=== PATIENT | female | born 1950 | race Caucasian/White ===

== ENCOUNTER → 2018-05-19 07:51 | Outpatient (CLI) | payer MEDICARE, MEDICAID, SELFPAY ==
--- NOTE | 2018-05-19 07:53 | ADU_ITS ---
Reason For Study: Abnormal Peripheral Pulse Right Velocities Left Velocities Ext. Iliac Artery, dist = 114 cm./sec. Ext Iliac Artery, dist = 80 cm./sec. Common Femoral Artery, dist = 107 cm./sec. Common Femoral Artery, dist = 110 cm./sec. Supf Femoral Artery, prox = 76 cm./sec. Supf. Femoral Artery, prox = 113 cm./sec. Supf Femoral Artery, mid = 58 cm./sec. Supf. Femoral Artery, mid = 70 cm./sec. Supf Femoral Artery, dist. = 46 cm./sec. Supf. Femoral Artery, dist = 51 cm./sec. Profunda Femoral Artery = 89 cm./sec. Profunda Femoral Artery = 61 cm./sec. Popliteal Artery, prox. = 41 cm./sec. Popliteal Artery, proximal, = 42 cm./sec. Popliteal Artery, mid = 33 cm./sec. Popliteal Artery, mid = 41 cm./sec. Popliteal Artery, dist = 52 cm./sec. Popliteal Artery, distal = 44 cm./sec. Post. Tibial Artery, prox = 51 cm./sec. Post. Tibial Artery, prox = 47 cm./sec. Post. Tibial Artery, mid = 59 cm./sec. Post Tibial Artery, mid = 48 cm./sec. Post. Tibial Artery, dist = 48 cm./sec. Post Tibial Artery, dist. = 49 cm./sec. Peroneal Artery, prox = 35 cm./sec. Peroneal Artery, prox = 31 cm./sec. Peroneal Artery, mid = 40 cm./sec. Peroneal Artery, mid = 45 cm./sec. Peroneal Artery,dist = 36 cm./sec. Peroneal Artery,dist. = 39 cm./sec. Ant. Tibial Artery, prox = 51 cm./sec. Ant.Tibial Artery, prox = 43 cm./sec. Ant. Tibial Artery, mid = 46 cm./sec. Ant Tibial Artery, mid = 44 cm./sec. Ant. Tibial Artery, dist = 41 cm./sec. Ant. Tibial Artery, distal = 34 cm./sec. Rt DPA: 49cm/s. Lt DPA: 66 cm/s. Procedure Exam performed in department. Interpretation Summary Normal arterial flow bilateral lower extremities with no evidence for popliteal artery aneurysms. Minimal smooth calcific plague right common femoral artery. Minimal irregular plague left commom femoral artery. Right popliteal 0.5 x 0.5 cm Left popliteal 0.6 x 0.6cm Ordering Physician: Duane Torres Referring Physician: Sammi Castillo Performed By: Shivani Spring, [place], RVT
--- NOTE | 2018-05-19 07:53 | US_ITS ---
STUDY: ULTRASOUND OF THE FEMALE PELVIS - COMPLETE REASON FOR EXAM: Female, 67 years old. Adnexal mass. Left pelvic pain. Abnormal CT. LMP: Unknown. TECHNIQUE: Transabdominal and Transvaginal. TECHNICAL QUALITY: Adequate. COMPARISON: Comparison studies are not available.. FINDINGS: The uterus is anteverted and is in a midline position. The uterus measures 5.4 x 3.9 x 1.9 cm. Normal uterine cervix. The endometrium measures 5 mm in thickness, and is fluid distended. There is a 0.3 cm polyp. There is no demonstrated myometrial mass. I.U.D. - The patient does not have an I.U.D. The right ovary is non-visualized. There is not a normal left ovary seen. There is 6.3 x 3.2 x 3.1 cm heterogeneous hypoechoic structure in the left adnexal region with ovarian mass or abnormal bowel and peridiverticular abscess . There is no fluid in the cul-de-sac. The visualized bladder is unremarkable. IMPRESSION: Abnormal left adnexal structure with possible ovarian mass versus abnormal bowel and peridiverticular abscess. CT scan recommended. Endometrial polyp. Electronically Signed: Reji Rayo MD at 18:00 EDT , Service support , STUDY: ULTRASOUND OF THE FEMALE PELVIS - COMPLETE REASON FOR EXAM: Female, 67 years old. Adnexal mass. Left pelvic pain. Abnormal CT. LMP: Unknown. TECHNIQUE: Transabdominal and Transvaginal. TECHNICAL QUALITY: Adequate. COMPARISON: Comparison studies are not available.. FINDINGS: The uterus is anteverted and is in a midline position. The uterus measures 5.4 x 3.9 x 1.9 cm. Normal uterine cervix. The endometrium measures 5 mm in thickness, and is fluid distended. There is a 0.3 cm polyp. There is no demonstrated myometrial mass. I.U.D. - The patient does not have an I.U.D. The right ovary is non-visualized. There is not a normal left ovary seen. There is 6.3 x 3.2 x 3.1 cm heterogeneous hypoechoic structure in the left adnexal region with ovarian mass or abnormal bowel and peridiverticular abscess . There is no fluid in the cul-de-sac. The visualized bladder is unremarkable. US/Pelvic (Non )
--- NOTE | 2018-05-19 10:36 | US_ITS ---
STUDY: ULTRASOUND OF THE FEMALE PELVIS - COMPLETE REASON FOR EXAM: Female, 67 years old. Adnexal mass. Left pelvic pain. Abnormal CT. LMP: Unknown. TECHNIQUE: Transabdominal and Transvaginal. TECHNICAL QUALITY: Adequate. COMPARISON: Comparison studies are not available.. FINDINGS: The uterus is anteverted and is in a midline position. The uterus measures 5.4 x 3.9 x 1.9 cm. Normal uterine cervix. The endometrium measures 5 mm in thickness, and is fluid distended. There is a 0.3 cm polyp. There is no demonstrated myometrial mass. I.U.D. - The patient does not have an I.U.D. The right ovary is non-visualized. There is not a normal left ovary seen. There is 6.3 x 3.2 x 3.1 cm heterogeneous hypoechoic structure in the left adnexal region with ovarian mass or abnormal bowel and peridiverticular abscess . There is no fluid in the cul-de-sac. The visualized bladder is unremarkable. IMPRESSION: Abnormal left adnexal structure with possible ovarian mass versus abnormal bowel and peridiverticular abscess. CT scan recommended. Endometrial polyp. Electronically Signed: Reji Rayo MD at 18:00 EDT , Service support , STUDY: ULTRASOUND OF THE FEMALE PELVIS - COMPLETE REASON FOR EXAM: Female, 67 years old. Adnexal mass. Left pelvic pain. Abnormal CT. LMP: Unknown. TECHNIQUE: Transabdominal and Transvaginal. TECHNICAL QUALITY: Adequate. COMPARISON: Comparison studies are not available.. FINDINGS: The uterus is anteverted and is in a midline position. The uterus measures 5.4 x 3.9 x 1.9 cm. Normal uterine cervix. The endometrium measures 5 mm in thickness, and is fluid distended. There is a 0.3 cm polyp. There is no demonstrated myometrial mass. I.U.D. - The patient does not have an I.U.D. The right ovary is non-visualized. There is not a normal left ovary seen. There is 6.3 x 3.2 x 3.1 cm heterogeneous hypoechoic structure in the left adnexal region with ovarian mass or abnormal bowel and peridiverticular abscess . There is no fluid in the cul-de-sac. The visualized bladder is unremarkable. US/Transvaginal Non-
== END ==
PROVIDERS: Family Provider Internal Medicine; PCP Internal Medicine; Referring Provider Surgery; Visit Provider Surgery
DX: N94.9 Unspecified condition associated with female genital organs and menstrual cycle (principal); R09.89 Other specified symptoms and signs involving the circulatory and respiratory systems; I71.4 Abdominal aortic aneurysm, without rupture
CPT/HCPCS: 76830; 76856; 93925

== ENCOUNTER 2018-05-22 09:56 | Day surgery (SDC) | payer MEDICARE, MEDICAID, SELFPAY ==
--- NOTE | 2018-05-22 | EGD_PTH ---
PATIENT: TRINI FOX LOC: EN U#:[id number] AGE/SX: 67/F ROOM: RE05/22/[address]: Dr. Duane Torres MD : 1950 BED: DIS: 05/22/2018 SPEC #: [id number] RECD: 05/22/18 14:42 STATUS: POLLYLuis Felipe IGGY #: [id number] LILO: 05/22/18 00:[address]: Duane Torres DEPT: SURGICAL PATHOLOGY RECD BY: Hank Larios ENTERED: 05/22/18 14:42 SP TYPE: EGD BIOPSY OT DR: Dr. Sammi Castillo MD Tissues: A - Duodenum, NOS B - Gastric mucous membrane C - Gastric mucous membrane D - Esophageal mucous membrane E - Sigmoid colon biopsy Procedures: Surgery Specimen Level IV HEADER OPERATION: Colonoscopy, EGD ([facility] [place]) PRE-OP DIAGNOSIS: Hiatal hernia with GERD, colitis, diverticulosis, right lower quadrant abdominal pain TISSUE SUBMITTED: A - Duodenal biopsy, B - Antral biopsy, C - Gastric polyp, D - Distal esophagus biopsy, E - Sigmoid colon biopsy MICROSCOPIC DIAGNOSIS A. Duodenal biopsy: Fragments of duodenal mucosa, no pathologic diagnosis. B. Antral biopsy: Mild gastritis. See microscopic description and comment. C. Gastric polyp, biopsy: Fundic gland polyp. D. Distal esophagus, biopsy: Fragments of squamous mucosa with changes consistent with gastroesophageal reflux disease. E. Sigmoid colon, biopsy: Fragments of colonic mucosa, no pathologic diagnosis. SJ:kailey 05/23/18 COMMENT B. The results of immunohistochemistry for Helicobacter pylori will be reported separately ([id number]). MICROSCOPIC DESCRIPTION Slides are reviewed. B. The specimen shows fragments of gastric mucosa with chronic inflammatory cell infiltrates in the lamina propria consisting of lymphocytes and plasma cells, consistent with mild chronic gastritis. GROSS DESCRIPTION A - Received in fixative is one container labeled with the patient's name and designated duodenal biopsy. The specimen consists of two irregular fragments of light [place] soft tissue that in aggregate measure 0.5 x 0.3 x 0.1 cm. The specimen is totally submitted in one cassette. B - Received in fixative is one container labeled with the patient's name and designated antral biopsy. The specimen consists of one irregular fragment of light [place] soft tissue that measures 0.4 x 0.3 x 0.1 cm. The specimen is totally submitted in one cassette. C - Received in fixative is one container labeled with the patient's name and designated gastric polyp. The specimen consists of one irregular fragment of light [place] soft tissue that measures 0.7 x 0.4 x 0.1 cm. The specimen is totally submitted in one cassette. D - Received in fixative is one container labeled with the patient's name and designated distal esophagus biopsy. The specimen consists of multiple irregular fragments of light [place] soft tissue that in aggregate measure 0.8 x 0.2 x 0.1 cm. The specimen is totally submitted in one cassette. E - Received in fixative is one container labeled with the patient's name and designated sigmoid colon biopsy. The specimen consists of multiple irregular fragments of light [place] soft tissue that in aggregate measure 0.8 x 0.8 x 0.1 cm. The specimen is totally submitted in one cassette. / SJ:rg 05/22/18 TC:4 CPT: 18855 x5
--- NOTE | 2018-05-22 | IMM_PTH ---
PATIENT: TRINI FOX LOC: EN U#:[id number] AGE/SX: 67/F ROOM: RE05/22/[address]: Dr. Duane Torres MD : 1950 BED: DIS: 05/22/2018 SPEC #: [id number] RECD: 05/23/18 11:30 STATUS: YE IGGY #: [id number] LILO: 05/22/18 00:[address]: Duane Torres DEPT: IMMUNOHISTOCHEMISTRY RECD BY: Roberta Stringer ENTERED: 05/23/18 11:30 SP TYPE: IMMUNO OTHR DR: Dr. Sammi Castillo MD Tissues: B - Stomach, NOS Procedures: H Pylori (initial) PHYSICIAN & INSTITUTION [place] [id number] SPECIMEN INFORMATION: Tissue Source: B - Antral biopsy Clinical Info: Hiatal hernia, GERD, colitis, diverticulosis, RLQ pain Specimen Number: [id number] CPT code: 36259 METHODOLOGY: Deparaffinized sections of prefer/formalin-fixed tissue or PAP/DQ stained slides are incubated with monoclonal/polyclonal antibodies/oligonucleotide probes. Localization is made via biotin free immunoperoxidase method. Appropriate controls are performed and reacted as expected. Results on target cell population are indicated in the following table: RESULTS: ANTIBODY / CLONE RESULT Block B H Pylori (polyclonal) negative These tests were developed and their performance characteristics determined by [facility]. They may not have been cleared or approved by the U.S. Food and Drug Administration. The FDA has determined that such clearance or approval is not necessary. INTERPRETATION: B. Antral biopsy: Negative for Helicobacter pylori organisms. SJ:kailey 05/23/18
[2018-05-22 10:12] VITALS: BP 134/77; PULSE 78; RESP 16; TEMP 36.6; O2SAT 98; BMI 28.6
[2018-05-22 12:20] VITALS: BP 130/77; BP 134/77; PULSE 76; RESP 16; TEMP 36.3; O2SAT 99
--- NOTE | 2018-05-22 12:20 | OP.ENDO_ITS ---
Patient Name: So Ramirez Procedure Date: 05/22/2018 11:39 AM Date of : 1950 Age: 67 Procedure: Upper GI endoscopy Indications: Dysphagia, Heartburn Providers: Duane Torres MD Medicines: See the Anesthesia note for documentation of the administered medications Complications: No immediate complications. Procedure: Pre-Anesthesia Assessment: - Prior to the procedure, a History and Physical was performed, and patient medications and allergies were reviewed. The patient's tolerance of previous anesthesia was also reviewed. The risks and benefits of the procedure and the sedation options and risks were discussed with the patient. All questions were answered, and informed consent was obtained. Prior Anticoagulants: The patient has taken no previous anticoagulant or antiplatelet agents. ASA Grade Assessment: III - A patient with severe systemic disease. After reviewing the risks and benefits, the patient was deemed in satisfactory condition to undergo the procedure. After obtaining informed consent, the endoscope was passed under direct vision. Throughout the procedure, the patient's blood pressure, pulse, and oxygen saturations were monitored continuously. The gastroscope was introduced through the mouth, and advanced to the second part of duodenum. The upper GI endoscopy was accomplished without difficulty. The patient tolerated the procedure well. Scope In: 11:44:54 AM Scope Out: 11:50:58 AM Total Procedure Duration Time 0 hours 6 minutes 4 seconds Findings: The Z-line was irregular and was found 30 cm from the incisors. A large hiatal hernia was present. LA Grade B (one or more mucosal breaks greater than 5 mm, not extending between the tops of two mucosal folds) esophagitis with no bleeding was found 30 cm from the incisors. Biopsies were taken with a cold forceps for histology. Multiple localized, non-bleeding erosions were found in the gastric antrum. There were no stigmata of recent bleeding. Biopsies were taken with a cold forceps for histology. Multiple sessile polyps with no stigmata of recent bleeding were found in the stomach. Biopsies were taken with a cold forceps for histology. The examined duodenum was normal. Biopsies were taken with a cold forceps for histology. Impression: - Z-line irregular, 30 cm from the incisors. - Large hiatal hernia. - LA Grade B reflux esophagitis. Biopsied. - Non-bleeding erosive gastropathy. Biopsied. - Multiple gastric polyps. Biopsied. - Normal examined duodenum. Biopsied. Recommendation: - Return to my office in 1 week. - Resume previous diet - advance as tolerated to resume previous diet. - Continue present medications. Procedure Code(s): --- Professional --- 22677, Esophagogastroduodenoscopy, flexible, transoral; with biopsy, single or multiple Diagnosis Code(s): --- Professional --- K22.8, Other specified diseases of esophagus K44.9, Diaphragmatic hernia without obstruction or gangrene K21.0, Gastro-esophageal reflux disease with esophagitis K31.89, Other diseases of stomach and duodenum K31.7, Polyp of stomach and duodenum R13.10, Dysphagia, unspecified R12, Heartburn CPT copyright 2017 [employer]. All rights reserved. The codes documented in this report are preliminary and upon wire insulator review may be revised to meet current compliance requirements. Duane Torres MD 05/22/2018 12:20:08 PM This report has been signed electronically. Number of Addenda: 0 Note Initiated On: 05/22/2018 11:39 AM
[2018-05-22 12:25] VITALS: BP 134/77; BP 142/79; PULSE 75; RESP 16; O2SAT 100
--- NOTE | 2018-05-22 12:25 | OP.ENDO_ITS ---
Patient Name: So Ramirez Procedure Date: 05/22/2018 11:54 AM Date of : 1950 Age: 67 Procedure: Colonoscopy Indications: Abdominal pain in the left lower quadrant Providers: Duane Torres MD Medicines: See the Anesthesia note for documentation of the administered medications Patient Profile: Last Colonoscopy: none. The patient's first colonoscopy is today. Complications: No immediate complications. Procedure: Pre-Anesthesia Assessment: - Prior to the procedure, a History and Physical was performed, and patient medications and allergies were reviewed. The patient's tolerance of previous anesthesia was also reviewed. The risks and benefits of the procedure and the sedation options and risks were discussed with the patient. All questions were answered, and informed consent was obtained. Prior Anticoagulants: The patient has taken no previous anticoagulant or antiplatelet agents. ASA Grade Assessment: III - A patient with severe systemic disease. After reviewing the risks and benefits, the patient was deemed in satisfactory condition to undergo the procedure. After I obtained informed consent, the scope was passed under direct vision. Throughout the procedure, the patient's blood pressure, pulse, and oxygen saturations were monitored continuously. The pediatric colonoscope was introduced through the anus and advanced to the cecum, identified by appendiceal orifice and ileocecal valve. The colonoscopy was performed without difficulty. The patient tolerated the procedure well. The quality of the bowel preparation was good. The ileocecal valve was photographed. Scope In: 11:55:18 AM Scope Withdrawal Time 0 hours 6 minutes 9 seconds Scope Out: 12:12:59 PM Total Procedure Duration Time 0 hours 17 minutes 41 seconds Findings: Hemorrhoids were found on perianal exam. Lax anal tone Multiple diverticula were found in the sigmoid colon and descending colon. Biopsies were taken with a cold forceps for histology. A benign-appearing, intrinsic moderate stenosis was found in the sigmoid colon. The exam was otherwise without abnormality. Impression: - Hemorrhoids found on perianal exam. - Diverticulosis in the sigmoid colon and in the descending colon. Biopsied. - Stricture in the sigmoid colon. - The examination was otherwise normal. I could not get the colonoscope past the tortuosity and narrowing of the sigmoid colon. This was transvered with an upper scope. Recommendation: - Discharge patient to home. - Resume previous diet. - Continue present medications. - Repeat colonoscopy in 10 years for screening purposes. - Return to GI office in 1 week Consider surgical treatment of simgoid colon. Procedure Code(s): --- Professional --- 98694, Colonoscopy, flexible; with biopsy, single or multiple Diagnosis Code(s): --- Professional --- K64.9, Unspecified hemorrhoids K56.699, Other intestinal obstruction unspecified as to partial versus complete obstruction R10.32, Left lower quadrant pain K57.30, Diverticulosis of large intestine without perforation or abscess without bleeding CPT copyright 2017 [employer]. All rights reserved. The codes documented in this report are preliminary and upon logistics tech review may be revised to meet current compliance requirements. Duane Torres MD 05/22/2018 12:25:13 PM This report has been signed electronically. Number of Addenda: 0 Note Initiated On: 05/22/2018 11:54 AM
[2018-05-22 12:30] VITALS: BP 134/77; BP 145/74; PULSE 70; RESP 16; O2SAT 100
[2018-05-22 12:35] VITALS: BP 134/77; BP 150/80; PULSE 75; RESP 16; TEMP 36.4; O2SAT 98
[2018-05-22 13:20] VITALS: BP 134/77
== END 2018-05-22 13:21 | disposition home or self-care (01) ==
LOC: EN 09:58 → AC 09:59
PROVIDERS: Family Provider Internal Medicine; PCP Internal Medicine; Referring Provider Surgery; Visit Provider Surgery
PROC: 0DJD8ZZ Inspection of Lower Intestinal Tract, Via Natural or Artificial Opening Endoscopic (ICD-10-PCS; CPT 45378; principal; 2018-05-22 11:25)
DX: K31.7 Polyp of stomach and duodenum (principal); K44.9 Diaphragmatic hernia without obstruction or gangrene; K29.70 Gastritis, unspecified, without bleeding; K21.0 Gastro-esophageal reflux disease with esophagitis; R13.10 Dysphagia, unspecified; R12 Heartburn; K31.89 Other diseases of stomach and duodenum; K22.8 Other specified diseases of esophagus; I10 Essential (primary) hypertension; J44.9 Chronic obstructive pulmonary disease, unspecified; I71.4 Abdominal aortic aneurysm, without rupture; R09.89 Other specified symptoms and signs involving the circulatory and respiratory systems; K52.9 Noninfective gastroenteritis and colitis, unspecified; N94.9 Unspecified condition associated with female genital organs and menstrual cycle; M06.9 Rheumatoid arthritis, unspecified; Z87.891 Personal history of nicotine dependence
CPT/HCPCS: 43239; 88305; 88342; J7120

== ENCOUNTER → 2018-05-23 10:45 | Outpatient (CLI) | payer MEDICARE, MEDICAID, SELFPAY ==
[2018-05-24 13:09] LABS: Cancer Antigen 125 21.9 U/mL (0.0-38.1)
== END ==
PROVIDERS: PCP Internal Medicine; Visit Provider Obstetrics & Gynecology
DX: D39.12 Neoplasm of uncertain behavior of left ovary (principal)
CPT/HCPCS: 36415; 86304

== ENCOUNTER 2018-07-07 05:37 | Inpatient (IN) | payer MEDICARE, MEDICAID, SELFPAY ==
[2018-06-30 09:15] VITALS: BMI 29.0
[2018-06-30 11:04] VITALS: BP 142/87; PULSE 72; RESP 16; TEMP 36.9; O2SAT 97; BMI 28.9
--- NOTE | 2018-06-30 11:09 | SDCEKG_ITS ---
Test Reason : Blood Pressure : / mmHG Vent. Rate : 068 BPM Atrial Rate : 068 BPM P-R Int : 140 ms QRS Dur : 078 ms QT Int : 410 ms P-R-T Axes : 067 069 057 degrees QTc Int : 435 ms Normal sinus rhythm Normal ECG Confirmed by JANET HENDERSON MD ([id number]), RAJI Turner ([id number]) on 07/01/2018 4:00:29 PM Also confirmed by JANET HENDERSON MD ([id number]), RAJI Turner ([id number]) on 07/02/2018 4:24:16 PM Also confirmed by NELLY NAVA MD ([id number]), rewrite editor PASQUALE BROWN ([id number]) on 07/11/2018 7:17:54 AM Also confirmed by NELLY NAVA MD ([id number]), PASQUALE Antunez ([id number]) on 07/11/2018 7:18:10 AM Referred By: Duane Torres Confirmed By:NELLY NAVA MD
[2018-06-30 11:46] LABS: Hematocrit 42.3 % (37-47); Hemoglobin 14.1 g/dl (12.0-15.0); Mean Corp Hgb Conc 33.3 g/gl (32-36); Mean Corpuscular Hgb 31.4 pg (27.0-32.0); Mean Corpuscular Volume 94.2 fL (81-99); Mean Platelet Vol. 9.1 fl (6.2-12.0); Platelet Count 318 K/mm3 (150-450); RBC Distribution Width SD 46.2 fl (35.1-43.9); Red Blood Count 4.49 M/mm3 (4.2-5.4)
[2018-06-30 11:50] LABS: Scan Indicated on CBC? Y/N NO
[2018-06-30 12:01] LABS: International Normalized Ratio 0.9; Partial Thromboplast Time 26.8 Seconds (24.1-36.2)
[2018-06-30 12:34] LABS: Anion Gap 13 (5-15); BUN 16 mg/dL (7-18); BUN/Creat Ratio 19.7 RATIO (10-20); Calcium,Total 9.4 mg/dL (8.5-10.1); Chloride 103 mmol/L (98-107); Creatinine, Serum 0.81 mg/dL (0.55-1.02); EST Glomerular Filtration Rate 74 mL/min (>60); Est Glom Filt Rate - Afr Amer 90 mL/min (>60); Estimated Creatinine Clearance 47.75 ml/min; Glucose 104 mg/dL (74-106); Potassium 3.9 mmol/L (3.5-5.1); Sodium Level 139 mmol/L (136-145)
[2018-07-07] VITALS (13 sets, daily range): BP systolic 105–154; BP diastolic 53–79; PULSE 61–92; RESP 16–18; TEMP 36.3–37.3; O2SAT 93–100; BMI 28.9
[2018-07-07] MEDS: Gabapentin 600 MG Tablet PO (06:00)
--- NOTE | 2018-07-07 06:39 | DCINST_ITS ---
Discharge Diet: Light diet - advance as tolerated - if you have questions about your diet instructions, please talk to you doctor. Discharge Activity: May Not Drive - for 1 week or while taking narcotic pain medicine. May shower in (days): 0 - May shower now Lifting Restrictions: 10 pounds Additional Activity Instructions:: Resume prednisone now. Resume Humira in 2 weeks. Resume Methotrexate in 1 week Call your doctor if your incision/area has: Continuous Slow Oozing, Sudden Increased Bleeding, Increased Pain/ Swelling, Increased Redness, Foul Smelling Discharge Call your doctor if you observe: Fever of 101 or Higher Suture Line Care: Avoid Pulling/Pushing, Avoid Pinching/Bending Additional Dressing/Incision Instructions:: You may place gauze dressing as needed to protect the incisions from clothing if irritation occurs. Leave steri-strips in place for 1 week. Allergies/Adverse Reactions: Allergies Penicillins Allergy (Mild, Verified 06/30/18 10:38) rash doxycycline Adverse Reaction (Mild, Verified 06/30/18 10:38) gi upset levofloxacin [From Levaquin] Adverse Reaction (Mild, Verified 06/30/18 10:38) gi upset meperidine [From Demerol] Adverse Reaction (Mild, Verified 06/30/18 10:38) gi upset moxifloxacin [From Avelox] Adverse Reaction (Mild, Verified 06/30/18 10:38) gi upset Sulfa (Sulfonamide Antibiotics) Adverse Reaction (Mild, Verified 06/30/18 10:38) gi upset acetaminophen [From Tylenol-Codeine] Adverse Reaction (Verified 06/30/18 10:38) Nausea/Vom/Diarrhea codeine [From Tylenol-Codeine] Adverse Reaction (Verified 06/30/18 10:38) Nausea/Vom/Diarrhea Medications to take at Discharge adalimumab 40 mg/0.8 mL subcutaneous pen kit 40 mg SC Q2W 05/12/18 aspirin 81 mg tablet,delayed release 81 mg PO DAILY 05/12/18 denosumab 60 mg/mL subcutaneous syringe 60 mg SC [id number] 05/12/18 fluticasone 250 mcg-salmeterol 50 mcg/dose blistr powdr for inhalation 1 inh INHALATION BID 05/12/18 fluticasone 50 mcg/actuation blister powder for inhalation 1 inh INHALATION BID PRN 05/12/18 fluvastatin 40 mg capsule 80 mg PO QHS 05/12/18 folic acid 1 mg tablet 4 mg PO DAILY 05/12/18 glucosamine HCl 1,500 mg tablet 1,500 mg PO DAILY 05/12/18 melatonin 3 mg tablet 3 mg PO HS PRN 05/12/18 methotrexate sodium 2.5 mg tablet 7.5 mg PO SA 05/12/18 omega 4-vnm-qcb-fish oil 60 mg-90 mg-500 mg capsule 1 cap PO DAILY 05/12/18 omeprazole 20 mg capsule,delayed release 20 mg PO DAILY 05/12/18 potassium chloride ER 20 mEq tablet,extended release(part/cryst) 20 meq PO DAILY 05/12/18 prednisone 2.5 mg tablet 2.5 mg PO DAILY 05/12/18 triamterene 37.5 mg-hydrochlorothiazide 25 mg capsule 1 cap PO DAILY 05/12/18 Albuterol Aerosols [Ventolin Aerosols] 2.5 mg INHALATION Q6H PRN PRN 05/20/18 Calcium Carbonate [Calcium] 600 mg PO DAILY 05/20/18 Cider Vinegar [Apple Cider Vinegar] 300 mg PO DAILY 06/30/18 Turmeric/Turmeric Root Extract [Turmeric 500 mg Capsule] 1 each PO DAILY 06/30/18 Primary Care Physician: Sammi Castillo MD [Primary Care Provider] - Test Results: Test results from this visit will be discussed in further detail at your follow- up appointment, if applicable. Please Follow Up With: Duane Torres MD - [phone] When: Call to make an appointment to be seen in about 10 days.
[2018-07-07 06:54] LABS: AST(SGOT) 25 U/L (15-37); Alanine Aminotransfer ALT/SGPT 27 U/L (13-56); Albumin, Serum 3.6 g/dL (3.2-5.0); Alkaline Phosphatase 52 U/L (45-117); Bilirubin, Direct 0.15 mg/dL (0.00-0.30); Globulin 4.3 g/dL (2.2-4.2); Protein, Total 7.9 g/dL (6.4-8.2)
[2018-07-07 07:11] LABS: Bedside Glucose 105 mg/dL (70-110)
--- NOTE | 2018-07-07 07:15 | COL_PTH ---
PATIENT: TRINI FOX LOC: MS3 U#:[id number] AGE/SX: 67/F ROOM: [facility] [place] RE07/07/[address]: Dr. Lg Floyd MD : 1950 BED: 1 DIS: 07/09/2018 SPEC #: [id number] RECD: 07/07/18 15:32 STATUS: YE REQ #: [id number] LILO: 07/07/18 07:[address]: Duane Torres DEPT: SURGICAL PATHOLOGY RECD BY: Scott Anderson ENTERED: 07/08/18 08:39 SP TYPE: COLON OTHR DR: MD Dr. Lg Parham MD Dr. Loren Kirchner, MD Dr. Robert D Cebul, MD Tissues: A - Colon Donuts B - Colon Donuts C - Right ovary D - Colon, NOS Procedures: Surgery Specimen Level III Surgery Specimen Level IV Surgery Specimen Level V Comments: @ Ordering doctor for SUIII edited from to @ by SALOME at 07/09/18713 @ Ordering doctor for SUIV edited from to @ by SALOME at 07/09/18713 @ Ordering doctor for SUV edited from to @ by SALOME at 07/09/18713 @ Submitting doctor edited from to @ shania MCMAHON at 07/09/1814 HEADER OPERATION: Laparoscopic low anterior resection with hand assist PRE-OP DIAGNOSIS: Diverticulitis of large intestine without bleeding, adnexal mass TISSUE SUBMITTED: A - Proximal donut, B - Distal donut, C - Right tube and ovary, D - Sigmoid colon and left tube and ovary MICROSCOPIC DIAGNOSIS A. Proximal mucosal donut, excision: Colonic mucosa, submucosa and muscular tissue with no significant pathologic change. One out of one benign lymph node. B. Distal mucosal donut, excision: Colonic mucosa, submucosa and muscular tissue with no significant pathologic change. C. 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 Fallopian tube with no significant pathologic change. D. Sigmoid colon, left fallopian tube and ovary, excision: Colon with diverticular disease with focal rupture and associated inflammation, reparative and reactive change. Two out of two lymph nodes with no pathologic change. Left ovary - corpora albicantia. Left fallopian tube - fibrous adhesion to the sigmoid colon. AM:kailey 07/09/18 COMMENT No malignancy is identified. Clinical correlation is suggested. Case has been reviewed in consultation with Dr. Brown who concurs with the above diagnosis. IDC:[id number] MICROSCOPIC DESCRIPTION Slides are reviewed. GROSS DESCRIPTION A - Received in fixative is one container labeled with the patient's name and designated proximal donut. The specimen consists of a [place]by mucosal donut measuring 2 cm in diameter and 0.8 cm in thickness. No mucosal mass lesions are identified. Translation Director sections are submitted in one cassette. B - Received in fixative is one container labeled with the patient's name and designated distal donut. The specimen consists of a [place]le[place] mucosal donut measuring 2 cm in diameter and 1.2 cm in thickness. No mucosal mass lesions are identified. Translation Director sections are submitted in one cassette. C - Received in fixative is one container labeled with the patient's name and designated right ovary and tube. The specimen consists of a smooth, glistening yellow-oglesby ovary measuring 2 x 1.5 x 0.8 cm. Serial sections of the ovary do not reveal mass lesions. The adjacent fallopian tube measures 2.5 cm in length and 0.5 cm in average diameter. A normal fimbriated end is present. Translation Director sections are submitted in two cassettes as follows: 1 - ovary, 2 - fallopian tube. D - Received in fixative is one container labeled with the patient's name and designated sigmoid colon, left ovary and fallopian tube. The specimen consists of a 13 cm segment of bowel. The serosal surface is irregular. Focally, there is an adherent ovary and portions of fallopian tube. The ovary measures 2 x 1.5 x 0.5 cm. The adherent fallopian tube measures 5 cm in length and approximately 0.6 cm in average diameter. The serosal surface of the specimen is inked. No gross perforations are identified. Serial sections of the ovary do not reveal mass lesions. Serial sections of the bowel reveal multiple diverticula, none of which appear to have perforated through the bowel wall. Occasional nodules are identified in the pericolic soft tissue resembling lymph nodes. Translation Director sections are submitted in eight cassettes as follows: 1 - ovary, 2-4 - fallopian tube with adjacent bowel, 5-7 - diverticula, 8 - sales representative leather goods lymph nodes. / AM:kailey 07/08/18 TC:2 CPT: 86665 x2, [id number], [id number]
[2018-07-07] MEDS: Lidocaine/D5W 2,000 MG/250 ML IV.SOLN 2000 MG (07:34)
--- NOTE | 2018-07-07 09:18 | PCM.OPRPT ---
Report of Operation Date of Procedure: 07/07/18 Pre-Operative Diagnosis: Sigmoid mass Post-Operative Diagnosis: same Surgery/Procedure Performed:: Cystoscopy and left stent placement. Description of Surgical Findings:: 67 yo female take to OR, placed in lithotomy position urethra and vaginal area prep and drapped in sterile fashion went into the bladder, urethra was normal, bladder wall normal cannulized left ureteral orfice with wire and advanced a pollack catheter. once cath placed then placed mc, case then release to general surgery. Type of Anesthesia:: General Drains: stent left - Admit VTE Documentation VTE Mechan Device Prophylaxis: SCD's
--- NOTE | 2018-07-07 09:29 | PCM.OPRPT ---
Report of Operation Date of Procedure: 07/07/18 Pre-Operative Diagnosis: Sigmoid mass Post-Operative Diagnosis: Same and pelvic/abdominal adhesive disease Surgery/Procedure Performed:: Laparoscopic and hand assisted bilateral salpingooophorectomy Description of Surgical Findings:: Sigmoid colon and small bowel adherent to the left sidewall. Ovaries appeared normal. Left fallopian tube with inflammation. Uterus normal. podiatrist orthopedic: Duane Torres Type of Anesthesia:: General Anesthesiologist: Fausto Higgins Special Medications: none Specimen's removed: right ovary and fallopian tube ( left ovary and fallopian tube will be removed with portion of colon Drains: Esteban Description of Procedure: Dr. Torres placed three 5mm laparoscopic ports on the left side. Also placed a gelport just below the umbilicus in the midline. With careful dissection Dr. Torres freed the bowel from the left sidewall. The left uteroovarian and infindibulopelvic ligament were cut with the Enseal device. The left ovary and fallopian tube were attached to the sigmoid colon and were removed with that specimen. The right fallopian tube was grasped at the fimbriated end elevated and the right infudibulopelvic ligament was cauterized and cut close to the ovary. The Mesosalpinx was then dissected down to the uteroovarian ligament which was cauterized and cut. The specimen was then removed. Dr. Torres then completed the remaining dissection of the pelvic and abdominal adhesions and resceted the sigmoid colon. - Admit VTE Documentation VTE Present on Admission: No VTE Mechan Device Prophylaxis: SCD's VTE Pharm Prophylaxis ordered?: No
[2018-07-07] MEDS: Lubricating Jelly 60 GM Tube 30 GM TOPICAL ×2 (09:30→10:44)
--- NOTE | 2018-07-07 09:36 | OP.PCM_ITS ---
Report of Operation Date of Procedure: 07/07/18 Pre-Operative Diagnosis: Sigmoid mass Post-Operative Diagnosis: Same and pelvic/abdominal adhesive disease Surgery/Procedure Performed:: Laparoscopic and hand assisted bilateral salpingooophorectomy Description of Surgical Findings:: Sigmoid colon and small bowel adherent to the left sidewall. Ovaries appeared normal. Left fallopian tube with inflammation. Uterus normal. non licensed nuclear plant operator: Duane Torres Type of Anesthesia:: General Anesthesiologist: Fausto Higgins Special Medications: none Specimen's removed: right ovary and fallopian tube ( left ovary and fallopian tube will be removed with portion of colon Drains: Esteban Description of Procedure: Dr. Torres placed three 5mm laparoscopic ports on the left side. Also placed a gelport just below the umbilicus in the midline. With careful dissection Dr. Torres freed the bowel from the left sidewall. The left uteroovarian and infindibulopelvic ligament were cut with the Enseal device. The left ovary and fallopian tube were attached to the sigmoid colon and were removed with that specimen. The right fallopian tube was grasped at the fimbriated end elevated and the right infudibulopelvic ligament was cauterized and cut close to the ovary. The Mesosalpinx was then dissected down to the uteroovarian ligament which was cauterized and cut. The specimen was then removed. Dr. Torres then completed the remaining dissection of the pelvic and abdominal adhesions and resceted the sigmoid colon. - Admit VTE Documentation VTE Present on Admission: No VTE Mechan Device Prophylaxis: SCD's VTE Pharm Prophylaxis ordered?: No
[2018-07-07] MEDS: Bupivacaine 0.25% 30 ML Vial (10:57)
[2018-07-07] MEDS: BUPIVACAINE LIPOSOME/PF 20 ML VIAL OPERA.SITE (10:57)
--- NOTE | 2018-07-07 11:40 | PCM.OPRPT ---
Problem List (1) Diverticulitis large intestine Status: Acute Qualifiers: Diverticulitis bleeding: without bleeding Diverticulitis complication: unspecified complication status Qualified Code(s): K57.32 - Diverticulitis of large intestine without perforation or abscess without bleeding (2) Stricture of sigmoid colon Status: Acute Report of Operation Date of Procedure: 07/07/18 Pre-Operative Diagnosis: Sigmoid stricture secondary to diverticulitis Post-Operative Diagnosis: Sigmoid stricture secondary to diverticulitis Surgery/Procedure Performed:: Laparoscopic converted to hand-assisted laparoscopic low anterior resection of the sigmoid colon with bilateral salpingo-oophorectomies and pre-intervention cystoscopy with left ureteral catheter placement Description of Surgical Findings:: Timeout and informed consent was obtained. 67-year-old female was taken the operating room. She underwent EUS protocol. She had clindamycin 900 mg and gentamicin given intravenously preoperatively. She also had Protonix given IV 40 mg and she had stress dose steroids given Solu-Medrol. She underwent general endotracheal intubation anesthesia. She was placed in low lithotomy position. Dr. Fenton performed a cystoscopy and left ureteral catheter placement. Subsequently abdomen and perineum were prepped and draped. Ioban drape was used over the drapes as well. To the right of the umbilicus used a 5 mm Visiport technology to gain access. 2 more 5 mL ports were placed in the right lower quadrant. I eventually exchanged out the right lower quadrant anterior iliac crest port for a 11 mm port. Inspection revealed that the upper abdomen was unremarkable the stomach was nicely decompressed liver surface appeared to be normal circumflex superficial greater omentum appeared normal. There was dense adhesive disease of small bowel in the pelvis. The sigmoid colon was densely adherent to the left tube and ovary and pelvic sidewall. I initially attempted sharp dissection the left pelvic sidewall but rapidly realized that that was not advancing has the course of the ureter and the lie of the bowel and course of the tube and ovary could not be decided. So I made an infraumbilical midline incision placed a GelPort. I then utilized blunt dissection to carefully dissect through dense adhesions I used sharp scissor dissection and Enseal dissection. Under the direction of Dr. Lg Gramajo I transected the left fallopian tube leaving the ovary attached to the sigmoid colon. Having now clearly inspected the left pelvic sidewall seen at the ureter had a stent in it and it was intact that the left tube and ovary was with the sigmoid colon Dr. Lg Hamilton then proceeded on his own up to perform the right salpingo-oophorectomy. That specimen was individually submitted. Those sites were hemostatic. Having achieved that now I proceeded on with the colectomy. It was apparent that the sigmoid was densely adherent to the left pelvic sidewall and all the way down to the pelvic hollow at the pelvic needle reflection. Using Enseal device was able to bluntly and sharply dissect the entire sigmoid sidewall I then chose a place to incise the mesentery to the sigmoid colon and transected that with the Enseal device. There was some bleeding in the pelvis area which I placed a couple laparotomy packs and help pack that control that bleeding used the Enseal to further secure the bleeding and then I used Gelfoam throat thrombin to place on that area I continue to work. I had to incise the peritoneal reflection and carefully teased that free to get further below on the rectosigmoid and separate the posterior vaginal wall. Having achieved that I felt that I had healthy enough rectosigmoid to perform the transection. I initially thought I could do that with a contour but could not get the ankle so then I placed a 60 mm [place] through the right lower quadrant port site and 2 firings were used to transect it one final firing was used to transect a small amount of remnant material. The ureter was nicely intact. That transection appeared to be nicely intact. Irrigated the pelvis was hemostatic. I withdrew the sigmoid colon and a tightly strictured portion of bowel was then transected using the Enseal divided the rest of the mesentery up to the bowel. The bowel appeared to be quite viable at that point and I placed a Trice clamp. Transected the bowel. Placed a whip suture of 2-0 Prolene. Placed a 29 mm anvil and secured the pursestring. Then placed that back in the abdomen. Due attention to the rectal area irrigated that with Betadine and then observed path with the rigid sigmoidoscope and inserted the circular anastomotic stapler. I then went back up top and held to assure that the staple line was exiting to the previous staple line felt that he had that nicely 9.and was free from any of the potential vaginal wall encumbrance and the trocar was exited I made that with the anvil the 2 were approximated that appeared to be a nice fit with absolutely no tension I personally do fired device then I remove the donuts I personally inspected the donuts the donuts were intact. And then inserted a rigid sigmoidoscope injected air and there was absolutely no air leak whatsoever. [place] that I had a visualized the anastomosis that appeared to be nicely intact. This point I felt that I had a good solid anastomosis with healthy tissue. The pelvis was aspirated free. I removed the Gelfoam and thrombin. Hemostasis was intact I did place a small piece of Surgicel on the left pelvic sidewall and That away from the staple line. [place] that it was not indicated to leave a drain. Small bowel was inspected where it had been removed from the pelvis with a lysis of adhesions it was intact. Small bowel all appear to be normal with a 2 packs that I used previously to obtain hemostasis were removed. The greater omentum was placed overlying. I then performed a tap block 3 cc of Exparel and 30 cc of 0.25% Marcaine and 60 cc of saline was used for the tap block. I utilized 70 cc bilaterally under laparoscopic visualization. [place] that I got good block. Then trochars were removed. The larger trocar site in the right lower quadrant anterior iliac area was closed with a 0 Vicryl using a GraNee needle in a [id number] fashion. Now the hand assist device was removed gowns gloves were changed. Patient was redraped at the wound site. The midline wound was then closed with a running 0 PDS. The fascia around the wound was anesthetized with the same local mixture and a total of 30 cc was used for the skin sites and midline incision. The midline wound was closed with a running septic or 4-0 Monocryl and the port sites were closed with interrupted 4-0 Monocryl. Steri-Strips Telfa and OpSite dressings applied tape and Telfa dressings applied. Sponge and instrument and needle counts reported the surgeon be correct. Blood loss was estimated approximately 250 cc. She seemed to tolerate the procedure well she was making urine at the completion of the procedure the left ureteral catheter was removed she was taken to the recovery room in satisfactory condition. No apparent complication. Specimens include the sigmoid colon with a small portion of rectosigmoid and the donuts. Drains none. Blood loss 250 cc. Duane Torres M.D., F.A.C.S. case making machine operator: Lg Gramajo case making machine operator: Tarun Fenton Type of Anesthesia:: General Anesthesiologist: Fausto Higgins Special Medications: none Specimen's removed: right ovary and fallopian tube ( left ovary and fallopian tube will be removed with portion of colon Drains: Esteban
--- NOTE | 2018-07-07 14:43 | PN_ITS ---
Patient Problems: Active and Suspected Problems (Last Reviewed 06/30/18 @ 09:15 by Nina Rivera) Stricture of sigmoid colon (Acute) Subjective: Patient is a 67-year-old female with an extensive past medical history which includes rheumatoid arthritis, osteoarthritis, hypertension, GERD, aneurysm of infrarenal abdominal aorta, COPD and diverticulitis as well as an adnexal mass. She was admitted by the general surgery service on account of sigmoid stricture due to diverticulitis and had a low anterior resection of the sigmoid colon with bilateral salpingo-oophorectomy and preintervention cystoscopy with left ureteral catheter placement. Hospitalist service was consulted for medical management. Patient seen and examined. She was comfortable and had no complaints. She denied having any pain and denied any fever or chills, any cough or chest pain, any shortness of breath or abdominal pain. Review of systems otherwise negative. On further inquiry, patient states her prednisone, Humira and methotrexate was stopped 2 weeks prior to having the surgery.Labs and vitals reviewed. Vitals/I&O's: Vital Signs Temp Pulse Resp BP Pulse Ox 97.3 F L 67 16 126/72 H 100 07/07/18 13:45 07/07/18 13:45 07/07/18 13:45 07/07/18 13:45 07/07/18 13:45 Oxygen Flow Rate (L/min) 6 Oxygen Delivery Method Room Air Weight: 148 lb 2.41 oz Body Mass Index (BMI) 28.9 Intake and Output for Last 24 Hours 07/05/18 07/06/18 07/07/18 23:59 23:59 23:59 Intake Total 1900 / 1900 Output Total 225 / 225 Balance 1675 / 1675 General: Alert, Oriented x3, Cooperative, No apparent distress HEENT: Atraumatic, PERRLA, EOMI, Normocephalic Oral: Moist Mucosa Neck: Supple, No JVD, Negative Carotid Bruits Lungs: Clear to auscultation, Normal air movement, No rhonchi, No wheeze, No rales Cardiovascular: Regular rate, Regular Rhythm, Normal S1, Normal S2, No murmurs, No Ectopic Activity Abdomen: Soft, Non Tender, Non-Distended, - - surgical site dressing is clean and dry. few bowel sounds noted Extremities: No clubbing, No cyanosis, No edema, Capillary Refill Less than 3 Seconds Skin: No rashes, No breakdown Musculoskeletal: No Tenderness to Palpation of Joints or Extremities Lymphatic: No Cervical, Supraclavicular, or Inguinal Adenopathy Neurological: Cranial nerves II-XII grossly intact, Neuro grossly intact, Motor Exam 5/5 strength throughout Psych/Mental Status: Normal Affect, Appropriate, Alert and oriented to time, place, person, mood and affect Laboratory Results 07/07/18 06:21: POC Glucose 105 07/07/18 06:26: Total Bilirubin 0.40, Direct Bilirubin 0.15, AST 25, ALT 27, Alkaline Phosphatase 52, Total Protein 7.9, Albumin 3.6, Globulin 4.3 H Current Medications Acetaminophen (Tylenol) 1,000 mg PO Q6 MAYA Albuterol Sulfate (Ventolin Aerosols) 2.5 mg INHALATION Q6H PRN PRN PRN Reason: SOB &/OR WHEEZING Albuterol Sulfate (Ventolin Aerosols) 2.5 mg INHALATION Q6HWA.RT MAYA Aspirin (Ecotrin) 81 mg PO DAILYCM [facility]A Atorvastatin Calcium (Lipitor) 10 mg PO QHS [facility]A Budesonide (Pulmicort Aerosol) 0.5 mg INHALATION Q12H.RT MAYA Budesonide (Pulmicort Aerosol) 0.5 mg INHALATION Q12H.RT PRN PRN Reason: SOB &/OR WHEEZING Docusate Sodium (Colace) 100 mg PO BID [facility]A Enoxaparin Sodium (Lovenox) 30 mg SC DAILY [facility] Hydrocortisone Sodium Succinate (Solu-Cortef) 50 mg IV Q12 MAYA Stop: 07/09/18 10:01 Hydromorphone HCl (Dilaudid Inj) 0.5 mg IV Q3H PRN PRN PRN Reason: SEVERE PAIN (6-10/10) Lidocaine/D5W (Lidocaine 2 Gm/250 Ml) 2,000 mg in 250 mls @ 20.16 mls/hr IV .[id number] ONE Stop: 07/07/18 20:24 Last Admin: 07/07/18 08:00 Dose: Not Given Clindamycin Phosphate 600 mg/ (Dextrose) 54 mls @ 100 mls/hr IV Q8H MAYA Stop: 07/08/18 00:03 Lactated Ringer's () 1,000 mls @ 40 mls/hr IV .Q25H MAYA Stop: 07/08/18 12:38 Pantoprazole Sodium 40 mg/ (Sodium Chloride) 110 mls @ 330 mls/hr IV X1 ONE Stop: 07/08/18 07:19 Ketorolac Tromethamine (Toradol) 15 mg IV Q6 MAYA Stop: 07/08/18 18:01 Magnesium Oxide (Mag-Ox 400) 400 mg PO DAILY PRN PRN PRN Reason: Constipation Melatonin (Melatonin) 3 mg PO QHS PRN PRN Reason: SLEEP Non-Formulary Medication (Omeprazole [Omeprazole]) 20 mg PO DAILY [facility] Non-Formulary Medication (Prednisone [Prednisone]) 2.5 mg PO DAILY [facility] Nutritional Formula (Lactose Free) (Ensure Enlive) 120 ml PO 4X/DAY [facility] Ondansetron HCl (Zofran Odt) 4 mg PO Q6H PRN PRN PRN Reason: NAUSEA Ondansetron HCl (Zofran) 4 mg IV Q8H PRN PRN PRN Reason: nausea Oxycodone HCl (Oxyir) 5 - 10 mg PO Q4H PRN PRN PRN Reason: MOD-SEVERE PAIN (4-10/10) Potassium Chloride (K-Dur) 20 meq PO DAILY [facility] Promethazine HCl (Phenergan) 6.25 mg IV Q6H PRN PRN PRN Reason: NAUSEA/VOMITING Sodium Chloride () 5 - 15 ml IV UD PRN PRN Reason: SALINE FLUSH Throat Lozenges (Cepacol Sore Throat Lozenge) 1 lozenge MUCOUS MEM Q2H PRN PRN PRN Reason: SORE THROAT Triamterene/HCTZ (Dyazide (G)) 1 cap PO DAILY [facility] Medical Necessity - Tobacco Use Smoking Status: Former smoker Tobacco Use: Non-smoker Assessment/Plan All Active Problems (Last Reviewed 06/30/18 @ 09:15 by Nina Rivera) Stricture of sigmoid colon (Acute) Diverticulitis large intestine (Acute) Rheumatoid arthritis (Acute) Adnexal mass (Acute) Diverticulosis (Acute) Colitis (Acute) Abnormal peripheral pulse (Acute) Aneurysm of infrarenal abdominal aorta (Acute) Hiatal hernia with GERD (Acute) 67-year-old female with a history of rheumatoid arthritis admitted for sigmoid resection with bilateral salping- oophorectomy due to diverticulitis and adnexal mass. 1. Sigmoid diverticular disease and adnexal mass s/p sigmoid resection and bilateral salpingoopherectomy * today is POD 0 * patient is stable, and pain is well controlled. * management as per surgery * Encourage incentive spirometry use. * 2. Rheumatoid arthritis * On prednisone p.o. 2.5 mg daily, methotrexate and Humira. According to patient and her daughter, medications was stopped about 2 weeks prior to having surgery. * Started on IV hydrocortisone 50 mg every 12 after surgery which would be a stress dose. To have 4 doses of hydrocortisone and then to resume p.o. prednisone 2.5 mg daily. * to continue holding methotrexate 7.5mg daily; takes it once weekly on Saturdays. * continue holding Humira- takes it 40mg sq every 2 weeks * 3. Leucocytosis: very mild. Wbc is 13. this is likely reactive from surgery. Will monitor 4. COPD * lungs clear to auscultation * on albuterol aerosols and fluticasone inhaler. * Duo nebs as needed. * 5. Hypertension: On triamterene and hydrochlorothiazide. Will resume. 6. Hyperlipidemia: on fluvastatin 7. Osteoporosis: on deonsumab 60mg sc [id number] 8. GERD: on PPI DVT prophylaxis: As per general surgery. Currently on SCDs. Thank you for the courtesy of the consult. We will continue to follow with you. Code Visit Inpatient E&M: 25945 Subs Hosp L3
[2018-07-07] MEDS: Aspirin E.C. 81 MG Tablet PO (15:45)
[2018-07-07] MEDS: Docusate Sodium 100 MG Capsule PO ×2 (15:45→22:52)
[2018-07-07] MEDS: Triamterene 37.5MG/Hctz 25MG Capsule 1 CAP PO (15:45)
--- NOTE | 2018-07-07 18:05 | PCM.PN.BLA ---
Progress Note Pt sedated, dizzy, blurred vision, not much pain Esteban causing balloon discomfort but pt has a very low anastomosis--NO suppositories Need to mobilize Hold at clears Avoid phenergan unless absolutely required b/o possible sedation
[2018-07-07] MEDS: Acetaminophen 500 MG Tablet 1000 MG PO ×2 (18:20→23:36)
[2018-07-07] MEDS: Ketorolac 15 MG/ML Vial IV ×2 (18:20→23:34)
[2018-07-07] MEDS: 0.9% NaCl Peripheral Flush Adult/Peds IV (18:21)
[2018-07-07] MEDS: Ondansetron ODT 4 MG Tablet PO (18:44)
[2018-07-07] MEDS: Albuterol 2.5 MG/3 ML VIAL.NEB. INHALATION (19:00)
--- NOTE | 2018-07-07 21:50 | NURSING ---
Pt called out wanting to ambulate. When she sat at side of bed she was still a little dizzy but wanted to try walking in room. This RN called for a second assist because pt stated her legs felt like rubber. She was able to ambulate in the room a short while. Noted some dried blood on lift pad & fitted sheet so those were changed. Pericare given. SCDS and oxygen reapplied.
[2018-07-07] MEDS: Atorvastatin Calcium 10 MG Tablet PO (22:52)
[2018-07-07] MEDS: Hydrocortisone Sod Succinate 100 MG/2 ML Vial 50 MG IV (22:52)
[2018-07-07] MEDS: Lactated Ringers 1,000 ML 40 ML IV (23:36)
[2018-07-07] MEDS: MELATONIN 3 MG TABLET PO (23:36)
[2018-07-08] VITALS (8 sets, daily range): BP systolic 97–120; BP diastolic 55–65; PULSE 72–88; RESP 15–20; TEMP 36.8–37.5; O2SAT 93–98
[2018-07-08] MEDS: Acetaminophen 500 MG Tablet 1000 MG PO ×3 (05:05→20:14)
[2018-07-08] MEDS: Ketorolac 15 MG/ML Vial IV ×3 (05:06→17:24)
--- NOTE | 2018-07-08 05:34 | PCM.PN.SRG ---
Patient Problems: Active and Suspected Problems (Last Reviewed 06/30/18 @ 09:15 by Nina Rivera) Stricture of sigmoid colon (Acute) Subjective: Pt much better now that scopolamine patch is off Heart burn No flatus Comfortable, no significant pain - Physical Exam General: Alert, Oriented x3, Cooperative, No apparent distress Lungs: Clear to auscultation, - - diminished in bases Abdomen: Soft, Hypoactive Bowel Sounds, Distended - wounds clean Vital Signs Temp Pulse Resp BP Pulse Ox 99.5 F H 76 16 104/65 95 07/08/18 04:35 07/08/18 04:35 07/08/18 04:35 07/08/18 04:35 07/08/18 04:35 Oxygen Flow Rate (L/min) 2 Oxygen Delivery Method Nasal Cannula Weight: 148 lb 2.41 oz Body Mass Index (BMI) 28.9 Intake and Output for Last 24 Hours 07/06/18 07/07/18 07/08/18 23:59 23:59 23:59 Intake Total 3309 / 3309 741 / 741 Output Total 625 / 625 150 / 150 Balance 2684 / 2684 591 / 591 Laboratory Tests Past 24 Hrs 07/07/18 06:26 Total Bilirubin 0.40 Direct Bilirubin 0.15 AST 25 ALT 27 Alkaline Phosphatase 52 Total Protein 7.9 Albumin 3.6 Globulin 4.3 H POC Glucose 07/07/18 06:21 POC Glucose 105 Medical Necessity - Tobacco Use Smoking Status: Former smoker Tobacco Use: Non-smoker Assessment/Plan All Active Problems (Last Reviewed 06/30/18 @ 09:15 by Nina Rivera) Stricture of sigmoid colon (Acute) Diverticulitis large intestine (Acute) Rheumatoid arthritis (Acute) Adnexal mass (Acute) Diverticulosis (Acute) Colitis (Acute) Abnormal peripheral pulse (Acute) Aneurysm of infrarenal abdominal aorta (Acute) Hiatal hernia with GERD (Acute) Pt needs to mobilize. Low grade fever due to pulmonary and need to be OOB Will dc mc Hold at clears
[2018-07-08 06:00] LABS: Hemoglobin 9.9 g/dl (12.0-15.0); Mean Corpuscular Hgb 30.8 pg (27.0-32.0); Mean Corpuscular Volume 93.5 fL (81-99); Mean Platelet Vol. 9.5 fl (6.2-12.0); Platelet Count 260 K/mm3 (150-450); RBC Distribution Width CV 13.7 % (11.6-14.6); RBC Distribution Width SD 45.3 fl (35.1-43.9); Red Blood Count 3.21 M/mm3 (4.2-5.4); White Blood Count 14.5 K/mm3 (4.4-11.0)
[2018-07-08 06:08] LABS: Scan Indicated on CBC? Y/N NO
[2018-07-08 06:09] LABS: Anion Gap 12 (5-15); BUN 16 mg/dL (7-18); BUN/Creat Ratio 10.4 RATIO (10-20); Calcium,Total 8.1 mg/dL (8.5-10.1); Chloride 94 mmol/L (98-107); Creatinine, Serum 1.54 mg/dL (0.55-1.02); EST Glomerular Filtration Rate 36 mL/min (>60); Est Glom Filt Rate - Afr Amer 43 mL/min (>60); Estimated Creatinine Clearance 25.11 ml/min; Glucose 103 mg/dL (74-106); Potassium 3.4 mmol/L (3.5-5.1); Sodium Level 132 mmol/L (136-145)
[2018-07-08] MEDS: Albuterol 2.5 MG/3 ML VIAL.NEB. INHALATION ×3 (06:37→19:50)
--- NOTE | 2018-07-08 07:41 | PCM.HP.STD ---
History of Present Illness The patient is a 67 year old F [] Past Medical History Medical History: Medical History (Last Reviewed 06/30/18 @ 09:15 by Nina Rivera) Diverticulitis large intestine (Acute) K57.32 Rheumatoid arthritis (Acute) M06.9 Adnexal mass (Acute) N94.9 Diverticulosis (Acute) K57.90 Colitis (Acute) K52.9 Abnormal peripheral pulse (Acute) R09.89 Aneurysm of infrarenal abdominal aorta (Acute) I71.4 Hiatal hernia with GERD (Acute) K21.9, K44.9 AAA (abdominal aortic aneurysm) I71.4 COPD (chronic obstructive pulmonary disease) J44.9 Chronic back pain M54.9, G89.29 Diverticulitis K57.92 GERD (gastroesophageal reflux disease) K21.9 Hemorrhoid K64.9 Osteoarthritis M19.90 Rheumatoid arthritis M06.9 HTN (hypertension) I10 Allergies Penicillins Allergy (Mild, Verified 06/30/18 10:38) rash doxycycline Adverse Reaction (Mild, Verified 06/30/18 10:38) gi upset levofloxacin [From Levaquin] Adverse Reaction (Mild, Verified 06/30/18 10:38) gi upset meperidine [From Demerol] Adverse Reaction (Mild, Verified 06/30/18 10:38) gi upset moxifloxacin [From Avelox] Adverse Reaction (Mild, Verified 06/30/18 10:38) gi upset Sulfa (Sulfonamide Antibiotics) Adverse Reaction (Mild, Verified 06/30/18 10:38) gi upset acetaminophen [From Tylenol-Codeine] Adverse Reaction (Verified 06/30/18 10:38) Nausea/Vom/Diarrhea codeine [From Tylenol-Codeine] Adverse Reaction (Verified 06/30/18 10:38) Nausea/Vom/Diarrhea Home Medications: Ambulatory Orders Medication Instructions Recorded adalimumab 40 mg/0.8 mL 40 mg SC Q2W 05/12/18 subcutaneous pen kit aspirin 81 mg tablet,delayed 81 mg PO DAILY 05/12/18 release denosumab 60 mg/mL subcutaneous 60 mg SC [id number] 05/12/18 syringe fluticasone 250 mcg-salmeterol 50 1 inh INHALATION BID 05/12/18 mcg/dose blistr powdr for inhalation fluticasone 50 mcg/actuation 1 inh INHALATION BID PRN 05/12/18 blister powder for inhalation fluvastatin 40 mg capsule 80 mg PO QHS 05/12/18 folic acid 1 mg tablet 4 mg PO DAILY 05/12/18 glucosamine HCl 1,500 mg tablet 1,500 mg PO DAILY 05/12/18 melatonin 3 mg tablet 3 mg PO HS PRN 05/12/18 methotrexate sodium 2.5 mg tablet 7.5 mg PO SA 05/12/18 omega 4-man-buv-fish oil 60 mg-90 1 cap PO DAILY 05/12/18 mg-500 mg capsule omeprazole 20 mg capsule,delayed 20 mg PO DAILY 05/12/18 release potassium chloride ER 20 mEq 20 meq PO DAILY 05/12/18 tablet,extended release(part/cryst) prednisone 2.5 mg tablet 2.5 mg PO DAILY 05/12/18 triamterene 37.5 1 cap PO DAILY 05/12/18 mg-hydrochlorothiazide 25 mg capsule Albuterol Aerosols [Ventolin 2.5 mg INHALATION Q6H PRN PRN 05/20/18 Aerosols] Calcium Carbonate [Calcium] 600 mg PO DAILY 05/20/18 Cider Vinegar [Apple Cider Vinegar] 300 mg PO DAILY 06/30/18 Turmeric/Turmeric Root Extract 1 each PO DAILY 06/30/18 [Turmeric 500 mg Capsule] Surgical History: Surgical History (Last Reviewed 06/30/18 @ 09:15 by Nina Rivera) History of cataract extraction Z98.49 History of cholecystectomy Z90.49 History of colonoscopy Z98.890 History of tubal ligation Z98.51 Smoking Status: Former smoker Tobacco Use: Non-smoker Patient Problems: Active and Suspected Problems (Last Reviewed 06/30/18 @ 09:15 by Nina Rivera) Stricture of sigmoid colon (Acute) - Physical Exam Vital Signs Temp Pulse Resp BP Pulse Ox 99.5 F H 76 16 104/65 95 07/08/18 04:35 07/08/18 04:35 07/08/18 04:35 07/08/18 04:35 07/08/18 04:35 Oxygen Flow Rate (L/min) 2 Oxygen Delivery Method Nasal Cannula Weight: 67.2 kg Body Mass Index (BMI) 28.9 Intake and Output for Last 24 Hours 1207/07/18 07/08/18 23:59 23:59 23:59 Intake Total 3309 / 3309 741 / 741 Output Total 625 / 625 150 / 150 Balance 2684 / 2684 591 / 591 Laboratory Tests Past 24 Hrs 07/08/18 07/08/18 05:14 05:14 WBC 14.5 H RBC 3.21 L Hgb 9.9 L Hct 30.0 L MCV 93.5 MCH 30.8 MCHC 33.0 RDW 13.7 RDW Differential 45.3 H Plt Count 260 MPV 9.5 Sodium 132 L Potassium 3.4 L Chloride 94 L Carbon Dioxide 26.0 Anion Gap 12 BUN 16 Creatinine 1.54 H Estim Creat Clear Calc 25.11 Est GFR (MDRD) Af Amer 43 L Est GFR (MDRD) Non-Af 36 L BUN/Creatinine Ratio 10.4 Glucose 103 Calcium 8.1 L Assessment/Plan All Active Problems (Last Reviewed 06/30/18 @ 09:15 by Nian Rivera) Stricture of sigmoid colon (Acute) Diverticulitis large intestine (Acute) Rheumatoid arthritis (Acute) Adnexal mass (Acute) Diverticulosis (Acute) Colitis (Acute) Abnormal peripheral pulse (Acute) Aneurysm of infrarenal abdominal aorta (Acute) Hiatal hernia with GERD (Acute)
[2018-07-08] MEDS: Calcium Carbonate 500 MG Tablet PO ×3 (08:13→20:32)
[2018-07-08] MEDS: Aspirin E.C. 81 MG Tablet PO (08:16)
--- NOTE | 2018-07-08 09:42 | PCM.PN.HOSP ---
Patient Problems: Active and Suspected Problems (Last Reviewed 06/30/18 @ 09:15 by Nina Rivera) Stricture of sigmoid colon (Acute) Subjective: Patient is a 67-year-old lady with a diagnosis of sigmoid structure who underwent Laparoscopic converted to hand-assisted laparoscopic low anterior resection of the sigmoid colon with bilateral salpingo-oophorectomies and pre-intervention cystoscopy with left ureteral catheter placement by Dr. Torres and Dr. Gramajo on 07/07/2018. Hospitalist service was consulted postop to assist with management of patient medical comorbidities Objective: GENERAL: cooperative HEENT: Atraumatic; EYES; Anicteric, Normal Conjunctiva NECK; supple, normal thyroid, RESPIRATORY: Diminished to auscultation bilaterally, CARDIOVASCULAR: Regular S1 S2, GI: soft, non-tender, normoactive bowel sounds, : No Renal angle tenderness; EXTREMITIES: No edema, no clubbing, MUSCULOSKELETAL: No Joint Tenderness; NEURO: Awake; no lateralizing signs. SKIN: No Rash PSYCH; Normal affect Vitals/I&O's: Vital Signs Temp Pulse Resp BP Pulse Ox 98.2 F 80 20 H 97/55 L 93 07/08/18 07:45 07/08/18 07:45 07/08/18 07:45 07/08/18 07:45 07/08/18 07:45 Oxygen Flow Rate (L/min) 2 Oxygen Delivery Method Room Air Weight: 67.2 kg Body Mass Index (BMI) 28.9 Intake and Output for Last 24 Hours 07/06/18 07/07/18 07/08/18 23:59 23:59 23:59 Intake Total 3309 / 3309 741 / 741 Output Total 625 / 625 150 / 150 Balance 2684 / 2684 591 / 591 Laboratory Results 07/08/18 05:14: Sodium 132 L, Potassium 3.4 L, Chloride 94 L, Carbon Dioxide 26.0, Anion Gap 12, BUN 16, Creatinine 1.54 H, Estim Creat Clear Calc 25.11, Est GFR (MDRD) Af Amer 43 L, Est GFR (MDRD) Non-Af 36 L, BUN/Creatinine Ratio 10.4, Glucose 103, Calcium 8.1 L 07/08/18 05:14: WBC 14.5 H, RBC 3.21 L, Hgb 9.9 L, Hct 30.0 L, MCV 93.5, MCH 30.8, MCHC 33.0, RDW 13.7, RDW Differential 45.3 H, Plt Count 260, MPV 9.5 Current Medications Acetaminophen (Tylenol) 1,000 mg PO Q6 [facility] Last Admin: 07/08/18 05:05 Dose: 1,000 mg Albuterol Sulfate (Ventolin Aerosols) 2.5 mg INHALATION Q6H PRN PRN PRN Reason: SOB &/OR WHEEZING Albuterol Sulfate (Ventolin Aerosols) 2.5 mg INHALATION Q6HWA.RT [facility] Last Admin: 07/08/18 06:37 Dose: 2.5 mg Aspirin (Ecotrin) 81 mg PO DAILYCM [facility] Last Admin: 07/08/18 08:16 Dose: 81 mg Atorvastatin Calcium (Lipitor) 10 mg PO QHS [facility] Last Admin: 07/07/18 22:52 Dose: 10 mg Budesonide (Pulmicort Aerosol) 0.5 mg INHALATION Q12H.RT [facility] Calcium Carbonate (Tums) 500 mg PO Q4H PRN PRN PRN Reason: heart burn Last Admin: 07/08/18 08:13 Dose: 500 mg Docusate Sodium (Colace) 100 mg PO BID [facility] Last Admin: 07/07/18 22:52 Dose: 100 mg Enoxaparin Sodium (Lovenox) 30 mg SC DAILY [facility] Hydrocortisone Sodium Succinate (Solu-Cortef) 50 mg IV Q12 [facility] Stop: 07/09/18 10:01 Last Admin: 07/07/18 22:52 Dose: 50 mg Hydromorphone HCl (Dilaudid Inj) 0.5 mg IV Q3H PRN PRN PRN Reason: SEVERE PAIN (6-10/10) Lactated Ringer's () 1,000 mls @ 40 mls/hr IV .Q25H [facility] Stop: 07/08/18 12:38 Last Admin: 07/07/18 23:36 Dose: 40 mls/hr Ketorolac Tromethamine (Toradol) 15 mg IV Q6 [facility] Stop: 07/08/18 18:01 Last Admin: 07/08/18 05:06 Dose: 15 mg Magnesium Oxide (Mag-Ox 400) 400 mg PO DAILY PRN PRN PRN Reason: Constipation Melatonin (Melatonin) 3 mg PO QHS PRN PRN Reason: SLEEP Last Admin: 07/07/18 23:36 Dose: 3 mg Nutritional Formula (Lactose Free) (Ensure Clear) 120 ml PO 4X/DAY [facility] Last Admin: 07/07/18 22:52 Dose: Not Given Ondansetron HCl (Zofran Odt) 4 mg PO Q6H PRN PRN PRN Reason: NAUSEA Last Admin: 07/07/18 18:44 Dose: 4 mg Ondansetron HCl (Zofran) 4 mg IV Q8H PRN PRN PRN Reason: nausea Oxycodone HCl (Oxyir) 5 - 10 mg PO Q4H PRN PRN PRN Reason: MOD-SEVERE PAIN (4-10/10) Pantoprazole Sodium (Protonix) 20 mg PO DAILY [facility] Potassium Chloride (K-Dur) 20 meq PO DAILY [facility] Last Admin: 07/07/18 15:45 Dose: 20 meq Prednisone () 2.5 mg PO DAILYCM [facility] Promethazine HCl (Phenergan) 6.25 mg IV Q6H PRN PRN PRN Reason: NAUSEA/VOMITING Sodium Chloride () 5 - 15 ml IV UD PRN PRN Reason: SALINE FLUSH Last Admin: 07/07/18 18:21 Dose: 10 ml Throat Lozenges (Cepacol Sore Throat Lozenge) 1 lozenge MUCOUS MEM Q2H PRN PRN PRN Reason: SORE THROAT Triamterene/HCTZ (Dyazide (G)) 1 cap PO DAILY [facility] Last Admin: 07/07/18 15:45 Dose: 1 cap Medical Necessity - Tobacco Use Smoking Status: Former smoker Tobacco Use: Non-smoker Assessment/Plan All Active Problems (Last Reviewed 06/30/18 @ 09:15 by Nina Rivera) Stricture of sigmoid colon (Acute) Diverticulitis large intestine (Acute) Rheumatoid arthritis (Acute) Adnexal mass (Acute) Diverticulosis (Acute) Colitis (Acute) Abnormal peripheral pulse (Acute) Aneurysm of infrarenal abdominal aorta (Acute) Hiatal hernia with GERD (Acute) Patient is a 67-year-old lady with a diagnosis of sigmoid structure who underwent Laparoscopic converted to hand-assisted laparoscopic low anterior resection of the sigmoid colon with bilateral salpingo-oophorectomies and pre-intervention cystoscopy with left ureteral catheter placement by Dr. Torres and Dr. Gramajo on 07/07/2018. Hospitalist service was consulted postop to assist with management of patient medical comorbidities 1. Sigmoid diverticular disease with stricture and adnexal mass patient underwent Laparoscopic converted to hand-assisted laparoscopic low anterior resection of the sigmoid colon with bilateral salpingo-oophorectomies and pre-intervention cystoscopy with left ureteral catheter placement by Dr. Torres and Dr. Gramajo on 07/07/2018 2. Rheumatoid arthritis on daily prednisone methotrexate and Humira which were held 2 weeks prior to patient's surgical procedure. Patient was placed on stress dose of hydrocortisone 50 mg every 12 3. Hyponatremia to patient being on HCTZ, on IV fluids with monitoring of electrolyte 4. Hypokalemia corrected per protocol 5. COPD without acute exacerbation did continue patient home regimen in addition to albuterol as needed 6. Hypertension-blood pressure on the low side this a.m. antihypertensive medication subsequently held she was more short of 7. Dyslipidemia-patient is on statin therapy, continued at home dose 8. Osteoporosis; is on on deonsumab 60mg sc [id number] 9. GERD: on PPI 10. DVT prophylaxis: Lovenox Active Medications Acetaminophen (Tylenol) 1,000 mg PO Q6 [facility] Last Admin: 07/08/18 05:05 Dose: 1,000 mg Albuterol Sulfate (Ventolin Aerosols) 2.5 mg INHALATION Q6H PRN PRN PRN Reason: SOB &/OR WHEEZING Albuterol Sulfate (Ventolin Aerosols) 2.5 mg INHALATION Q6HWA.RT [facility] Last Admin: 07/08/18 06:37 Dose: 2.5 mg Aspirin (Ecotrin) 81 mg PO DAILYCM [facility] Last Admin: 07/08/18 08:16 Dose: 81 mg Atorvastatin Calcium (Lipitor) 10 mg PO QHS [facility] Last Admin: 07/07/18 22:52 Dose: 10 mg Budesonide (Pulmicort Aerosol) 0.5 mg INHALATION Q12H.RT [facility] Calcium Carbonate (Tums) 500 mg PO Q4H PRN PRN PRN Reason: heart burn Last Admin: 07/08/18 08:13 Dose: 500 mg Docusate Sodium (Colace) 100 mg PO BID [facility] Last Admin: 07/07/18 22:52 Dose: 100 mg Enoxaparin Sodium (Lovenox) 30 mg SC DAILY [facility] Hydrocortisone Sodium Succinate (Solu-Cortef) 50 mg IV Q12 [facility] Stop: 07/09/18 10:01 Last Admin: 07/07/18 22:52 Dose: 50 mg Hydromorphone HCl (Dilaudid Inj) 0.5 mg IV Q3H PRN PRN PRN Reason: SEVERE PAIN (6-10/10) Lactated Ringer's () 1,000 mls @ 40 mls/hr IV .Q25H [facility] Stop: 07/08/18 12:38 Last Admin: 07/07/18 23:36 Dose: 40 mls/hr Ketorolac Tromethamine (Toradol) 15 mg IV Q6 [facility] Stop: 07/08/18 18:01 Last Admin: 07/08/18 05:06 Dose: 15 mg Magnesium Oxide (Mag-Ox 400) 400 mg PO DAILY PRN PRN PRN Reason: Constipation Melatonin (Melatonin) 3 mg PO QHS PRN PRN Reason: SLEEP Last Admin: 07/07/18 23:36 Dose: 3 mg Nutritional Formula (Lactose Free) (Ensure Clear) 120 ml PO 4X/DAY [facility] Last Admin: 07/07/18 22:52 Dose: Not Given Ondansetron HCl (Zofran Odt) 4 mg PO Q6H PRN PRN PRN Reason: NAUSEA Last Admin: 07/07/18 18:44 Dose: 4 mg Ondansetron HCl (Zofran) 4 mg IV Q8H PRN PRN PRN Reason: nausea Oxycodone HCl (Oxyir) 5 - 10 mg PO Q4H PRN PRN PRN Reason: MOD-SEVERE PAIN (4-10/10) Pantoprazole Sodium (Protonix) 20 mg PO DAILY [facility] Potassium Chloride (K-Dur) 20 meq PO DAILY [facility] Last Admin: 07/07/18 15:45 Dose: 20 meq [facility] () [facility] Promethazine HCl (Phenergan) 6.25 mg IV Q6H PRN PRN PRN Reason: NAUSEA/VOMITING Sodium Chloride () 5 - 15 ml IV UD PRN PRN Reason: SALINE FLUSH Last Admin: 07/07/18 18:21 Dose: 10 ml Throat Lozenges (Cepacol Sore Throat Lozenge) 1 lozenge MUCOUS MEM Q2H PRN PRN PRN Reason: SORE THROAT Triamterene/HCTZ (Dyazide (G)) 1 cap PO DAILY [facility] Last Admin: 07/07/18 15:45 Dose: 1 cap Code Visit Inpatient E&M: 92144 Subs Hosp L3
--- NOTE | 2018-07-08 10:00 | CASEMGMT ---
RN LEE ANN Face to Face with patient for initial transition planning/care coordination assessment. RN CM introduced self and role at [facility]. Patient lying in bed, alert and oriented. Patient willing to participate in assessment and is able to answer all questions appropriately. Care providers, pharmacy, and demographics verified. Patient wishes to discharge home, denies need for home health at this time. Patient states she has no further needs or concerns at this time. CM to follow for discharge planning needs that may arise. PCP: Anna Specialists: Emely, pulmonology; also see outpatient physical therapist [facility] Insurance: [employer] Prescription Benefit: [employer] Living Will/HPOA: None LNOK: Daughter Living Arrangements: Patient lives alone in mobile home with 5 steps to enter home with railing. Patient is independent at home. Transportation: Self/Daughter DME/HHC: Patient states she has a shower chair at home, denied further DME needs. Disposition Plan: Patient to discharge home with family support and follow-up plans in place. Breonna TORO, RN, CM
[2018-07-08] MEDS: Docusate Sodium 100 MG Capsule PO (10:05)
[2018-07-08] MEDS: Enoxaparin 30 MG/0.3 ML Syringe SC (10:05)
[2018-07-08] MEDS: Hydrocortisone Sod Succinate 100 MG/2 ML Vial 50 MG IV ×2 (10:05→20:33)
[2018-07-08 12:20] LABS: Hemoglobin 9.8 g/dl (12.0-15.0); Mean Corp Hgb Conc 32.7 g/gl (32-36); Mean Corpuscular Hgb 30.6 pg (27.0-32.0); Mean Corpuscular Volume 93.8 fL (81-99); Mean Platelet Vol. 8.8 fl (6.2-12.0); Platelet Count 246 K/mm3 (150-450); RBC Distribution Width CV 13.9 % (11.6-14.6); RBC Distribution Width SD 46.3 fl (35.1-43.9); White Blood Count 13.8 K/mm3 (4.4-11.0)
[2018-07-08 12:23] LABS: Scan Indicated on CBC? Y/N NO
--- NOTE | 2018-07-08 17:15 | NURSING ---
PT INCONT OF STOOL ON TRIP TO BATHROOM. NOTED TO BE BLACK, LOOSE, FLECKY.
--- NOTE | 2018-07-08 18:03 | PCM.PN.BLA ---
Progress Note Small stool. Voiding now. BP good labs stable Very impressive Will advance to fulls
[2018-07-08] MEDS: Atorvastatin Calcium 10 MG Tablet PO (20:33)
--- NOTE | 2018-07-08 23:00 | NURSING ---
Pt's sats were running mid to upper 80's. Finger probe changed but sats were still reading low. O2 at 2L applied via n/c. No distress noted. Patricia CARREON aware.
[2018-07-09 02:18] VITALS: BP 136/62; PULSE 69; RESP 18; TEMP 36.8; O2SAT 95
[2018-07-09 05:00] LABS: Hematocrit 28.1 % (37-47); Hemoglobin 9.5 g/dl (12.0-15.0); Mean Corp Hgb Conc 33.8 g/gl (32-36); Mean Corpuscular Hgb 31.4 pg (27.0-32.0); Mean Corpuscular Volume 92.7 fL (81-99); Mean Platelet Vol. 8.8 fl (6.2-12.0); Platelet Count 235 K/mm3 (150-450); RBC Distribution Width CV 13.7 % (11.6-14.6); RBC Distribution Width SD 45.5 fl (35.1-43.9); Red Blood Count 3.03 M/mm3 (4.2-5.4); White Blood Count 13.9 K/mm3 (4.4-11.0)
[2018-07-09 05:10] LABS: Anion Gap 10 (5-15); BUN 17 mg/dL (7-18); BUN/Creat Ratio 11.7 RATIO (10-20); Calcium,Total 8.3 mg/dL (8.5-10.1); Chloride 95 mmol/L (98-107); Creatinine, Serum 1.45 mg/dL (0.55-1.02); EST Glomerular Filtration Rate 38 mL/min (>60); Est Glom Filt Rate - Afr Amer 46 mL/min (>60); Estimated Creatinine Clearance 26.67 ml/min; Glucose 92 mg/dL (74-106); Potassium 3.6 mmol/L (3.5-5.1); Sodium Level 131 mmol/L (136-145)
[2018-07-09 05:19] VITALS: PULSE 73; RESP 15; O2SAT 97
[2018-07-09] MEDS: Albuterol 2.5 MG/3 ML VIAL.NEB. INHALATION ×2 (05:19→12:20)
[2018-07-09 05:27] LABS: Scan Indicated on CBC? Y/N NO
[2018-07-09] MEDS: Acetaminophen 500 MG Tablet 1000 MG PO ×2 (05:34→11:44)
--- NOTE | 2018-07-09 06:05 | PCM.PN.SRG ---
Patient Problems: Active and Suspected Problems (Last Reviewed 06/30/18 @ 09:15 by Nina Rivera) Stricture of sigmoid colon (Acute) - Physical Exam General: Alert, Oriented x3, Cooperative, No apparent distress Lungs: Clear to auscultation Abdomen: Bowel Sounds Present, Soft, Non Tender Vital Signs Temp Pulse Resp BP Pulse Ox 98.3 F 73 15 136/62 H 97 07/09/18 02:18 07/09/18 05:19 07/09/18 05:19 07/09/18 02:18 07/09/18 05:19 Oxygen Flow Rate (L/min) 2 Oxygen Delivery Method Nasal Cannula Weight: 148 lb 2.41 oz Body Mass Index (BMI) 28.9 Intake and Output for Last 24 Hours 07/07/18 07/08/18 07/09/18 23:59 23:59 23:59 Intake Total 3309 / 3309 1496 / 1496 1390 / 1390 Output Total 625 / 625 850 / 850 800 / 800 Balance 2684 / 2684 646 / 646 590 / 590 Laboratory Tests Past 24 Hrs 07/08/18 07/08/18 07/08/18 05:14 05:14 12:05 WBC 14.5 H 13.8 H RBC 3.21 L 3.20 L Hgb 9.9 L 9.8 L Hct 30.0 L 30.0 L MCV 93.5 93.8 MCH 30.8 30.6 MCHC 33.0 32.7 RDW 13.7 13.9 RDW Differential 45.3 H 46.3 H Plt Count 260 246 MPV 9.5 8.8 Sodium 132 L Potassium 3.4 L Chloride 94 L Carbon Dioxide 26.0 Anion Gap 12 BUN 16 Creatinine 1.54 H Estim Creat Clear Calc 25.11 Est GFR (MDRD) Af Amer 43 L Est GFR (MDRD) Non-Af 36 L BUN/Creatinine Ratio 10.4 Glucose 103 Calcium 8.1 L 07/09/18 07/09/18 04:54 04:54 WBC 13.9 H RBC 3.03 L Hgb 9.5 L Hct 28.1 L MCV 92.7 MCH 31.4 MCHC 33.8 RDW 13.7 RDW Differential 45.5 H Plt Count 235 MPV 8.8 Sodium 131 L Potassium 3.6 Chloride 95 L Carbon Dioxide 26.0 Anion Gap 10 BUN 17 Creatinine 1.45 H Estim Creat Clear Calc 26.67 Est GFR (MDRD) Af Amer 46 L Est GFR (MDRD) Non-Af 38 L BUN/Creatinine Ratio 11.7 Glucose 92 Calcium 8.3 L Medical Necessity - Tobacco Use Smoking Status: Former smoker Tobacco Use: Non-smoker Assessment/Plan All Active Problems (Last Reviewed 06/30/18 @ 09:15 by Nina Rivera) Stricture of sigmoid colon (Acute) Diverticulitis large intestine (Acute) Rheumatoid arthritis (Acute) Adnexal mass (Acute) Diverticulosis (Acute) Colitis (Acute) Abnormal peripheral pulse (Acute) Aneurysm of infrarenal abdominal aorta (Acute) Hiatal hernia with GERD (Acute) Stools and tolerating po C/O coughing episode this a.m but is breathing easily now and chest is clear Plan discharge on home meds as noted in DC instructions
[2018-07-09 08:25] VITALS: BP 112/74; PULSE 81; RESP 18; TEMP 37.3; O2SAT 95
[2018-07-09] MEDS: Triamterene 37.5MG/Hctz 25MG Capsule 1 CAP PO (08:38)
[2018-07-09] MEDS: Enoxaparin 30 MG/0.3 ML Syringe SC (08:39)
[2018-07-09] MEDS: Pantoprazole Sodium 20 MG Tablet PO (08:39)
[2018-07-09] MEDS: Aspirin E.C. 81 MG Tablet PO (08:39)
--- NOTE | 2018-07-09 08:55 | PCM.PN.HOSP ---
Patient Problems: Active and Suspected Problems (Last Reviewed 06/30/18 @ 09:15 by Nina Rivera) Stricture of sigmoid colon (Acute) Subjective: Patient seen complains of some throat irritation. Patient is scheduled to be discharged home by general surgery Objective: GENERAL: cooperative HEENT: Atraumatic; EYES; Anicteric, Normal Conjunctiva NECK; supple, normal thyroid, RESPIRATORY: Diminished to auscultation bilaterally, CARDIOVASCULAR: Regular S1 S2, GI: soft, non-tender, normoactive bowel sounds, : No Renal angle tenderness; EXTREMITIES: No edema, no clubbing, MUSCULOSKELETAL: No Joint Tenderness; NEURO: Awake; no lateralizing signs. SKIN: No Rash PSYCH; Normal affect Vitals/I&O's: Vital Signs Temp Pulse Resp BP Pulse Ox 99.1 F 81 18 112/74 95 07/09/18 08:25 07/09/18 08:25 07/09/18 08:25 07/09/18 08:25 07/09/18 08:25 Oxygen Flow Rate (L/min) 2 Oxygen Delivery Method Room Air Weight: 67.2 kg Body Mass Index (BMI) 28.9 Intake and Output for Last 24 Hours 07/07/18 07/08/18 07/09/18 23:59 23:59 23:59 Intake Total 3309 / 3309 1496 / 1496 1390 / 1390 Output Total 625 / 625 850 / 850 800 / 800 Balance 2684 / 2684 646 / 646 590 / 590 Laboratory Results 07/08/18 12:05: WBC 13.8 H, RBC 3.20 L, Hgb 9.8 L, Hct 30.0 L, MCV 93.8, MCH 30.6, MCHC 32.7, RDW 13.9, RDW Differential 46.3 H, Plt Count 246, MPV 8.8 07/09/18 04:54: WBC 13.9 H, RBC 3.03 L, Hgb 9.5 L, Hct 28.1 L, MCV 92.7, MCH 31.4, MCHC 33.8, RDW 13.7, RDW Differential 45.5 H, Plt Count 235, MPV 8.8 07/09/18 04:54: Sodium 131 L, Potassium 3.6, Chloride 95 L, Carbon Dioxide 26.0, Anion Gap 10, BUN 17, Creatinine 1.45 H, Estim Creat Clear Calc 26.67, Est GFR (MDRD) Af Amer 46 L, Est GFR (MDRD) Non-Af 38 L, BUN/Creatinine Ratio 11.7, Glucose 92, Calcium 8.3 L Current Medications Acetaminophen (Tylenol) 1,000 mg PO Q6 [facility] Last Admin: 07/09/18 05:34 Dose: 1,000 mg Albuterol Sulfate (Ventolin Aerosols) 2.5 mg INHALATION Q6H PRN PRN PRN Reason: SOB &/OR WHEEZING Albuterol Sulfate (Ventolin Aerosols) 2.5 mg INHALATION Q6HWA.RT [facility] Last Admin: 07/09/18 05:19 Dose: 2.5 mg [facility]) [facility] Last Admin: 07/09/18 08:39 Dose: 81 mg Atorvastatin Calcium (Lipitor) 10 mg PO QHS [facility] Last Admin: 07/08/18 20:33 Dose: 10 mg Budesonide (Pulmicort Aerosol) 0.5 mg INHALATION Q12H.RT [facility] Calcium Carbonate (Tums) 500 mg PO Q4H PRN PRN PRN Reason: heart burn Last Admin: 07/08/18 20:32 Dose: 500 mg Docusate Sodium (Colace) 100 mg PO BID [facility] Last Admin: 07/09/18 08:37 Dose: Not Given Enoxaparin Sodium (Lovenox) 30 mg SC DAILY [facility] Last Admin: 07/09/18 08:39 Dose: 30 mg Hydrocortisone Sodium Succinate (Solu-Cortef) 50 mg IV Q12 [facility] Stop: 07/09/18 10:01 Last Admin: 07/08/18 20:33 Dose: 50 mg Hydromorphone HCl (Dilaudid Inj) 0.5 mg IV Q3H PRN PRN PRN Reason: SEVERE PAIN (6-10/10) Magnesium Oxide (Mag-Ox 400) 400 mg PO DAILY PRN PRN PRN Reason: Constipation Melatonin (Melatonin) 3 mg PO QHS PRN PRN Reason: SLEEP Last Admin: 07/07/18 23:36 Dose: 3 mg Nutritional Formula (Lactose Free) (Ensure Clear) 120 ml PO 4X/DAY [facility] Last Admin: 07/09/18 08:37 Dose: Not Given Ondansetron HCl (Zofran Odt) 4 mg PO Q6H PRN PRN PRN Reason: NAUSEA Last Admin: 07/07/18 18:44 Dose: 4 mg Ondansetron HCl (Zofran) 4 mg IV Q8H PRN PRN PRN Reason: nausea Oxycodone HCl (Oxyir) 5 - 10 mg PO Q4H PRN PRN PRN Reason: MOD-SEVERE PAIN (4-10/10) Pantoprazole Sodium (Protonix) 20 mg PO DAILY [facility] Last Admin: 07/09/18 08:39 Dose: 20 mg Potassium Chloride (K-Dur) 20 meq PO DAILY [facility] Last Admin: 07/09/18 08:38 Dose: 20 meq Prednisone () [facility] Promethazine HCl (Phenergan) 6.25 mg IV Q6H PRN PRN PRN Reason: NAUSEA/VOMITING Throat Lozenges (Cepacol Sore Throat Lozenge) 1 lozenge MUCOUS MEM Q2H PRN PRN PRN Reason: SORE THROAT Triamterene/HCTZ (Dyazide (G)) 1 cap PO DAILY [facility] Last Admin: 07/09/18 08:38 Dose: 1 cap Medical Necessity - Tobacco Use Smoking Status: Former smoker Tobacco Use: Non-smoker Assessment/Plan All Active Problems (Last Reviewed 06/30/18 @ 09:15 by Nina Rivera) Stricture of sigmoid colon (Acute) Diverticulitis large intestine (Acute) Rheumatoid arthritis (Acute) Adnexal mass (Acute) Diverticulosis (Acute) Colitis (Acute) Abnormal peripheral pulse (Acute) Aneurysm of infrarenal abdominal aorta (Acute) Hiatal hernia with GERD (Acute) Patient is a 67-year-old lady with a diagnosis of sigmoid structure who underwent Laparoscopic converted to hand-assisted laparoscopic low anterior resection of the sigmoid colon with bilateral salpingo-oophorectomies and pre-intervention cystoscopy with left ureteral catheter placement by Dr. Torres and Dr. Gramajo on 07/07/2018. Hospitalist service was consulted postop to assist with management of patient medical comorbidities 1. Sigmoid diverticular disease with stricture and adnexal mass patient underwent Laparoscopic converted to hand-assisted laparoscopic low anterior resection of the sigmoid colon with bilateral salpingo-oophorectomies and pre-intervention cystoscopy with left ureteral catheter placement by Dr. Torres and Dr. Gramajo on 07/07/2018 2. Rheumatoid arthritis on daily prednisone methotrexate and Humira which were held 2 weeks prior to patient's surgical procedure. Patient was placed on stress dose of hydrocortisone 50 mg every 12 3. Hyponatremia to patient being on HCTZ, on IV fluids with monitoring of electrolyte 4. Hypokalemia corrected per protocol 5. COPD without acute exacerbation did continue patient home regimen in addition to albuterol as needed 6. Hypertension-blood pressure on the low side this a.m. antihypertensive medication subsequently held she was more short of 7. Dyslipidemia-patient is on statin therapy, continued at home dose 8. Osteoporosis; is on on deonsumab 60mg sc [id number] 9. GERD: on PPI 10. DVT prophylaxis: Lovenox Code Visit Inpatient E&M: 47685 [facility] Hosp L2
--- NOTE | 2018-07-09 09:00 | PN_ITS ---
Patient Problems: Active and Suspected Problems (Last Reviewed 06/30/18 @ 09:15 by Nina Rivera) Stricture of sigmoid colon (Acute) Subjective: Patient seen complains of some throat irritation. Patient is scheduled to be discharged home by general surgery Objective: GENERAL: cooperative HEENT: Atraumatic; EYES; Anicteric, Normal Conjunctiva NECK; supple, normal thyroid, RESPIRATORY: Diminished to auscultation bilaterally, CARDIOVASCULAR: Regular S1 S2, GI: soft, non-tender, normoactive bowel sounds, : No Renal angle tenderness; EXTREMITIES: No edema, no clubbing, MUSCULOSKELETAL: No Joint Tenderness; NEURO: Awake; no lateralizing signs. SKIN: No Rash PSYCH; Normal affect Vitals/I&O's: Vital Signs Temp Pulse Resp BP Pulse Ox 99.1 F 81 18 112/74 95 07/09/18 08:25 07/09/18 08:25 07/09/18 08:25 07/09/18 08:25 07/09/18 08:25 Oxygen Flow Rate (L/min) 2 Oxygen Delivery Method Room Air Weight: 67.2 kg Body Mass Index (BMI) 28.9 Intake and Output for Last 24 Hours 07/07/18 07/08/18 07/09/18 23:59 23:59 23:59 Intake Total 3309 / 3309 1496 / 1496 1390 / 1390 Output Total 625 / 625 850 / 850 800 / 800 Balance 2684 / 2684 646 / 646 590 / 590 Laboratory Results 07/08/18 12:05: WBC 13.8 H, RBC 3.20 L, Hgb 9.8 L, Hct 30.0 L, MCV 93.8, MCH 30.6, MCHC 32.7, RDW 13.9, RDW Differential 46.3 H, Plt Count 246, MPV 8.8 07/09/18 04:54: WBC 13.9 H, RBC 3.03 L, Hgb 9.5 L, Hct 28.1 L, MCV 92.7, MCH 31.4, MCHC 33.8, RDW 13.7, RDW Differential 45.5 H, Plt Count 235, MPV 8.8 07/09/18 04:54: Sodium 131 L, Potassium 3.6, Chloride 95 L, Carbon Dioxide 26.0, Anion Gap 10, BUN 17, Creatinine 1.45 H, Estim Creat Clear Calc 26.67, Est GFR (MDRD) Af Amer 46 L, Est GFR (MDRD) Non-Af 38 L, BUN/Creatinine Ratio 11.7, Glucose 92, Calcium 8.3 L Current Medications Acetaminophen (Tylenol) 1,000 mg PO Q6 [facility] Last Admin: 07/09/18 05:34 Dose: 1,000 mg Albuterol Sulfate (Ventolin Aerosols) 2.5 mg INHALATION Q6H PRN PRN PRN Reason: SOB &/OR WHEEZING Albuterol Sulfate (Ventolin Aerosols) 2.5 mg INHALATION Q6HWA.RT [facility] Last Admin: 07/09/18 05:19 Dose: 2.5 mg [facility] Last Admin: 07/09/18 08:39 Dose: 81 mg Atorvastatin Calcium (Lipitor) 10 mg PO QHS [facility] Last Admin: 07/08/18 20:33 Dose: 10 mg Budesonide (Pulmicort Aerosol) 0.5 mg INHALATION Q12H.RT [facility] Calcium Carbonate (Tums) 500 mg PO Q4H PRN PRN PRN Reason: heart burn Last Admin: 07/08/18 20:32 Dose: 500 mg Docusate Sodium (Colace) 100 mg PO BID [facility] Last Admin: 07/09/18 08:37 Dose: Not Given Enoxaparin Sodium (Lovenox) 30 mg SC DAILY [facility] Last Admin: 07/09/18 08:39 Dose: 30 mg Hydrocortisone Sodium Succinate (Solu-Cortef) 50 mg IV Q12 [facility] Stop: 07/09/18 10:01 Last Admin: 07/08/18 20:33 Dose: 50 mg Hydromorphone HCl (Dilaudid Inj) 0.5 mg IV Q3H PRN PRN PRN Reason: SEVERE PAIN (6-10/10) Magnesium Oxide (Mag-Ox 400) 400 mg PO DAILY PRN PRN PRN Reason: Constipation Melatonin (Melatonin) 3 mg PO QHS PRN PRN Reason: SLEEP Last Admin: 07/07/18 23:36 Dose: 3 mg Nutritional Formula (Lactose Free) (Ensure Clear) 120 ml PO 4X/DAY [facility] Last Admin: 07/09/18 08:37 Dose: Not Given Ondansetron HCl (Zofran Odt) 4 mg PO Q6H PRN PRN PRN Reason: NAUSEA Last Admin: 07/07/18 18:44 Dose: 4 mg Ondansetron HCl (Zofran) 4 mg IV Q8H PRN PRN PRN Reason: nausea Oxycodone HCl (Oxyir) 5 - 10 mg PO Q4H PRN PRN PRN Reason: MOD-SEVERE PAIN (4-10/10) Pantoprazole Sodium (Protonix) 20 mg PO DAILY [facility] Last Admin: 07/09/18 08:39 Dose: 20 mg Potassium Chloride (K-Dur) 20 meq PO DAILY [facility] Last Admin: 07/09/18 08:38 Dose: 20 meq Prednisone () [facility] Promethazine HCl (Phenergan) 6.25 mg IV Q6H PRN PRN PRN Reason: NAUSEA/VOMITING Throat Lozenges (Cepacol Sore Throat Lozenge) 1 lozenge MUCOUS MEM Q2H PRN PRN PRN Reason: SORE THROAT Triamterene/HCTZ (Dyazide (G)) 1 cap PO DAILY [facility] Last Admin: 07/09/18 08:38 Dose: 1 cap Medical Necessity - Tobacco Use Smoking Status: Former smoker Tobacco Use: Non-smoker Assessment/Plan All Active Problems (Last Reviewed 06/30/18 @ 09:15 by Nian Rivera) Stricture of sigmoid colon (Acute) Diverticulitis large intestine (Acute) Rheumatoid arthritis (Acute) Adnexal mass (Acute) Diverticulosis (Acute) Colitis (Acute) Abnormal peripheral pulse (Acute) Aneurysm of infrarenal abdominal aorta (Acute) Hiatal hernia with GERD (Acute) Patient is a 67-year-old lady with a diagnosis of sigmoid structure who underwent Laparoscopic converted to hand-assisted laparoscopic low anterior resection of the sigmoid colon with bilateral salpingo-oophorectomies and pre- intervention cystoscopy with left ureteral catheter placement by Dr. Torres and Dr. Gramajo on 07/07/2018. Hospitalist service was consulted postop to assist with management of patient medical comorbidities 1. Sigmoid diverticular disease with stricture and adnexal mass patient underwent Laparoscopic converted to hand-assisted laparoscopic low anterior resection of the sigmoid colon with bilateral salpingo-oophorectomies and pre- intervention cystoscopy with left ureteral catheter placement by Dr. Torres and Dr. Gramajo on 07/07/2018 2. Rheumatoid arthritis on daily prednisone methotrexate and Humira which were held 2 weeks prior to patient's surgical procedure. Patient was placed on stress dose of hydrocortisone 50 mg every 12 3. Hyponatremia to patient being on HCTZ, on IV fluids with monitoring of electrolyte 4. Hypokalemia corrected per protocol 5. COPD without acute exacerbation did continue patient home regimen in addition to albuterol as needed 6. Hypertension-blood pressure on the low side this a.m. antihypertensive medication subsequently held she was more short of 7. Dyslipidemia-patient is on statin therapy, continued at home dose 8. Osteoporosis; is on on deonsumab 60mg sc [id number] 9. GERD: on PPI 10. DVT prophylaxis: Lovenox Code Visit Inpatient E&M: 20224 [facility] Hosp L2
[2018-07-09] MEDS: BENZOCAINE/MENTHOL 1 LOZENGE MUCOUS MEM (09:29)
[2018-07-09] MEDS: Calcium Carbonate 500 MG Tablet PO (09:29)
[2018-07-09] MEDS: Hydrocortisone Sod Succinate 100 MG/2 ML Vial 50 MG IV (09:31)
[2018-07-09 12:20] VITALS: PULSE 81; RESP 18; O2SAT 92
[2018-07-09 13:11] VITALS: BP 136/80; PULSE 81; RESP 18; TEMP 37.1; O2SAT 97
--- NOTE | 2018-07-17 08:56 | PCM.DC.SUM ---
Discharge Date and Diagnosis Date of Admission: 07/07/18 Date of Discharge: 07/09/18 - Primary Discharge Diagnosis Sigmoid stricture secondary to diverticulitis Hospital Course and Treatment Operations: colectomy - Laparoscopic converted to hand-assisted laparoscopic low anterior resection of the sigmoid colon with bilateral salpingo-oophorectomies and pre-intervention cystoscopy with left ureteral catheter placement. Summary of Care Provided: The patient is a 67 year old F who presented for an elective colectomy. Dr. Torres performed a laparoscopic converted to hand-assisted laparoscopic low anterior resection of the sigmoid colon with bilateral salpingo-oophorectomies and pre-intervention cystoscopy with left ureteral catheter placement in conjunction with Dr. Fenton and Dr. Gramajo on 07/07/18. Patient tolerated the procedure well. She had an uncomplicated hospitalization. Upon discharge, patient was tolerating the transitional diet without nausea, vomiting. She had no abdominal pain/discomfort. She was urinating well. She was up and moving well. - Physical Exam General: Alert, Oriented x3, Cooperative Lungs: Clear to auscultation, Normal air movement Cardiovascular: Regular rate, No murmurs Abdomen: Bowel Sounds Present, Soft, Distended - slightly, Tender - generalized minimally, - - Incisions c/d/i. No erythema or infection noted Vital Signs Temp Pulse Resp BP Pulse Ox 98.7 F 81 18 136/80 H 97 07/09/18 13:11 07/09/18 13:11 07/09/18 13:11 07/09/18 13:11 07/09/18 13:11 Oxygen Flow Rate (L/min) 2 Oxygen Delivery Method Room Air Weight: 148 lb 2.41 oz Body Mass Index (BMI) 28.9 Discharge Diet: Light diet - advance as tolerated - if you have questions about your diet instructions, please talk to you doctor. Discharge Activity: May Not Drive - for 1 week or while taking narcotic pain medicine. May shower in (days): 0 - May shower now Additional Activity Instructions:: Resume prednisone now. Resume Humira in 2 weeks. Resume Methotrexate in 1 week Call your doctor if your incision/area has: Continuous Slow Oozing, Sudden Increased Bleeding, Increased Pain/ Swelling, Increased Redness, Foul Smelling Discharge Call your doctor if you observe: Fever of 101 or Higher Suture Line Care: Avoid Pulling/Pushing, Avoid Pinching/Bending Additional Dressing/Incision Instructions:: You may place gauze dressing as needed to protect the incisions from clothing if irritation occurs. Leave steri-strips in place for 1 week. Home Medications: Medications to take at Discharge adalimumab 40 mg/0.8 mL subcutaneous pen kit 40 mg SC Q2W 05/12/18 aspirin 81 mg tablet,delayed release 81 mg PO DAILY 05/12/18 denosumab 60 mg/mL subcutaneous syringe 60 mg SC [id number] 05/12/18 fluticasone 250 mcg-salmeterol 50 mcg/dose blistr powdr for inhalation 1 inh INHALATION BID 05/12/18 fluticasone 50 mcg/actuation blister powder for inhalation 1 inh INHALATION BID PRN 05/12/18 fluvastatin 40 mg capsule 80 mg PO QHS 05/12/18 folic acid 1 mg tablet 4 mg PO DAILY 05/12/18 melatonin 3 mg tablet 3 mg PO HS PRN 05/12/18 methotrexate sodium 2.5 mg tablet 7.5 mg PO SA 05/12/18 omega 0-vdn-tbv-fish oil 60 mg-90 mg-500 mg capsule 1 cap PO DAILY 05/12/18 omeprazole 20 mg capsule,delayed release 20 mg PO DAILY 05/12/18 potassium chloride ER 20 mEq tablet,extended release(part/cryst) 20 meq PO DAILY 05/12/18 prednisone 2.5 mg tablet 2.5 mg PO DAILY 05/12/18 triamterene 37.5 mg-hydrochlorothiazide 25 mg capsule 1 cap PO DAILY 05/12/18 Turmeric/Turmeric Root Extract [Turmeric 500 mg Capsule] 1 each PO DAILY 06/30/18 Albuterol Inhaler [Ventolin Hfa (SP)] 1 puff INHALATION Q4H PRN PRN 07/11/18 Calcium Carb/Vitamin D [Caltrate-600 With Vit D Tab] 1 tab PO DAILY 07/11/18 Garlic 1,000 mg PO DAILY 07/11/18 Primary Care Physician: Sammi Castillo MD [Primary Care Provider] - Please Follow Up With: Duane Torres MD - [phone] When: Call to make an appointment to be seen in about 10 days. Disposition: Home Minutes spent on discharge:: 20 Patient Condition:: Stable Medical Necessity - Tobacco Use Smoking Status: Former smoker Tobacco Use: Non-smoker Meaningful Use Info Meaningful Use Diagnoses (Choose all that apply): None applicable Code Visit Inpatient E&M: 39329 Disch Hosp
--- OUTSIDE RECORDS SUMMARY | 2018-08-30 03:45 | XMS RPT_ITS ---
:1950 Author Organization OHIP Support Name Relationship Address Phone SINGH RAMIREZ Unavailable [id number] + [place] [address] R Unavailable Unavailable Unavailable AUDREY RAMIREZLE Unavailable [id number] + [place] [address] R Unavailable Unavailable Unavailable DOMINIQUE SINGH Unavailable [address] + [place] [address] R Unavailable Unavailable Unavailable DOMINIQUE, SINGH Unavailable [address] + [place] [address] R Unavailable Unavailable Unavailable DOMINIQUE, SINGH Unavailable Unavailable + R Unavailable Unavailable Unavailable DOMINIQUE SINGH Unavailable [address] + [place] [address] R Unavailable Unavailable Unavailable DOMINIQUE SINGH Unavailable [address] + [place] [address] R Unavailable Unavailable Unavailable DOMINIQUE SINGH Unavailable [address] + [place] [address] R Unavailable Unavailable Unavailable DOMINIQUE, SINGH Unavailable . + [place] [address] R Unavailable Unavailable Unavailable DOMINIQUE, SINGH Unavailable Unavailable + R Unavailable Unavailable Unavailable DOMINIQUE, SINGH Unavailable [address] + [place] [address] R Unavailable Unavailable Unavailable CAROL RAMIREZ Unavailable [address] + [place] [address] NOT GIVEN Unavailable Unavailable Unavailable CAROL RAMIREZ Unavailable [address] + [place] [address] NOT GIVEN Unavailable Unavailable Unavailable SINGH RAMIREZ Unavailable [address] + [place] [address] R Unavailable Unavailable Unavailable SINGH RAMIREZ Unavailable [address] + [facility] [place] [address] R Unavailable Unavailable Unavailable DOMINIQUECAROL ARMIJO Unavailable [address] + [facility] [place] [address] NOT GIVEN Unavailable Unavailable Unavailable SINGH RAMIREZ Unavailable [address] + [facility] [place] [address] R Unavailable Unavailable Unavailable SINGH RAMIREZ Unavailable [address] + [facility] [place] [address] R Unavailable Unavailable Unavailable SINGH RAMIREZ Unavailable [address] + [facility] [place] [address] R Unavailable Unavailable Unavailable SINGH RAMIREZ Unavailable [address] + [place] [address] R Unavailable Unavailable Unavailable SINGH RAMIREZ Unavailable [address] + [place] [address] + [place] [address] R Unavailable Unavailable Unavailable DOMINIQUECAROL ARMIJO Unavailable [address] + [place] [address] NOT GIVEN Unavailable Unavailable Unavailable DOMINIQUECAROL Unavailable [address] + [place] [address] NOT GIVEN Unavailable Unavailable Unavailable DOMINIQUECAROL ARMIJO Unavailable [address] + [place] [address] NOT GIVEN Unavailable Unavailable Unavailable DOMINIQUECHELLECAROL Unavailable [address] + [facility] [place] [address] NOT GIVEN Unavailable Unavailable Unavailable DOMINIQUECAROL ARMIJO Unavailable [address] + [place] [address] NOT GIVEN Unavailable Unavailable Unavailable DOMINIQUE CAROL Unavailable [address] + [facility] [place] [address] NOT GIVEN Unavailable Unavailable Unavailable DOMINIQUECAROL Unavailable [address] + [place] [address] NOT GIVEN Unavailable Unavailable Unavailable DOMINIQUE CAROL Unavailable [address] + [facility] [place] [address] NOT GIVEN Unavailable Unavailable Unavailable DOMINIQUE, CAROL Unavailable [address] + [place] [address] NOT GIVEN Unavailable Unavailable Unavailable CHELLE RAMIREZOLE Unavailable [address] + [place] [address] NOT GIVEN Unavailable Unavailable Unavailable CHELLE RMAIREZOLE Unavailable [address] + [place] [address] NOT GIVEN Unavailable Unavailable Unavailable CHELLE RAMIREZOLE Unavailable [address] + [place] [address] NOT GIVEN Unavailable Unavailable Unavailable CHELLE RAMIREZOLE Unavailable [address] + [place] [address] NOT GIVEN Unavailable Unavailable Unavailable CHELLE RAMIREZOLE Unavailable [address] + [place] [address] NOT GIVEN Unavailable Unavailable Unavailable Care Team Providers Name Role Phone ZIA, DR KIRAN Galvan Admitting Unavailable ZIA, DR KIRAN Galvan Attending Unavailable NO, DOCTOR ON Referring Unavailable ZIA, DR KIRAN Galvan Primary Care Unavailable NO, DOCTOR ON Consulting Unavailable JOE MANNING Admitting Unavailable JOE MANNING Attending Unavailable JOE MANNING Primary Care Unavailable CHELA CHIU MD Admitting Unavailable CHELA CHIU MD Attending Unavailable CHELA CHIU MD Primary Care Unavailable NO, DOCTOR ON Consulting Unavailable JOHNNA BROWN Admitting Unavailable BROWN, JOHNNA Attending Unavailable BROWN, JOHNNA Primary Care Unavailable NO, DOCTOR ON Consulting Unavailable JOHNNA BROWN Admitting Unavailable BROWN, JOHNNA Attending Unavailable NO, DOCTOR ON Referring Unavailable KEVIN, JOHNNA Primary Care Unavailable CHELA CHIU MD Consulting Unavailable PROVIDER, UNKNOWN Consulting Unavailable PROVIDER, UNKNOWN Consulting Unavailable PROVIDER, UNKNOWN Consulting Unavailable JOE MANNING Admitting Unavailable JOE MANNING Attending Unavailable JEO MANNING Primary Care Unavailable JOE MANNING Admitting Unavailable JOE MANNING Attending Unavailable JOE MANNING Primary Care Unavailable NO, DOCTOR ON Consulting Unavailable JOE GRAMAJO MD Admitting Unavailable JOE GRAMAJO MD Attending Unavailable JOE GRAMAJO MD Primary Care Unavailable JOE MANNING Admitting Unavailable JOE MANNING Attending Unavailable JOE MANNING Primary Care Unavailable NO, DOCTOR ON Consulting Unavailable JOE GRAMAJO MD Admitting Unavailable JOE GRAMAJO MD Attending Unavailable JOE GRAMAJO MD Primary Care Unavailable NO, DOCTOR ON Consulting Unavailable ZIA, DR KIRAN Galvan Admitting Unavailable LIZARRAGA, DR KIRAN Galvan Attending Unavailable LIZARRAGA, DR KIRAN Galvan Primary Care Unavailable CHELA CHIU MD Consulting Unavailable PROVIDER, UNKNOWN Consulting Unavailable PROVIDER, UNKNOWN Consulting Unavailable PROVIDER, UNKNOWN Consulting Unavailable JOE MORGAN DO Admitting Unavailable JOE MORGAN DO Attending Unavailable CHELA CHIU MD Referring Unavailable JOE MORGAN DO Primary Care Unavailable CHELA CHIU MD Consulting Unavailable PROVIDER, UNKNOWN Consulting Unavailable PROVIDER, UNKNOWN Consulting Unavailable PROVIDER, UNKNOWN Consulting Unavailable BROWN, JOHNNA Admitting Unavailable BROWN, JOHNNA Attending Unavailable KEVIN, JOHNNA Primary Care Unavailable CHELA CHIU MD Consulting Unavailable PROVIDER, UNKNOWN Consulting Unavailable PROVIDER, UNKNOWN Consulting Unavailable PROVIDER, UNKNOWN Consulting Unavailable CHELA CHIU MD Admitting Unavailable CHELA CHIU MD Attending Unavailable CHELA CHIU MD Primary Care Unavailable CHELA CHIU MD Consulting Unavailable PROVIDER, UNKNOWN Consulting Unavailable PROVIDER, UNKNOWN Consulting Unavailable PROVIDER, UNKNOWN Consulting Unavailable JOE MANNING Admitting Unavailable JOE MANNING Attending Unavailable JOE MANNING Primary Care Unavailable CHELA CHIU MD Consulting Unavailable PROVIDER, UNKNOWN Consulting Unavailable PROVIDER, UNKNOWN Consulting Unavailable PROVIDER, UNKNOWN Consulting Unavailable ZIA, DR KIRAN Galvan Admitting Unavailable ZIA, DR KIRAN Galvan Attending Unavailable CHELA CHIU MD Referring Unavailable ZIA, DR KIRAN Galvan Primary Care Unavailable CHELA CHIU MD Consulting Unavailable PROVIDER, UNKNOWN Consulting Unavailable PROVIDER, UNKNOWN Consulting Unavailable PROVIDER, UNKNOWN Consulting Unavailable HABEROMAR PATEMY M Admitting Unavailable MIN MENESES M Attending Unavailable CHELA CHIU MD Referring Unavailable MIN MENESES Primary Care Unavailable CHELA CHIU MD Consulting Unavailable PROVIDER, UNKNOWN Consulting Unavailable PROVIDER, UNKNOWN Consulting Unavailable PROVIDER, UNKNOWN Consulting Unavailable JOE MANNING JR. Attending Unavailable LUIS A REESE Referring Unavailable JOE MANNING JR. Attending Unavailable SELF, SELF Referring Unavailable Joe Gramajo Attending Unavailable Coco Alex PA-C Attending Unavailable Chela Chiu Referring Unavailable BclDuane Attending Unavailable Cebul, Duane Attending Unavailable Chela Chiu Primary Care Unavailable Cebul, Duane Referring Unavailable Cebul, Duane Attending Unavailable Cebul, Duane Referring Unavailable Chela Chiu Primary Care Unavailable Cebul Duane Admitting Unavailable Isai PAIZ, Coco Attending Unavailable Cebul, Duane Referring Unavailable Anna, Chela Primary Care Unavailable Seals, Joe Consulting Unavailable Kittoe, Joe Consulting Unavailable Cebul, Duane Attending Unavailable Cebul, Duane Referring Unavailable Anna, Chela Primary Care Unavailable Cebul, Duane Consulting Unavailable Seals, Joe Attending Unavailable Cebul, Duane Attending Unavailable Anna, Chela Referring Unavailable Cebul, Duane Attending Unavailable Cebul, Duane Admitting Unavailable Cebul, Duane Referring Unavailable Anna, Chela Primary Care Unavailable Seals, Joe Consulting Unavailable Kittoe, Joe Attending Unavailable Kittoe, Joe Consulting Unavailable Alex PA-C, Coco Attending Unavailable Anna, Chela Referring Unavailable Cebul, Duane Admitting Unavailable Farzaneh Ordaz Attending Unavailable Cebul, Duane Referring Unavailable Anna, Chela Primary Care Unavailable Seals, Joe Consulting Unavailable Kittoe, Joe Consulting Unavailable Cebul, Duane Consulting Unavailable Cebul, Duane Admitting Unavailable Kittoe, Joe Attending Unavailable Cebul, Duane Referring Unavailable Anna, Chela Primary Care Unavailable Seals, Joe Consulting Unavailable Kittoe, Joe Consulting Unavailable Cebul, Duane Admitting Unavailable Kittoe, Joe Attending Unavailable Cebul, Duane Referring Unavailable Anna, Chela Primary Care Unavailable Seals, Joe Consulting Unavailable Kittoe, Joe Consulting Unavailable Jessica, Hugh Attending Unavailable Cebul, Duane Referring Unavailable Anna, Chela Primary Care Unavailable Irma Perrin Attending Unavailable Jessica, Hugh Attending Unavailable Cebul, Duane Referring Unavailable PROBLEMS PROBLEMS DATE TYPE CONDITION / CODE ATTENDING STATUS SOURCE 07/15/2018 Unknown M81.0 - Age-related Joe Gramajo Active [place] osteoporosis [facility] without current Hospital pathological Repository fracture / M81.0(ICD-10) 07/17/2018 Unknown K57.32 - Isai PA-C, Active [facility] Diverticulitis of [facility] intestine [facility] without perforation Repository or abscess without bleeding / K57.32(ICD-10) 07/10/2018 Unknown Z01.810 - Encounter Jessica, Hugh Active [facility] for preprocedural 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 / Repository D39.12(ICD-10) 06/05/2018 Unknown R10.32 - Left lower CebulDuane Active [place] quadrant pain / Community R10.32(ICD-10) Hospital Repository 06/05/2018 Unknown K56.699 - Other Cebul, Duane Active [place] intestinal Community obstruction Hospital unspecified as to Repository partial versus complete obstruction / K56.699(ICD-10) 06/05/2018 Unknown K57.30 - Cebul, Duane Active [place] Diverticulosis of Community large intestine Hospital without perforation Repository or abscess without bleeding / K57.30(ICD-10) 06/05/2018 Unknown K64.9 - Unspecified Cebul, Duane Active [place] hemorrhoids / Community K64.9(ICD-10) Hospital Repository 05/19/2018 Unknown R09.89 - Other Cebul, Duane Active [facility] specified symptoms Community and signs involving Hospital the circulatory and Repository respiratory systems / R09.89(ICD-10) 05/19/2018 Unknown N94.9 - Unspecified Cebul, Duane Active [facility] condition Community associated with Hospital female genital Repository organs and menstrual cycle / N94.9(ICD-10) 05/19/2018 Unknown I71.4 - Abdominal Cebul, Duane Active [place] aortic aneurysm, Community without rupture / Hospital I71.4(ICD-10) Repository 05/07/2018 Principle Diverticulitis of CHELA CHIU Active [facility] Diagnosis intestine, part [facility] unspecified, Hospital without perforation Repository or abscess without bleeding / K5792(ICD-10) 05/05/2018 Admitting Procedure and JOHNNA BROWN Diagnosis treatment not [facility] carried out for Hospital other reasons / Repository Z538(ICD-10) 05/05/2018 Principle Procedure and JOHNNA BROWN Active [facility] Diagnosis treatment not [facility] carried out for Hospital other reasons / Repository Z538(ICD-10) 04/22/2018 Principle Personal history of JOHNNA BROWN Active [facility] Diagnosis colonic polyps / [facility] E33742(ICD-10) Hospital Repository 04/12/2018 Secondary Chronic obstructive DIDUR, JOE FERNANDEZ Active [facility] Diagnosis pulmonary disease, [facility] unspecified / Hospital J449(ICD-10) Repository 04/12/2018 Secondary Personal history of DIDURJOE DO Active [facility] Diagnosis nicotine dependence [facility] / J60533(ICD-10) Hospital Repository 04/12/2018 Admitting Diverticulitis of DIDUR, JOE FERNANDEZ Active [facility] Diagnosis intestine, part [facility] unspecified, Hospital without perforation Repository or abscess without bleeding / K5792(ICD-10) 04/12/2018 Secondary Nausea / DIDUR, JOE FERNANDEZ Active [facility] Diagnosis R110(ICD-10) [facility] Hospital Repository 04/12/2018 Secondary Adverse effect of DIDJOE LONDONO DO Active [facility] Diagnosis other antiprotozoal [facility] drugs, initial Hospital encounter / Repository I762M5I(ICD-10) 04/12/2018 Secondary Rheumatoid DIDUR, JOE FERNANDEZ Active [facility] Diagnosis arthritis, [facility] unspecified / Hospital M069(ICD-10) Repository 04/12/2018 Secondary Age-related DIDJOE LONDONO DO Active [facility] Diagnosis osteoporosis [facility] without current Hospital pathological Repository fracture / M810(ICD-10) 04/11/[address] KIRAN LIZARRAGA Active [facility] Diagnosis abdominal pain / [facility] R109(ICD-10) Hospital Repository 04/11/2018 Principle Unspecified LIZARRAGADR KIRAN Active [facility] Diagnosis abdominal pain / [facility] R109(ICD-10) Hospital Repository 04/11/2018 Secondary Personal history of LIZARRAGADR KIRAN Active [facility] Diagnosis other diseases of [facility] the digestive Hospital system / Repository Z8719(ICD-10) 10/10/2017 Secondary Essential (primary) CHELA CHIU Active [facility] Diagnosis hypertension / [facility] I10(ICD-10) Hospital Repository 10/10/2017 Secondary Hyperlipidemia, CHELA CHIU Active [facility] Diagnosis unspecified / [facility] E785(ICD-10) Hospital Repository 10/10/2017 Admitting Encounter for ALEJANDRA CHIUEN Active [facility] Diagnosis screening for [facility] diabetes mellitus / Hospital Z131(ICD-10) Repository 10/10/2017 Principle Encounter for CHELA CHIU Active [facility] Diagnosis screening for [facility] diabetes mellitus / Hospital Z131(ICD-10) Repository 09/18/2017 Admitting 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, Active [facility] Diagnosis (current) drug JOE [facility] Y08221(ICD-10) Repository 09/18/2017 Principle Other usp STAINBROOK, Active [facility] Diagnosis (current) drug JOE [facility] G55818(ICD-10) Repository PROCEDURES PROCEDURES No Procedure Records FoundRESULTS RESULTS DISCHARGE SUMMARY Observed: 07/17/2018 Status: F Source: [place] 3:32 PM [facility] REPOSITORY [facility] Medical Records Department [address] [place] [id number] Discharge Summary 07/17/18 0856 MR#: [id number] Acct: [id number] Name: SO RAMIREZ Rep #: [id number] : 1950 67 From: Coco Alex PA-C PCP: Chela Chiu MD Status: DIS IN Y [facility] [facility] [id number] Discharge Date and Diagnosis Date of Admission: 07/07/18 Date of Discharge: 07/09/18 - Primary Discharge Diagnosis Sigmoid stricture secondary to diverticulitis Hospital Course and Treatment Operations: colectomy - Laparoscopic converted to hand-assisted laparoscopic low anterior resection of the sigmoid colon with bilateral salpingo-oophorectomies and pre-intervention cystoscopy with left ureteral catheter placement. Summary of Care Provided: The patient is a 67 year old F who presented for an elective colectomy. Dr. Torres performed a laparoscopic converted to hand-assisted laparoscopic low anterior resection of the sigmoid colon with bilateral salpingo-oophorectomies and pre-intervention cystoscopy with left ureteral catheter placement in conjunction with Dr. Fenton and Dr. Gramajo on 07/07/18. Patient tolerated the procedure well. She had an uncomplicated hospitalization. Upon discharge, patient was tolerating the transitional diet without nausea, vomiting. She had no abdominal pain/discomfort. She was urinating well. She was up and moving well. - Physical Exam General: Alert, Oriented x3, Cooperative Lungs: Clear to auscultation, Normal air movement Cardiovascular: Regular rate, No murmurs Abdomen: Bowel Sounds Present, Soft, Distended - slightly, Tender - generalized minimally, - - Incisions c/d/i. No erythema or infection noted Vital Signs Temp Pulse Resp BP Pulse Ox 98.7 F 81 18 136/80 H 97 07/09/18 13:11 07/09/18 13:11 07/09/18 13:11 07/09/18 13:11 07/09/18 13:11 Oxygen Flow Rate (L/min) 2 Oxygen Delivery Method Room Air Weight: 148 lb 2.41 oz Body Mass Index (BMI) 28.9 Discharge Diet: Light diet - advance as tolerated - if you have questions about your diet instructions, please talk to you doctor. Discharge Activity: May Not Drive - for 1 week or while taking narcotic pain medicine. May shower in (days): 0 - May shower now Additional Activity Instructions:: Resume prednisone now. Resume Humira in 2 weeks. Resume Methotrexate in 1 week Call your doctor if your incision/area has: Continuous Slow Oozing, Sudden Increased Bleeding, Increased Pain/ Swelling, Increased Redness, Foul Smelling Discharge Call your doctor if you observe: Fever of 101 or Higher Suture Line Care: Avoid Pulling/Pushing, Avoid Pinching/Bending Additional Dressing/Incision Instructions:: You may place gauze dressing as needed to protect the incisions from clothing if irritation occurs. Leave steri- strips in place for 1 week. Home Medications: Medications to take at Discharge adalimumab 40 mg/0.8 mL subcutaneous pen kit 40 mg SC Q2W 05/12/18 aspirin 81 mg tablet,delayed release 81 mg PO DAILY 05/12/18 denosumab 60 mg/mL subcutaneous syringe 60 mg SC [id number] 05/12/18 fluticasone 250 mcg-salmeterol 50 mcg/dose blistr powdr for inhalation 1 inh INHALATION BID 05/12/18 fluticasone 50 mcg/actuation blister powder for inhalation 1 inh INHALATION BID PRN 05/12/18 fluvastatin 40 mg capsule 80 mg PO QHS 05/12/18 folic acid 1 mg tablet 4 mg PO DAILY 05/12/18 melatonin 3 mg tablet 3 mg PO HS PRN 05/12/18 methotrexate sodium 2.5 mg tablet 7.5 mg PO SA 05/12/18 omega 2-gsp-qqw-fish oil 60 mg-90 mg-500 mg capsule 1 cap PO DAILY 05/12/18 omeprazole 20 mg capsule,delayed release 20 mg PO DAILY 05/12/18 potassium chloride ER 20 mEq tablet,extended release(part/cryst) 20 meq PO DAILY 05/12/18 prednisone 2.5 mg tablet 2.5 mg PO DAILY 05/12/18 triamterene 37.5 mg-hydrochlorothiazide 25 mg capsule 1 cap PO DAILY 05/12/18 Turmeric/Turmeric Root Extract [Turmeric 500 mg Capsule] 1 each PO DAILY 06/30/18 Albuterol Inhaler [Ventolin Hfa (SP)] 1 puff INHALATION Q4H PRN PRN 07/11/18 Calcium Carb/Vitamin D [Caltrate-600 With Vit D Tab] 1 tab PO DAILY 07/11/18 Garlic 1,000 mg PO DAILY 07/11/18 Primary Care Physician: Chela Chiu MD [Primary Care Provider] - Please Follow Up With: Duane Torres MD - [phone] When: Call to make an appointment to be seen in about 10 days. Disposition: Home Minutes spent on discharge:: 20 Patient Condition:: Stable Medical Necessity - Tobacco Use Smoking Status: Former smoker Tobacco Use: Non-smoker Meaningful Use Info Meaningful Use Diagnoses (Choose all that apply): None applicable Code Visit Inpatient E AND M: 75398 Disch Hosp 07/17/18 1532 <Electronically signed by Coco Alex PA-C> Date Coco Alex PA-C Cosigner Signature (if applicable): Date CC: Coco Alex PA-C; Chela Chiu MD Signed SURGERY VISIT REPORT Observed: 07/17/2018 Status: F Source: [place] 11:10 AM [facility] REPOSITORY [facility] [address] [place], [place] [id number] OFFICE VISIT Date of Service: 07/15/18 MR#: [id number] Acct: [id number] Name: SO RAMIREZ Rep #: [id number] : 1950 Provider: Coco Alex PA-C Age/Sex: 67/F Location: [facility] Status: Signed Intake Vital Signs07/15/18 Weight: 141 lb 07/10/18 Body Mass Index (BMI) 28.9 Intake Visit Reasons: PO Colectomy RC 07/07 Chief Complaint: lap sig colectomy, stent placement Allergies Penicillins Allergy (Mild, Verified 07/15/18 13:30) rash doxycycline Adverse Reaction (Mild, Verified 07/15/18 13:30) gi upset levofloxacin [From Levaquin] Adverse Reaction (Mild, Verified 07/15/18 13:30) gi upset meperidine [From Demerol] Adverse Reaction (Mild, Verified 07/15/18 13:30) gi upset moxifloxacin [From Avelox] Adverse Reaction (Mild, Verified 07/15/18 13:30) gi upset Sulfa (Sulfonamide Antibiotics) Adverse Reaction (Mild, Verified 07/15/18 13:30) gi upset acetaminophen [From Tylenol-Codeine] Adverse Reaction (Verified 07/15/18 13:30) Nausea/Vom/Diarrhea codeine [From Tylenol-Codeine] Adverse Reaction (Verified 07/15/18 13:30) Nausea/Vom/Diarrhea Medications adalimumab 40 mg/0.8 mL subcutaneous pen kit 40 mg SC Q2W 05/12/18 [History Confirmed 07/11/18] aspirin 81 mg tablet,delayed release 81 mg PO DAILY 05/12/18 [History Confirmed 07/11/18] denosumab 60 mg/mL subcutaneous syringe 60 mg SC [id number] 05/12/18 [History Confirmed 07/11/18] fluticasone 250 mcg-salmeterol 50 mcg/dose blistr powdr for inhalation 1 inh INHALATION BID 05/12/18 [History Confirmed 07/11/18] fluticasone 50 mcg/actuation blister powder for inhalation 1 inh INHALATION BID PRN 10/08/18 [History Confirmed 07/11/18] fluvastatin 40 mg capsule 80 mg PO QHS 05/12/18 [History Confirmed 07/11/18] folic acid 1 mg tablet 4 mg PO DAILY 05/12/18 [History Confirmed 07/11/18] melatonin 3 mg tablet 3 mg PO HS PRN 05/12/18 [History Confirmed 07/11/18] methotrexate sodium 2.5 mg tablet 7.5 mg PO SA 05/12/18 [History Confirmed 07/11/18] omega 7-fhr-ymj-fish oil 60 mg-90 mg-500 mg capsule 1 cap PO DAILY 05/12/18 [History Confirmed 07/11/18] omeprazole 20 mg capsule,delayed release 20 mg PO DAILY 05/12/18 [History Confirmed 07/11/18] potassium chloride ER 20 mEq tablet,extended release(part/cryst) 20 meq PO DAILY 05/12/18 [History Confirmed 07/11/18] prednisone 2.5 mg tablet 2.5 mg PO DAILY 05/12/18 [History Confirmed 07/11/18] triamterene 37.5 mg-hydrochlorothiazide 25 mg capsule 1 cap PO DAILY 05/12/18 [History Confirmed 07/11/18] Turmeric/Turmeric Root Extract [Turmeric 500 mg Capsule] 1 ea PO DAILY 06/30/18 [History Confirmed 07/11/18] Albuterol Inhaler [Ventolin Hfa (SP)] 1 puff INHALATION Q4H PRN PRN 07/11/18 [History Confirmed 07/11/18] Calcium Carb/Vitamin D [Caltrate-600 With Vit D Tab] 1 tab PO DAILY 07/11/18 [History Confirmed 07/11/18] Garlic 1,000 mg PO DAILY 07/11/18 [History Confirmed 07/11/18] Subjective Details: Patient is a 67 y/o female I am following for stricture of the sigmoid colon. Dr. Torres performed a laparoscopic converted to hand-assisted laparoscopic low anterior resection of the sigmoid colon with bilateral salpingo-oophorectomies and pre- intervention cystoscopy with left ureteral catheter placement on 07/07/18. Patient tolerated the procedure well. She was discharged on POD #2. Patient went to the ED on POD #4 due to her nerve block had worn off and she had developed abdominal pain and back pain. Patient noted she knew she had a AAA and was scared that this may have ruptured. Patient had a CT scan which demonstrated rectosigmoid junction, postoperative changes with small amount of free fluid . Soft tissue tiny air bubbles in the lower pelvis versus early abscess. Patient was given Toradol and was noted to have improvement in pain. WBC was 15.5, Hgb 10.9. Liver enzymes and troponin were normal. CXR was unremarkable. EKG was sinus rhythm with rate of 71. Patient presents for a follow-up appointment with much improvement in the abdominal and back pain. She in fact denies having pain today. She denies nausea, vomiting, fever. She is having semi-solid bowel movements. She is passing flatus. Her appetite is slowly improving. Objective Details: Abdomen- soft, non-tender. incisions c/d/i. No erythema or infection noted. Positive bowel sounds Assessment AND Plan Problems 1. Stricture of sigmoid colon K56.699 2. 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 Diverticulitis of large intestine without bleeding, unspecified complication status K57.32 Diverticulitis bleeding: without bleeding Diverticulitis complication: unspecified complication status 07/17/18 1110 <Electronically signed by Coco Alex PA-C> Date Coco Alex PA-C Cosigner Signature: Date (if applicable) CC: Chela Chiu MD OPERATIVE REPORT Observed: 07/16/2018 Status: F Source: [place] 10:01 [facility] [place] [facility] Medical Records Department [address] [place] [address] Operative Report 07/07/18 0929 MR#: [id number] Acct: [id number] Name: SO RAMIREZ Rep #: [id number] : 1950 67 From: Joe Gramajo MD PCP: Chela Chiu MD Status: DIS IN Y Location: MS3 [id number] Report of Operation Date of Procedure: 07/07/18 Pre-Operative Diagnosis: Sigmoid mass Post-Operative Diagnosis: Same and pelvic/abdominal adhesive disease Surgery/Procedure Performed:: Laparoscopic and hand assisted bilateral salpingooophorectomy Description of Surgical Findings:: Sigmoid colon and small bowel adherent to the left sidewall. Ovaries appeared normal. Left fallopian tube with inflammation. Uterus normal. vb net developer: Duane Torres Type of Anesthesia:: General Anesthesiologist: Fausto Higgins Special Medications: none Specimen's removed: right ovary and fallopian tube ( left ovary and fallopian tube will be removed with portion of colon Drains: Mc Description of Procedure: Dr. Torres placed three 5mm laparoscopic ports on the left side. Also placed a gelport just below the umbilicus in the midline. With careful dissection Dr. Torres freed the bowel from the left sidewall. The left uteroovarian and infindibulopelvic ligament were cut with the Enseal device. The left ovary and fallopian tube were attached to the sigmoid colon and were removed with that specimen. The right fallopian tube was grasped at the fimbriated end elevated and the right infudibulopelvic ligament was cauterized and cut close to the ovary. The Mesosalpinx was then dissected down to the uteroovarian ligament which was cauterized and cut. The specimen was then removed. Dr. Torres then completed the remaining dissection of the pelvic and abdominal adhesions and resceted the sigmoid colon. - Admit VTE Documentation VTE Present on Admission: No VTE Mechan Device Prophylaxis: SCD's VTE Pharm Prophylaxis ordered?: No 07/16/18 1001 <Electronically signed by Joe Gramajo MD> Date Joe Gramajo MD CC: Joe Floyd MD; Joe Gramajo MD; Chela Chiu MD; Duane Torres MD Signed CALCIUM,TOTAL Collected: 07/15/2018 Status: F Source: [place] 11:01 AM [facility] [place] REPOS[place] TYPE CODE TESTS RESULT OUT OF RANGE REFERENCE UNITS LAB L501.2200 8.5-10.1 mg/dL High CA 10.2 Performed By: #### L501.2200 #### [facility] [address], [address] VITAMIN D,25 HYDROXY Collected: 07/15/2018 Status: F Source: [place] 11:01 AM [facility] [place] REPOSITORY TYPE CODE TESTS RESULT OUT OF RANGE REFERENCE UNITS LAB L506.1000 29.95-100.01 ng/mL Normal Vitamin D 38.3 25-OH Result Comment: Vitamin D 25(OH) Status Range Deficiency <20 ng/mL (50nmol/L) Insuffciency 20 - 30 ng/mL (50 - 75 nmol/L) Sufficiency 30 - 100 ng/mL (75 - 250 nmol/L) Toxicity >100 ng/mL (>250 nmol/L) Performed By: #### L506.1000 #### [facility] [address] [place], [address] 12 LEAD ELECTROCARDIOGRAM Observed: 07/14/2018 Status: F Source: [place] 1:55 PM [facility] [place] REPOSITORY [facility] Cardiovascular Services [address] [facility] [place] [address] 12 Lead EKG 07/11/18 0641 MR#: [id number] Acct: [id number] Name: SO RAMIREZ Rep #: [id number] : 1950 67 From: Hugh Lopez MD Attending Dr: Status: DEP ER Ordering Dr: Irma Perrin MD Date: 07/11/18 Location: ED Sex: F C Admitted: Test Reason : BACK PAIN Blood Pressure : / mmHG Vent. Rate : 071 BPM Atrial Rate : 071 BPM P-R Int : 142 ms QRS Dur : 078 ms QT Int : 412 ms P-R-T Axes : 061 064 049 degrees QTc Int : 447 ms Normal sinus rhythm Normal ECG Confirmed by HUGH LOPEZ MD ([id number]), market editor PASQUALE BROWN ([id number]) on 07/14/2018 1:55:31 PM Referred By: ZEESHAN Confirmed By:HUGH LOPEZ MD 07/14/18 1355 Date Hugh Lopez MD CC: Irma Perrin MD; Chela Chiu MD Signed DISCHARGE INSTRUCTION Observed: 07/11/2018 Status: F Source: [place] 1:00 PM [facility] [place] REPOSITORY [facility] Medical Records Department [address] [place] [address] Discharge Instruction 07/11/18 1021 MR#: [id number] Acct: [id number] Name: SO RAMIREZ Rep #: [id number] : 1950 67 From: Don Iglesias MD PCP: Chela Chiu MD Status: DEP ER ED Disposition - Plan for ED Patient: Disposition: Home or Assisted Living Chief Complaint: Other, Pain/Inj Instructions: ED Neck Back Pain General Referrals: Duane Torres MD [STAFF PHYSICIAN] - Additional Instructions: Call and follow-up with Dr. Torres's office today at 3:00 to give them update on how you are doing and again Saturday more burning at 9 AM. Obviously return to ER if you are feeling a lot worse. What to do if you have Problems For any increased pain, shortness of breath, bleeding, nausea or vomiting, chest pain, or any unexpected problems, contact your Primary Care Provider. Call [facility] ([phone]) or report to the closest Emergency Room. Call 911 if necessary. 07/11/18 1300 <Electronically signed by Don Iglesias MD> Date Don Iglesias MD Cosigner Signature (If Indicated): Date CC: Chela Chiu MD Observed: 07/11/2018 Status: F Source: [place] CULTURE, BLOOD (WB) 10:30 AM [facility] [place] REPOSITORY BC No growth in 5 days. Performed By: #### M200.1000 #### [facility] [address] [place], [place], [address] Observed: 07/11/2018 Status: F Source: [place] CULTURE, BLOOD (WB) 10:30 AM [facility] [place] REPOSITORY BC No growth in 5 days. Performed By: #### M200.1000 #### [facility] [address] [place], [address] EMERGENCY DEPARTMENT Observed: 07/11/2018 Status: C Source: [place] SUMMARY 10:21 AM [facility] [place] REPOSITORY [facility] Medical Records Department [address] [place] [address] Emergency Department Summary 07/11/18 0629 MR#: [id number] Acct: [id number] Name: SO RAMIREZ Rep #: [id number] : 1950 67 From: Irma Perrin MD PCP: Chela Chiu MD Status: REG ER ADDENDUM by Don Iglesias MD on 07/11/18 at 1021 Patient turned over to me by the overnight emergency physician who initiated the workup. The patient's CAT scan showed a small fluid collection in the left lower quadrant with bubbles in it that they could not rule out was an early abscess. On multiple repeat exams the patient is clinically doing well. She has normal postoperative tenderness. Her abdomen is benign. Her #1 complaint when she came in was left back pain which seems to be musculoskeletal because she has been sleeping in a chair. CBC showed a white count of 15.5. Hemoglobin is 10.9. Electrolytes unremarkable creatinine 1.38. Liver and lipase troponin were normal. Her initial EKG showed a sinus rhythm rate of 71 with no signs of ischemia. Chest x-ray showed chronic changes but no acute process. Dr. Duane Cummings who did her initial surgery came down to evaluate the patient x2. He is comfortable with her being discharged home. He did 1 blood cultures x2 obtained before discharge. He did offer the patient and her daughter admission if they did not feel comfortable being discharged home. I spoke to both the patient and daughter at length and they are comfortable with discharge. Dr. Ugarte is going to have him follow-up with his office later today and first thing Saturday morning. They know to return if worse. Impressions #1 postop abdominal pain 2. Musculoskeletal back pain Date Don Iglesias MD cc: Chela Chiu MD * Addendum - ER Visit Summary Date of Service: 07/11/18 Chief Complaint: Abdominal pain and left back pain History of Present Illness: The patient is a 67 F who is postop day 4 after a partial colon resection and bilateral salpingo-oophorectomy who presents for abdominal pain and left-sided lower back pain. Patient states she had a nerve block performed that gave her good pain control. She was told it would last approximately 4 days. 2 days ago she began having back pain and abdominal pain. She took Tylenol with relief. This morning she began having severe abdominal pain and left lower back pain, and Tylenol has helped it somewhat. Patient has recent diagnosis of abdominal aortic aneurysm, and she is concerned that her pain is related to the aneurysm. Patient is also complaining of new left sided shoulder pain that she describes as inside pain. She does have history of rheumatoid arthritis but denies having any history of pain similar to this. This morning she had some mild chest pain and shortness of breath, and felt like she needed to cough but was unable to cough due to her abdominal pain. Patient has had mild nausea. No vomiting or urinary symptoms. She has passed flatus and is having bowel movements. Patient is not currently on any blood thinners. She is off her medications for rheumatoid arthritis due to the surgery. Physical Examination: Vital signs: afebrile, hemodynamically stable, no hypoxia on room air General: well nourished, well developed, in no distress Skin: warm, dry, no rash, no pallor HEENT: normocephalic and atraumatic; PERRL, EOMI, moist mucous membranes Cardiovascular: regular rate and rhythm without murmurs, no peripheral edema, pulses present all distal extremities Respiratory: No increased work of breathing, lungs are clear to auscultation bilaterally, no rales, rhonchi or wheezing Abdominal: Abdomen is soft, mildly distended, tender in the left lower abdomen, normoactive bowel sounds, no guarding or rebound, no pulsatile masses, surgical incisions with Steri-Strips in place are clean, dry and intact Back: tender to palpation of the left paraspinal lumbar musculature MSK: Moves all extremities, no deformities, normal strength, no tenderness to palpation of the left shoulder Neuro: Awake and alert, oriented 4. No facial droop, sensation and motor function intact and symmetric Test Results: [] Emergency Department Course and Treatment: Patient presents with abdominal pain and left lower back pain 4 days after a colon resection and bilateral salpingo- oophorectomy. Chart review also shows she had a left ureteral stent placed during the procedure (and subsequently removed). CBC, CMP and urinalysis were ordered. Because patient is having the left shoulder pain that does not strictly correspond to her back or abdominal pain, and had the brief episode of chest pain with shortness of breath this morning, EKG and troponin were performed, although suspicion for ACS is low. Chest x-ray also to evaluate for any possible pneumonia. Patient was offered IV pain medications and does not want any opiates; she took Tylenol shortly before presentation. She did accept a dose of toradol for 8/10 pain, and states that is what she was given in the hospital after surgery. Dr. Torres was involved early in patient's workup to consult on any imaging that may be necessary. We evaluated the patient in the emergency department, and given the extent of the adhesions in her left abdomen and the left ureteral stent that had been placed during surgery, he requested CT abdomen and pelvis with p.o. and IV contrast to evaluate the anastomosis and the ureter, as well as for any other acute pathology. Patient was given Zofran to help her tolerate drinking the contrast. Imaging results will be followed up by the day physician, and final disposition pending results. Time of my reevaluation, patient was resting comfortably in bed. Treatment Plan: [] Disposition: [] Impression: Postoperative abdominal pain low back pain, left shoulder pain This note was generated with TaxiMeation software. It may contain incorrect words, spelling, and punctuation that were not noted in review of the chart prior to signing ED Disposition - Plan for ED Patient: Chief Complaint: Other, Pain/Inj Referrals: Chela Chiu MD [Primary Care Provider] - What to do if you have Problems For any increased pain, shortness of breath, bleeding, nausea or vomiting, chest pain, or any unexpected problems, contact your Primary Care Provider. Call [facility] ([phone]) or report to the closest Emergency Room. Call 911 if necessary. 07/11/18 0715 <Electronically signed by Irma Perrin MD> Date Irma Perrin MD Cosigner Signature (If Indicated): Date CC: Chela Chiu MD 12 LEAD ELECTROCARDIOGRAM Observed: 07/11/2018 Status: F Source: [place] 7:18 AM [facility] [place] REPOSITORY [facility] Cardiovascular Services [address] [place] [address] EKG - [facility] [place] 06/30/18 1113 MR#: [id number] Acct: [id number] Name: SO RAMIREZ Rep #: [id number] : 1950 67 From: Jose L Nava MD Attending Dr: Joe Floyd MD Status: DIS IN Ordering Dr: Duane Torres MD Date: 06/30/18 [place] [facility] [place] Sex: F C Admitted: 07/07/18 Test Reason : Blood Pressure : / mmHG Vent. Rate : 068 BPM Atrial Rate : 068 BPM P-R Int : 140 ms QRS Dur : 078 ms QT Int : 410 ms P-R-T Axes : 067 069 057 degrees QTc Int : 435 ms Normal sinus rhythm Normal ECG Confirmed by HUGH LOPEZ MD ([id number]), market editor RAJI GOETZ ([id number]) on 07/01/2018 4:00:29 PM Also confirmed by HUGH LOPEZ MD ([id number]), market editor RAJI GOETZ ([id number]) on 07/02/2018 4:24:16 PM Also confirmed by JOSE L NAVA MD ([id number]), market editor PASQUALE BROWN ([id number]) on 07/11/2018 7:17:54 AM Also confirmed by JOSE L NAVA MD ([id number]), market editor PASQUALE BROWN ([id number]) on 07/11/2018 7:18:10 AM Referred By: Duane Torres Confirmed By:JOSE L NAVA MD 07/11/18717 Date Jose L Nava MD CC: Joe Floyd MD; Chela Chiu MD; Duane Torres MD Date Dictated: 06/30/181112 Date Transcribed: 06/30/181112 Package Car Driver: Signed URINALYSIS, COMPLETE Collected: 07/11/2018 Status: F Source: [place] 7:15 AM [facility] [place] REPOSITORY Order Comment: Order Date: 07/11/18 How was Urine Obtained? 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 DIPSTX 1.015 LAB L400.3550 5.0 - 8.0 pH UR Normal 7.0 LAB L400.3600 Negative mg/dl High PROT 15 DIPSTX LAB L400.3700 Normal mg/dl Normal UROBILI Normal LAB L400.3750 Negative Normal NITRITE UR Negative LAB L400.3780 Negative /ul High 50 OCCULT BLOOD-UR LAB L400.3800 Negative /ul High LEUK 25 ESTERASE LAB L400.4050 0-5 /hpf WBC Normal 0-5 SEEN LAB L400.4100 0-5 /hpf Normal RBC-UA 0-5 SEEN LAB L400.4150 5-10 /hpf SQUAM Normal EPI 0-5 SEEN LAB L400.4300 None Seen /hpf Normal BACTERIA RARE LAB L400.4350 <or=2+ /hpf 0 Normal MUCUS, URINE SEEN Performed By: #### L400.0001 #### [facility] [address] [place], [address] ABDOMEN/PELVIS WITH Observed: 07/11/2018 Status: F Source: [place] CONTRAST 7:02 AM [facility] [place] REPOSITORY [facility] Imaging Services [address] [place] [address] Abdomen/Pelvis WITH Contrast MR#: [id number] Acct: [id number] Name: SO RAMIREZ Rep #: [id number] : 1950 F 67 From: Myron Holland MD PCP: Chela Chiu MD Status: REG ER Study: Abdomen/Pelvis WITH Contrast Date of Exam: 07/11/18 Exam# [id number] Ordering Dr: Irma Perrin MD STUDY: CT ABDOMEN AND PELVIS WITH CONTRAST REASON FOR EXAM: Female, 67 years old. Status post colon resection. Abdominal pain. RADIATION DOSAGE (If Supplied By Facility): CTDIvol = ( 20.47 ) mGy, DLP = ( 975.01 ) mGycm TECHNIQUE: Transaxial images were obtained from the dome of the diaphragm to the symphysis pubis with oral contrast. 100 ml of Isovue 300 contrast was administered. Sagittal and coronal images were reconstructed. Individualized dose optimization techniques were used for this CT. COMPARISON: None. FINDINGS: The visualized lung bases are unremarkable. Coronary calcification. Tiny subcentimeter hypodensity in the posterior lateral aspect of the right lobe of the liver superiorly. There is a 1 cm cyst in the left lobe of the liver adjacent to the falciform ligament. The patient is status post cholecystectomy. Minimal central intrahepatic biliary ductal dilatation. Normal spleen. Normal pancreas. Normal bilateral adrenal glands. Normal right kidney. Normal left kidney. There is a small hiatal hernia. Normal small intestine. There are multiple colonic diverticula consistent with diverticulosis. There is evidence of acute thickening of the sigmoid colon. Anastomotic suture line is seen at the rectosigmoid junction. Minimal amount of free fluid in the posterior pelvis. Increased soft tissue density in the pelvis with tiny air bubbles. This is more prominent on the left side of the pelvis. This may represent postoperative change although early abscess formation cannot be excluded.. The appendix is visualized and appears normal. There is diffuse atherosclerotic calcification of the abdominal aorta. There is evidence of a fusiform infrarenal abdominal aortic aneurysm with a transverse dimension of 4 cm. There is evidence of mural thrombus along its lateral wall. Normal inferior vena cava. Normal retroperitoneum. Normal urinary bladder. Normal abdominal wall. There is almost complete collapse of the T11 vertebrae. 50% loss of height of the L2 vertebrae. CT/Abdomen/Pelvis WITH Contrast IMPRESSION: Surgical anastomosis seen at the rectosigmoid junction. Postoperative changes with a small amount of free fluid at the operative site. Soft tissue density with tiny air bubbles in the lower pelvis at the operative site. This may represent either postoperative changes versus early abscess formation. Follow-up is recommended. Sigmoid wall thickening and sigmoid diverticulosis. Electronically Signed: Myron Holland MD at 9:30 EST Tel [phone], Service support , CC: Irma Perrin MD; Chela Chiu MD Package Car Driver: Signed CBC W/DIFF, AUTOMATED Collected: 07/11/2018 Status: C Source: [place] 6:30 AM [facility] [place] REPOSITORY TYPE CODE TESTS RESULT OUT OF RANGE REFERENCE UNITS LAB L100.1000 4.4-11.0 K/mm3 High WBC 15.5 LAB L100.1200 4.2-5.4 M/mm3 Low RBC 3.59 LAB L100.1300 12.0-15.0 g/dl Low HGB 10.9 LAB L100.1400 37-47 % Low HCT 33.6 LAB L100.1500 81-99 fL Normal MCV 93.6 LAB L100.1600 27.0-32.0 pg Normal MCH 30.4 LAB L100.1700 32-36 g/gl Normal MCHC 32.4 LAB L100.1810 11.6-14.6 % Normal RDW CV 14.2 LAB L100.1820 35.1-43.9 fl High RDW SD 48.7 LAB L100.1900 150-450 K/mm3 Normal PLT 335 LAB L100.2000 6.2-12.0 fl Normal MPV 8.8 LAB L100.2100 47-70 % Normal NEUT% 67.2 LAB L100.2200 19-41 % Low LY% 16.2 LAB L100.2300 0-10 % High MONO% 12.3 LAB L100.2400 0-5 % Normal EO% 3.6 LAB L100.2500 0-1 % Normal BASO% 0.3 LAB L100.2550 0.0-0.9 % Normal IM GRAN % 0.400 Result Comment: IG% - Immature Granulocytes (promyelocytes, myelocytes and metamyelocytes) > 1% indicates that a LEFT SHIFT is Present. LAB L100.2620 2.0-7.7 X10 3/uL High Absolute Neut 10.4 LAB L100.2720 0.83-4.51 X10 3/ul Normal Absolute Lymph 2.51 LAB L100.9900 Normal PATH REV Reviewed Result Comment: Leukocytosis. Normocytic anemia. Clinical correlation necessary. Derick Brown M.D. 07/11/18 AMENDED REPORT 07/11/18 1411 PATH REV previously reported as: Kindra polanco Performed By: #### L100.0100 #### [facility] [address] [facility] [place], [place], [address] COMPREHENSIVE METABOLIC Collected: 07/11/2018 Status: F Source: [facility] 6:30 AM [facility] [place] REPOSITORY TYPE CODE TESTS RESULT OUT OF RANGE REFERENCE UNITS LAB L501.0100 74-106 mg/dL Normal GLU 90 Result Comment: Please note revised GLUCOSE reference range effective 2017. LAB L501.1000 7-18 mg/dL Normal BUN 13 LAB L501.1100 0.55-1.02 mg/dL High CREAT,SERUM 1.38 Result Comment: The validity of the calculated GFR AND GFRAA in patients over 70 years has not been determined. Clinical correlation is essential. LAB L501.1110 >60 mL/min Low EST GFR 40 Result Comment: Non- GFR Calc LAB L501.1115 >60 mL/min Low EST GFR - AA 49 Result Comment: GFR Calc LAB L501.1255 ml/min Normal Estimated CRCL 28.03 LAB L501.1300 10-20 RATIO Low BUN/CRE 9.4 LAB L501.1500 6.4-8. g/dL Normal 2 T PROT 7.7 LAB L501.1800 3.2-5. g/dL Normal 0 ALB 3.2 LAB L501.1950 2.2-4. g/dL High 2 GLOB 4.5 LAB L501.2000 0.9-2. RATIO Low 4 A/G 0.7 LAB L501.2200 8.5-10 mg/dL Normal .1 CA 9.1 LAB L501.4100 15-37 U/L Normal AST 36 LAB L501.4305 45-117 U/L Normal ALK P 50 LAB L501.4405 13-56 U/L Normal ALT 38 LAB L501.4600 0.20-1 mg/dL Normal .00 T BILI 0.40 LAB L501.5300 136-14 mmol/L Normal 5 NA 137 LAB L501.5600 3.5-5. mmol/L Low 1 K 3.4 LAB L501.5900 98-107 mmol/L Normal CL 98 LAB L501.6100 21.0-3 mmol/L Normal 2.0 CO2 27.0 LAB L501.6200 5-15 Normal GAP 12 Performed By: #### L500.4050, L501.2450, L501.4010 #### [facility] [address] [place], [place], [id number] LIPASE Collected: 07/11/2018 Status: F Source: [place] 6:30 AM [facility] [place] REPOSITORY TYPE CODE TESTS RESULT OUT OF RANGE REFERENCE UNITS LAB L501.2450 73-393 U/L Normal LIPASE 135 Performed By: #### L500.4050, L501.2450, L501.4010 #### [facility] [address] [place], [place], [id number] TROPONIN-I Collected: 07/11/2018 Status: F Source: [place] 6:30 AM [facility] [place] REPOSITORY TYPE CODE TESTS RESULT OUT OF RANGE REFERENCE UNITS LAB L501.4010 <0.045 ng/mL Normal < 0.015 TROPONIN-I Result Comment: TROPONIN-I EXPECTED VALUES <0.045 Negative 0.045 - 0.590 Consistent with Cardiac Damage > OR = 0.600 Critical Value Not every elevated troponin is indicative of MT. These values should be used with clinical judgement in examining the patient's clinical picture for diagnosis. To establish a diagnosis of MT versus myocardial injury, there must be a demonstrated rise and/or fall in the troponin values, in addition to ischemic symptoms, EKG changes, new regional wall motion abnormality, and/or angiographical evidence. PLEASE NOTE: REFERENCE RANGES EDITED 17 Performed By: #### L500.4050, L501.2450, L501.4010 #### [facility] [address] [place], [address] CHEST 1 VIEW Observed: 07/11/2018 Status: F Source: [place] (PORTABLE) 6:29 AM [facility] REPOSITORY [facility] Imaging Services [address] [place] [address] Chest 1 View (Portable) MR#: [id number] Acct: [id number] Name: SO RAMIREZ Fani Rep #: [id number] : 1950 F 67 From: Colin Gomez MD PCP: Chela Chiu MD Status: REG ER Study: Chest 1 View (Portable) Date of Exam: 07/11/18 Exam# [id number] Ordering Dr: Irma Perrin MD STUDY: X-RAY CHEST REASON FOR EXAM: Female, 67 years old. Recent surgery. Back pain. TECHNIQUE: 1 view COMPARISON: December 31, 2013 FINDINGS: The chest is rotated to the left. The heart is slightly enlarged. There is no failure or pneumonia. There is a thoracic scoliosis with convexity to the right. This is mild Normal visualized thoracic spine. Normal visualized ribs, clavicles, and shoulders. There is no demonstrated abnormality of the visualized soft tissue structures of the upper abdomen. RAD/Chest 1 View (Portable) IMPRESSION: Moderate cardiomegaly. No acute findings in the lungs. Electronically Signed: Colin Gomez MD at 7:02 EST Tel , Service support , CC: Irma Perrin MD; Chela Chiu MD Package Car Driver: Signed DISCHARGE INSTRUCTION Observed: 07/10/2018 Status: F Source: [place] 4:04 PM [facility] REPOSITORY [facility] Medical Records Department [address] [place] [id number] Instructions for Home/Discharge Instructions 07/07/18 0639 MR#: [id number] Acct: [id number] Name: SO RAMIREZ Rep #: [id number] : 1950 67 From: Duane Torres MD PCP: Chela Chiu MD Status: DIS IN Discharge Diet: Light diet - advance as tolerated - if you have questions about your diet instructions, please talk to you doctor. Discharge Activity: May Not Drive - for 1 week or while taking narcotic pain medicine. May shower in (days): 0 - May shower now Lifting Restrictions: 10 pounds Additional Activity Instructions:: Resume prednisone now. Resume Humira in 2 weeks. Resume Methotrexate in 1 week Call your doctor if your incision/area has: Continuous Slow Oozing, Sudden Increased Bleeding, Increased Pain/ Swelling, Increased Redness, Foul Smelling Discharge Call your doctor if you observe: Fever of 101 or Higher Suture Line Care: Avoid Pulling/Pushing, Avoid Pinching/Bending Additional Dressing/Incision Instructions:: You may place gauze dressing as needed to protect the incisions from clothing if irritation occurs. Leave steri- strips in place for 1 week. Allergies/Adverse Reactions: Allergies Penicillins Allergy (Mild, Verified 06/30/18 10:38) rash doxycycline Adverse Reaction (Mild, Verified 06/30/18 10:38) gi upset levofloxacin [From Levaquin] Adverse Reaction (Mild, Verified 06/30/18 10:38) gi upset meperidine [From Demerol] Adverse Reaction (Mild, Verified 06/30/18 10:38) gi upset moxifloxacin [From Avelox] Adverse Reaction (Mild, Verified 06/30/18 10:38) gi upset Sulfa (Sulfonamide Antibiotics) Adverse Reaction (Mild, Verified 06/30/18 10:38) gi upset acetaminophen [From Tylenol-Codeine] Adverse Reaction (Verified 06/30/18 10:38) Nausea/Vom/Diarrhea codeine [From Tylenol-Codeine] Adverse Reaction (Verified 06/30/18 10:38) Nausea/Vom/Diarrhea Medications to take at Discharge adalimumab 40 mg/0.8 mL subcutaneous pen kit 40 mg SC Q2W 05/12/18 aspirin 81 mg tablet,delayed release 81 mg PO DAILY 05/12/18 denosumab 60 mg/mL subcutaneous syringe 60 mg SC [id number] 05/12/18 fluticasone 250 mcg-salmeterol 50 mcg/dose blistr powdr for inhalation 1 inh INHALATION BID 05/12/18 fluticasone 50 mcg/actuation blister powder for inhalation 1 inh INHALATION BID PRN 05/12/18 fluvastatin 40 mg capsule 80 mg PO QHS 05/12/18 folic acid 1 mg tablet 4 mg PO DAILY 05/12/18 glucosamine HCl 1,500 mg tablet 1,500 mg PO DAILY 05/12/18 melatonin 3 mg tablet 3 mg PO HS PRN 05/12/18 methotrexate sodium 2.5 mg tablet 7.5 mg PO SA 05/12/18 omega 4-wtl-bse-fish oil 60 mg-90 mg-500 mg capsule 1 cap PO DAILY 05/12/18 omeprazole 20 mg capsule,delayed release 20 mg PO DAILY 05/12/18 potassium chloride ER 20 mEq tablet,extended release(part/cryst) 20 meq PO DAILY 05/12/18 prednisone 2.5 mg tablet 2.5 mg PO DAILY 05/12/18 triamterene 37.5 mg-hydrochlorothiazide 25 mg capsule 1 cap PO DAILY 05/12/18 Albuterol Aerosols [Ventolin Aerosols] 2.5 mg INHALATION Q6H PRN PRN 05/20/18 Calcium Carbonate [Calcium] 600 mg PO DAILY 05/20/18 Cider Vinegar [Apple Cider Vinegar] 300 mg PO DAILY 06/30/18 Turmeric/Turmeric Root Extract [Turmeric 500 mg Capsule] 1 each PO DAILY 06/30/18 Primary Care Physician: Chela Chiu MD [Primary Care Provider] - Test Results: Test results from this visit will be discussed in further detail at your follow-up appointment, if applicable. Please Follow Up With: Duane Torres MD - [phone] When: Call to make an appointment to be seen in about 10 days. 07/10/18 1604 <Electronically signed by Duane Torres MD> Date Duane Torres MD CC: Joe Floyd MD; Joe Gramajo MD; Chela Chiu MD BASIC METABOLIC Collected: 07/09/2018 Status: F Source: [place] PROFILE ([facility]) 4:54 AM [facility] REPOSITORY TYPE CODE TESTS RESULT OUT OF RANGE REFERENCE UNITS LAB L501.0100 74-106 mg/dL Normal GLU 92 Result Comment: Please note revised GLUCOSE reference range effective 2017. LAB L501.1000 7-18 mg/dL Normal BUN 17 LAB L501.1100 0.55-1.02 mg/dL High CREAT,SERUM 1.45 Result Comment: The validity of the calculated GFR AND GFRAA in patients over 70 years has not been determined. Clinical correlation is essential. LAB L501.1110 >60 mL/min Low EST GFR 38 Result Comment: Non- GFR Calc LAB L501.1115 >60 mL/min Low EST GFR - AA 46 Result Comment: GFR Calc LAB L501.1255 ml/min Normal Estimated CRCL 26.67 LAB L501.1300 10-20 RATIO Normal BUN/CRE 11.7 LAB L501.2200 8.5-10 mg/dL Low .1 CA 8.3 LAB L501.5300 136-14 mmol/L Low 5 NA 131 LAB L501.5600 3.5-5. mmol/L Normal 1 K 3.6 LAB L501.5900 98-107 mmol/L Low CL 95 LAB L501.6100 21.0-3 mmol/L Normal 2.0 CO2 26.0 LAB L501.6200 5-15 Normal GAP 10 Performed By: #### L500.2500 #### [facility] [address] [place], [place], [id number] CBC-COMPLETE BLOOD CNT Collected: 07/09/2018 Status: F Source: [place] NO DIFF 4:54 AM [facility] REPOSITORY TYPE CODE TESTS RESULT OUT OF RANGE REFERENCE UNITS LAB L100.1000 4.4-11.0 K/mm3 High WBC 13.9 LAB L100.1200 4.2-5.4 M/mm3 Low RBC 3.03 LAB L100.1300 12.0-15.0 g/dl Low HGB 9.5 LAB L100.1400 37-47 % Low HCT 28.1 LAB L100.1500 81-99 fL Normal MCV 92.7 LAB L100.1600 27.0-32.0 pg Normal MCH 31.4 LAB L100.1700 32-36 g/gl Normal MCHC 33.8 LAB L100.1810 11.6-14.6 % Normal RDW CV 13.7 LAB L100.1820 35.1-43.9 fl High RDW SD 45.5 LAB L100.1900 150-450 K/mm3 Normal PLT 235 LAB L100.2000 6.2-12.0 fl Normal MPV 8.8 Performed By: #### L100.0500 #### [facility] [place], [place], [address] CBC-COMPLETE BLOOD CNT Collected: 07/08/2018 Status: F Source: [place] NO DIFF 12:05 PM [facility] REPOSITORY TYPE CODE TESTS RESULT OUT OF RANGE REFERENCE UNITS LAB L100.1000 4.4-11.0 K/mm3 High WBC 13.8 LAB L100.1200 4.2-5.4 M/mm3 Low RBC 3.20 LAB L100.1300 12.0-15.0 g/dl Low HGB 9.8 LAB L100.1400 37-47 % Low HCT 30.0 LAB L100.1500 81-99 fL Normal MCV 93.8 LAB L100.1600 27.0-32.0 pg Normal MCH 30.6 LAB L100.1700 32-36 g/gl Normal MCHC 32.7 LAB L100.1810 11.6-14.6 % Normal RDW CV 13.9 LAB L100.1820 35.1-43.9 fl High RDW SD 46.3 LAB L100.1900 150-450 K/mm3 Normal PLT 246 LAB L100.2000 6.2-12.0 fl Normal MPV 8.8 Performed By: #### L100.0500 #### [facility] [address] [place], [address] OPERATIVE REPORT Observed: 07/08/2018 Status: F Source: [place] 5:36 AM [facility] REPOSITORY [facility] Medical Records Department [address] [place] [address] Operative Report 07/07/18 1140 MR#: [id number] Acct: [id number] Name: SO RAMIREZ Rep #: [id number] : 1950 67 From: Duane Torres MD PCP: Chela Chiu MD Status: ADM IN Location: [place] [id number] Problem List (1) Diverticulitis large intestine Status: Acute Qualifiers: Diverticulitis bleeding: without bleeding Diverticulitis complication: unspecified complication status Qualified Code(s): K57.32 - Diverticulitis of large intestine without perforation or abscess without bleeding (2) Stricture of sigmoid colon Status: Acute Report of Operation Date of Procedure: 07/07/18 Pre-Operative Diagnosis: Sigmoid stricture secondary to diverticulitis Post-Operative Diagnosis: Sigmoid stricture secondary to diverticulitis Surgery/Procedure Performed:: Laparoscopic converted to hand- assisted laparoscopic low anterior resection of the sigmoid colon with bilateral salpingo-oophorectomies and pre-intervention cystoscopy with left ureteral catheter placement Description of Surgical Findings:: Timeout and informed consent was obtained. 67-year-old female was taken the operating room. She underwent EUS protocol. She had clindamycin 900 mg and gentamicin given intravenously preoperatively. She also had Protonix given IV 40 mg and she had stress dose steroids given Solu-Medrol. She underwent general endotracheal intubation anesthesia. She was placed in low lithotomy position. Dr. Fenton performed a cystoscopy and left ureteral catheter placement. Subsequently abdomen and perineum were prepped and draped. Ioban drape was used over the drapes as well. To the right of the umbilicus used a 5 mm Visiport technology to gain access. 2 more 5 mL ports were placed in the right lower quadrant. I eventually exchanged out the right lower quadrant anterior iliac crest port for a 11 mm port. Inspection revealed that the upper abdomen was unremarkable the stomach was nicely decompressed liver surface appeared to be normal circumflex superficial greater omentum appeared normal. There was dense adhesive disease of small bowel in the pelvis. The sigmoid colon was densely adherent to the left tube and ovary and pelvic sidewall. I initially attempted sharp dissection the left pelvic sidewall but rapidly realized that that was not advancing has the course of the ureter and the lie of the bowel and course of the tube and ovary could not be decided. So I made an infraumbilical midline incision placed a GelPort. I then utilized blunt dissection to carefully dissect through dense adhesions I used sharp scissor dissection and Enseal dissection. Under the direction of Dr. Joe Gramajo I transected the left fallopian tube leaving the ovary attached to the sigmoid colon. Having now clearly inspected the left pelvic sidewall seen at the ureter had a stent in it and it was intact that the left tube and ovary was with the sigmoid colon Dr. Joe Hamilton then proceeded on his own up to perform the right salpingo-oophorectomy. That specimen was individually submitted. Those sites were hemostatic. Having achieved that now I proceeded on with the colectomy. It was apparent that the sigmoid was densely adherent to the left pelvic sidewall and all the way down to the pelvic hollow at the pelvic needle reflection. Using Enseal device was able to bluntly and sharply dissect the entire sigmoid sidewall I then chose a place to incise the mesentery to the sigmoid colon and transected that with the Enseal device. There was some bleeding in the pelvis area which I placed a couple laparotomy packs and help pack that control that bleeding used the Enseal to further secure the bleeding and then I used Gelfoam throat thrombin to place on that area I continue to work. I had to incise the peritoneal reflection and carefully teased that free to get further below on the rectosigmoid and separate the posterior vaginal wall. Having achieved that I felt that I had healthy enough rectosigmoid to perform the transection. I initially thought I could do that with a contour but could not get the ankle so then I placed a 60 mm Ramsey through the right lower quadrant port site and 2 firings were used to transect it one final firing was used to transect a small amount of remnant material. The ureter was nicely intact. That transection appeared to be nicely intact. Irrigated the pelvis was hemostatic. I withdrew the sigmoid colon and a tightly strictured portion of bowel was then transected using the Enseal divided the rest of the mesentery up to the bowel. The bowel appeared to be quite viable at that point and I placed a [place] clamp. Transected the bowel. Placed a whip suture of 2-0 Prolene. Placed a 29 mm anvil and secured the pursestring. Then placed that back in the abdomen. Due attention to the rectal area irrigated that with Betadine and then observed path with the rigid sigmoidoscope and inserted the circular anastomotic stapler. I then went back up top and held to assure that the staple line was exiting to the previous staple line felt that he had that nicely 9.and was free from any of the potential vaginal wall encumbrance and the trocar was exited I made that with the anvil the 2 were approximated that appeared to be a nice fit with absolutely no tension I personally do fired device then I remove the donuts I personally inspected the donuts the donuts were intact. And then inserted a rigid sigmoidoscope injected air and there was absolutely no air leak whatsoever. Mars that I had a visualized the anastomosis that appeared to be nicely intact. This point I felt that I had a good solid anastomosis with healthy tissue. The pelvis was aspirated free. I removed the Gelfoam and thrombin. Hemostasis was intact I did place a small piece of Surgicel on the left pelvic sidewall and That away from the staple line. Mars that it was not indicated to leave a drain. Small bowel was inspected where it had been removed from the pelvis with a lysis of adhesions it was intact. Small bowel all appear to be normal with a 2 packs that I used previously to obtain hemostasis were removed. The greater omentum was placed overlying. I then performed a tap block 3 cc of Exparel and 30 cc of 0.25% Marcaine and 60 cc of saline was used for the tap block. I utilized 70 cc bilaterally under laparoscopic visualization. Mars that I got good block. Then trochars were removed. The larger trocar site in the right lower quadrant anterior iliac area was closed with a 0 Vicryl using a GraNee needle in a [id number] fashion. Now the hand assist device was removed gowns gloves were changed. Patient was redraped at the wound site. The midline wound was then closed with a running 0 PDS. The fascia around the wound was anesthetized with the same local mixture and a total of 30 cc was used for the skin sites and midline incision. The midline wound was closed with a running septic or 4-0 Monocryl and the port sites were closed with interrupted 4-0 Monocryl. Steri-Strips Telfa and OpSite dressings applied tape and Telfa dressings applied. Sponge and instrument and needle counts reported the surgeon be correct. Blood loss was estimated approximately 250 cc. She seemed to tolerate the procedure well she was making urine at the completion of the procedure the left ureteral catheter was removed she was taken to the recovery room in satisfactory condition. No apparent complication. Specimens include the sigmoid colon with a small portion of rectosigmoid and the donuts. Drains none. Blood loss 250 cc. Duane Torres M.D., F.A.C.S. vb net developer: Joe Gramajo vb net developer: Tarun Fenton Type of Anesthesia:: General Anesthesiologist: Fausto Higgins Special Medications: none Specimen's removed: right ovary and fallopian tube ( left ovary and fallopian tube will be removed with portion of colon Drains: Mc 07/08/18 0536 <Electronically signed by Duane Torres MD> Date Duane Torres MD CC: Joe Floyd MD; Joe Gramajo MD; Chela Chiu MD; Duane Torres MD Signed CBC-COMPLETE BLOOD CNT Collected: 07/08/2018 Status: F Source: [place] NO DIFF 5:14 AM [facility] REPOSITORY TYPE CODE TESTS RESULT OUT OF RANGE REFERENCE UNITS LAB L100.1000 4.4-11.0 K/mm3 High WBC 14.5 LAB L100.1200 4.2-5.4 M/mm3 Low RBC 3.21 LAB L100.1300 12.0-15.0 g/dl Low HGB 9.9 LAB L100.1400 37-47 % Low HCT 30.0 LAB L100.1500 81-99 fL Normal MCV 93.5 LAB L100.1600 27.0-32.0 pg Normal MCH 30.8 LAB L100.1700 32-36 g/gl Normal MCHC 33.0 LAB L100.1810 11.6-14.6 % Normal RDW CV 13.7 LAB L100.1820 35.1-43.9 fl High RDW SD 45.3 LAB L100.1900 150-450 K/mm3 Normal PLT 260 LAB L100.2000 6.2-12.0 fl Normal MPV 9.5 Performed By: #### L100.0500 #### [facility] [address] [place], [address] BASIC METABOLIC Collected: 07/08/2018 Status: F Source: [place] PROFILE (BMP) 5:14 AM [facility] REPOSITORY TYPE CODE TESTS RESULT OUT OF RANGE REFERENCE UNITS LAB L501.0100 74-106 mg/dL Normal GLU 103 Result Comment: Fasting Glucose result from 100 to 125 mg/dL suggests IMPAIRED HOMEOSTASIS per A.D.A. criteria. Please note revised GLUCOSE reference range effective 2017. LAB L501.1000 7-18 mg/dL Normal BUN 16 LAB L501.1100 0.55-1.02 mg/dL High CREAT,SERUM 1.54 Result Comment: The validity of the calculated GFR AND GFRAA in patients over 70 years has not been determined. Clinical correlation is essential. LAB L501.1110 >60 mL/min Low EST GFR 36 Result Comment: Non- GFR Calc LAB L501.1115 >60 mL/min Low EST GFR - AA 43 Result Comment: GFR Calc LAB L501.1255 ml/min Normal Estimated CRCL 25.11 LAB L501.1300 10-20 RATIO Normal BUN/CRE 10.4 LAB L501.2200 8.5-10 mg/dL Low .1 CA 8.1 LAB L501.5300 136-14 mmol/L Low 5 NA 132 LAB L501.5600 3.5-5. mmol/L Low 1 K 3.4 LAB L501.5900 98-107 mmol/L Low CL 94 LAB L501.6100 21.0-3 mmol/L Normal 2.0 CO2 26.0 LAB L501.6200 5-15 Normal GAP 12 Performed By: #### L500.2500 #### [facility] [address] [place], [address] OPERATIVE REPORT Observed: 07/07/2018 Status: F Source: [place] 9:22 AM [facility] REPOSITORY [facility] Medical Records Department [address] [place] [address] Operative Report 07/07/18917 MR#: [id number] Acct: [id number] Name: SO RAMIREZ Rep #: [id number] : 1950 67 From: Tarun Fenton MD PCP: Chela Chiu MD Status: ADM IN Location: [address] Report of Operation Date of Procedure: 07/07/18 Pre-Operative Diagnosis: Sigmoid mass Post-Operative Diagnosis: same Surgery/Procedure Performed:: Cystoscopy and left stent placement. Description of Surgical Findings:: 67 yo female take to OR, placed in lithotomy position urethra and vaginal area prep and drapped in sterile fashion went into the bladder, urethra was normal, bladder wall normal cannulized left ureteral orfice with wire and advanced a pollack catheter. once cath placed then placed mc, case then release to general surgery. Type of Anesthesia:: General Drains: stent left - Admit VTE Documentation VTE Mechan Device Prophylaxis: SCD's 07/07/18921 <Electronically signed by Tarun Fenton MD> Date Tarun Fenton MD CC: Joe Gramajo MD; Tarun Fenton MD; Chela Chiu MD; Duane Torres MD Signed COLON (NO NEOPLASM) Observed: 07/07/2018 Status: F Source: [place] 7:15 AM [facility] REPOSITORY Patient: SO RAMIREZ : 1950 (67/F) Acct Num: [id number] Phys: Everett PHILLIPS,Joe Unit Num: [id number] Loc: MS3 UP316-9 Specimen: [id number] Received: 07/07/181531 Spec Type: COLON TISSUES 1 TISSUES: A. Colon Donuts B. Colon Donuts C. Right ovary D. Colon, NOS COMMENT No malignancy is identified. Clinical correlation is suggested. Case has been reviewed in consultation with Dr. Brown who concurs with the above diagnosis. IDC:SJ GROSS DESCRIPTION A - Received in fixative is one container labeled with the patient's name and designated proximal donut. The specimen consists of a oglesby mucosal donut measuring 2 cm in diameter and 0.8 cm in thickness. No mucosal mass lesions are identified. People Manager sections are submitted in one cassette. B - Received in fixative is one container labeled with the patient's name and designated distal donut. The specimen consists of a oglesby mucosal donut measuring 2 cm in diameter and 1.2 cm in thickness. No mucosal mass lesions are identified. People Manager sections are submitted in one cassette. C - Received in fixative is one container labeled with the patient's name and designated right ovary and tube. The specimen consists of a smooth, glistening yellow-oglesby ovary measuring 2 x 1.5 x 0.8 cm. Serial sections of the ovary do not reveal mass lesions. The adjacent fallopian tube measures 2.5 cm in length and 0.5 cm in average diameter. A normal fimbriated end is present. People Manager sections are submitted in two cassettes as follows: 1 - ovary, 2 - fallopian tube. D - Received in fixative is one container labeled with the patient's name and designated sigmoid colon, left ovary and fallopian tube. The specimen consists of a 13 cm segment of bowel. The serosal surface is irregular. Focally, there is an adherent ovary and portions of fallopian tube. The ovary measures 2 x 1.5 x 0.5 cm. The adherent fallopian tube measures 5 cm in length and approximately 0.6 cm in average diameter. The serosal surface of the specimen is inked. No gross perforations are identified. Serial sections of the ovary do not reveal mass lesions. Serial sections of the bowel reveal multiple diverticula, none of which appear to have perforated through the bowel wall. Occasional nodules are identified in the pericolic soft tissue resembling lymph nodes. People Manager sections are submitted in eight cassettes as follows: 1 - ovary, 2-4 - fallopian tube with adjacent bowel, 5-7 - diverticula , 8 - sales promotion representative lymph nodes. / AM:kailey 07/08/18 TC:2 CPT: 01820 x2, 40452, 11844 HEADER OPERATION: Laparoscopic low anterior resection with hand assist PRE-OP DIAGNOSIS: Diverticulitis of large intestine without bleeding, adnexal mass TISSUE SUBMITTED: A - Proximal donut, B - Distal donut, C - Right tube and ovary, D - Sigmoid colon and left tube and ovary MICROSCOPIC DESCRIPTION Slides are reviewed. MICROSCOPIC DIAGNOSIS A. Proximal mucosal donut, excision: Colonic mucosa, submucosa and muscular tissue with no significant pathologic change. One out of one benign lymph node. B. Distal mucosal donut, excision: Colonic mucosa, submucosa and muscular tissue with no significant pathologic change. C. 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 Fallopian tube with no significant pathologic change. D. Sigmoid colon, left fallopian tube and ovary, excision: Colon with diverticular disease with focal rupture and associated inflammation, reparative and reactive change. Two out of two lymph nodes with no pathologic change. Left ovary - corpora albicantia. Left fallopian tube - fibrous adhesion to the sigmoid colon. AM:kailey 07/09/18 Signed [facility] 07/09/18 <signature on file> Performed By: #### PCOL #### [facility] [address] [place] [address]. [place], [address] LIVER PROFILE Collected: 07/07/2018 Status: F Source: [place] 6:26 AM [facility] REPOSITORY TYPE CODE TESTS RESULT OUT OF RANGE REFERENCE UNITS LAB L501.1500 6.4-8.2 g/dL Normal T PROT 7.9 LAB L501.1800 3.2-5.0 g/dL Normal ALB 3.6 LAB L501.1950 2.2-4.2 g/dL High GLOB 4.3 LAB L501.4100 15-37 U/L Normal AST 25 LAB L501.4305 45-117 U/L Normal ALK P 52 LAB L501.4405 13-56 U/L Normal ALT 27 LAB L501.4600 0.20-1.00 mg/dL Normal T BILI 0.40 LAB L501.4700 0.00-0.30 mg/dL Normal D BILI 0.15 Performed By: #### L500.3400 #### [facility] [address] [place], [address] BEDSIDE GLUCOSE Collected: 07/07/2018 Status: F Source: [place] 6:21 AM [facility] REPOSITORY TYPE CODE TESTS RESULT OUT OF RANGE REFERENCE UNITS LAB L501.080 70-110 mg/dL Normal BEDSIDE GLU 105 Result Comment: MANAGEMENT OF PATIENT CARE PER NURSING PROTOCOL Performed By: #### L501.080 #### [facility] Point of Care [address] [place], [place] [address] SURGERY VISIT REPORT Observed: 06/30/2018 Status: F Source: [place] 11:46 AM [facility] REPOSITORY [facility] [address] [place] [address] OFFICE VISIT Date of Service: 06/30/18 MR#: [id number] Acct: [id number] Name: SO RAMIREZ Fani Rep #: [id number] : 1950 Provider: Coco Alex PA-C Age/Sex: 67/F Location: [facility] Status: Signed Intake Vital Signs06/30/18 Height 5 ft 06/30/18 Weight: 148 lb 7 oz 06/30/18 Body Mass Index (BMI) 29.0 06/30/18 Blood Pressure 129/78 H Intake Visit Reasons: update h AND p lap sigmoid colectomy Chief Complaint: update H AND P for ERAS 12-4 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 Is patient in pain?: No Allergies Penicillins Allergy (Mild, Verified 06/30/18 10:38) rash doxycycline Adverse Reaction (Mild, Verified 06/30/18 10:38) gi upset levofloxacin [From Levaquin] Adverse Reaction (Mild, Verified 06/30/18 10:38) gi upset meperidine [From Demerol] Adverse Reaction (Mild, Verified 06/30/18 10:38) gi upset moxifloxacin [From Avelox] Adverse Reaction (Mild, Verified 06/30/18 10:38) gi upset Sulfa (Sulfonamide Antibiotics) Adverse Reaction (Mild, Verified 06/30/18 10:38) gi upset acetaminophen [From Tylenol-Codeine] Adverse Reaction (Verified 06/30/18 10:38) Nausea/Vom/Diarrhea codeine [From Tylenol-Codeine] Adverse Reaction (Verified 06/30/18 10:38) Nausea/Vom/Diarrhea Medications adalimumab 40 mg/0.8 mL subcutaneous pen kit 40 mg SC Q2W 05/12/18 [History Confirmed 06/30/18] aspirin 81 mg tablet,delayed release 81 mg PO DAILY 05/12/18 [History Confirmed 06/30/18] denosumab 60 mg/mL subcutaneous syringe 60 mg SC [id number] 05/12/18 [History Confirmed 06/30/18] fluticasone 250 mcg-salmeterol 50 mcg/dose blistr powdr for inhalation 1 inh INHALATION BID 05/12/18 [History Confirmed 06/30/18] fluticasone 50 mcg/actuation blister powder for inhalation 1 inh INHALATION BID PRN 05/12/18 [History Confirmed 06/30/18] fluvastatin 40 mg capsule 80 mg PO QHS 05/12/18 [History Confirmed 06/30/18] folic acid 1 mg tablet 4 mg PO DAILY 05/12/18 [History Confirmed 06/30/18] glucosamine HCl 1,500 mg tablet 1,500 mg PO DAILY 05/12/18 [History Confirmed 06/30/18] melatonin 3 mg tablet 3 mg PO HS PRN 05/12/18 [History Confirmed 06/30/18] methotrexate sodium 2.5 mg tablet 7.5 mg PO SA 05/12/18 [History Confirmed 06/30/18] omega 1-vaz-tvp-fish oil 60 mg-90 mg-500 mg capsule 1 cap PO DAILY 05/12/18 [History Confirmed 06/30/18] omeprazole 20 mg capsule,delayed release 20 mg PO DAILY 05/12/18 [History Confirmed 06/30/18] potassium chloride ER 20 mEq tablet,extended release(part/cryst) 20 meq PO DAILY 05/12/18 [History Confirmed 06/30/18] prednisone 2.5 mg tablet 2.5 mg PO DAILY 05/12/18 [History Confirmed 06/30/18] triamterene 37.5 mg-hydrochlorothiazide 25 mg capsule 1 cap PO DAILY 05/12/18 [History Confirmed 06/30/18] Albuterol Aerosols [Ventolin Aerosols] 2.5 mg INHALATION Q6H PRN PRN 05/20/18 [History Confirmed 06/30/18] Calcium Carbonate [Calcium] 600 mg PO DAILY 05/20/18 [History Confirmed 06/30/18] Cider Vinegar [Apple Cider Vinegar] 300 mg PO DAILY 06/30/18 [History Confirmed 06/30/18] Turmeric/Turmeric Root Extract [Turmeric 500 mg Capsule] 1 ea PO DAILY 06/30/18 [History Confirmed 06/30/18] Is last menstrual period known: No Post menopausal: Yes Patient : No PFSH Medical History Diverticulitis large intestine (Acute) Rheumatoid arthritis (Acute) Adnexal mass (Acute) Diverticulosis (Acute) Colitis (Acute) Abnormal peripheral pulse (Acute) Aneurysm of infrarenal abdominal aorta (Acute) Hiatal hernia with GERD (Acute) AAA (abdominal aortic aneurysm) (Acute) COPD (chronic obstructive pulmonary disease) (Acute) Chronic back pain (Acute) Diverticulitis (Acute) GERD (gastroesophageal reflux disease) (Acute) Hemorrhoid (Acute) Osteoarthritis (Acute) Rheumatoid arthritis (Acute) HTN (hypertension) (Chronic) Surgical History History of cataract extraction (Acute) History of cholecystectomy (Acute) History of colonoscopy (Acute) History of tubal ligation (Acute) Family History Father Diabetes Hypertension Mother CVA (cerebral vascular accident) Sister Breast cancer Social History Smoking Status: Former smoker how long ago did patient quit smokin yrs HPI HPI HPI: SO RAMIREZ, is a 67 F who presents to the office today for previous history of diverticulitis. Patient returns for an update history and physical. She denies recent hospitalizations. She notes a recent sinus infection she was given antibiotics for. She notes these are completed. She denies previous myocardial infarction, stroke and blood clots. She denies previously seeing a cocoa room operator. She denies previous complications with anesthesia. Patient's previous history per Dr. Torres: SO RAMIREZ, is a 67 F who presents to the office today for ongoing surgical management. The patient was referred by Dr. Chela Chiu. The patient was scheduled to have a colonoscopy in [place] but upon the finding of an abdominal aortic aneurysm it was postponed. In May 12, 2018 I saw this patient. She was vague in her symptoms. She has been having abdominal pain in the left lower quadrant. On April 11, [address] scan suggested a 3.8 x 3.4 similar abdominal aortic aneurysm with mural thrombus. There is a moderate-sized hiatal hernia. There is thickening of the sigmoid colon. There is diverticulosis in the descending and sigmoid. In the left adnexa it was felt to be enlarged at 4.3 x 5 x 3.7 cm. It was difficult to decipher the 2 structures. There was anterior wedge deformity of T11 and L2 A repeat CT scan was obtained May 07, 2018 showing the aneurysm be 4.2 cm. She has chronic constipation requiring MiraLAX. She has routine symptoms consistent with GERD. She has COPD and rheumatoid arthritis on 3 different immunologic medications. At the [facility] on May 19, 2018 she had bilateral extremity duplex inspection which failed to demonstrate any popliteal artery aneurysms. On May 22 I did a combined upper and lower endoscopy. A large hiatal hernia was present. Irregular Z line. Findings of reflux esophagitis. Multiple gastric polyps. Antral gastritis. The colonoscopy showed multiple diverticula in the sigmoid and descending colon. A benign appearing intrinsic moderate stenosis in the sigmoid colon. I was not able to advance the colonoscope past the tortuosity and narrowing of the sigmoid. H. pylori was negative. Laboratory demonstrated a Ca1 2521.9 which is normal. A pelvic ultrasound also was obtained which could not differentiate the left adnexa. The patient was then seen by Dr. Gramajo who is suspicious that the primary disease process originates with the colon with the ovary likely a bystander. ROS General General: Yes fatigue; no weight change, appetite, colon cancer, breast cancer or weakness HEENT HEENT: No difficulty swallowing, eye injury, eye surgery, swollen glands or hoarseness Endo Endocrine: No thyroid disease, diabetes mellitus, thyroid cancer, Hair loss, heat intolerance or cold intolerance Musc Musculoskeletal: Yes back problems, arthritis and rheumatoid arthritis; no gout or joint pain Cardio Cardiovascular: Yes high blood pressure; no murmur, pacemaker, heart disease, atrial fibrillation, heart attack, heart stent, palpitations, shortness of breat with exertion or chest pain Psych Psychiatric: No depression, anxiety or hearing voices Resp Respiratory: Yes shortness of breath, No sleep apnea, No cough, Yes COPD, No asthma, No emphysema, No wheezing Gastro Gastrointestinal: Yes abdominal pain, No nausea or vomiting, No diarrhea, No constipation, No blood in stool, Yes acid reflux, Yes hemorrhoids, No ulcers, No gallbladder problem, No black,tarry stools Nnamdi Hematologic: No blood thinners, No blood disorders, No bleeding, No anemia, No blood clots Neuro Neurologic: No weakness Exam Const General: cooperative, healthy appearing, comfortable, no acute distress HENMT Head: normal to inspection Eyes General: appearance normal, both eyes and all related structures Neck Neck mass: No Resp Effort AND Inspection: normal respiratory effort Auscultation: clear to auscultation bilaterally Cardio Rate: regular rate Rhythm: regular rhythm Heart Sounds: no murmurs GI Inspection: normal to inspection Palpation: soft Auscultation: normal bowel sounds Skin General: no rashes or lesions noted Neuro General: no focal motor deficits Extrem General: normal to inspection Psych Appearance: grossly normal Affect: normal affect Assessment AND Plan Problems 1. Diverticulitis of large intestine without bleeding, unspecified complication status K57.32 2. Adnexal mass N94.[address] Torres will plan to perform a laparoscopic sigmoid colectomy in conjunction with Dr. Gramajo for possible removal of the left ovary and Dr. Fenton for left ureteral stent placement under ERAS protocol. Procedure details, risks and benefits have been discussed with the patient. Patient has had the opportunity to ask and have questions answered. Patient has been off of her Methotrexate and Humeria for 1 week now. Patient has her pre- op bowel prep and antibiotics. She will stop her aspirin today. Coding Level of Care Code No Charge Diagnoses Diverticulitis of large intestine without bleeding, unspecified complication status K57.32 Diverticulitis bleeding: without bleeding Diverticulitis complication: unspecified complication status Adnexal mass N94.9 Comment Update H AND P 06/30/18 1146 <Electronically signed by Coco Alex PA-C> Date Coco Alex PA-C Cosigner Signature: Date (if applicable) CC: CBC-COMPLETE BLOOD CNT Collected: 06/30/2018 Status: F Source: [place] NO DIFF 11:20 AM [facility] REPOSITORY TYPE CODE TESTS RESULT OUT OF RANGE REFERENCE UNITS LAB L100.1000 4.4-11.0 K/mm3 High WBC 13.0 LAB L100.1200 4.2-5.4 M/mm3 Normal RBC 4.49 LAB L100.1300 12.0-15.0 g/dl Normal HGB 14.1 LAB L100.1400 37-47 % Normal HCT 42.3 LAB L100.1500 81-99 fL Normal MCV 94.2 LAB L100.1600 27.0-32.0 pg Normal MCH 31.4 LAB L100.1700 32-36 g/gl Normal MCHC 33.3 LAB L100.1810 11.6-14.6 % Normal RDW CV 14.0 LAB L100.1820 35.1-43.9 fl High RDW SD 46.2 LAB L100.1900 150-450 K/mm3 Normal PLT 318 LAB L100.2000 6.2-12.0 fl Normal MPV 9.1 Performed By: #### L100.0500 #### [facility] [address], [address] PROTHROMBIN TIME W/INR Collected: 06/30/2018 Status: F Source: [place] 11:20 AM [facility] REPOSITORY TYPE CODE TESTS RESULT OUT OF RANGE REFERENCE UNITS LAB L300.4150 11.7-14.9 SECONDS Normal PROTIME 12.0 LAB L300.4200 Normal INR 0.9 Performed By: #### L300.3900, L300.4310 #### [facility] [address] [place], [address] PARTIAL THROMBOPLAST Collected: 06/30/2018 Status: F Source: [place] TIME 11:20 AM [facility] REPOSITORY TYPE CODE TESTS RESULT OUT OF RANGE REFERENCE UNITS LAB L300.4310 24.1-36.2 Seconds Normal PTT 26.8 Performed By: #### L300.3900, L300.4310 #### [facility] [address] [place], [address] BASIC METABOLIC Collected: 06/30/2018 Status: F Source: [place] PROFILE (BMP) 11:20 AM [facility] REPOSITORY TYPE CODE TESTS RESULT OUT OF RANGE REFERENCE UNITS LAB L501.0100 74-106 mg/dL Normal GLU 104 Result Comment: Fasting Glucose result from 100 to 125 mg/dL suggests IMPAIRED HOMEOSTASIS per A.D.A. criteria. Please note revised GLUCOSE reference range effective 2017. LAB L501.1000 7-18 mg/dL Normal BUN 16 LAB L501.1100 0.55-1.02 mg/dL Normal CREAT,SERUM 0.81 Result Comment: The validity of the calculated GFR AND GFRAA in patients over 70 years has not been determined. Clinical correlation is essential. LAB L501.1110 >60 mL/min Normal EST GFR 74 Result Comment: Non- GFR Calc LAB L501.1115 >60 mL/min Normal EST GFR - AA 90 Result Comment: GFR Calc LAB L501.1255 ml/min Normal Estimated CRCL 47.75 LAB L501.1300 10-20 RATIO Normal BUN/CRE 19.7 LAB L501.2200 8.5-10 mg/dL Normal .1 CA 9.4 LAB L501.5300 136-14 mmol/L Normal 5 NA 139 LAB L501.5600 3.5-5. mmol/L Normal 1 K 3.9 LAB L501.5900 98-107 mmol/L Normal CL 103 LAB L501.6100 21.0-3 mmol/L Normal 2.0 CO2 23.0 LAB L501.6200 5-15 Normal GAP 13 Performed By: #### L500.2500 #### [facility] [address] [place], [address] EMERGENCY REPORT Observed: 06/22/2018 Status: F [facility] EMERGENCY ROOM REPORT NAME ACCOUNT SEX AGE ADMIT DISCHARGE PT MED. RECORD# NUMBER DATE DATE TYPE DOMINIQUE [id number] Monisha 67 06/22/18 3 [facility] 7118 ROOM: ER DATE OF : 1950 DICTATING PHYSICIAN: Min Hicks CHIEF COMPLAINT: Cold, congestion, and postnasal drip. HISTORY OF PRESENT ILLNESS: The patient is a 67-year-old with a 4 to 5 day history as stated above. No associated fever or chills. She feels real congested in her face, but cannot take a decongestant because it make her heart race. She has been taking Neti Pot, Sudafed Non-decongestant, but she says when she lies down her face feels full. No blurred vision or double vision. No difficulty breathing, swallowing, or sore throat. No cough other than when she has a little postnasal drip. No shortness of breath, nausea, vomiting, or diarrhea. She is scheduled to have a surgery on her colon on the in [place]. PAST MEDICAL HISTORY: Diverticulitis, hypertension, and COPD. PAST SURGICAL HISTORY: Gallbladder and tubal ligation. MEDICATIONS: See nursing notes. ALLERGIES: Multiple, see nursing note. FAMILY HISTORY: Noncontributory. SOCIAL HISTORY: She denies alcohol, tobacco, or illicit drug abuse. REVIEW OF SYSTEMS: Ten systems reviewed and present above in the HPI. PHYSICAL EXAMINATION: Vital signs: Blood pressure 185/84, pulse 94, respiratory rate 18, afebrile at 98.6, and O2 saturation 98% on room air. General: Well-developed, well-nourished, well-hydrated, alert and oriented x3, nasal congestion on examination, nontoxic. Pupils are equal and reactive to light bilaterally. Mucous membranes are moist. TMs are without erythema, edema, or exudate. Trachea is midline. Neck is supple. No posterior pharyngeal erythema or edema. Heart rate and rhythm are regular without murmur, gallop, or rub. Lungs: Clear to auscultation bilaterally without wheeze, rales, or rhonchi. Abdomen: Soft. No reproducible tenderness, guarding, rebound, or rigidity. EMERGENCY DEPARTMENT COURSE AND TREATMENT: I absolutely whole Page 1 of 2 SO RAMIREZ Emergency Room Report heartedly believe this is an upper respiratory viral illness. It is going to last 10 to 14 days and run its course and the decongestant is the best mode to get rid of the congestion, but she cannot take that; however, she is insistent upon wanting an antibiotic. DIAGNOSIS: Upper respiratory illness. PLAN/DISPOSITION: She has a history of multiple allergies, and I do not think it is going to make a difference, but I wrote her for some Zithromax. I believe it is going to run its course with supportive care, and likely she should be better for the surgery, but I told her that would be a decision of the Anesthesiologist the day of the preoperative surgery. She verbalizes an understanding of this. She is going to continue supportive care in addition to giving her a dose of Zithromax here, and she will take 1 for the next 5 days. We discussed specific reasons for ED return sooner. Dictated By: Min Hicks DO 06/22/18 12:35 JOB #: [id number] Transcribed By: am 06/22/18 12:48 Electronically signed by: E-Sign: MIN HICKS MD 06/24/18 12:00 Page 2 of 2 SO RAMIREZ Emergency Room Report EMERGENCY REPORT Observed: 06/03/2018 Status: F Source: [facility] 3:26 PM [facility] EMERGENCY ROOM REPORT NAME ACCOUNT SEX AGE ADMIT DISCHARGE PT MED. RECORD# NUMBER DATE DATE TYPE DOMINIQUE [id number] F 67 06/03/18 06/03/18 3 [facility] 7118 ROOM: ER DATE OF : 1950 DICTATING PHYSICIAN: Kiran Lizarraga CHIEF COMPLAINT: Nasal congestion and sinus pressure. HISTORY OF PRESENT ILLNESS: The patient began about 3 to 4 days ago with cold symptoms. She has developed increasing sinus pressure and fullness with this. She has developed a dry cough. She has a history of COPD and some previous episodes of pneumonia plus is scheduled to have surgery and states that she wanted to get this before it got bad. No documented fever. No shortness of breath or productive cough. No nausea or vomiting. PAST MEDICAL HISTORY: Significant for hypertension, COPD, diverticulitis, and rheumatoid arthritis. PAST SURGICAL HISTORY: No previous surgeries. MEDICATIONS: Per med rec list. ALLERGIES: She is allergic to Demerol and penicillin. SOCIAL HISTORY: She lives at home. She does not smoke or drink alcohol. PHYSICAL EXAMINATION: This is a 67-year-old female alert, appropriate, pleasant, does not appear toxic or in acute distress. Her skin is pink, warm, and dry. HEENT: Pupils equal, round, and reactive to light. Extraocular muscles intact. Nose is normal. Mouth and throat appear normal. She has what appears to be some fluid behind the left ear, but very good landmarks. Right TM and canal are normal. Her neck is supple without adenopathy. No tenderness or bruits. Lungs are somewhat diminished, but equal bilaterally. No crackles or wheezes. She has somewhat barrel shaped chest with some increased AP diameter. Cardiac exam is regular heart rate with some decreased heart tones, but no murmurs, rubs, or ectopy. Abdomen is soft and nontender. Good peripheral pulses. Good capillary refill. No cords, clubbing, or edema, redness, tenderness, or asymmetry. Vital signs: Blood pressure 153/90, pulse 84, respirations 20, temperature 98, and her O2 saturation was 95%. EMERGENCY DEPARTMENT COURSE AND TREATMENT/PLAN/DISPOSITION: She was given a prescription for Ceftin. She is to follow up with her family doctor in 3 to 4 days if no better. Page 1 of 2 SO RAMIREZ Emergency Room Report DIAGNOSIS: Upper respiratory infection with developing sinusitis. Dictated By: Kiran Lizarraga MD 06/03/18 15:37 JOB #: [id number] Transcribed By: am 06/03/18 18:50 Electronically signed by: JULIO Lizarraga M.D. 06/07/18 07:25 Page 2 of 2 SO RAMIREZ Emergency Room Report SURGERY VISIT REPORT Observed: 06/02/2018 Status: F Source: [place] 6:07 PM [facility] REPOSITORY [facility] [address] [place] [address]. [address] [place] [address] OFFICE VISIT Date of Service: 06/02/18 MR#: [id number] Acct: [id number] Name: SO RAMIREZ Rep #: [id number] : 1950 Provider: Duane Torres MD Age/Sex: 67/F Location: [facility] Status: Signed Intake Intake Visit Reasons: F/U C-Scope AND EGD 05/22 Chief Complaint: AAA and diverticulitis 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 Is patient in pain?: No Allergies Penicillins Allergy (Mild, Verified 05/20/18 13:15) rash doxycycline Adverse Reaction (Mild, Verified 05/20/18 13:15) gi upset levofloxacin [From Levaquin] Adverse Reaction (Mild, Verified 05/20/18 13:15) gi upset meperidine [From Demerol] Adverse Reaction (Mild, Verified 05/20/18 13:15) gi upset moxifloxacin [From Avelox] Adverse Reaction (Mild, Verified 05/20/18 13:15) gi upset Sulfa (Sulfonamide Antibiotics) Adverse Reaction (Mild, Verified 05/20/18 13:15) gi upset Medications adalimumab 40 mg/0.8 mL subcutaneous pen kit 40 mg SC Q2W 05/12/18 [History Confirmed 05/20/18] aspirin 81 mg tablet,delayed release 81 mg PO DAILY 05/12/18 [History Confirmed 05/20/18] denosumab 60 mg/mL subcutaneous syringe 60 mg SC [id number] 05/12/18 [History Confirmed 05/20/18] fluticasone 250 mcg-salmeterol 50 mcg/dose blistr powdr for inhalation 1 inh INHALATION BID 05/12/18 [History Confirmed 05/20/18] fluticasone 50 mcg/actuation blister powder for inhalation 1 inh INHALATION BID PRN 05/12/18 [History Confirmed 05/20/18] fluvastatin 40 mg capsule 80 mg PO DAILY 05/12/18 [History Confirmed 05/20/18] folic acid 1 mg tablet 4 mg PO DAILY 05/12/18 [History Confirmed 05/20/18] glucosamine HCl 1,500 mg tablet 1,500 mg PO DAILY 05/12/18 [History Confirmed 05/20/18] melatonin 3 mg tablet 3 mg PO HS PRN 05/12/18 [History Confirmed 05/20/18] methotrexate sodium 2.5 mg tablet 7.5 mg PO SA 05/12/18 [History Confirmed 05/20/18] omega 6-aby-qoc-fish oil 60 mg-90 mg-500 mg capsule 1 cap PO DAILY 05/12/18 [History Confirmed 05/20/18] omeprazole 20 mg capsule,delayed release 20 mg PO DAILY 05/12/18 [History Confirmed 05/20/18] potassium chloride ER 20 mEq tablet,extended release(part/cryst) 20 meq PO DAILY 05/12/18 [History Confirmed 05/20/18] prednisone 2.5 mg tablet 2.5 mg PO DAILY 05/12/18 [History Confirmed 05/20/18] triamterene 37.5 mg-hydrochlorothiazide 25 mg capsule 1 cap PO DAILY 05/12/18 [History Confirmed 05/20/18] Albuterol Aerosols [Ventolin Aerosols] 2.5 mg INHALATION Q6H PRN PRN 05/20/18 [History Confirmed 05/20/18] Calcium Carbonate [Calcium] 600 mg PO DAILY 05/20/18 [History Confirmed 05/20/18] PFSH Medical History Rheumatoid arthritis (Acute) Adnexal mass (Acute) Diverticulosis (Acute) Colitis (Acute) Abnormal peripheral pulse (Acute) Aneurysm of infrarenal abdominal aorta (Acute) Hiatal hernia with GERD (Acute) AAA (abdominal aortic aneurysm) (Acute) COPD (chronic obstructive pulmonary disease) (Acute) Chronic back pain (Acute) Diverticulitis (Acute) GERD (gastroesophageal reflux disease) (Acute) Hemorrhoid (Acute) Osteoarthritis (Acute) Rheumatoid arthritis (Acute) HTN (hypertension) (Chronic) Surgical History History of cataract extraction (Acute) History of cholecystectomy (Acute) History of colonoscopy (Acute) History of tubal ligation (Acute) Family History Father Diabetes Hypertension Mother CVA (cerebral vascular accident) Sister Breast cancer Social History Smoking Status: Former smoker how long ago did patient quit smokin yrs HPI HPI HPI: SO RAMIREZ, is a 67 F who presents to the office today for ongoing surgical management. The patient was referred by Dr. Chela Chiu. The patient was scheduled to have a colonoscopy in [place] but upon the finding of an abdominal aortic aneurysm it was postponed. In May 12, 2018 I saw this patient. She was vague in her symptoms. She has been having abdominal pain in the left lower quadrant. On April 11, [address] scan suggested a 3.8 x 3.4 similar abdominal aortic aneurysm with mural thrombus. There is a moderate-sized hiatal hernia. There is thickening of the sigmoid colon. There is diverticulosis in the descending and sigmoid. In the left adnexa it was felt to be enlarged at 4.3 x 5 x 3.7 cm. It was difficult to decipher the 2 structures. There was anterior wedge deformity of T11 and L2 A repeat CT scan was obtained May 07, 2018 showing the aneurysm be 4.2 cm. She has chronic constipation requiring MiraLAX. She has routine symptoms consistent with GERD. She has COPD and rheumatoid arthritis on 3 different immunologic medications. At the [facility] on May 19, 2018 she had bilateral extremity duplex inspection which failed to demonstrate any popliteal artery aneurysms. On May 22 I did a combined upper and lower endoscopy. A large hiatal hernia was present. Irregular Z line. Findings of reflux esophagitis. Multiple gastric polyps. Antral gastritis. The colonoscopy showed multiple diverticula in the sigmoid and descending colon. A benign appearing intrinsic moderate stenosis in the sigmoid colon. I was not able to advance the colonoscope past the tortuosity and narrowing of the sigmoid. H. pylori was negative. Laboratory demonstrated a Ca1 2521.9 which is normal. A pelvic ultrasound also was obtained which could not differentiate the left adnexa. The patient was then seen by Dr. Gramajo who is suspicious that the primary disease process originates with the colon with the ovary likely a bystander. ROS General General: Yes fatigue; no weight change, appetite, colon cancer, breast cancer or weakness HEENT HEENT: No difficulty swallowing, eye injury, eye surgery, swollen glands or hoarseness Endo Endocrine: No thyroid disease, diabetes mellitus, thyroid cancer, Hair loss, heat intolerance or cold intolerance Musc Musculoskeletal: Yes back problems, arthritis and rheumatoid arthritis; no gout or joint pain Cardio Cardiovascular: Yes high blood pressure; no murmur, pacemaker, heart disease, atrial fibrillation, heart attack, heart stent, palpitations, shortness of breat with exertion or chest pain Psych Psychiatric: No depression, anxiety or hearing voices Resp Respiratory: Yes shortness of breath, No sleep apnea, No cough, Yes COPD, No asthma, No emphysema, No wheezing Gastro Gastrointestinal: Yes abdominal pain, No nausea or vomiting, No diarrhea, No constipation, No blood in stool, Yes acid reflux, Yes hemorrhoids, No ulcers, No gallbladder problem, No black,tarry stools Nnamdi Hematologic: No blood thinners, No blood disorders, No bleeding, No anemia, No blood clots Neuro Neurologic: No weakness Exam Const General: cooperative, healthy appearing, comfortable Nutritional Appearance: average body habitus Orientation: alert, awake [facility] Head: normal to inspection Eyes General: appearance normal, both eyes and all related structures Chest Chest palpation AND inspection: normal inspection of the chest Resp Effort AND Inspection: normal respiratory effort Auscultation: clear to auscultation bilaterally Cardio Rate: regular rate Rhythm: regular rhythm Heart Sounds: no murmurs GI Palpation: soft, no hepatosplenomegaly Skin General: no rashes or lesions noted Neuro General: CN's II-XI intact bilaterally Extrem General: no calf tenderness Psych Affect: normal affect Assessment AND Plan Problems 1. Diverticulitis of large intestine without bleeding, unspecified complication status K57.32 Plan I suspect that this patient has chronic sigmoid diverticulitis with luminal narrowing stricturing and involvement of the left tube and ovary. The patient's daughter has accompanying her or been available by phone for her interviews. I proposed to the patient a laparoscopic sigmoid colectomy. I am anticipating that this will involve resecting the left tube and ovary. Dr. Gramajo has noted that he will be available to assist. I propose Dr Fenton place a left ureteral catheter. I propose the patient lap scopic sigmoid colectomy. We will utilize ERAS program. I am anticipating a primary anastomosis. I would then plan a follow-up colonoscopy in the future to further evaluate the remaining colon. The patient and her daughter are well aware of the technique, benefits, risks, alternatives. They are aware of potential need to convert to a hand assist or open approach. The patient is on 3 different immunologic agents. We will have her hold her methotrexate and Humira for 2 weeks preprocedure. We will anticipate stress steroid dosing. We will plan oral antibiotic and mechanical bowel prep. Patient has had an opportunity to ask and have questions answered. We will schedule and proceed at her discretion. I appreciate the ongoing opportunity of assisting with her surgical care. Cc: Dr. Chiu and Dr. Gramajo and Dr.Proano Duane Torres M.D., F.A.C.S. Coding Level of Care Code Off vis,est,level 3 Diagnoses Diverticulitis of large intestine without bleeding, unspecified complication status K57.32 Diverticulitis bleeding: without bleeding Diverticulitis complication: unspecified complication status 06/02/18 1807 <Electronically signed by Duane Torres MD> Date Duane Torres MD Cosigner Signature: Date (if applicable) CC: Joe rGamajo MD; Tarun Fenton MD; Chela Chiu MD CANCER ANTIGEN 125 Collected: 05/23/2018 Status: F Source: [place] 10:51 AM [facility] REPOSITORY TYPE CODE TESTS RESULT OUT OF RANGE REFERENCE UNITS LAB L3100.5000 0.0-38.1 U/mL Normal CA125 21.9 2303 Result Comment: Harper ECLIA methodology Performed at: [facility] [address] [id number] [employer] Building: Derek Galvez PhD, Phone: [phone] Performed By: #### L3100.5000 #### [facility] (refer to report for specific site) refer to report for address and phone number C-REACTIVE PROTEIN Collected: 05/23/2018 Status: F Source: [facility] 8:24 AM [facility] REPOSITORY TYPE CODE TESTS RESULT OUT OF RANGE REFERENCE UNITS LAB CRP(LOINC) 0.00 - 1.00 mg/dl High CRP 3.00 Performed By: #### [id number] #### [facility],[address] [place] [address] CREATININE Collected: 05/23/2018 Status: F Source: [facility] 8:24 AM [facility] REPOSITORY TYPE CODE TESTS RESULT OUT OF REFERENCE UNITS RANGE LAB CREATININE 0.6 - 1.2 mg/dl (LOINC) CREATININE 0.8 Performed By: #### [id number] #### [facility],[address] [place] [address] SGOT (AST) Collected: 05/23/2018 Status: F Source: [facility] 8:24 AM [facility] REPOSITORY TYPE CODE TESTS RESULT OUT OF RANGE REFERENCE UNITS LAB AST/SGOT(LO 13 - 39 U/L INC) AST/SGOT 21 Performed By: #### [id number] #### [facility],[address] [place] [address] SGPT (ALT) Collected: 05/23/2018 Status: F Source: [facility] 8:24 AM [facility] REPOSITORY TYPE CODE TESTS RESULT OUT OF RANGE REFERENCE UNITS LAB ALT/SGPT(LO 8 - 35 U/L INC) ALT/SGPT 23 Performed By: #### [id number] #### [facility],[address] [place] [address] CBC Collected: 05/23/2018 Status: F Source: [facility] 8:24 AM [facility] REPOSITORY TYPE CODE TESTS RESULT OUT OF RANGE REFERENCE UNITS LAB CBC(LOINC) CBC Result Comment: CBC-COMPLETE BLOOD COUNT LAB WBC(LOINC) 4.5 - 10.8 x 10EE3/UL WBC High 13.7 LAB RBC(LOINC) 4.10 - x 10EE6/UL 5.30 RBC 4.38 LAB HEMOGLOBIN(LOINC 12.0 - g/dl ) 16.0 HEMOGLOBIN 13.6 LAB HEMATOCRIT(LOINC 34.0 - % ) 46.0 HEMATOCRIT 40.8 LAB MCV(LOINC) 80 - 99 fl MCV 93 LAB MCH(LOINC) 27 - 33 pg MCH 31 LAB MCHC(LOINC) 32 - 36 X10 3 MCHC 33 LAB RDW/CV(LOINC) 12.0 - % 15.6 RDW/CV 14.2 LAB PLATELET(LOINC) 150 - 450 x10EE3/UL PLATELET 365 LAB MPV(LOINC) 6.6 - 10.5 fl MPV 7.5 Result Comment: AUTOMATED DIFFERENTIAL LAB NEUT %(LOINC) 46.0 - % 76.0 NEUT % 50.4 LAB LYMPH %(LOINC) 20.0 - % 45.0 LYMPH % 35.5 LAB MONOS %(LOINC) 0.0 - 10.0 % MONOS % 11.7 High LAB EO %(LOINC) 0.0 - 7.0 % EO % 1.8 LAB BASO %(LOINC) 0.0 - 2.0 % BASO % 0.6 LAB Lymph #(LOINC) 0.80 - x10EE3/ 2.80 UL Lymph # 4.90 High LAB Neut #(LOINC) 1.50 - x10EE3/ 7.10 UL Neut # 6.90 LAB Island #(LOINC) 0.20 - x10EE3/ 1.00 UL Island # 1.60 High LAB EO #(LOINC) 0.00 - x10EE3/ 0.50 UL EO # 0.20 LAB Baso #(LOINC) 0.00 - x10EE3/ 0.10 UL Baso # 0.10 LAB MANUAL DIFF(LOINC) MANUAL DIFF SEE BELOW LAB SEGS(LOINC) 50 - 70 % Low SEGS 43 LAB LYMPH(LOINC) 20 - 40 % LYMPH 39 LAB MONOS(LOINC) 0 - 8 % MONOS 14 High LAB EO(LOINC) 0.0 - 4.0 % EO 2.0 LAB BASO(LOINC) 0.0 - 2.0 % BASO 2.0 LAB MORPHOLOGY(LOIN C) MORPHOLOGY REVIEWED Result Comment: {CD] Performed By: #### [id number] #### [place] [address] SEDRATE Collected: 05/23/2018 Status: F Source: [facility] 8:24 AM [facility] REPOSITORY TYPE CODE TESTS RESULT OUT OF REFERENCE UNITS RANGE LAB SEDRATE(RAJEEV 0 - 30 mm/hr NC) High SEDRATE 31 Performed By: #### [id number] #### [place] [address] OPERATIVE REPORT - Observed: 05/22/2018 Status: F Source: [place] [facility] 12:25 PM [facility] REPOSITORY [facility] Medical Records Department [address] [place], [place] [address] [address] Operative Report - Endoscopy MR#: [id number] Acct: [id number] Name: SO RAMIREZ Rep #: [id number] : 1950 67 From: Duane Torres MD PCP: Chela Chiu MD Status: REG [facility] Patient Name: So Ramirez Procedure Date: 05/22/2018 11:54 AM Date of : 1950 Age: 67 Procedure: Colonoscopy Indications: Abdominal pain in the left lower quadrant Providers: Duane Torres MD Medicines: See the Anesthesia note for documentation of the administered medications Patient Profile: Last Colonoscopy: none. The patient's first colonoscopy is today. Complications: No immediate complications. Procedure: Pre-Anesthesia Assessment: - Prior to the procedure, a History and Physical was performed, and patient medications and allergies were reviewed. The patient's tolerance of previous anesthesia was also reviewed. The risks and benefits of the procedure and the sedation options and risks were discussed with the patient. All questions were answered, and informed consent was obtained. Prior Anticoagulants: The patient has taken no previous anticoagulant or antiplatelet agents. ASA Grade Assessment: III - A patient with severe systemic disease. After reviewing the risks and benefits, the patient was deemed in satisfactory condition to undergo the procedure. After I obtained informed consent, the scope was passed under direct vision. Throughout the procedure, the patient's blood pressure, pulse, and oxygen saturations were monitored continuously. The pediatric colonoscope was introduced through the anus and advanced to the cecum, identified by appendiceal orifice and ileocecal valve. The colonoscopy was performed without difficulty. The patient tolerated the procedure well. The quality of the bowel preparation was good. The ileocecal valve was photographed. Scope In: 11:55:18 AM Scope Withdrawal Time 0 hours 6 minutes 9 seconds Scope Out: 12:12:59 PM Total Procedure Duration Time 0 hours 17 minutes 41 seconds Findings: Hemorrhoids were found on perianal exam. Lax anal tone Multiple diverticula were found in the sigmoid colon and descending colon. Biopsies were taken with a cold forceps for histology. A benign-appearing, intrinsic moderate stenosis was found in the sigmoid colon. The exam was otherwise without abnormality. Impression: - Hemorrhoids found on perianal exam. - Diverticulosis in the sigmoid colon and in the descending colon. Biopsied. - Stricture in the sigmoid colon. - The examination was otherwise normal. I could not get the colonoscope past the tortuosity and narrowing of the sigmoid colon. This was transvered with an upper scope. Recommendation: - Discharge patient to home. - Resume previous diet. - Continue present medications. - Repeat colonoscopy in 10 years for screening purposes. - Return to GI office in 1 week Consider surgical treatment of simgoid colon. Procedure Code(s): --- Professional --- 15280, Colonoscopy, flexible; with biopsy, single or multiple Diagnosis Code(s): --- Professional --- K64.9, Unspecified hemorrhoids K56.699, Other intestinal obstruction unspecified as to partial versus complete obstruction R10.32, Left lower quadrant pain K57.30, Diverticulosis of large intestine without perforation or abscess without bleeding CPT copyright 2017 [employer]. All rights reserved. The codes documented in this report are preliminary and upon music assistant review may be revised to meet current compliance requirements. Duane Torres MD 05/22/2018 12:25:13 PM This report has been signed electronically. Number of Addenda: 0 Note Initiated On: 05/22/2018 11:54 AM 05/22/18 1225 Date Duane Torres MD Cosigner Signature: Date (if indicated) CC: Chela Chiu MD; Duane Torres MD Date Dictated: 05/22/18 1154 Date Transcribed: Package Car Driver: ROGELIO Signed OPERATIVE REPORT - Observed: 05/22/2018 Status: F Source: [place] [facility] 12:20 PM [facility] REPOSITORY [facility] Medical Records Department [address] [place] [address] Operative Report - Endoscopy MR#: [id number] Acct: [id number] Name: SO RAMIREZ Rep #: [id number] : 1950 67 From: Duane Torres MD PCP: Chela Chiu MD Status: REG [facility] Patient Name: So Ramirez Procedure Date: 05/22/2018 11:39 AM Date of : 1950 Age: 67 Procedure: Upper GI endoscopy Indications: Dysphagia, Heartburn Providers: Duane Torres MD Medicines: See the Anesthesia note for documentation of the administered medications Complications: No immediate complications. Procedure: Pre-Anesthesia Assessment: - Prior to the procedure, a History and Physical was performed, and patient medications and allergies were reviewed. The patient's tolerance of previous anesthesia was also reviewed. The risks and benefits of the procedure and the sedation options and risks were discussed with the patient. All questions were answered, and informed consent was obtained. Prior Anticoagulants: The patient has taken no previous anticoagulant or antiplatelet agents. ASA Grade Assessment: III - A patient with severe systemic disease. After reviewing the risks and benefits, the patient was deemed in satisfactory condition to undergo the procedure. After obtaining informed consent, the endoscope was passed under direct vision. Throughout the procedure, the patient's blood pressure, pulse, and oxygen saturations were monitored continuously. The gastroscope was introduced through the mouth, and advanced to the second part of duodenum. The upper GI endoscopy was accomplished without difficulty. The patient tolerated the procedure well. Scope In: 11:44:54 AM Scope Out: 11:50:58 AM Total Procedure Duration Time 0 hours 6 minutes 4 seconds Findings: The Z-line was irregular and was found 30 cm from the incisors. A large hiatal hernia was present. LA Grade B (one or more mucosal breaks greater than 5 mm, not extending between the tops of two mucosal folds) esophagitis with no bleeding was found 30 cm from the incisors. Biopsies were taken with a cold forceps for histology. Multiple localized, non-bleeding erosions were found in the gastric antrum. There were no stigmata of recent bleeding. Biopsies were taken with a cold forceps for histology. Multiple sessile polyps with no stigmata of recent bleeding were found in the stomach. Biopsies were taken with a cold forceps for histology. The examined duodenum was normal. Biopsies were taken with a cold forceps for histology. Impression: - Z-line irregular, 30 cm from the incisors. - Large hiatal hernia. - LA Grade B reflux esophagitis. Biopsied. - Non-bleeding erosive gastropathy. Biopsied. - Multiple gastric polyps. Biopsied. - Normal examined duodenum. Biopsied. Recommendation: - Return to my office in 1 week. - Resume previous diet - advance as tolerated to resume previous diet. - Continue present medications. Procedure Code(s): --- Professional --- 56943, Esophagogastroduodenoscopy, flexible, transoral; with biopsy, single or multiple Diagnosis Code(s): --- Professional --- K22.8, Other specified diseases of esophagus K44.9, Diaphragmatic hernia without obstruction or gangrene K21.0, Gastro-esophageal reflux disease with esophagitis K31.89, Other diseases of stomach and duodenum K31.7, Polyp of stomach and duodenum R13.10, Dysphagia, unspecified R12, Heartburn CPT copyright 2017 [employer]. All rights reserved. The codes documented in this report are preliminary and upon music assistant review may be revised to meet current compliance requirements. Duane Torres MD 05/22/2018 12:20:08 PM This report has been signed electronically. Number of Addenda: 0 Note Initiated On: 05/22/2018 11:39 AM 05/22/18 1220 Date Duane Torres MD Cosigner Signature: Date (if indicated) CC: Chela Chiu MD; Duane Torres MD Date Dictated: 05/22/18 1139 Date Transcribed: Package Car Driver: ROGELIO Signed EGD ([facility]) Observed: 05/22/2018 Status: F Source: [place] 12:00 AM [facility] REPOSITORY Patient: SO RAMIREZ : 1950 (67/F) Acct Num: [id number] Phys: Brian PHILLIPS,Duane Unit Num: [id number] Loc: EN Specimen: [id number] Received: 05/22/18 1442 Spec Type: EGD BIOPSY TISSUES 1 TISSUES: A. Duodenum, NOS B. Gastric mucous membrane C. Gastric mucous membrane D. Esophageal mucous membrane E. Sigmoid colon biopsy COMMENT B. The results of immunohistochemistry for Helicobacter pylori will be reported separately ([id number]). GROSS DESCRIPTION A - Received in fixative is one container labeled with the patient's name and designated duodenal biopsy. The specimen consists of two irregular fragments of light [place] soft tissue that in aggregate measure 0.5 x 0.3 x 0.1 cm. The specimen is totally submitted in one cassette. B - Received in fixative is one container labeled with the patient's name and designated antral biopsy. The specimen consists of one irregular fragment of light [place] soft tissue that measures 0.4 x 0.3 x 0.1 cm. The specimen is totally submitted in one cassette. C - Received in fixative is one container labeled with the patient's name and designated gastric polyp. The specimen consists of one irregular fragment of light [place] soft tissue that measures 0.7 x 0.4 x 0.1 cm. The specimen is totally submitted in one cassette. D - Received in fixative is one container labeled with the patient's name and designated distal esophagus biopsy. The specimen consists of multiple irregular fragments of light [place] soft tissue that in aggregate measure 0.8 x 0.2 x 0.1 cm. The specimen is totally submitted in one cassette. E - Received in fixative is one container labeled with the patient's name and designated sigmoid colon biopsy. The specimen consists of multiple irregular fragments of light [place] soft tissue that in aggregate measure 0.8 x 0.8 x 0.1 cm. The specimen is totally submitted in one cassette. / DINH:kailey 05/22/18 TC:4 CPT: 06660 x5 HEADER OPERATION: Colonoscopy, EGD ([facility] PRE-OP DIAGNOSIS: Hiatal hernia with GERD, colitis, diverticulosis, right lower quadrant abdominal pain TISSUE SUBMITTED: A - Duodenal biopsy, B - Antral biopsy, C - Gastric polyp, D - Distal esophagus biopsy, E - Sigmoid colon biopsy MICROSCOPIC DESCRIPTION Slides are reviewed. B. The specimen shows fragments of gastric mucosa with chronic inflammatory cell infiltrates in the lamina propria consisting of lymphocytes and plasma cells, consistent with mild chronic gastritis. MICROSCOPIC DIAGNOSIS A. Duodenal biopsy: Fragments of duodenal mucosa, no pathologic diagnosis. B. Antral biopsy: Mild gastritis. See microscopic description and comment. C. Gastric polyp, biopsy: Fundic gland polyp. D. Distal esophagus, biopsy: Fragments of squamous mucosa with changes consistent with gastroesophageal reflux disease. E. Sigmoid colon, biopsy: Fragments of colonic mucosa, no pathologic diagnosis. DINH:kailey 05/23/18 Signed Derick Brown 05/23/18 <signature on file> Performed By: #### KATY #### [facility] [address] [place] [address]. [place], [place], [id number] IMMUNOHISTOCHEMISTRY Observed: 05/22/2018 Status: F Source: [place] 12:00 AM [facility] REPOSITORY Patient: SO RAMIREZ : 1950 (67/F) Acct Num: [id number] Phys: Brian PHILLIPS,Duane Unit Num: [id number] Loc: EN Specimen: [id number] Received: 05/23/181129 Spec Type: IMMUNO TISSUES 1 TISSUES: B. Stomach, NOS SPECIMEN INFORMATION: Tissue Source: B - Antral biopsy Clinical Info: Hiatal hernia, GERD, colitis, diverticulosis, RLQ pain Specimen Number: [id number] CPT code: 54393 METHODOLOGY: Deparaffinized sections of prefer/formalin-fixed tissue or PAP/DQ stained slides are incubated with monoclonal/polyclonal antibodies/oligonucleotide probes. Localization is made via biotin free immunoperoxidase method. Appropriate controls are performed and reacted as expected. Results on target cell population are indicated in the following table: RESULTS: ANTIBODY / CLONE RESULT Block B H Pylori (polyclonal) negative These tests were developed and their performance characteristics determined by [facility]. They may not have been cleared or approved by the U.S. Food and Drug Administration. The FDA has determined that such clearance or approval is not necessary. INTERPRETATION: B. Antral biopsy: Negative for Helicobacter pylori organisms. SJ:kailey 05/23/18 PHYSICIAN AND INSTITUTION [address] [address] Signed Derick Brown 05/23/18 <signature on file> Performed By: #### PIMM #### [facility] [address] [place] [address]. [place], [id number] ARTERIAL DUPLEX US Observed: 05/19/2018 Status: F Source: [place] -NICHELLE EXTREM 4:12 PM [facility] REPOSITORY [facility] Cardiovascular Services [address] [place] [address] Art Duplex US Bilat Lower Ext 05/19/18 0815 MR#: [id number] Acct: [id number] Name: SO RAMIREZ Rep #: [id number] : 1950 67 From: Duane Torres MD Attending Dr: Duane Torres MD Status: REG CLI Ordering Dr: Duane Torres MD Date: 05/19/18 Location: US Sex: F C Admitted: Reason For Study: Abnormal Peripheral Pulse Right Velocities Left Velocities Ext. Iliac Artery, dist = 114 cm./sec. Ext Iliac Artery, dist = 80 cm./sec. Common Femoral Artery, dist = 107 cm./sec. Common Femoral Artery, dist = 110 cm./sec. Supf Femoral Artery, prox = 76 cm./sec. Supf. Femoral Artery, prox = 113 cm./sec. Supf Femoral Artery, mid = 58 cm./sec. Supf. Femoral Artery, mid = 70 cm./sec. Supf Femoral Artery, dist. = 46 cm./sec. Supf. Femoral Artery, dist = 51 cm./sec. Profunda Femoral Artery = 89 cm./sec. Profunda Femoral Artery = 61 cm./sec. Popliteal Artery, prox. = 41 cm./sec. Popliteal Artery, proximal, = 42 cm./sec. Popliteal Artery, mid = 33 cm./sec. Popliteal Artery, mid = 41 cm./sec. Popliteal Artery, dist = 52 cm./sec. Popliteal Artery, distal = 44 cm./sec. Post. Tibial Artery, prox = 51 cm./sec. Post. Tibial Artery, prox = 47 cm./sec. Post. Tibial Artery, mid = 59 cm./sec. Post Tibial Artery, mid = 48 cm./sec. Post. Tibial Artery, dist = 48 cm./sec. Post Tibial Artery, dist. = 49 cm./sec. Peroneal Artery, prox = 35 cm./sec. Peroneal Artery, prox = 31 cm./sec. Peroneal Artery, mid = 40 cm./sec. Peroneal Artery, mid = 45 cm./sec. Peroneal Artery,dist = 36 cm./sec. Peroneal Artery,dist. = 39 cm./sec. Ant. Tibial Artery, prox = 51 cm./sec. Ant.Tibial Artery, prox = 43 cm./sec. Ant. Tibial Artery, mid = 46 cm./sec. Ant Tibial Artery, mid = 44 cm./sec. Ant. Tibial Artery, dist = 41 cm./sec. Ant. Tibial Artery, distal = 34 cm./sec. Rt DPA: 49cm/s. Lt DPA: 66 cm/s. Procedure Exam performed in department. Interpretation Summary Normal arterial flow bilateral lower extremities with no evidence for popliteal artery aneurysms. Minimal smooth calcific plague right common femoral artery. Minimal irregular plague left commom femoral artery. Right popliteal 0.5 x 0.5 cm Left popliteal 0.6 x 0.6cm Ordering Physician: Duane Torres Referring Physician: Chela Chiu Performed By: Shivani Spring, [place], RVT 05/19/181611 Date Duane Torres MD CC: Chela Chiu MD; Duane Torres MD Date Dictated: 05/19/1815 Date Transcribed: 05/19/181611 Package Car Driver: Signed TRANSVAGINAL Observed: 05/19/2018 Status: F Source: [place] NON- 10:36 AM [facility] REPOSITORY [facility] Imaging Services [address] [place] [address] [place] [address] Transvaginal Non- MR#: [id number] Acct: [id number] Name: SO RAMIREZ Rep #: [id number] : 1950 F 67 From: Reji Rayo MD PCP: Chela Chiu MD Status: REG CLI Study: Transvaginal Non- Date of Exam: 05/19/18 Exam# [id number] Ordering Dr: Duane Torres MD STUDY: ULTRASOUND OF THE FEMALE PELVIS - COMPLETE REASON FOR EXAM: Female, 67 years old. Adnexal mass. Left pelvic pain. Abnormal CT. LMP: Unknown. TECHNIQUE: Transabdominal and Transvaginal. TECHNICAL QUALITY: Adequate. COMPARISON: Comparison studies are not available.. FINDINGS: The uterus is anteverted and is in a midline position. The uterus measures 5.4 x 3.9 x 1.9 cm. Normal uterine cervix. The endometrium measures 5 mm in thickness, and is fluid distended. There is a 0.3 cm polyp. There is no demonstrated myometrial mass. I.U.D. - The patient does not have an I.U.D. The right ovary is non-visualized. There is not a normal left ovary seen. There is 6.3 x 3.2 x 3.1 cm heterogeneous hypoechoic structure in the left adnexal region with ovarian mass or abnormal bowel and peridiverticular abscess . There is no fluid in the cul-de-sac. The visualized bladder is unremarkable. IMPRESSION: Abnormal left adnexal structure with possible ovarian mass versus abnormal bowel and peridiverticular abscess. CT scan recommended. Endometrial polyp. Electronically Signed: Reji Rayo MD at 18:00 EDT , Service support , STUDY: ULTRASOUND OF THE FEMALE PELVIS - COMPLETE REASON FOR EXAM: Female, 67 years old. Adnexal mass. Left pelvic pain. Abnormal CT. LMP: Unknown. TECHNIQUE: Transabdominal and Transvaginal. TECHNICAL QUALITY: Adequate. COMPARISON: Comparison studies are not available.. FINDINGS: The uterus is anteverted and is in a midline position. The uterus measures 5.4 x 3.9 x 1.9 cm. Normal uterine cervix. The endometrium measures 5 mm in thickness, and is fluid distended. There is a 0.3 cm polyp. There is no demonstrated myometrial mass. I.U.D. - The patient does not have an I.U.D. The right ovary is non-visualized. There is not a normal left ovary seen. There is 6.3 x 3.2 x 3.1 cm heterogeneous hypoechoic structure in the left adnexal region with ovarian mass or abnormal bowel and peridiverticular abscess . There is no fluid in the cul-de-sac. The visualized bladder is unremarkable. US/Transvaginal Non- IMPRESSION: Abnormal left adnexal structure with possible ovarian mass versus abnormal bowel and peridiverticular abscess. CT scan recommended. Endometrial polyp. Electronically Signed: Reji Rayo MD at 18:00 EDT , Service support , CC: Chela Chiu MD; Duane Torres MD Package Car Driver: Signed PELVIC (NON ) Observed: 05/19/2018 Status: F Source: [place] 7:53 AM [facility] REPOSITORY [facility] Imaging Services [address] [place] [id number] Pelvic (Non ) MR#: [id number] Acct: [id number] Name: SO RAMIREZ Rep #: [id number] : 1950 F 67 From: Reji Rayo MD PCP: Chela Chiu MD Status: REG CLI Study: Pelvic (Non ) Date of Exam: 05/19/18 Exam# [id number] Ordering Dr: Duane Torres MD STUDY: ULTRASOUND OF THE FEMALE PELVIS - COMPLETE REASON FOR EXAM: Female, 67 years old. Adnexal mass. Left pelvic pain. Abnormal CT. LMP: Unknown. TECHNIQUE: Transabdominal and Transvaginal. TECHNICAL QUALITY: Adequate. COMPARISON: Comparison studies are not available.. FINDINGS: The uterus is anteverted and is in a midline position. The uterus measures 5.4 x 3.9 x 1.9 cm. Normal uterine cervix. The endometrium measures 5 mm in thickness, and is fluid distended. There is a 0.3 cm polyp. There is no demonstrated myometrial mass. I.U.D. - The patient does not have an I.U.D. The right ovary is non-visualized. There is not a normal left ovary seen. There is 6.3 x 3.2 x 3.1 cm heterogeneous hypoechoic structure in the left adnexal region with ovarian mass or abnormal bowel and peridiverticular abscess . There is no fluid in the cul-de-sac. The visualized bladder is unremarkable. IMPRESSION: Abnormal left adnexal structure with possible ovarian mass versus abnormal bowel and peridiverticular abscess. CT scan recommended. Endometrial polyp. Electronically Signed: Reji Rayo MD at 18:00 EDT , Service support , STUDY: ULTRASOUND OF THE FEMALE PELVIS - COMPLETE REASON FOR EXAM: Female, 67 years old. Adnexal mass. Left pelvic pain. Abnormal CT. LMP: Unknown. TECHNIQUE: Transabdominal and Transvaginal. TECHNICAL QUALITY: Adequate. COMPARISON: Comparison studies are not available.. FINDINGS: The uterus is anteverted and is in a midline position. The uterus measures 5.4 x 3.9 x 1.9 cm. Normal uterine cervix. The endometrium measures 5 mm in thickness, and is fluid distended. There is a 0.3 cm polyp. There is no demonstrated myometrial mass. I.U.D. - The patient does not have an I.U.D. The right ovary is non-visualized. There is not a normal left ovary seen. There is 6.3 x 3.2 x 3.1 cm heterogeneous hypoechoic structure in the left adnexal region with ovarian mass or abnormal bowel and peridiverticular abscess . There is no fluid in the cul-de-sac. The visualized bladder is unremarkable. US/Pelvic (Non ) IMPRESSION: Abnormal left adnexal structure with possible ovarian mass versus abnormal bowel and peridiverticular abscess. CT scan recommended. Endometrial polyp. Electronically Signed: Reji Rayo MD at 18:00 EDT , Service support , CC: Chela Chiu MD; Duane Torres MD Package Car Driver: Signed SURGERY VISIT REPORT Observed: 05/12/2018 Status: F Source: [place] 10:18 AM [facility] [address] [place] [address] [address] [place] [address] OFFICE VISIT Date of Service: 05/12/18 MR#: [id number] Acct: [id number] Name: SO RAMIREZ Fani Rep #: [id number] : 1950 Provider: Duane Torres MD Age/Sex: 67/F Location: [facility] Status: Signed Intake Vital Signs05/12/18 Height 5 ft 05/12/18 Weight: 150 lb 2 oz 05/12/18 Body Mass Index (BMI) 29.3 05/12/18 Blood Pressure 155/84 H Intake Visit Reasons: AAA AND Diverticulitis Chief Complaint: AAA and diverticulitis 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 Is patient in pain?: No Allergies Penicillins Allergy (Mild, Verified 05/12/18 08:56) rash doxycycline Adverse Reaction (Mild, Verified 05/12/18 08:56) gi upset levofloxacin [From Levaquin] Adverse Reaction (Mild, Verified 05/12/18 08:56) gi upset meperidine [From Demerol] Adverse Reaction (Mild, Verified 05/12/18 08:56) gi upset moxifloxacin [From Avelox] Adverse Reaction (Mild, Verified 05/12/18 08:56) gi upset Sulfa (Sulfonamide Antibiotics) Adverse Reaction (Mild, Verified 05/12/18 08:56) gi upset Medications adalimumab 40 mg/0.8 mL subcutaneous pen kit 40 mg SC Q2W 05/12/18 [History Confirmed 05/12/18] ascorbate calcium 814 mg/gram oral powder mg PO g 05/12/18 [History Confirmed 05/12/18] aspirin 81 mg tablet,delayed release 81 mg PO DAILY 05/12/18 [History Confirmed 05/12/18] clotrimazole 1 % topical cream 1 applic TOPICAL BID 05/12/18 [History Confirmed 05/12/18] clotrimazole-betamethasone 1 %-0.05 % topical cream 1 applic TOPICAL BID 05/12/18 [History Confirmed 05/12/18] denosumab 60 mg/mL subcutaneous syringe 60 mg SC [id number] 05/12/18 [History Confirmed 05/12/18] fluticasone 250 mcg-salmeterol 50 mcg/dose blistr powdr for inhalation 1 inh INHALATION BID 05/12/18 [History Confirmed 05/12/18] fluticasone 50 mcg/actuation blister powder for inhalation 1 inh INHALATION BID 05/12/18 [History Confirmed 05/12/18] fluvastatin 40 mg capsule 40 mg PO DAILY 05/12/18 [History Confirmed 05/12/18] folic acid 1 mg tablet 1 mg PO DAILY 05/12/18 [History Confirmed 05/12/18] glucosamine HCl 1,500 mg tablet 1,500 mg PO DAILY 05/12/18 [History Confirmed 05/12/18] ipratropium-albuterol 18 mcg-103 mcg/actuation aerosol inhaler spray INHALATION 05/12/18 [History Confirmed 05/12/18] melatonin 3 mg tablet 3 mg PO HS PRN 05/12/18 [History Confirmed 05/12/18] methotrexate sodium 2.5 mg tablet 2.5 mg PO DAILY 05/12/18 [History Confirmed 05/12/18] multivitamin capsule 1 cap PO DAILY 05/12/18 [History Confirmed 05/12/18] omega 4-yyr-xpu-fish oil 60 mg-90 mg-500 mg capsule 1 cap PO DAILY 05/12/18 [History Confirmed 05/12/18] omeprazole 20 mg capsule,delayed release 20 mg PO DAILY 05/12/18 [History Confirmed 05/12/18] potassium chloride ER 20 mEq tablet,extended release(part/cryst) 20 meq PO DAILY 05/12/18 [History Confirmed 05/12/18] prednisone 2.5 mg tablet 2.5 mg PO DAILY 05/12/18 [History Confirmed 05/12/18] triamterene 37.5 mg-hydrochlorothiazide 25 mg capsule 1 cap PO DAILY 05/12/18 [History Confirmed 05/12/18] Is last menstrual period known: No Post menopausal: Yes Patient : No PFSH Medical History Rheumatoid arthritis (Acute) Adnexal mass (Acute) Diverticulosis (Acute) Colitis (Acute) Abnormal peripheral pulse (Acute) Aneurysm of infrarenal abdominal aorta (Acute) Hiatal hernia with GERD (Acute) AAA (abdominal aortic aneurysm) (Acute) COPD (chronic obstructive pulmonary disease) (Acute) Chronic back pain (Acute) Diverticulitis (Acute) GERD (gastroesophageal reflux disease) (Acute) Hemorrhoid (Acute) Osteoarthritis (Acute) Rheumatoid arthritis (Acute) HTN (hypertension) (Chronic) Surgical History History of cataract extraction (Acute) History of cholecystectomy (Acute) History of colonoscopy (Acute) History of tubal ligation (Acute) Family History Father Diabetes Hypertension Mother CVA (cerebral vascular accident) Sister Breast cancer Social History Smoking Status: Former smoker how long ago did patient quit smokin yrs HPI HPI HPI: SO RAMIREZ, is a 67 F who presents to the office today for surgical consultation regarding abdominal pain and suspected diverticulitis and abdominal aortic aneurysm. The patient is referred by Dr. Chela Chiu and a written copy of my surgical consult recommendations will be returned to him. The patient is a little bit vague regarding the onset of her symptoms. She was seen at [facility] on April 11, 2018 with abdominal pain. She states that she likely had left lower quadrant greater than right lower quadrant abdominal pain for at least a couple weeks prior to that. Part of her evaluation at that time on April 11, [address] scan of the abdomen and pelvis. There is felt to be a abdominal aortic aneurysm measuring 3.8 x 3.4 cm with mural thrombus. The aorta and branch vessels are heavily calcified. In addition there is a moderate sized hiatal hernia. In addition there is thickening of the sigmoid colon. There is diverticulosis in the descending and sigmoid colon. There is a significant degree of stool throughout the colon. Left adnexa is felt to be enlarged at 4.3 x 5 x 3.7 cm and is immediately adjacent to the sigmoid colonic wall. Apparently this makes it difficult to distinguish the 2 structures. In addition there is a anterior wedge compression deformity of T11 and L2. Because of persistent abdominal pain on May 07, 2018 at [facility] in [facility] the patient had a repeat CT scan obtained. Maximal transverse dimension of the aneurysm is felt to be 4.2 cm. There is thrombus on the left lateral wall. There is extensive aortic calcification. Diverticulosis is present of the sigmoid with mucosal thickening of the sigmoid prior to the previous exam. The hiatal hernia remains constant. The left leg mass is prominent and in close proximity to the sigmoid colon. No measurement possible secondary to this indistinction. The T11 and L2 findings remain unchanged. The patient states that she is requiring MiraLAX routinely now to move her bowels. She denies fever or chills or sweats. Her appetite has diminished. She has to take in smaller amounts of food. She states that her stools are ribbon in size. She has not had a weight loss but she thinks she may even have had a weight gain. Her most recent colonoscopy was at least 10 years ago. There is some question as to whether she has had a past history of colon polyps. Family history is negative for colon cancer or colon polyps. The patient has had routine symptoms of GERD. She has a known hiatal hernia. She has not had an upper endoscopy for at least 10 years. If she eats after 5 PM at night she will regurgitate food and have shortness of breath and her sleep. Her very pertinent medical problems include COPD with a previous history of tobacco smoking and rheumatoid arthritis on 3 different immunologic medications currently including Humira and methotrexate and prednisone.. She was scheduled recently at [facility] to undergo a colonoscopy. When the testing was reviewed and the CT scan with unilateral wall thrombus was identified that procedure was canceled. Dr. Chela Chiu contacted me and asked if I would assist with the patient's evaluation. By report the patient stopped her previous smoking in the year 1999. ROS General General: Yes fatigue; no weight change, appetite, colon cancer, breast cancer or weakness HEENT HEENT: No difficulty swallowing, eye injury, eye surgery, swollen glands or hoarseness Endo Endocrine: No thyroid disease, diabetes mellitus, thyroid cancer, Hair loss, heat intolerance or cold intolerance Musc Musculoskeletal: Yes back problems, arthritis and rheumatoid arthritis; no gout or joint pain Cardio Cardiovascular: Yes high blood pressure; no murmur, pacemaker, heart disease, atrial fibrillation, heart attack, heart stent, palpitations, shortness of breat with exertion or chest pain Psych Psychiatric: No depression, anxiety or hearing voices Resp Respiratory: Yes shortness of breath, No sleep apnea, No cough, Yes COPD, No asthma, No emphysema, No wheezing Gastro Gastrointestinal: Yes abdominal pain, No nausea or vomiting, No diarrhea, No constipation, No blood in stool, Yes acid reflux, Yes hemorrhoids, No ulcers, No gallbladder problem, No black,tarry stools Nnamdi Hematologic: No blood thinners, No blood disorders, No bleeding, No anemia, No blood clots Neuro Neurologic: No weakness Exam Const General: cooperative, frail appearing Nutritional Appearance: overweight Orientation: alert, awake, oriented x3 HENMT Head: normal to inspection Eyes General: appearance normal, both eyes and all related structures Neck Carotids: normal carotid upstroke, no bruits Lymphatic: no lymphadenopathy noted Chest Other: Notably increased anterior posterior diameter quite marked Resp Auscultation: clear to auscultation bilaterally Other: Diminished respiratory excursion Cardio Rate: regular rate Rhythm: regular rhythm Heart Sounds: no murmurs Other: Distant heart sounds Bilateral radial pulses 2+. Bilateral brachial pulses 2+. Bilateral carotids 2+ no bruits Bilateral femoral pulses 1-2+. Bilateral popliteal pulses 3-4+. Bilateral DP and PT pulses 2+ GI Inspection: distended Palpation: soft Auscultation: normal bowel sounds Other: Bulbous abdomen, held rather tautly, aneurysm just palpable, mild tenderness to palpation left lower quadrant. Difficult to detect focal mass due to body habitus and shape \No abdominal bruits Musc Cervical Spine: other (Cervical kyphosis noted) Skin General: other (Scattered area of ecchymosis) Neuro General: CN's II-XI intact bilaterally Extrem General: no calf tenderness Psych Affect: normal affect Assessment AND Plan Problems 1. Hiatal hernia with GERD K21.9; K44.9 2. Aneurysm of infrarenal abdominal aorta I71.4 3. Abnormal peripheral pulse R09.89 4. Colitis K52.9 5. Diverticulosis of large intestine without hemorrhage K57.30 6. Adnexal mass N94.9 7. Rheumatoid arthritis, involving unspecified site, unspecified rheumatoid factor presence M06.9 Plan Significantly complicated 67-year-old female. Her presentation was left greater than right lower quadrant abdominal pain. Findings suggest at least colitis with thickening of the sigmoid and descending colon. Questionable whether there is left adnexal enlargement or simply extension of the diverticular disease/colitis. Ongoing disease requiring ongoing use of laxative MiraLAX for bowel function. Diminished appetite. Diminished caliber of stool. Possible remote history of colon polyps. Hiatal hernia with symptomatic gastroesophageal reflux disease. Nighttime regurgitation with symptomatic shortness of breath. Infrarenal abdominal aortic aneurysm. April measured to be 3.8 cm and then May 08 0.2 cm. On my measurement I do not believe that there is a significant change and I measured out to be between 4 and 4.1 cm. Thrombus lines 1 of the hummel. There is significant calcific disease of the abdominal aorta and iliac vessels with very small diameter lumen. Abnormal popliteal pulses more generous than the other peripheral vessels. Possible aneurysmal change. Rheumatoid arthritis requiring 3 separate immunologic agents placing the patient at risk. The patient is scheduled to have a pelvic ultrasound to inspect the left adnexa. I propose a combined esophagogastroduodenoscopy with possible biopsy and colonoscopy with possible biopsy or polypectomy is indicated. We will utilize a MiraLAX bowel prep. We will utilize monitored anesthesia care. With the patient and daughter present I described the technique, benefits, risks, alternatives. At least at this point the aneurysm does not meet criteria for repair. I have discussed that her severely calcific stenotic disease of the iliacs likely will require tertiary referral to have her aneurysm fixed. Of course that repair will additionally be complicated by the patient's medications and rheumatoid arthritis and COPD. I anticipate duplex imaging of bilateral popliteal arteries as they were abnormally generous on exam. Increased risk of dislocation of popliteal artery aneurysm. I very much appreciate the kind opportunity of assisting with her surgical care. We will have her hold her fish oil at this time. Cc: Dr. Chela Torres M.D., F.A.C.S. Orders Orders: Coding Level of Care Code Comprehensive,High Diagnoses Hiatal hernia with GERD K21.9; K44.9 Aneurysm of infrarenal abdominal aorta I71.4 Abnormal peripheral pulse R09.89 Colitis K52.9 Diverticulosis of large intestine without hemorrhage K57.30 Diverticulosis site: diverticulosis of large intestine Diverticulosis bleeding: diverticulosis without bleeding Adnexal mass N94.9 Rheumatoid arthritis, involving unspecified site, unspecified rheumatoid factor presence M06.9 Rheumatoid arthritis location: unspecified site Rheumatoid factor presence: unspecified presence 05/12/18 1018 <Electronically signed by Duane Torres MD> Date Duane Torres MD Cosigner Signature: Date (if applicable) CC: Chela Chiu MD CT ABDOMEN/PELVIS W Observed: 05/07/2018 Status: F Source: [facility] [place] 2:32 PM [place] [address] Patient: SO RAMIREZ Phone#: : 1950 Age: 67 Gender: F Pt. Type: Out Account: [id number] Location: [facility] Ordering: CHELA CHIU Exam Date: 05/07/2018/14:15 Family Phys: Charge Code: [id number] Physician: [employer] Order #: [id number] DLP Dose#: PROCEDURE: CT ABDOMEN/PELVIS WITH CONTRAST COMPARISON: [facility], CT, ABDOMEN/PELVIS W CON, 04/11/2018, 10:58. INDICATIONS: Abdominal pain TECHNIQUE: After obtaining the patient's consent, CT images were created with non-ionic intravenous contrast and oral contrast material. All CT scans at this facility use dose modulation, iterative reconstruction, and/or weight based dosing when appropriate to reduce radiation dose to as low as reasonably achievable. IV CONTRAST: Omnipaque 350,80ml TOTAL DOSE: 15.80 CTDIvol(mGy) FINDINGS: LIVER: The liver is normal in size. There is a small hypoechoic focus in the right hepatic lobe unchanged from prior exam and too small to characterize with certainty. In the left hepatic lobe there is a hypoattenuating focus measuring 14 mm and is unchanged from previous exam. BILIARY: The gallbladder is absent. There is no evidence of biliary dilatation. PANCREAS: Normal. No lesion, fluid collection, ductal dilatation, or atrophy. SPLEEN: Normal. No enlargement or focal lesion. KIDNEYS: Normal. No mass, obstruction, or calcification. ADRENALS: Normal. No mass or enlargement. AORTA/VASCULAR: Aortic dilatation of the distal aorta extending to the level of the bifurcation is present and is unchanged since prior exam. Maximum transverse diameter is 4.2 cm. There is left lateral thrombus. Dilatation is distal to the renal arteries. Extensive aortic calcification is present. RETROPERITONEUM: Normal. No mass or adenopathy. Continued Report - Page 2 of 2 Patient: SO RAMIREZ Phone#: : 1950 Age: 67 Gender: F Pt. Type: Out Account: [id number] Location: 052 Ordering: CHLEA CHIU Exam Date: 05/07/2018/14:15 Family Phys: Charge Code: [id number] Physician: [employer] Order #: [id number] DLP Dose#: [id number]: Diverticulosis is present. There is mucosal thickening at the sigmoid level similar to prior exam without pericolonic fat stranding. Moderate hiatal hernia is present. ABDOMINAL WALL: Normal. No mass or hernia. URINARY BLADDER: Normal. No visible focal wall thickening, lesion, or calculus. PELVIC NODES: Normal. No adenopathy. PELVIC ORGANS: The uterus is atrophic. The left adnexa is prominent and in close approximation to the sigmoid colon. A fat plane is difficult to visualize. BONES: There is loss of height of L2 similar to prior exam. There is also loss of height at T 11 unchanged from previous exam. LUNG BASES: Normal. No visible pulmonary or pleural disease. OTHER: Negative. CONCLUSION: 1. Chronic wall thickening of the sigmoid colon is present similar to prior exam. There are no pericolonic inflammatory changes identified. There is diverticulosis. 2. There is prominence of the left adnexa similar to prior exam. 3. Distal abdominal aortic aneurysm, distal to the renal arteries. Maximum diameter is 4.2 cm. There is left lateral thrombus. Dictated by: Zhanna Dominguez MD on 05/07/2018 at 16:04 Approved by: Zhanna Dominguez MD on 05/07/2018 at 16:04 BMP WITH EGFR Collected: 05/07/2018 Status: F Source: [facility] 11:20 AM [facility] REPOSITORY TYPE CODE TESTS RESULT OUT OF RANGE REFERENCE UNITS LAB BMP with eGFR(LOINC) BMP with eGFR Result Comment: BASIC METABOLIC PANEL LAB SODIUM(LOINC) 136 - 145 mmol/l SODIUM Low 134 LAB POTASSIUM(LOINC) 3.5 - 5.1 mmol/L POTASSIUM 3.8 LAB CHLORIDE(LOINC) 98 - 107 mmol/L CHLORIDE 98 LAB CO2(LOINC) 21.0 - mmol/L 31.0 CO2 25.8 LAB GLUCOSE(LOINC) 74 - 106 mg/dl GLUCOSE High 142 LAB BUN(LOINC) 6 - 20 mg/dl BUN 12 LAB CREATININE(LOINC) 0.6 - 1.2 mg/dl CREATININE 0.8 LAB CALCIUM(LOINC) 8.6 - mg/dl 10.2 CALCIUM 10.2 LAB ANION GAP(LOINC) 10 - 20 mmol/L ANION GAP 14 LAB AGE(LOINC) years AGE 67 LAB eGFR(LOINC) 60 - 999 ML/MINUTE eGFR >60 LAB eGFR(AA)(LOINC) 60 - 999 ML/MINUTE eGFR(AA) >60 Result Comment: ACCORDING TO THE NATIONAL KIDNEY DISEASE EDUCATION PROGRAM(NKDE), A NORMAL eGFR IS A VALUE GREATER THAN OR EQUAL TO 60 ML/MIN/1.73 SQ METERS. CHRONIC KIDNEY DISEASE: <60mL/MIN/1.73 SQ METERS KIDNEY FAILURE: <15mL/MIN/1.73 SQ METERS THIS TEST SHOULD ONLY BE USED FOR PATIENTS 18 YEARS OF AGE AND OLDER. Performed By: #### [id number] #### [facility],[address] [place] [address] DISCHARGE SUMMARY Observed: 05/05/2018 Status: F [facility] DISCHARGE SUMMARY NAME ACCOUNT SEX AGE ADMIT DISCHARGE PT MED. RECORD# NUMBER DATE DATE TYPE SO RAMIREZ [id number] F 05/05/18 05/05/18 2 P 7118 ROOM: [facility] DATE OF : 1950 DICTATING PHYSICIAN: Johnna Brown FINAL DIAGNOSIS: HOSPITAL COURSE/DISCHARGE PLAN: So Ramirez is a 67-year-old lady who presented for a colonoscopy with a prior history of polyps in her preoperative workup, copies of previous CT scan was obtained on 04/21/18. This showed an abdominal aortic aneurysm of 3.8 cm at its widest point with mural thrombus. She has a heavily calcified aorta and branch vessels. She does have a thickening of the sigmoid colon without pericolonic thickening and she has diverticulosis. These findings will require further attention, but in the meantime, I will delay her endoscopy until her vascular disease risks have been clarified. I am concerned about the risk of mobilizing a thrombus creating CVA, MT or other long-term problems. The patient appears to understand, concurs and has no further questions. She will follow up with her primary care physician. Dictated By: Johnna Brown MD 05/05/18 13:42 JOB #: [id number] Transcribed By: lindsay 05/05/18 21:23 Electronically signed by: E-Sign Dr. Johnna Brown MD 05/12/18 13:08 Page 1 of 1 SO RAMIREZ Discharge Summary EMERGENCY REPORT Observed: 04/21/2018 Status: F [facility] EMERGENCY ROOM REPORT NAME ACCOUNT SEX AGE ADMIT DISCHARGE PT MED. RECORD# NUMBER DATE DATE TYPE DOMINIQUE [id number] 04/11/18 04/11/18 3 SO P 7118 ROOM: DATE OF : 1950 DICTATING PHYSICIAN: Kiran Lizarraga CHIEF COMPLAINT: Abdominal pain. HISTORY OF PRESENT ILLNESS: The patient states that she has had abdominal pain over the last couple of weeks. It seems to be gradually getting worse. She states that it feels like diverticulitis, which she has had before. She states that it just is not getting better. She has not had a fever or chills. She states that she is able to go, but she just goes small amounts and in small pieces. There is no blood in her stools. She did have a couple episodes of vomiting but generally is able to eat and drink. No fever or chills. PAST MEDICAL HISTORY: Significant for significant COPD. She has had previous diverticulitis. PAST SURGICAL HISTORY: She has had previous remote tubal ligation. MEDICATIONS: Per medication reconciliation list. ALLERGIES: She has multiple allergies, as noted on the allergy list. SOCIAL HISTORY: The patient lives at home. She has smoked in the past. She does not smoke presently. She does not drink alcohol. REVIEW OF SYSTEMS: She is not complaining of chest pain. She has had some sinus infections over the summer. She states that her breathing presently is really pretty good. Cough is minimal. No urinary symptoms. No pain or swelling to her extremities. No significant weight loss or dizziness. PHYSICAL EXAMINATION: This is a 67-year-old female who is alert, appropriate, and pleasant. She does not appear toxic or in acute distress. Her skin is pink, warm and dry. HEENT examination is essentially all within normal limits. Neck is supple without JVD. Breath sounds are diminished but equal bilaterally. No velma crackles or wheezes. Cardiac examination is a regular rhythm without ectopy or murmurs. Abdomen is soft. She has some mild diffuse tenderness without any masses. She does seem to have more tenderness diffusely to the lower abdomen. Bowel sounds are present but diminished. No back or flank tenderness. She moves extremities appropriately without any focal weaknesses. No clubbing, cyanosis or edema. Vital signs: Temperature is 97.9, pulse 84, respirations 18, and blood pressure 150/90. Her oxygen saturation was Page 1 of 2 [facility] Emergency Room Report 96%. DIAGNOSTIC DATA: CBC showed a white count of 14,700 and a normal differential. H&H were 13.8 and 40.5. Amylase and lipase are unremarkable. CRP is 2.7. Sodium is 132, potassium 3.4, CO2 of 28, BUN 13, and creatinine 0.8. Urinalysis was essentially unremarkable. We did proceed to get an abdominal and pelvis CT. This returned showing sigmoid colonic wall thickening without pericolonic stranding, left adnexal lesion, stable abdominal aortic aneurysm, and a moderate-sized hiatal hernia. EMERGENCY DEPARTMENT COURSE AND TREATMENT: An IV of normal saline was placed, and she was given an IV bolus. A number of laboratory studies were obtained. The patient has abdominal pain clinically consistent with diverticulitis, but certainly the possibility of a colon mass would need to be considered. She states that she has not had a colonoscopy. She was scheduled to have one this summer, but it was delayed because of upper and lower respiratory infections. She was given a dose of Cipro and Flagyl IV and will be discharged on Cipro and Flagyl orally. I did discuss with Dr. Paz and also with Dr. Gonzales. The patient will be discharged to home on the oral antibiotics. She is to follow up with Dr. Brown or Dr. Paz this coming week for scheduling a colonoscopy, returning if her symptoms worsen. DIAGNOSIS: Abdominal pain, diverticulitis versus mass. Dictated By: Kiran Lizarraga MD 04/11/18 13:21 JOB #: [id number] Transcribed By: óscar 04/12/18 09:52 Electronically signed by: JULIO Lizarraga M.D. 04/21/18 07:00 Page 2 of 2 [facility] Emergency Room Report EMERGENCY REPORT Observed: 04/13/2018 Status: F Source: [facility] 12:26 PM [facility] EMERGENCY ROOM REPORT NAME ACCOUNT SEX AGE ADMIT DISCHARGE PT MED. RECORD# NUMBER DATE DATE TYPE DOMINIQUE [id number] Monisha 67 04/12/18 04/12/18 3 [facility] 7118 ROOM: ER DATE OF : 1950 DICTATING PHYSICIAN: Joe Morgan CHIEF COMPLAINT/HISTORY OF PRESENT ILLNESS: This is a 67-year-old white female who was seen here yesterday and diagnosed with diverticulitis by CAT scan. She was put on Cipro and Flagyl, but states that those antibiotics, especially the Flagyl has been making her nauseated. She also complains of some low back pain since yesterday. She has a headache and complains of having the fidgets. She states that those pills are making her nauseated, but it does go away after some time. She states she just does not feel good. She states at times my brain is in a fog. She vomited this morning, but she did take a dose of the Flagyl around noon today and she was able to keep that down. It did make her nauseated but that has started to improve. She denies any blood in her stool. PAST MEDICAL HISTORY: COPD, rheumatoid arthritis, osteoporosis. PAST SURGICAL HISTORY: Cholecystectomy, tubal ligation, cataract surgery. ALLERGIES: Penicillins, Levaquin, doxycycline, sulfacetamide, Avelox, Demerol. SOCIAL HISTORY: She presently is not a smoker. She has quit. She does not drink any alcohol. She lives at home with her family. REVIEW OF SYSTEMS: Denies any chest pain, shortness of breath, cough, sputum, wheezing, abdominal pain, but does admit to nausea and vomiting. Denies any diarrhea, constipation, melena, hematochezia, headache, numbness, unsteady gait, weakness, neck or back pain, joint pain, skin rash or swelling, hives, hayfever, swollen glands. Further review of systems negative. * PHYSICAL EXAMINATION: Vital signs: Blood pressure 146/89, pulse 93, respirations 128, temperature 97.9, pulse oximetry 92% on room air. Weight 150 pounds. Patient is alert and oriented x3. She presently appears in no acute distress. She is pleasant, cooperative. HEENT: Head appears atraumatic. Pupils are equal and reactive to light. Red reflex intact bilaterally. Extraocular muscles intact. No conjunctival injection. No scleral icterus or lid edema. Nose exhibits no rhinorrhea or epistaxis. Mouth: Mucous membranes are moist. No pharyngeal erythema. Uvula is midline and elevates. Neck is supple. Trachea is midline. No JVD or lymphadenopathy. No posterior cervical tenderness. No nuchal rigidity. Lungs are clear to auscultation in all lung bates. No adventitious sounds are noted. No accessory muscle use. CVS: Heart rate and rhythm Page 1 of 2 [facility] Room Report is regular. No murmur noted. Abdomen is soft and nontender with normoactive bowel sounds x4 quadrants. No guarding or rigidity. No rebound. No palpable abdominal masses. No hepatosplenomegaly. Back exhibits no midline or paraspinal region tenderness. No increased paraspinal muscle rigidity. Negative Aldair sign. Extremities: No edema or cyanosis. Peripheral pulses are intact. No motor or sensory deficits are noted. 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 Skin is warm and dry. No diaphoresis or rash. EMERGENCY DEPARTMENT COURSE AND TREATMENT: We discussed other options including Augmentin, which she is allergic to penicillin so she cannot take that. She states that Levaquin and Avelox make her very nauseated so the moxifloxacin was not a good option at this point. So after a discussion with the patient, she wanted to try the Zofran, although she said the Zofran she did not like when they took it yesterday, but she does not like being sleepy with the Phenergan either so, she wants to try the Zofran. Will give her a prescription for the Zofran ODT 4 mg. She is to take 1 by mouth about 20 minutes prior to taking her Flagyl and Cipro and she can take that every 8 hours for the nausea and vomiting and as long as she can keep the oral antibiotics down, she can stay home. I offered to recheck some blood work on her today and things, but she does not feel that sick. She thinks that she just was looking for some other medication to take and at this point, I think keeping her on Cipro and Flagyl and treating her nausea is going to be the best option and that is what she wants to do. A script was written for Zofran ODT 4 mg, dispense number 15, one p.o. every 8 hours p.r.n. nausea and vomiting. Patient is to follow up with her primary care physician, Dr. Chiu this coming week and if her symptoms get worse or any other problems develop, return to the emergency department. DIAGNOSES: 1. Diverticulitis. 2. Nausea, secondary to medication. PLAN/DISPOSITION: The patient was discharged in a clinically stable condition. Nurse notes reviewed. Dictated By: Joe Morgan DO 04/12/18 15:12 JOB #: [id number] Transcribed By: jonathan 04/13/18 10:19 Electronically signed by: E-Sign: Dr. Joe Morgan D.O. 04/13/18 12:25 Page 2 of 2 [facility] Emergency Room Report CT ABDOMEN/PELVIS W Observed: 04/11/2018 Status: F Source: [facility] 11:14 AM [place] [id number] Patient: SO RAMIREZ Phone#: : 1950 Age: 67 Gender: F Pt. Type: ER Account: [id number] Location: 052 Ordering: KIRAN LIZARRAGA Exam Date: 04/11/2018/10:58 Family Phys: CHELA CHIU Charge Code: [id number] Physician: [place] Order #: [id number] DLP Dose#: PROCEDURE: CT ABDOMEN/PELVIS WITH CONTRAST COMPARISON: None. INDICATIONS: Abdominal pain TECHNIQUE: After obtaining the patient's consent, CT images were created with non-ionic intravenous contrast material. All CT scans at this facility use dose modulation, iterative reconstruction, and/or weight based dosing when appropriate to reduce radiation dose to as low as reasonably achievable. IV CONTRAST: Omnipaque 350,80ml TOTAL DOSE: 12.8 CTDIvol(mGy) FINDINGS: LIVER: There is a cyst in the left lobe measuring 1.6 cm. Low attenuation lesion, too small to characterize is seen in the posterior right lobe. Otherwise the liver is unremarkable in enhancement contour. The hepatic veins and portal veins enhance. BILIARY: The gallbladder is absent. PANCREAS: Normal. No lesion, fluid collection, ductal dilatation, or atrophy. SPLEEN: Normal. No enlargement or focal lesion. KIDNEYS: Kidneys enhance and excrete contrast symmetrically. Low-attenuation lesions in the left kidney are too small to characterize. ADRENALS: Normal. No mass or enlargement. AORTA/VASCULAR: There is an abdominal aortic aneurysm measuring 3.8 x 3.4 cm with mural thrombus. There is heavy the calcified aorta and branch vessels. RETROPERITONEUM: Normal. No mass or adenopathy. BOWEL/MESENTERY: There is a moderate-sized hiatal hernia. No bowel obstruction or dilatation. There is thickening of the sigmoid colon without pericolonic thickening. There is diverticulosis of the descending and sigmoid colon. There is a moderate to large degree of stool throughout the colon. Continued Report - Page 2 of 2 Patient: SO RAMIREZ Phone#: : 1950 Age: 67 Gender: F Pt. Type: ER Account: [id number] Location: 052 Ordering: KIRAN LIZARRAGA Exam Date: 04/11/2018/10:58 Family Phys: CHELA CHIU Charge Code: [id number] Physician: [place] Order #: [id number] DLP Dose#: ABDOMINAL WALL: Normal. No mass or hernia. URINARY BLADDER: Small focus of air in the urinary bladder otherwise the urinary bladder is unremarkable. PELVIC NODES: Normal. No adenopathy. PELVIC ORGANS: Uterus is atrophic. Left adnexa is enlarged, measuring 4.3 x 5.0 x 3.7 cm. Left adnexal lesion is immediately adjacent to the area of sigmoid colonic wall thickening and difficult to distinguish the margin between the 2 structures. BONES: Age-indeterminate anterior wedge compression deformity of T11 and L2. LUNG BASES: Normal. No visible pulmonary or pleural disease. OTHER: Negative. CONCLUSION: 1. Sigmoid colonic wall thickening without pericolonic stranding. Differential includes diverticular disease versus underlying neoplasm. Colitis is thought less likely given the lack of identifiable edema. Recommend correlation with colorectal cancer screening. 2. Left adnexal lesion. Recommend dedicated pelvic ultrasound for further characterization. 3. Abdominal aortic aneurysm. 4. Moderate-sized hiatal hernia. Dictated by: Amalia Root MD on 04/11/2018 at 11:55 Approved by: Amalia Root MD on 04/11/2018 at 11:55 CBC Collected: 04/11/2018 Status: F Source: [facility] 9:51 AM [facility] REPOSITORY TYPE CODE TESTS RESULT OUT OF RANGE REFERENCE UNITS LAB CBC(LOINC) CBC Result Comment: CBC-COMPLETE BLOOD COUNT LAB WBC(LOINC) 4.5 - 10.8 x 10EE3/UL WBC High 14.7 LAB RBC(LOINC) 4.10 - x 10EE6/UL 5.30 RBC 4.39 LAB HEMOGLOBIN(LOINC 12.0 - g/dl ) 16.0 HEMOGLOBIN 13.8 LAB HEMATOCRIT(LOINC 34.0 - % ) 46.0 HEMATOCRIT 40.5 LAB MCV(LOINC) 80 - 99 fl MCV 92 LAB MCH(LOINC) 27 - 33 pg MCH 32 LAB MCHC(LOINC) 32 - 36 X10 3 MCHC 34 LAB RDW/CV(LOINC) 12.0 - % 15.6 RDW/CV 14.4 LAB PLATELET(LOINC) 150 - 450 x10EE3/UL PLATELET 376 LAB MPV(LOINC) 6.6 - 10.5 fl MPV 6.7 Result Comment: AUTOMATED DIFFERENTIAL LAB NEUT %(LOINC) 46.0 - 76.0 % NEUT % 50.7 LAB LYMPH %(LOINC) 20.0 - 45.0 % LYMPH % 32.8 LAB MONOS %(LOINC) 0.0 - 10.0 % MONOS % High 12.1 LAB EO %(LOINC) 0.0 - 7.0 % EO % 2.5 LAB BASO %(LOINC) 0.0 - 2.0 % BASO % 1.9 LAB Lymph #(LOINC) 0.80 - 2.80 x10EE3/U L Lymph # High 4.80 LAB Neut #(LOINC) 1.50 - 7.10 x10EE3/U L Neut # High 7.50 LAB Island #(LOINC) 0.20 - 1.00 x10EE3/U L Island # High 1.80 LAB EO #(LOINC) 0.00 - 0.50 x10EE3/U L EO # 0.40 LAB Baso #(LOINC) 0.00 - 0.10 x10EE3/U L Baso # High 0.30 LAB MANUAL DIFF(LOINC) MANUAL DIFF N/A LAB MORPHOLOGY(LOINC ) MORPHOLOGY N/A Result Comment: {CD] Performed By: #### [id number] #### [place] [id number] LIPASE Collected: 04/11/2018 Status: F Source: [facility] 9:51 [facility] REPOSITORY TYPE CODE TESTS RESULT OUT OF REFERENCE UNITS RANGE LAB LIPASE(LOIN 18.0 - 51.0 U/L C) Low LIPASE 12.0 Performed By: #### [id number] #### [place] [id number] CMP WITH EGFR Collected: 04/11/2018 Status: F Source: [facility] 9:51 [facility] REPOSITORY TYPE CODE TESTS RESULT OUT OF RANGE REFERENCE UNITS LAB CMP with eGFR(LOINC) CMP with eGFR Result Comment: COMPREHENSIVE METABOLIC PANEL LAB SODIUM(LOINC) 136 - 145 mmol/l SODIUM Low 132 LAB POTASSIUM(LOINC) 3.5 - 5.1 mmol/L Low POTASSIUM 3.4 LAB CHLORIDE(LOINC) 98 - 107 mmol/L CHLORIDE Low 96 LAB CO2(LOINC) 21.0 - mmol/L 31.0 CO2 28.0 LAB GLUCOSE(LOINC) 74 - 106 mg/dl GLUCOSE 103 LAB BUN(LOINC) 6 - 20 mg/dl BUN 13 LAB CREATININE(LOINC) 0.6 - 1.2 mg/dl CREATININE 0.8 LAB AST/SGOT(LOINC) 13 - 39 U/L AST/SGOT 17 LAB ALK PHOS(LOINC) 38 - 126 U/L ALK PHOS 47 LAB CALCIUM(LOINC) 8.6 - mg/dl 10.2 CALCIUM 9.9 LAB TOTAL PROTEIN(LOINC) 6.4 - 8.3 g/dl TOTAL PROTEIN 7.8 LAB ALBUMIN(LOINC) 3.4 - 4.8 g/dL ALBUMIN 4.3 LAB GLOBULIN(LOINC) 1.5 - 3.8 G/DL GLOBULIN 3.5 LAB A/G RATIO(LOINC) 0.9 - 1.6 A/G RATIO 1.2 LAB TOTAL BILI(LOINC) 0.0 - 1.5 mg/dl TOTAL BILI 0.3 LAB B/C RATIO(LOINC) 0 - 30 ratio B/C RATIO 16 LAB ALT/SGPT(LOINC) 8 - 35 U/L ALT/SGPT 15 LAB ANION GAP(LOINC) 10 - 20 mmol/L ANION GAP 11 LAB AGE(LOINC) years AGE 67 LAB eGFR(LOINC) 60 - 999 ML/MINUTE eGFR >60 LAB eGFR(AA)(LOINC) 60 - 999 ML/MINUTE eGFR(AA) >60 Result Comment: ACCORDING TO THE NATIONAL KIDNEY DISEASE EDUCATION PROGRAM(NKDE), A NORMAL eGFR IS A VALUE GREATER THAN OR EQUAL TO 60 ML/MIN/1.73 SQ METERS. CHRONIC KIDNEY DISEASE: <60mL/MIN/1.73 SQ METERS KIDNEY FAILURE: <15mL/MIN/1.73 SQ METERS THIS TEST SHOULD ONLY BE USED FOR PATIENTS 18 YEARS OF AGE AND OLDER. Performed By: #### [id number] #### Rajendra [facility],[address] [place] [address] AMYLASE Collected: 04/11/2018 Status: F Source: [facility] 9:51 AM [facility] REPOSITORY TYPE CODE TESTS RESULT OUT OF REFERENCE UNITS RANGE LAB AMYLASE(RAJEEV 29 - 103 U/L NC) AMYLASE 40 Performed By: #### [id number] #### [address] [id number] C-REACTIVE PROTEIN Collected: 04/11/2018 Status: F Source: [facility] 9:51 [facility] REPOSITORY TYPE CODE TESTS RESULT OUT OF RANGE REFERENCE UNITS LAB CRP(LOINC) 0.00 - 1.00 mg/dl High CRP 2.70 Performed By: #### [id number] #### [facility],[address] [place] [id number] URINALYSIS Collected: 04/11/2018 Status: F Source: [facility] 9:48 [facility] REPOSITORY TYPE CODE TESTS RESULT OUT OF REFERENCE UNITS RANGE LAB URINALYSIS (LOINC) URINALYSIS Result Comment: URINALYSIS LAB Specimen Type(LOINC) Specimen Type UNSPECIFIED LAB Color(LOINC) NORMAL: YELLOW Color yellow LAB Clarity(LOINC) NORMAL: CLEAR Clarity clear LAB ph(LOINC) NORMAL: 5.0-8.0 ph 8 LAB Protein(LOINC) NORMAL: NEGATIVE Protein NEG LAB Glucose(LOINC) NORMAL: NORMAL Glucose NORM LAB Ketone(LOINC) NORMAL: NEGATIVE Ketone NEG LAB Bilirubin(LOINC) NORMAL: NEGATIVE NEG Bilirubin LAB Blood(LOINC) NORMAL: NEGATIVE Blood 25 Abnormal LAB Urobilinog(LOINC NORMAL: ) NORMAL NORM Urobilinog LAB Sp NORMAL: Letona(LOINC) 1.010-1.030 Sp 1.010 [place]ona LAB Nitrite(LOINC) NORMAL: NEGATIVE Nitrite NEG LAB Leukocytes(LOINC NORMAL: ) NEGATIVE 100 Abnormal Leukocytes LAB Microscopic(LOIN C) SEE Microscopic BELOW Result Comment: MICROSCOPIC LAB Wbc(LOINC) 0-5/hpf Wbc 1-5 LAB Rbc(LOINC) 0-3/hpf Rbc 0-5 LAB Casts(LOINC) Casts NONE LAB Crystals(LOINC) Crystals NONE LAB Amorphous(LOINC) Amorphous NONE LAB Bacteria(LOINC) Bacteria TRACE LAB Epi Cells(LOINC) Epi Cells FEW LAB Mucous(LOINC) Mucous NONE LAB Yeast(LOINC) Yeast NONE Performed By: #### [id number] #### Rajendra [facility],[address] [place] [id number] MAMM DIGITAL BILAT Observed: 03/04/2018 Status: F Source: [facility] SCREEN 2:13 PM [place] [id number] Patient: SO RAMIREZ Phone#: : 1950 Age: 67 Gender: F Pt. Type: Out Account: [id number] Location: [facility] Ordering: JOE GRAMAJO Exam Date: 03/04/2018/14:01 Family Phys: Charge Code: [id number] Physician: [place] Order #: [id number] DLP Dose#: PROCEDURE: MAMM BILAT DIGITAL SCREENING WITH CAD COMPARISON: [facility], BILAT SCREENING, 01/24/2015, 14:42. [facility], BILAT SCREENING, 02/28/2017, 10:10. INDICATIONS: Screening BREAST COMPOSITION: Almost entirely fat (<25% glandular). FINDINGS: DIAGNOSTIC CATEGORY 1--NEGATIVE ASSESSMENT. RIGHT BREAST: No significant suspicious finding. Scattered benign-appearing nodules are present. No significant change has occurred. LEFT BREAST: No significant suspicious finding. Scattered benign-appearing nodules are present. No significant change has occurred. RECOMMENDATIONS: ROUTINE MAMMOGRAM AND CLINICAL EVALUATION. PLEASE NOTE: A NORMAL MAMMOGRAM DOES NOT EXCLUDE THE POSSIBILITY OF BREAST CANCER. A CLINICALLY SUSPICIOUS PALPABLE LUMP SHOULD BE BIOPSIED. THIS FACILITY UTILIZES A REMINDER SYSTEM TO ENSURE THAT ALL PATIENTS RECEIVE REMINDER LETTERS FOR APPOINTMENTS. THIS INCLUDES REMINDERS FOR ROUTINE MAMMOGRAMS, DIAGNOSITC MAMMOGRAMS, OR OTHER BREAST IMAGING INTERVENTIONS WHEN APPROPRIATE. THIS PATIENT WILL BE PLACED IN THE APPROPRIATE REMINDER SYSTEM. Dictated by: Zhanna Dominguez MD on 03/04/2018 at 16:23 Approved by: Zhanna Dominguez MD on 03/04/2018 at 16:23 BONE DENSITY STUDY Observed: 03/04/2018 Status: F Source: [facility] 2:06 PM [place] [id number] Patient: SO RAMIREZ Phone#: : 1950 Age: 67 Gender: F Pt. Type: Out Account: [id number] Location: 052 Ordering: JOE GRAMAJO Exam Date: 03/04/2018/14:00 Family Phys: Charge Code: [id number] Physician: [place] Order #: [id number] DLP Dose#: PROCEDURE: BONE DENSITY STUDY TECHNIQUE: Lumbar vertebral and proximal femoral dual-energy X-ray absorptiometry (DXA) was performed on a central ididwork device. SPINE ANALYSIS RESULTS: Average lumbar bone mineral density (BMD) (g/cm2): 0.788 Lumbar T-score (standard deviation relative to young adult mean BMD): -3.2 Lumbar Z-score (standard deviation relative to age matched control group): -1.6 Change since prior spine examination:Increased bone density consistent with therapeutic response. SPINE CLASSIFICATION: Established osteoporosis (T- score of less than -2.5 with history of vertebral fracture). HIP ANALYSIS RESULTS: Left femoral bone mineral density (BMD) (g/cm2): 0.643 Right femoral bone mineral density (BMD) (g/cm2): 0.658 Femur T-score (standard deviation relative to young adult mean BMD): -2.9 Femur Z-score (standard deviation relative to age matched control group): -1.7 Change since prior hip examination:Increased bone density consistent with therapeutic response. HIP CLASSIFICATION (World Health Organization): Osteoporosis (T-score < -2.5). Note: The 2007 International Society for Clinical Densitometry (ISCD) Official Positions state that osteoporosis in nathalia-menopausal and post-menopausal women and in men age 50 and older may be diagnosed if the T-score of the lumbar spine, total hip, or femoral neck is -2.5 or less. Hip BMD is reported from the femoral neck or total proximal femur whichever is lowest. In pre-menopausal women and in men younger than age 50, T-scores may be used but Z-scores are preferred. In this patient group, a Z-score of -2.0 or lower is defined as below the expected range for age. FRAX is a computer-based algorithm which uses easily obtained clinical risk factors combined with femoral neck Continued Report - Page 2 of 2 Patient: SO RAMIREZ Phone#: : 1950 Age: 67 Gender: F Pt. Type: Out Account: [id number] Location: 052 Ordering: JOE GRAMAJO Exam Date: 03/04/2018/14:00 Family Phys: Charge Code: [id number] Physician: [place] Order #: [id number] DLP Dose#: BMD or T-score to estimate an individual 10-year fracture probability. FRAX with BMD predicts fracture risk better than clinical risk factors or BMD alone. It is not appropriate to use FRAX to monitor treatment response. ADDITIONAL FINDINGS: No significant additional findings. Dictated by: Zhanna Dominguez MD on 03/04/2018 at 16:27 Approved by: Zhanna Dominguez MD on 03/04/2018 at 16:27 CBC Collected: 02/10/2018 Status: F Source: [facility] 9:35 AM [facility] REPOSITORY TYPE CODE TESTS RESULT OUT OF RANGE REFERENCE UNITS LAB CBC(LOINC) CBC Result Comment: CBC-COMPLETE BLOOD COUNT LAB WBC(LOINC) 4.5 - 10.8 x 10EE3/UL WBC High 12.9 LAB RBC(LOINC) 4.10 - x 10EE6/UL 5.30 RBC 4.36 LAB HEMOGLOBIN(LOINC 12.0 - g/dl ) 16.0 HEMOGLOBIN 13.7 LAB HEMATOCRIT(LOINC 34.0 - % ) 46.0 HEMATOCRIT 40.8 LAB MCV(LOINC) 80 - 99 fl MCV 94 LAB MCH(LOINC) 27 - 33 pg MCH 31 LAB MCHC(LOINC) 32 - 36 X10 3 MCHC 34 LAB RDW/CV(LOINC) 12.0 - % 15.6 RDW/CV 14.4 LAB PLATELET(LOINC) 150 - 450 x10EE3/UL PLATELET 303 LAB MPV(LOINC) 6.6 - 10.5 fl MPV 7.4 Result Comment: AUTOMATED DIFFERENTIAL LAB NEUT %(LOINC) 46.0 - 76.0 % NEUT % 53.9 LAB LYMPH %(LOINC) 20.0 - 45.0 % LYMPH % 32.3 LAB MONOS %(LOINC) 0.0 - 10.0 % MONOS % 10.0 LAB EO %(LOINC) 0.0 - 7.0 % EO % 3.1 LAB BASO %(LOINC) 0.0 - 2.0 % BASO % 0.7 LAB Lymph #(LOINC) 0.80 - 2.80 x10EE3/U L Lymph # High 4.20 LAB Neut #(LOINC) 1.50 - 7.10 x10EE3/U L Neut # 7.00 LAB Island #(LOINC) 0.20 - 1.00 x10EE3/U L Island # High 1.30 LAB EO #(LOINC) 0.00 - 0.50 x10EE3/U L EO # 0.40 LAB Baso #(LOINC) 0.00 - 0.10 x10EE3/U L Baso # 0.10 LAB MANUAL DIFF(LOINC) MANUAL DIFF N/A LAB MORPHOLOGY(LOINC ) MORPHOLOGY N/A Result Comment: {CD] Performed By: #### [id number] #### [place] [id number] C-REACTIVE PROTEIN Collected: 02/10/2018 Status: F Source: [facility] 9:35 [facility] REPOSITORY TYPE CODE TESTS RESULT OUT OF RANGE REFERENCE UNITS LAB CRP(LOINC) 0.00 - 1.00 mg/dl CRP 0.50 Performed By: #### [id number] #### [place] [id number] CREATININE Collected: 02/10/2018 Status: F Source: [facility] 9:35 [facility] REPOSITORY TYPE CODE TESTS RESULT OUT OF REFERENCE UNITS RANGE LAB CREATININE 0.6 - 1.2 mg/dl (LOINC) CREATININE 0.8 Performed By: #### [id number] #### [place] [address] SGOT (AST) Collected: 02/10/2018 Status: F Source: [facility] 9:35 [facility] REPOSITORY TYPE CODE TESTS RESULT OUT OF RANGE REFERENCE UNITS LAB AST/SGOT(LO 13 - 39 U/L INC) AST/SGOT 22 Performed By: #### [id number] #### [place] [address] SGPT (ALT) Collected: 02/10/2018 Status: F Source: RAJENDRA GALOWV 9:35 AM [facility] REPOSITORY TYPE CODE TESTS RESULT OUT OF RANGE REFERENCE UNITS LAB ALT/SGPT(LO 8 - 35 U/L INC) ALT/SGPT 18 Performed By: #### [id number] #### [address] [address] SEDRATE Collected: 02/10/2018 Status: F Source: [facility] 9:35 [facility] REPOSITORY TYPE CODE TESTS RESULT OUT OF REFERENCE UNITS RANGE LAB SEDRATE(RAJEEV 0 - 30 mm/hr NC) SEDRATE 16 Performed By: #### [id number] #### [address] [address] VITAMIN D, 25 Collected: 12/27/2017 Status: F Source: RAJENDRA BRANMARILEE HYDROXY 9:50 AM [facility] REPOSITORY TYPE CODE TESTS RESULT OUT OF RANGE REFERENCE UNITS LAB VitD(LOINC) 30.00 - 100 ng/mL VitD 46.27 Result Comment: 25-OHD3 indicates both endogenous production and supplementation. 25-OHD2 is an indicator of exogenous sources, such as diet or supplementation. Therapy is based on measurement of Total 25-OHD, with levels <20 ng/mL indicative of Vitamin D deficiency, while levels between 20 ng/mL and 30 ng/mL suggest insufficiency. Optimal levels are >=30ng/mL. Vitamin D, 25-OH D3 Not Established Vitamin D, 25-OH D2 Not Established Performed By: #### [id number] #### [address] [address] CALCIUM TOTAL Collected: 12/27/2017 Status: F Source: RAJENDRA ROBIN 9:50 [facility] REPOSITORY TYPE CODE TESTS RESULT OUT OF REFERENCE UNITS RANGE LAB CALCIUM(RAJEEV 8.6 - 10.2 mg/dl NC) CALCIUM 9.9 Performed By: #### [id number] #### [address] [address] RICKETTSIAL AB PNL Collected: 12/10/2017 Status: F [facility]REFL [QUEST] 11:22 [facility] REPOSITORY TYPE CODE TESTS RESULT OUT OF REFERENCE UNITS RANGE LAB RICKETTSIAL AB PNL W/REFL [QUEST](LOINC) RICKETTSIAL AB PNL W/REFL [QUEST] Result Comment: _RICKETTSIAL AB PNL W/REFL_ RICKETTSIA ANTIBODY PANEL WITH REFLEX TO TITERS Reported: 12/12/2017 18:20 Status=F TEST RESULT FLAG RANGE UNITS RMSF IGG Not Detected Not Detected 12/12/17.rfl.COMPLETE.AMRR .37277-1 RMSF IGG ANTIBODIES Not indicated 12/12/17.rfl.COMPLETE.AMRR .28546-8 RMSF IGM Not Detected Not Detected 12/12/17.rfl.COMPLETE.AMRR .68136-1 RMSF IGM ANTIBODIES Not indicated 12/12/17.rfl.COMPLETE.AMRR .13339-4 R. TYPHI IGG Not Detected Not Detected 12/12/17.rfl.COMPLETE.AMRR .91088-7 TYPHUS IGG ANTIBODIES Not indicated 12/12/17.rfl.COMPLETE.AMRR .12694-2 R. TYPHI IGM Not Detected Not Detected 12/12/17.rfl.COMPLETE.AMRR .76794-1 TYPHUS IGM ANTIBODIES Not indicated 12/12/17.rfl.COMPLETE.AMRR .37053-2 Test Performed by [facility], [facility], [address] [place] [address] Nathaniel Turk M.D., Ph.D., Director of [employer] , CLIA [id number] Performed By: #### [id number] #### [facility],[address] [place] [address] LYME DISEASE ABS Collected: 12/10/2017 Status: F Source: RAJENDRA ROBIN (IGM+IGG) IMMUBLOT 11:22 AM [facility] [QU] REPOSITORY TYPE CODE TESTS RESULT OUT OF REFERENCE UNITS RANGE LAB LYME DISEASE ABs (IgM+IgG) IMMUBLOT [QU](LOINC) LYME DISEASE ABs (IgM+IgG) IMMUBLOT [QU] Result Comment: _LYME DISEASE IGG_ LYME DISEASE ANTIBODIES (IGG, IGM), IMMUNOBLOT Reported: 12/12/2017 21:38 Status=F TEST RESULT FLAG RANGE UNITS LYME DISEASE AB(IGG),BLOT Negative Negative 12/12/17.rfl.COMPLETE.AMRR 18 KD (IGG) BAND Nonreactive 12/12/17.rfl.COMPLETE.AMRR .9588-5 23 KD (IGG) BAND Nonreactive 12/12/17.rfl.COMPLETE.AMRR .9589-3 28 KD (IGG) BAND Nonreactive 12/12/17.rfl.COMPLETE.AMRR .9590-1 30 KD (IGG) BAND Nonreactive 12/12/17.rfl.COMPLETE.AMRR .9591-9 39 KD (IGG) BAND Nonreactive 12/12/17.rfl.COMPLETE.AMRR .9592-7 41 KD (IGG) BAND Reactive A 12/12/17.rfl.COMPLETE.AMRR .9593-5 45 KD (IGG) BAND Nonreactive 12/12/17.rfl.COMPLETE.AMRR .9594-3 58 KD (IGG) BAND Nonreactive 12/12/17.rfl.COMPLETE.AMRR .9595-0 66 KD (IGG) BAND Nonreactive 12/12/17.rfl.COMPLETE.AMRR .9596-8 93 KD (IGG) BAND Nonreactive 12/12/17.rfl.COMPLETE.AMRR .9597-6 LYME DISEASE AB (IGM), Negative Negative 12/12/17.rfl.COMPLETE.AMRR .6321-4 BLOT 23 KD (IGM) BAND Nonreactive 12/12/17.rfl.COMPLETE.AMRR .9598-4 39 KD (IGM) BAND Nonreactive 12/12/17.rfl.COMPLETE.AMRR .9599-2 41 KD (IGM) BAND Nonreactive 12/12/17.rfl.COMPLETE.AMRR .9587-7 As per CDC criteria, a Lyme disease IgG immunoblot must show reactivity to at least 5 of 10 specific borrelial proteins to be considered positive; similarly, a positive Lyme disease IgM immunoblot requires reactivity to 2 of 3 specific borrelial proteins. Although considered negative, IgG reactivity to fewer specific borrelial proteins or IgM reactivity to only 1 protein may indicate recent B. burgdorferi infection and warrant testing of a later sample. A positive IgM but negative IgG result obtained more than a month after onset of symptoms likely represents a false IgM result rather than acute Lyme disease. In rare instances, Lyme disease immunoblot reactivity may represent antibodies induced by exposure to other spirochetes. Test Performed by [facility], [facility], [address] [place] [id number] Nathaniel Turk M.D., Ph.D., Director of Laboratories , [facility] [id number] Performed By: #### [id number] #### [facility],[address] [place] [address] CBC Collected: 12/02/2017 Status: F Source: [facility] 9:24 AM [facility] REPOSITORY TYPE CODE TESTS RESULT OUT OF RANGE REFERENCE UNITS LAB CBC(LOINC) CBC Result Comment: CBC-COMPLETE BLOOD COUNT LAB WBC(LOINC) 4.5 - 10.8 x 10EE3/UL WBC 10.5 LAB RBC(LOINC) 4.10 - x 10EE6/UL 5.30 RBC 4.54 LAB HEMOGLOBIN(LOINC) 12.0 - g/dl 16.0 HEMOGLOBIN 14.5 LAB HEMATOCRIT(LOINC) 34.0 - % 46.0 HEMATOCRIT 42.7 LAB MCV(LOINC) 80 - 99 fl MCV 94 LAB MCH(LOINC) 27 - 33 pg MCH 32 LAB MCHC(LOINC) 32 - 36 X10 3 MCHC 34 LAB RDW/CV(LOINC) 12.0 - % 15.6 RDW/CV 14.9 LAB PLATELET(LOINC) 150 - 450 x10EE3/UL PLATELET 338 LAB MPV(LOINC) 6.6 - 10.5 fl MPV 7.6 Result Comment: AUTOMATED DIFFERENTIAL LAB NEUT %(LOINC) 46.0 - 76.0 % NEUT % 51.5 LAB LYMPH %(LOINC) 20.0 - 45.0 % LYMPH % 33.8 LAB MONOS %(LOINC) 0.0 - 10.0 % MONOS % High 11.3 LAB EO %(LOINC) 0.0 - 7.0 % EO % 2.4 LAB BASO %(LOINC) 0.0 - 2.0 % BASO % 1.0 LAB Lymph #(LOINC) 0.80 - 2.80 x10EE3/U L Lymph # High 3.60 LAB Neut #(LOINC) 1.50 - 7.10 x10EE3/U L Neut # 5.40 LAB Island #(LOINC) 0.20 - 1.00 x10EE3/U L Island # High 1.20 LAB EO #(LOINC) 0.00 - 0.50 x10EE3/U L EO # 0.30 LAB Baso #(LOINC) 0.00 - 0.10 x10EE3/U L Baso # 0.10 LAB MANUAL DIFF(LOINC) MANUAL DIFF N/A LAB MORPHOLOGY(LOINC ) MORPHOLOGY N/A Result Comment: {CD] Performed By: #### [id number] #### [place] [address] C-REACTIVE PROTEIN Collected: 12/02/2017 Status: F Source: [facility] 9:24 AM [facility] REPOSITORY TYPE CODE TESTS RESULT OUT OF RANGE REFERENCE UNITS LAB CRP(LOINC) 0.00 - 1.00 mg/dl High CRP 1.10 Performed By: #### [id number] #### [place] [address] CREATININE Collected: 12/02/2017 Status: F Source: [facility] 9:24 AM [facility] REPOSITORY TYPE CODE TESTS RESULT OUT OF REFERENCE UNITS RANGE LAB CREATININE 0.6 - 1.2 mg/dl (LOINC) CREATININE 0.8 Performed By: #### [id number] #### [place] [address] SGOT (AST) Collected: 12/02/2017 Status: F Source: [facility] 9:24 AM [facility] REPOSITORY TYPE CODE TESTS RESULT OUT OF RANGE REFERENCE UNITS LAB AST/SGOT(LO 13 - 39 U/L INC) AST/SGOT 32 Performed By: #### [id number] #### [place] [address] SGPT (ALT) Collected: 12/02/2017 Status: F Source: [facility] 9:24 AM [facility] REPOSITORY TYPE CODE TESTS RESULT OUT OF RANGE REFERENCE UNITS LAB ALT/SGPT(LO 8 - 35 U/L INC) ALT/SGPT 31 Performed By: #### [id number] #### [place] [address] SEDRATE Collected: 12/02/2017 Status: F Source: [facility] 9:24 AM [facility] REPOSITORY TYPE CODE TESTS RESULT OUT OF REFERENCE UNITS RANGE LAB SEDRATE(RAJEEV 0 - 30 mm/hr NC) SEDRATE 14 Performed By: #### [id number] #### [place] [address] CBC Collected: 10/10/2017 Status: F Source: [facility] 7:54 AM [facility] REPOSITORY TYPE CODE TESTS RESULT OUT OF RANGE REFERENCE UNITS LAB CBC(LOINC) CBC Result Comment: CBC-COMPLETE BLOOD COUNT LAB WBC(LOINC) 4.5 - 10.8 x 10EE3/UL WBC 10.0 LAB RBC(LOINC) 4.10 - x 10EE6/UL 5.30 RBC 4.62 LAB HEMOGLOBIN(LOINC) 12.0 - g/dl 16.0 HEMOGLOBIN 14.8 LAB HEMATOCRIT(LOINC) 34.0 - % 46.0 HEMATOCRIT 43.5 LAB MCV(LOINC) 80 - 99 fl MCV 94 LAB MCH(LOINC) 27 - 33 pg MCH 32 LAB MCHC(LOINC) 32 - 36 X10 3 MCHC 34 LAB RDW/CV(LOINC) 12.0 - % 15.6 RDW/CV 14.1 LAB PLATELET(LOINC) 150 - 450 x10EE3/UL PLATELET 346 LAB MPV(LOINC) 6.6 - 10.5 fl MPV 7.4 Result Comment: AUTOMATED DIFFERENTIAL LAB NEUT %(LOINC) 46.0 - 76.0 % Low NEUT % 36.6 LAB LYMPH %(LOINC) 20.0 - 45.0 % LYMPH % 44.7 LAB MONOS %(LOINC) 0.0 - 10.0 % MONOS % High 14.5 LAB EO %(LOINC) 0.0 - 7.0 % EO % 3.9 LAB BASO %(LOINC) 0.0 - 2.0 % BASO % 0.3 LAB Lymph #(LOINC) 0.80 - 2.80 x10EE3/U L Lymph # High 4.50 LAB Neut #(LOINC) 1.50 - 7.10 x10EE3/U L Neut # 3.70 LAB Island #(LOINC) 0.20 - 1.00 x10EE3/U L [place] # High 1.50 LAB EO #(LOINC) 0.00 - 0.50 x10EE3/U L EO # 0.40 LAB Baso #(LOINC) 0.00 - 0.10 x10EE3/U L Baso # 0.00 LAB MANUAL DIFF(LOINC) MANUAL DIFF N/A LAB MORPHOLOGY(LOINC ) MORPHOLOGY N/A Result Comment: {CD] Performed By: #### [id number] #### [facility],[address] [place] [address] CMP WITH EGFR Collected: 10/10/2017 Status: F Source: RAJENDRA ROBIN 7:54 AM [facility] REPOSITORY TYPE CODE TESTS RESULT OUT OF RANGE REFERENCE UNITS LAB CMP with eGFR(LOINC) CMP with eGFR Result Comment: COMPREHENSIVE METABOLIC PANEL LAB SODIUM(LOINC) 136 - 145 mmol/l SODIUM 138 LAB POTASSIUM(LOINC) 3.5 - 5.1 mmol/L POTASSIUM 3.7 LAB CHLORIDE(LOINC) 98 - 107 mmol/L CHLORIDE 99 LAB CO2(LOINC) 21.0 - mmol/L 31.0 CO2 30.8 LAB GLUCOSE(LOINC) 74 - 106 mg/dl GLUCOSE 99 LAB BUN(LOINC) 6 - 20 mg/dl BUN 16 LAB CREATININE(LOINC) 0.6 - 1.2 mg/dl CREATININE 0.8 LAB AST/SGOT(LOINC) 13 - 39 U/L AST/SGOT 24 LAB ALK PHOS(LOINC) 38 - 126 U/L ALK PHOS 41 LAB CALCIUM(LOINC) 8.6 - mg/dl 10.2 CALCIUM 9.8 LAB TOTAL PROTEIN(LOINC) 6.4 - 8.3 g/dl TOTAL PROTEIN 7.8 LAB ALBUMIN(LOINC) 3.4 - 4.8 g/dL ALBUMIN 4.3 LAB GLOBULIN(LOINC) 1.5 - 3.8 G/DL GLOBULIN 3.5 LAB A/G RATIO(LOINC) 0.9 - 1.6 A/G RATIO 1.2 LAB TOTAL BILI(LOINC) 0.0 - 1.5 mg/dl TOTAL BILI 0.4 LAB B/C RATIO(LOINC) 0 - 30 ratio B/C RATIO 20 LAB ALT/SGPT(LOINC) 8 - 35 U/L ALT/SGPT 22 LAB ANION GAP(LOINC) 10 - 20 mmol/L ANION GAP 12 LAB AGE(LOINC) years AGE 66 LAB eGFR(LOINC) 60 - 999 ML/MINUTE eGFR >60 LAB eGFR(AA)(LOINC) 60 - 999 ML/MINUTE eGFR(AA) >60 Result Comment: ACCORDING TO THE NATIONAL KIDNEY DISEASE EDUCATION PROGRAM(NKDE), A NORMAL eGFR IS A VALUE GREATER THAN OR EQUAL TO 60 ML/MIN/1.73 SQ METERS. CHRONIC KIDNEY DISEASE: <60mL/MIN/1.73 SQ METERS KIDNEY FAILURE: <15mL/MIN/1.73 SQ METERS THIS TEST SHOULD ONLY BE USED FOR PATIENTS 18 YEARS OF AGE AND OLDER. Performed By: #### [id number] #### [address] [address] LIPID PROFILE Collected: 10/10/2017 Status: F Source: [facility] 7:54 [facility] REPOSITORY TYPE CODE TESTS RESULT OUT OF REFERENCE UNITS RANGE LAB LIPID PROFILE(LOIN C) LIPID PROFILE Result Comment: LIPID PROFILE LAB TRIGLYCERIDE(LOINC) 0 - 150 mg/dl High TRIGLYCERIDE 305 LAB CHOLESTEROL(LOINC) 0 - 200 mg/dl CHOLESTEROL High 211 LAB HDL(LOINC) 40 - 60 mg/dl HDL 53 LAB CHOL/HDL(LOINC) 0.0 - 5.0 CHOL/HDL 4.0 LAB LDL(LOINC) 0 - 129 mg/dl LDL 97 Performed By: #### [id number] #### [place] [id number] VITAMIN B-12 Collected: 10/10/2017 Status: F Source: [facility] 7:54 [facility] REPOSITORY TYPE CODE TESTS RESULT OUT OF REFERENCE UNITS RANGE LAB N(LOINC) 180 - 914 pg/mL High VITAMIN B12 1162 Performed By: #### [id number] #### [address] [address] HGB A1C Collected: 10/10/2017 Status: F Source: [facility] 7:54 [facility] REPOSITORY TYPE CODE TESTS RESULT OUT OF RANGE REFERENCE UNITS LAB HGB 4.4 - 6.4 % A1C(LOINC) HGB A1C 5.8 Result Comment: {HB] {A1] Performed By: #### [id number] #### [address] [address] CBC Collected: 09/18/2017 Status: F Source: [facility] 9:04 [facility] REPOSITORY TYPE CODE TESTS RESULT OUT OF RANGE REFERENCE UNITS LAB CBC(LOINC) CBC Result Comment: CBC-COMPLETE BLOOD COUNT LAB WBC(LOINC) 4.5 - 10.8 x 10EE3/UL WBC High 11.8 LAB RBC(LOINC) 4.10 - x 10EE6/UL 5.30 RBC 4.47 LAB HEMOGLOBIN(LOINC 12.0 - g/dl ) 16.0 HEMOGLOBIN 14.1 LAB HEMATOCRIT(LOINC 34.0 - % ) 46.0 HEMATOCRIT 42.0 LAB MCV(LOINC) 80 - 99 fl MCV 94 LAB MCH(LOINC) 27 - 33 pg MCH 32 LAB MCHC(LOINC) 32 - 36 X10 3 MCHC 34 LAB RDW/CV(LOINC) 12.0 - % 15.6 RDW/CV 14.5 LAB PLATELET(LOINC) 150 - 450 x10EE3/UL PLATELET 300 LAB MPV(LOINC) 6.6 - 10.5 fl MPV 7.7 Result Comment: AUTOMATED DIFFERENTIAL LAB NEUT %(LOINC) 46.0 - 76.0 % Low NEUT % 40.1 LAB LYMPH %(LOINC) 20.0 - 45.0 % LYMPH % 42.5 LAB MONOS %(LOINC) 0.0 - 10.0 % MONOS % High 12.3 LAB EO %(LOINC) 0.0 - 7.0 % EO % 3.7 LAB BASO %(LOINC) 0.0 - 2.0 % BASO % 1.4 LAB Lymph #(LOINC) 0.80 - 2.80 x10EE3/U L Lymph # High 5.00 LAB Neut #(LOINC) 1.50 - 7.10 x10EE3/U L Neut # 4.70 LAB Island #(LOINC) 0.20 - 1.00 x10EE3/U L Island # High 1.40 LAB EO #(LOINC) 0.00 - 0.50 x10EE3/U L EO # 0.40 LAB Baso #(LOINC) 0.00 - 0.10 x10EE3/U L Baso # High 0.20 LAB MANUAL DIFF(LOINC) MANUAL DIFF N/A LAB MORPHOLOGY(LOINC ) MORPHOLOGY N/A Result Comment: {CD] Performed By: #### [id number] #### [facility],[address] [place] [id number] CMP WITH EGFR Collected: 09/18/2017 Status: F Source: [facility] 9:04 [facility] REPOSITORY TYPE CODE TESTS RESULT OUT OF RANGE REFERENCE UNITS LAB CMP with eGFR(LOINC) CMP with eGFR Result Comment: COMPREHENSIVE METABOLIC PANEL LAB SODIUM(LOINC) 136 - 145 mmol/l SODIUM 138 LAB POTASSIUM(LOINC) 3.5 - 5.1 mmol/L POTASSIUM 3.6 LAB CHLORIDE(LOINC) 98 - 107 mmol/L CHLORIDE 99 LAB CO2(LOINC) 21.0 - mmol/L 31.0 CO2 30.4 LAB GLUCOSE(LOINC) 74 - 106 mg/dl GLUCOSE 87 LAB BUN(LOINC) 6 - 20 mg/dl BUN 18 LAB CREATININE(LOINC) 0.6 - 1.2 mg/dl CREATININE 0.8 LAB AST/SGOT(LOINC) 13 - 39 U/L AST/SGOT 20 LAB ALK PHOS(LOINC) 38 - 126 U/L ALK PHOS 42 LAB CALCIUM(LOINC) 8.6 - mg/dl 10.2 CALCIUM 9.4 LAB TOTAL PROTEIN(LOINC) 6.4 - 8.3 g/dl TOTAL PROTEIN 7.3 LAB ALBUMIN(LOINC) 3.4 - 4.8 g/dL ALBUMIN 4.1 LAB GLOBULIN(LOINC) 1.5 - 3.8 G/DL GLOBULIN 3.2 LAB A/G RATIO(LOINC) 0.9 - 1.6 A/G RATIO 1.3 LAB TOTAL BILI(LOINC) 0.0 - 1.5 mg/dl TOTAL BILI 0.4 LAB B/C RATIO(LOINC) 0 - 30 ratio B/C RATIO 23 LAB ALT/SGPT(LOINC) 8 - 35 U/L ALT/SGPT 22 LAB ANION GAP(LOINC) 10 - 20 mmol/L ANION GAP 12 LAB AGE(LOINC) years AGE 66 LAB eGFR(LOINC) 60 - 999 ML/MINUTE eGFR >60 LAB eGFR(AA)(LOINC) 60 - 999 ML/MINUTE eGFR(AA) >60 Result Comment: ACCORDING TO THE NATIONAL KIDNEY DISEASE EDUCATION PROGRAM(NKDE), A NORMAL eGFR IS A VALUE GREATER THAN OR EQUAL TO 60 ML/MIN/1.73 SQ METERS. CHRONIC KIDNEY DISEASE: <60mL/MIN/1.73 SQ METERS KIDNEY FAILURE: <15mL/MIN/1.73 SQ METERS THIS TEST SHOULD ONLY BE USED FOR PATIENTS 18 YEARS OF AGE AND OLDER. Performed By: #### [id number] #### Rajendra [facility],[address] [place] [address] C-REACTIVE PROTEIN Collected: 09/18/2017 Status: F Source: RAJENDRA ROBIN 9:04 [facility] REPOSITORY TYPE CODE TESTS RESULT OUT OF RANGE REFERENCE UNITS LAB CRP(LOINC) 0.00 - 1.00 mg/dl CRP 0.40 Performed By: #### [id number] #### [facility],[address] [place] [address] SEDRATE Collected: 09/18/2017 Status: F Source: RAJENDRA ROBIN 9:04 [facility] TYPE CODE TESTS RESULT OUT OF REFERENCE UNITS RANGE LAB SEDRATE(RAJEEV 0 - 30 mm/hr NC) SEDRATE 15 Performed By: #### [id number] #### [facility],[address] [place] [address] EMERGENCY DEPARTMENT Observed: 08/14/2017 Status: F Source: [facility] 7:03 [facility] EMERGENCY DEPARTMENT SUMMARY NAME NUMBER SEX AGE ADMIT DISC TYPE MED.RECORD# DOMINIQUE oMhr [id number] F 66 08/09/17 08/09/17 [place] [id number] ROOM:ER-D DATE OF :1950 PHYSICIAN NO.:[id number] PHYSICIAN NAME:JULIO Lizarraga M.D. PHYSICIAN:NO DOCTOR ON ADMISSION SHEET CHIEF COMPLAINT: Left chest discomfort. HISTORY OF PRESENT ILLNESS: The patient states that she fell on ice 4 days ago and fell down on to her side. She has developed increasing pain to her left chest area since. It is worse with coughing and deep breathing. She additionally has had some sinus drainage and states that it is hard for her to cough up and she is afraid that she will develop bronchitis or pneumonia. She has had recurrent lung infections in the past No fever or chills. No nausea or vomiting. PAST MEDICAL HISTORY: Hypertension, COPD, multiple episodes of pneumonia. MEDICATIONS: Per medical reconciliation list. ALLERGIES: Per allergy list. SOCIAL HISTORY: She lives at home. She does not smoke or drink alcohol. PHYSICAL EXAMINATION: This is a pleasant 66-year-old, female who is alert and appropriate. Patient does not appear toxic or in acute distress. Skin is warm and dry. HEENT exam is all within normal limits. Neck is supple without adenopathy. Lungs are clear without crackles or wheezes, mildly diminished. She does have some tenderness along the anterolateral left chest area just inferior and lateral to the left breast. There is no redness, bruising or ecchymosis. No bony crepitus. Abdomen is soft and nontender. Moves all extremities appropriately. VITAL SIGNS: Temperature 97.5, pulse 90, respirations 18, blood pressure 135/85. DIAGNOSTIC DATA: Chest x-ray and left rib films were obtained. These did not show any bony injury or infectious abnormalities. EMERGENCY DEPARTMENT COURSE AND TREATMENT: O2 saturation was 99%. DIAGNOSIS: Left chest wall injury, contusion versus occult fracture. PLAN/DISPOSITION: She did not want anything for pain. I gave her a prescription for cefdinir for sinus infection. She is to follow up with her family physician in 2-3 days if no better. D: Kiran Lizarraga MD TD: 16:26 JOB #: [id number] Electronically signed by: JULIO Lizarraga M.D. 08/14/17 07:00 Transcribed by: lindsay 08/10/2017 10:43 CHEST PA/LAT Observed: 08/09/2017 Status: F Source: [facility] 3:54 PM [place] [address] Patient: SO RAMIREZ Phone#: : 1950 Age: 66 Gender: F Pt. Type: ER Account: [id number] Location: 052 Ordering: KIRAN LIZARRAGA Exam Date: 08/09/2017/15:37 Family Phys: NO DOCTOR Charge Code: [id number] Physician: [place] Order #: [id number] DLP Dose#: PROCEDURE: X-RAY CHEST PA/LAT 2 VIEWS COMPARISON: [facility], , CHEST PA/LAT, 02/28/2017, 10:05. INDICATIONS: Trauma FINDINGS: LUNGS: Normal. No significant pulmonary parenchymal abnormalities. VASCULATURE: Normal. Unremarkable pulmonary vasculature. CARDIAC: Normal. No cardiac silhouette abnormality or cardiomegaly. MEDIASTINUM: Normal. No visible mass or adenopathy. PLEURA: Apical pleural thickening is present similar to prior exam. BONES: Curvature of the thoracic spine to the right is present. There is compression of a lower thoracic vertebral body. OTHER: Negative. CONCLUSION: No acute disease. No significant change has occurred. Dictated by: Zhanna Dominguez MD on 08/09/2017 at 15:57 Approved by: Zhanna Dominguez MD on 08/09/2017 at 15:57 RIBS LT UNILAT W/CHEST Observed: 08/09/2017 Status: F Source: RAJENDRA ROBIN EXPIRATION 3:54 PM [facility] REPOSITORY [place] [address] Patient: SO RAMIREZ Phone#: : 1950 Age: 66 Gender: F Pt. Type: ER Account: [id number] Location: [facility] Ordering: KIRAN LIZARRAGA Exam Date: 08/09/2017/15:39 Family Phys: NO DOCTOR Charge Code: [id number] Physician: [place] Order #: [id number] DLP Dose#: PROCEDURE: X-RAY RIBS LT UNILAT WITH EXPIRATION CHEST COMPARISON: None. INDICATIONS: Trauma FINDINGS: LUNGS: Normal. No significant pulmonary parenchymal abnormalities. VASCULATURE: Normal. Unremarkable pulmonary vasculature. CARDIAC: Normal. No cardiac silhouette abnormality or cardiomegaly. MEDIASTINUM: Normal. No visible mass or adenopathy. PLEURA: Apical pleural thickening is present. BONES: Bones are osteopenic. Acute fracture is not identified however because of the osteopenia nondisplaced fractures difficult to exclude with certainty. There is curvature of the thoracolumbar spine. There is loss of height at T10 and L1. OTHER: Negative. CONCLUSION: 1. The bones are osteopenic. Nondisplaced fracture is difficult to exclude with certainty. Dictated by: Zhanna Dominguez MD on 08/09/2017 at 16:00 Approved by: Zhanna Dominguez MD on 08/09/2017 at 16:00 ALLERGIES ALLERGIES DATE TYPE / CODE NAME / CODE REACTION SEVERITY SOURCE 07/15/2018 Drug Penicillins/[id number] Rash [place] Allergy/416 0476(RXNORM) [facility] [id number]([facility] ED CT) Repository 07/15/2018 Drug Sulfa (Sulfonamide gi upset [place] Allergy/416 Antibiotics)/F0010 Community [id number](SNOM 81760(RXNORM) [facility] ED CT) Repository 07/15/2018 Drug codeine/[id number] Nausea/Vom/Diar [place] Allergy/416 (RXNORM) [facility] 711405([facility] ED CT) Repository 07/15/2018 Drug acetaminophen/F006 Nausea/Vom/Diar [place] Allergy/416 245087(RXNORM) [facility] Community 888374([facility] ED CT) Repository 07/15/2018 Drug doxycycline/F61614 gi upset [place] Allergy/416 2748(RXNORM) Community 836051([facility] ED CT) Repository 07/15/2018 Drug meperidine/X504229 gi upset [place] Allergy/416 620(RXNORM) Community 460123([facility] ED CT) Repository 07/15/2018 Drug levofloxacin/F0060 gi upset MT [place] Allergy/416 18400(RXNORM) Community 728021([facility] ED CT) Repository 07/15/2018 Drug moxifloxacin/F0060 gi upset MT [place] Allergy/416 11656(RXNORM) [facility] 109196([facility] ED CT) Repository Drug PENICILLINS RASH Mild Rajendra [place] Allergy/416 (CLASS)/[id number](R ([facility] 974908(SNOM XNORM) Value) [facility] ED CT) Repository Drug SULFA RASH Mild Rajendra [place] Allergy/416 (sulfonamide)/0000 ([facility] 977772(SNOM 0022(RXNORM) Value) [facility] ED CT) Repository Drug PENICILLIN/1135343 RASH Mild Rajendra [place] Allergy/416 3(RXNORM) ([facility] 258751(SNOM Value) Hospital ED CT) Repository Drug MEPERIDINE/9615752 NAUSEA Mild Rajendra [place] Allergy/416 9(RXNORM) ([facility] 532100(SNOM Value) [facility] ED CT) Repository Drug DOXYCYCLINE/068252 RASH Mild Rajendra [place] Allergy/416 40(RXNORM) ([facility] 689520(SNOM Value) Hospital ED CT) Repository Drug AVELOX/00422758(RX NAUSEA Mild Rajendra Pomerene Allergy/416 NORM) ([facility] 481174(SN Value) [facility] ED CT) Repository Drug LEVAQUIN/45371517( RASH Mild Rajendra [place]ome[place] Allergy/416 RXNORM) ([facility] 185343(SN Value) [facility] ED CT) Repository Drug DEMEROL/14152388(R NAUSEA Mild Rajendra Pomerene Allergy/416 XNORM) ([facility] 224508([facility]) [facility] ED CT) Repository ENCOUNTERS ENCOUNTERS ADMIT/DISCHARGE ACCOUNT NUMBER ADMITTING ENCOUNTER LOCATION SOURCE CLASS 07/15/2018/07/15/20 [id number] Ambulatory BMSBuilding: [place] [facility] BMS.[facility] Repository 07/15/2018 [id number] Ambulatory [facility] ding:WOBLAB Repository 07/11/2018/07/11/20 [id number] Emergency [address] ding:ED Repository 07/07/2018 [id number] Cebul, Ambulatory BMSBuilding: [place] BMS..[facility] Repository 07/07/2018/07/09/20 [id number] Cebul, Inpatient [address] ding:[id number] Repository : WF859Jke: 1 07/07/2018 [id number] Cebul, Ambulatory BMSBuilding: [place] BMS.Formerly [facility] Repository 07/07/2018 [id number] Cebul, Ambulatory BMSBuilding: [place] BMS.Formerly [facility] Repository 07/07/2018 [id number] Cebul, Ambulatory BMSBuilding: [place] BMS.[facility]ly [facility] Repository 06/30/2018/06/30/20 [id number] Ambulatory BMSBuilding: [place] 18 BMS.[facility] Repository 06/30/2018 [id number] Ambulatory BMSBuilding: [facility] Repository 06/30/2018 [id number] Ambulatory BMSBuilding: [facility] Repository 06/22/2018/06/22/20 [id number] GIDEON Emergency Buildin Rajendra Pomerene 18 MIN M Room: ERBed: [facility] Repository 06/09/2018 [id number] Ambulatory [address]in[address] [place] [address] ([place]) Repository 06/03/2018/06/03/[id number] ZIA Emergency Buildin[address] [place] [address] Room: ERBed: [facility] Repository 06/02/2018/06/02/20 [id number] Ambulatory BMSBuilding: [place] 18 BMS.[facility] Repository 05/23/2018 [id number] Ambulatory [facility] ding:WOBLAB Repository 05/23/2018/05/23/20 [id number] [facility], Ambulatory [address] Repository 05/22/2018/05/22/20 [id number] Ambulatory [address] ding:ENRoom: Repository AC14 05/22/2018/05/22/20 [id number] Ambulatory BMSBuilding: [place] 18 BMS.CF.[facility] Repository 05/19/2018 [id number] Ambulatory BMSBuilding: [place] BMS.CF.[facility] Repository 05/19/2018 [id number] Ambulatory [facility] ding:US Repository 05/12/2018/05/12/20 [id number] Ambulatory BMSBuilding: [place] 18 BMS.[facility] Repository 05/07/2018/05/07/20 [id number] ANNA, Ambulatory [facility] 18 CHELA PHILLIPS [facility] Repository 05/05/2018/05/05/20 [id number] JOHNNA BROWN Ambulatory Buildin[address] [place] [address] Room: [address] Repository 04/22/2018/04/22/20 [id number] JOHNNA BROWN Ambulatory [address] Repository 04/12/2018/04/12/20 [id number] JOE MORGAN Emergency Buildin[address] [place] [address] DO Room: ERBed: [facility] Repository 04/11/2018/04/11/[id number] ZIA Emergency Buildin[address] [place] [address] Room: ERBed: [facility] Repository 03/04/2018/03/04/20 [id number] JOE GRAMAJO Ambulatory Rajendra Pomerene 18 [facility] Repository 02/10/2018/02/11/20 [id number] STAINBRONC, Ambulatory Rajendra Pomerene 18 [facility] Repository 12/27/2017/12/28/19 [id number] JOE GRAMAJO Ambulatory Rajendra Pomerene 18 [facility] Repository 12/10/2017/12/11/19 [id number] [facility], Ambulatory Rajendra Pomerene 18 [facility] Repository 12/09/2017 [id number] Ambulatory BuildinR [facility] ([place]) Repository 12/02/2017/12/03/19 [id number] [facility], Ambulatory Rajendra Pomerene [address] [place] [address] Repository 10/28/2017/10/29/19 [id number] JOHNNA BROWN Ambulatory Rajendra Pom[address] Repository 10/10/2017/10/11/19 [id number] [facility] 09/18/2017/09/18/19 [id number] [facility], Ambulatory Rajendra Pomerene [address] [place] [address] Repository 08/09/2017/08/09/[id number] ZIA Emergency Buildin[address] [place] [address] Room: ERBed: [facility] Repository PAYERS PAYERS ENCOUNTER GUARANTOR PAYER SUBSCRIBER SOURCE 07/15/2018 SO Moh[place] Primary SO Nagy [id number] E Insurance:MEDICARE DALTONB: [facility] A BPolicy Number: [id number] [id number] Repository 18[address]Nrf: (330) Date:2018-07-10 [phone] (HP) 07/15/2018 Secondary SO Nagy Insurance:MEDICAIDPoli DALTONDOB: [facility] hospital Number: [id number] Hospital [id number] Repository Date:2018-07-10 07/15/2018 Tertiary NOT GIVENUNK [place] Insurance:SELF PAY [facility] Number: Effective Repository Date:2018-07-10 07/15/2018 SO Mohr Primary SO Nagy [id number] E Insurance:MEDICARE DALTONDOB: [facility] PART A BPolicy Number: [id number] [id number] Repository [address]Iic: (330) Date:2018-07-158202 () 07/15/2018 Secondary SO P [place] Insurance:MEDICAIDPoli DALTONDOB: Community cy Number: [id number] Hospital [id number] Repository Date:2018-07-15 07/15/2018 Tertiary NOT GIVENUNK [place] Insurance:SELF PAY [facility] Number: Effective Repository Date:2018-07-15 07/11/2018 SO P Primary SO P [place] [id number] E Insurance:MEDICARE DALTONDOB: [facility] PART A BPolicy Number: [id number] [id number] Repository [address]Sff: (330) Date:2018-07-113162 () 07/11/2018 Secondary SO P [place] Insurance:MEDICAIDPoli DALTONDOB: [facility] cy Number: [id number] Hospital [id number] Repository Date:2018-07-11 07/11/2018 Tertiary NOT GIVENUNK [place] Insurance:SELF PAY [facility] Number: Effective Repository Date:2018-07-11 07/07/2018 SO P Primary SO P [place] [id number] E Insurance:MEDICARE DALTONDOB: [facility] PART A BPolicy Number: [id number] [id number] Repository 20[address]Uvt: (330) Date:2018-06-043162 () 07/07/2018 Secondary SO P [place] Insurance:MEDICAIDPoli DALTONDOB: [facility] cy Number: [id number] Hospital [id number] Repository Date:2018-06-04 07/07/2018 Tertiary NOT GIVENUNK [place] Insurance:SELF PAY [facility] Number: Effective Repository Date:2018-07-07 07/07/2018 SO P Primary SO P [place] [id number] E Insurance:MEDICARE DALTONDOB: Community [facility] PART A BPolicy Number: [id number] [id number] Repository 106[address]Mql: (330) Date:2018-06-04535 () 07/07/2018 Secondary SO P [place] Insurance:MEDICAIDPoli DALTONDOB: Community cy Number: [id number] Hospital [id number] Repository Date:2018-06-04 07/07/2018 Tertiary NOT GIVENUNK [place] Insurance:SELF PAY [facility] Number: Effective Repository Date:2018-06-04 07/07/2018 SO P Primary SO P [place] [id number] E Insurance:MEDICARE DALTONDOB: [facility] PART A BPolicy Number: [id number] [id number] Repository [address]Dpx: (330) Date:2018-06-04254 () 07/07/2018 Secondary SO P [place] Insurance:MEDICAIDPoli DALTONDOB: Community cy Number: [id number] Hospital [id number] Repository Date:2018-06-04 07/07/2018 Tertiary NOT GIVENUNK [place] Insurance:SELF PAY [facility] Number: Effective Repository Date:2018-07-07 07/07/2018 SO P Primary SO P [place] [id number] E Insurance:MEDICARE DALTONDOB: [facility] PART A BPolicy Number: [id number] [id number] Repository 23[address]Xbu: (330) Date:2018-06-04753 () 07/07/2018 Secondary SO P [place] Insurance:MEDICAIDPoli DALTONDOB: Community cy Number: [id number] Hospital [id number] Repository Date:2018-06-04 07/07/2018 Tertiary NOT GIVENUNK [place] Insurance:SELF PAY [facility] Number: Effective Repository Date:2018-07-07 07/07/2018 SO P Primary SO P [place] [id number] E Insurance:MEDICARE DALTONDOB: [facility] PART A BPolicy Number: [id number] [id number] Repository [address]Eor: (330) Date:2018-06-043162 () 07/07/2018 Secondary SO P [place] Insurance:MEDICAIDPoli DALTONDOB: Community cy Number: [id number] Hospital [id number] Repository Date:2018-06-04 07/07/2018 Tertiary NOT GIVENUNK [place] Insurance:SELF PAY [facility] Number: Effective Repository Date:2018-07-07 06/30/2018 SO P Primary SO P [place] [id number] E Insurance:MEDICARE DALTONDOB: [facility] PART A BPolicy Number: [id number] [id number] Repository [address]Jdu: (330) Date:2018-06-05 () 06/30/2018 Secondary SO P [place] Insurance:MEDICAIDPoli DALTONDOB: Community cy Number: [id number] Hospital [id number] Repository Date:2018-06-05 06/30/2018 Tertiary NOT GIVENUNK [place] Insurance:SELF PAY [facility] Number: Effective Repository Date:2018-06-30 06/30/2018 SO P Primary SO P [place] [id number] E Insurance:MEDICARE DALTONDOB: [facility] PART A BPolicy Number: [id number] [id number] Repository [address]Dns: (330) Date:2018-06-043162 () 06/30/2018 Secondary SO P [place] Insurance:MEDICAIDPoli DALTONDOB: Community cy Number: [id number] Hospital [id number] Repository Date:2018-06-04 06/30/2018 Tertiary NOT GIVENUNK [place] Insurance:SELF PAY [facility] Number: Effective Repository Date:2018-06-30 06/30/2018 SO P Primary SO P [place] [id number] E Insurance:MEDICARE DALTONDOB: [facility] PART A BPolicy Number: [id number] [id number] Repository [address]Zyg: 330) Date:2018-06-04 [phone] (HP) 06/30/2018 Secondary SO P [place] Insurance:MEDICAIDPoli DALTONDOB: Community cy Number: [id number] Hospital [id number] Repository Date:2018-06-04 06/30/2018 Tertiary NOT GIVENUNK [place] Insurance:SELF PAY [facility] Number: Effective Repository Date:2018-06-30 06/22/2018 SO P Primary Insurance:500 SO P Rajendra Pomerene DALTONDOB: MEDICARE DALTONDOB: [facility] [id number] [place] [address] Number: Jaden [facility] Rep[facility] [id number] [place] [facility] [place] [place] [place] Date:Plan Name: [id number]: () 06/22/2018 Secondary SO P Rajendra Pomerene Insurance:100 MEDICAID DALTONDOB: [facility] [id number] Hospital Number: [facility] LOT Repository [id number] [place] Date:Plan Name:[id number] 06/03/2018 SO P Primary Insurance:500 SO P Rajendra Pomerene DALTONDOB: MEDICARE DALTONDOB: [facility] [id number] [place] [address] Number: E [facility] Repository [facility] [id number] [place] [address], [place] Date:Plan Name: [id number]: () 06/03/2018 Secondary SO P Rajendra Pomerene Insurance:100 MEDICAID DALTONDOB: [facility] [id number] Hospital Number: [facility] LOT Repository [id number] [facility] [place] [place] [place] Date:Plan Name: [id number] 06/02/2018 SO P Primary SO P [place] [id number] E Insurance:MEDICARE DALTONDOB: [facility] PART A BPolicy Number: [id number] [id number] Repository [address]Gqs: (330) Date:2018-05-23 [phone] () 06/02/2018 Secondary SO P [place] Insurance:MEDICAIDPoli DALTONDOB: Community cy Number: [id number] Hospital [id number] Repository Date:2018-05-23 06/02/2018 Tertiary NOT GIVENUNK [place] Insurance:SELF PAY [facility] Number: Effective Repository Date:2018-05-29 05/23/2018 SO P Primary SO P [place] [id number] E Insurance:MEDICARE DALTONDOB: [facility] PART A BPolicy Number: [id number] [id number] Repository 74607Wjh: (330) Date:2018-05-23 [phone] (HP) 05/23/2018 Secondary SO P [place] Insurance:MEDICAIDPoli DALTONDOB: Community cy Number: [id number] Hospital [id number] Repository Date:2018-05-23 05/23/2018 Tertiary NOT GIVENUNK [place] Insurance:SELF PAY [facility] Number: Effective Repository Date:2018-05-23 05/23/2018 SO P Primary Insurance:500 SO P Rajendra Pomerene DALTONDOB: MEDICARE DALTONDOB: [facility] [id number] [facility] Number: [address] LOT Repository COUNTS INCLUDE 234 BEDS AT [facility] [id number] [address] [place] [address] Date:Plan Name: [id number]: () 05/23/2018 Secondary SO P Rajendra Pomerene Insurance:100 MEDICAID DALTONDOB: [facility] [id number] [facility] Number: [address] LOT Repository [id number] [address] [place] [address] Date:Plan Name:[id number] [id number] 05/22/2018 SO P Primary SO P [place] [id number] E Insurance:MEDICARE DALTONDOB: [facility] PART A BPolicy Number: [id number] [id number] Repository 18687Oco: (330) Date:2018-05-123162 () 05/22/2018 Secondary SO P [place] Insurance:MEDICAIDPoli DALTONDOB: Community cy Number: [id number] Hospital [id number] Repository Date:2018-05-12 05/22/2018 Tertiary NOT GIVENUNK [place] Insurance:SELF PAY [facility] Number: Effective Repository Date:2018-05-12 05/22/2018 SO P Primary SO P [place] [id number] E Insurance:MEDICARE DALTONDOB: [facility] PART A BPolicy Number: [id number] [id number] Repository [address]07[address]Alu: (330) Date:2018-05-122342 () 05/22/2018 Secondary SO P [place] Insurance:MEDICAIDPoli DALTONDOB: Community cy Number: [id number] Hospital [id number] Repository Date:2018-05-12 05/22/2018 Tertiary NOT GIVENUNK [place] Insurance:SELF PAY [facility] Number: Effective Repository Date:2018-05-22 05/19/2018 SO P Primary SO P [place] [id number] E Insurance:MEDICARE DALTONDOB: [facility] PART A BPolicy Number: [id number] [id number] Repository 587[address]Ldf: (330) Date:2018-05-121062 () 05/19/2018 Secondary SO P [place] Insurance:MEDICAIDPoli DALTONDOB: Community cy Number: [id number] Hospital [id number] Repository Date:2018-05-12 05/19/2018 Tertiary NOT GIVENUNK [place] Insurance:SELF PAY [facility] Number: Effective Repository Date:2018-05-19 05/19/2018 SO P Primary SO P [place] [id number] E Insurance:MEDICARE DALTONDOB: [facility] PART A BPolicy Number: [id number] [id number] Repository 7[address]Rwg: (330) Date:2018-05-12 [phone] (HP) 05/19/2018 Secondary SO P [place] Insurance:MEDICAIDPoli DALTONDOB: Community cy Number: [id number] Hospital [id number] Repository Date:2018-05-12 05/19/2018 Tertiary NOT GIVENUNK [place] Insurance:SELF PAY [facility] Number: Effective Repository Date:2018-05-12 05/12/2018 SO P Primary SO P [place] [id number] E Insurance:MEDICARE DALTONDOB: [facility] PART A BPolicy Number: [id number] [id number] Repository [address]Nnm: (330) Date:2018-05-08 [phone] (HP) 05/12/2018 Secondary SO P [place] Insurance:MEDICAIDPoli DALTONDOB: Community cy Number: [id number] Hospital [id number] Repository Date:2018-05-08 05/12/2018 Tertiary NOT GIVENUNK [place] Insurance:SELF PAY [facility] Number: Effective Repository Date:2018-05-12 05/07/2018 SO P Primary SO P Rajendra Pomerene DALTONDOB: Insurance:MEDICAREPoli DALTONDOB: [facility] cy Number: [id number] [facility] [id number] E [facility] Date:Plan Name:ONESIMO RHODES [address] [id number]: (HP) 05/07/2018 Secondary SO P Rajendra Pomerene Insurance:100 MEDICAID DALTONDOB: [facility] [id number] Hospital Number: [facility] [id number] [place] Date:Plan Name: [id number] 05/05/2018 SO [place] Primary Insurance:500 SO Drew Pomerene DALTONDOB: MEDICARE DALTONDOB: [facility] E [facility] [id number] [facility] Number: E [facility] Repository [place], [place] [id number] [place] [address]Deo: (330) Date:Plan Name: [id number] 2 () 05/05/2018 Secondary SO P Rajendra Pomerene Insurance:100 MEDICAID DALTONDOB: [facility] [id number] Hospital Number: [facility] LOT Repository [id number] [place] Date: [id number] 04/22/2018 SO [place] Primary Insurance:500 SO Drew Pomerene DALTONDOB: MEDICARE DALTONDOB: [facility] E [facility] [id number] [place] [address] Number: [facility] LOT Repository [place], [place] [id number] [address] [place] [address] 32966Dis: (330) Date:Plan Name: [id number] [phone] () 04/12/2018 [place] Primary Insurance:500 SO Drew Pomerene DALTONDOB: MEDICARE DALTONDOB: [facility] E [facility] [id number] [place] [address] Number: [facility] LOT Repository [place], [place] [id number] [address] [place] [address] 13979Eby: (330) Date:Plan Name: [id number] 3162 (HP) 04/12/2018 Secondary [place] Rajendra Pomerene Insurance:100 MEDICAID DALTONDOB: [facility] [id number] Hospital Number: [facility] LOT Repository [id number] [place] Date: [id number] 04/12/2018 Tertiary SO Drew Pomerene Insurance:MEDICARE DALTONDOB: [facility] [id number] Hospital Number: [facility] LOT Repository [id number] [address] [place] [address], [place] Date:Plan Name: [id number] 04/11/2018 [place] Primary Insurance:500 SO Robin DALTONDOB: MEDICARE DALTONDOB: [facility] [id number] [facility] Number: Jaden [facility] [place], [place] [id number] [place], [place] [address]Dez: (330) Date:Plan Name: [id number] [phone] () 04/11/2018 Secondary SO Drew Pomerene Insurance:100 MEDICAID DALTONDOB: [facility] [id number] Hospital Number: [facility] Repository [id number] [facility] [place] Date: [id number] 04/11/2018 Tertiary SO Drew Pomerene Insurance:MEDICARE DALTONDOB: [facility] [id number] Hospital Number: E [facility] [id number] [facility], [place] Date:Plan Name: [id number] 03/04/2018 SO Mohr Primary SO [place] DALTONDOB: Insurance:MEDICARE DALTONDOB: [facility] [id number] [facility] Number: Jaden [facility] [place], [place] [id number] [place], [place] [address]Tms: (330) Date:Plan Name: [id number] [phone] (HP) 03/04/2018 Secondary [place] Rajendra Pomerene Insurance:MEDICAID DALTONDOB: [facility] [id number] Hospital Number: [facility] LOT Repository [id number] [facility] [place] Date:Plan Name: [id number] 02/10/2018 SO [place] Primary Insurance:500 SO Drew Pomerene DALTONDOB: MEDICARE DALTONDOB: [facility] E [facility] [id number] [facility] Number: E [address] Repository [place], [place] [id number] [facility] [place] [address]Sah: (330) Date:Plan Name: [id number] [phone] (HP) 02/10/2018 Secondary SO P Rajendra Pomerene Insurance:100 MEDICAID DALTONDOB: [facility] [id number] Hospital Number: [facility] LOT Repository [id number] [facility] [place] Date:Plan Name:[id number] [id number] 12/27/2017 SO P Primary Insurance:500 SO P Rajendra Pomerene DALTONDOB: MEDICARE DALTONDOB: [facility] E [facility] [id number] [facility] Number: [facility] LOT Repository [place], [place] [id number] [address] [place] [address], [place] [address]Oib: (330) Date:Plan Name: [id number] [facility]3162 (HP) 12/27/2017 Secondary SO P Rajendra Pomerene Insurance:100 MEDICAID DALTONDOB: [facility] [id number] Hospital Number: [facility] LOT Repository [id number] [facility] [place] Date:Plan Name:[id number] 12/10/2017 SO P Primary Insurance:500 SO P Rajendra Pomerene DALTONDOB: MEDICARE DALTONDOB: [facility] E [facility] [id number] [facility] Number: [facility] LOT Repository [place], [place] [id number] [place], [place] [address]Nef: (330) Date:Plan Name: [id number] [phone] (HP) 12/10/2017 Secondary SO P Rajendra Pomerene Insurance:100 MEDICAID DALTONDOB: [facility] [id number] Hospital Number: [facility] LOT Repository [id number] [place] Date:Plan Name:[id number] 12/02/2017 SO P Primary Insurance:500 SO P Rajendra Pomerene DALTONDOB: MEDICARE DALTONDOB: [facility] E [facility] [id number] [facility] Number: [address] LOT Repository [place], [place] [id number] [place], [place] [address]Onk: (330) Date:Plan Name: [id number] [phone] (HP) 12/02/2017 Secondary SO P Rajendra Pomerene Insurance:100 MEDICAID DALTONDOB: [facility] [id number] Hospital Number: [facility] LOT Repository [id number] [facility] [place] Date:Plan Name:[id number] 10/28/2017 SO P Primary Insurance:500 SO P Rajendra Pomerene DALTONDOB: MEDICARE DALTONDOB: [facility] E [facility] [id number] [facility] Number: [address] LOT Repository [facility] [place] [id number] [facility], [place] [address]Dim: (330) Date:Plan Name: [id number] [phone] (HP) 10/28/2017 Secondary SO P Rajendra Pomerene Insurance:100 MEDICAID DALTONDOB: [facility] [id number] Hospital Number: [facility] LOT Repository [id number] [facility] [place] [place] Date:Plan Name:[id number] 10/10/2017 SO P Primary Insurance:500 SO P Rajendra Pomerene DALTONDOB: MEDICARE DALTONDOB: [facility] [id number] [facility] Number: [facility] LOT Repository COUNTS INCLUDE 234 [facility]EDS [facility] [id number] [place] Date:Plan Name: [id number]: (HP) 10/10/2017 Secondary SO P Rajendra Pomerene Insurance:100 MEDICAID DALTONDOB: [facility] [id number] Hospital Number: [facility] LOT Repository [id number] [facility] [place] Date: [id number] 09/18/2017 SO Mohr Primary Insurance:500 SO Drew Pomerene DALTONDOB: MEDICARE DALTONDOB: [facility] [id number] [facility] Number: [address] [place] [id number] [place], [place] [address]Mdl: [phone]) Date:Plan Name: [id number] [phone] () 09/18/2017 Secondary SO Drew Pomerene Insurance:100 MEDICAID DALTONDOB: [facility] [id number] Hospital Number: [facility] LOT Repository [id number] [facility] [place] [place] Date: [id number] 08/09/2017 SO [place] Primary Insurance:500 SO Branerene DALTONDOB: MEDICARE DALTONDOB: [facility] [id number] [facility] Number: E [facility] [place] [id number] [facility] [place] [address]Ysp: [phone]) Date:Plan Name: [id number] [phone] () 08/09/2017 Secondary SO Drew Pomerene Insurance:100 MEDICAID DALTONDOB: [facility] [id number] Hospital Number: [facility] LOT Repository [id number] [facility] [place] [place] Date:Plan Name: [id number]
== END 2018-07-09 16:15 | disposition home or self-care (01) | DRG 330 ==
PROVIDERS: Anesthesiology; Admitting Provider Surgery; Family Provider Internal Medicine; PCP Internal Medicine; Referring Provider Surgery; Visit Provider Internal Medicine
PROC: 0DBN4ZZ Excision of Sigmoid Colon, Percutaneous Endoscopic Approach (ICD-10-PCS; CPT 44204; principal; 2018-07-07 06:50)
DX: K57.32 Diverticulitis of large intestine without perforation or abscess without bleeding (principal); E87.1 Hypo-osmolality and hyponatremia; N73.6 Female pelvic peritoneal adhesions (postinfective); E78.5 Hyperlipidemia, unspecified; I10 Essential (primary) hypertension; I71.4 Abdominal aortic aneurysm, without rupture; J44.9 Chronic obstructive pulmonary disease, unspecified; K21.9 Gastro-esophageal reflux disease without esophagitis; N94.9 Unspecified condition associated with female genital organs and menstrual cycle; K44.9 Diaphragmatic hernia without obstruction or gangrene; M06.9 Rheumatoid arthritis, unspecified; M81.0 Age-related osteoporosis without current pathological fracture; Z79.52 Long term (current) use of systemic steroids; Z87.891 Personal history of nicotine dependence; M19.90 Unspecified osteoarthritis, unspecified site; Z53.31 Laparoscopic surgical procedure converted to open procedure
CPT/HCPCS: 36415; 80048; 80076; 82962; 85027; 85610; 85730; 88304; 88305; 88307; 93005; 94640; 94762; J7040; J7050; J7120; A4216; C1760; C1769; J2405

== ENCOUNTER 2018-07-11 06:15 | Emergency (ER) | payer MEDICARE, MEDICAID, SELFPAY ==
[2018-07-10 08:46] VITALS: BMI 28.9
[2018-07-11 06:16] VITALS: BP 165/93; PULSE 79; RESP 17; TEMP 37; O2SAT 95; BMI 28.7
--- NOTE | 2018-07-11 06:24 | EKG12_ITS ---
Test Reason : BACK PAIN Blood Pressure : / mmHG Vent. Rate : 071 BPM Atrial Rate : 071 BPM P-R Int : 142 ms QRS Dur : 078 ms QT Int : 412 ms P-R-T Axes : 061 064 049 degrees QTc Int : 447 ms Normal sinus rhythm Normal ECG Confirmed by BEATRIZ PHILLIPS, JANET ([id number]), commissioning editor PASQUALE BROWN ([id number] on 07/14/2018 1:55:31 PM Referred By: ZEESHAN Confirmed By:JANET HENDERSON MD
--- NOTE | 2018-07-11 06:29 | RAD_ITS ---
STUDY: X-RAY CHEST REASON FOR EXAM: Female, 67 years old. Recent surgery. Back pain. TECHNIQUE: 1 view COMPARISON: December 31, 2013 FINDINGS: The chest is rotated to the left. The heart is slightly enlarged. There is no failure or pneumonia. There is a thoracic scoliosis with convexity to the right. This is mild Normal visualized thoracic spine. Normal visualized ribs, clavicles, and shoulders. There is no demonstrated abnormality of the visualized soft tissue structures of the upper abdomen. RAD/Chest 1 View (Portable) IMPRESSION: Moderate cardiomegaly. No acute findings in the lungs. Electronically Signed: Colin Gomez MD at 7:02 EST Tel , Service support ,
--- NOTE | 2018-07-11 06:29 | ED.VISSUMM ---
- ER Visit Summary Date of Service: 07/11/18 Chief Complaint: Abdominal pain and left back pain History of Present Illness: The patient is a 67 F who is postop day 4 after a partial colon resection and bilateral salpingo-oophorectomy who presents for abdominal pain and left-sided lower back pain. Patient states she had a nerve block performed that gave her good pain control. She was told it would last approximately 4 days. 2 days ago she began having back pain and abdominal pain. She took Tylenol with relief. This morning she began having severe abdominal pain and left lower back pain, and Tylenol has helped it somewhat. Patient has recent diagnosis of abdominal aortic aneurysm, and she is concerned that her pain is related to the aneurysm. Patient is also complaining of new left sided shoulder pain that she describes as inside pain. She does have history of rheumatoid arthritis but denies having any history of pain similar to this. This morning she had some mild chest pain and shortness of breath, and felt like she needed to cough but was unable to cough due to her abdominal pain. Patient has had mild nausea. No vomiting or urinary symptoms. She has passed flatus and is having bowel movements. Patient is not currently on any blood thinners. She is off her medications for rheumatoid arthritis due to the surgery. Physical Examination: Vital signs: afebrile, hemodynamically stable, no hypoxia on room air General: well nourished, well developed, in no distress Skin: warm, dry, no rash, no pallor HEENT: normocephalic and atraumatic; PERRL, EOMI, moist mucous membranes Cardiovascular: regular rate and rhythm without murmurs, no peripheral edema, pulses present all distal extremities Respiratory: No increased work of breathing, lungs are clear to auscultation bilaterally, no rales, rhonchi or wheezing Abdominal: Abdomen is soft, mildly distended, tender in the left lower abdomen, normoactive bowel sounds, no guarding or rebound, no pulsatile masses, surgical incisions with Steri-Strips in place are clean, dry and intact Back: tender to palpation of the left paraspinal lumbar musculature MSK: Moves all extremities, no deformities, normal strength, no tenderness to palpation of the left shoulder Neuro: Awake and alert, oriented ?4. No facial droop, sensation and motor function intact and symmetric Test Results: [] Emergency Department Course and Treatment: Patient presents with abdominal pain and left lower back pain 4 days after a colon resection and bilateral salpingo-oophorectomy. Chart review also shows she had a left ureteral stent placed during the procedure (and subsequently removed). CBC, CMP and urinalysis were ordered. Because patient is having the left shoulder pain that does not strictly correspond to her back or abdominal pain, and had the brief episode of chest pain with shortness of breath this morning, EKG and troponin were performed, although suspicion for ACS is low. Chest x-ray also to evaluate for any possible pneumonia. Patient was offered IV pain medications and does not want any opiates; she took Tylenol shortly before presentation. She did accept a dose of toradol for 8/10 pain, and states that is what she was given in the hospital after surgery. Dr. Torres was involved early in patient's workup to consult on any imaging that may be necessary. We evaluated the patient in the emergency department, and given the extent of the adhesions in her left abdomen and the left ureteral stent that had been placed during surgery, he requested CT abdomen and pelvis with p.o. and IV contrast to evaluate the anastomosis and the ureter, as well as for any other acute pathology. Patient was given Zofran to help her tolerate drinking the contrast. Imaging results will be followed up by the day physician, and final disposition pending results. Time of my reevaluation, patient was resting comfortably in bed. Treatment Plan: [] Disposition: [] Impression: Postoperative abdominal pain low back pain, left shoulder pain This note was generated with [employer] dictation software. It may contain incorrect words, spelling, and punctuation that were not noted in review of the chart prior to signing ED Disposition - Plan for ED Patient: Chief Complaint: Other, Pain/Inj Referrals: Sammi Castillo MD [Primary Care Provider] -
[2018-07-11 06:56] LABS: Absolute Lymphocyte Count 2.51 X10^3/ul (0.83-4.51); Absolute Neutrophil Count 10.4 X10^3/uL (2.0-7.7); Basophil# 0.04 X10^3/uL; Basophil% 0.3 % (0-1); Eosinophil# 0.55 X10^3/uL; Eosinophils% 3.6 % (0-5); Hematocrit 33.6 % (37-47); Hemoglobin 10.9 g/dl (12.0-15.0); Lymphocyte # 2.51 X10^3/ul (4.0); Lymphocyte % 16.2 % (19-41); Mean Corp Hgb Conc 32.4 g/gl (32-36); Mean Corpuscular Hgb 30.4 pg (27.0-32.0); Mean Corpuscular Volume 93.6 fL (81-99); Mean Platelet Vol. 8.8 fl (6.2-12.0); Monocyte% 12.3 % (0-10); Neutrophil # 10.43 X10^3/uL (2.7-7.7); Neutrophil % 67.2 % (47-70); Platelet Count 335 K/mm3 (150-450); RBC Distribution Width CV 14.2 % (11.6-14.6); RBC Distribution Width SD 48.7 fl (35.1-43.9); Red Blood Count 3.59 M/mm3 (4.2-5.4); White Blood Count 15.5 K/mm3 (4.4-11.0)
[2018-07-11 06:57] LABS: Differential Indicated SCAN CRITERIA MET; POSITIVE COUNT NO; POSITIVE DIFFERENTIAL YES; POSITIVE MORPHOLOGY NO
--- NOTE | 2018-07-11 07:01 | CT_ITS ---
STUDY: CT ABDOMEN AND PELVIS WITH CONTRAST REASON FOR EXAM: Female, 67 years old. Status post colon resection. Abdominal pain. RADIATION DOSAGE (If Supplied By Facility): CTDIvol = ( 20.47 ) mGy, DLP = ( 975.01 ) mGycm TECHNIQUE: Transaxial images were obtained from the dome of the diaphragm to the symphysis pubis with oral contrast. 100 ml of Isovue 300 contrast was administered. Sagittal and coronal images were reconstructed. Individualized dose optimization techniques were used for this CT. COMPARISON: None. FINDINGS: The visualized lung bases are unremarkable. Coronary calcification. Tiny subcentimeter hypodensity in the posterior lateral aspect of the right lobe of the liver superiorly. There is a 1 cm cyst in the left lobe of the liver adjacent to the falciform ligament. The patient is status post cholecystectomy. Minimal central intrahepatic biliary ductal dilatation. Normal spleen. Normal pancreas. Normal bilateral adrenal glands. Normal right kidney. Normal left kidney. There is a small hiatal hernia. Normal small intestine. There are multiple colonic diverticula consistent with diverticulosis. There is evidence of acute thickening of the sigmoid colon. Anastomotic suture line is seen at the rectosigmoid junction. Minimal amount of free fluid in the posterior pelvis. Increased soft tissue density in the pelvis with tiny air bubbles. This is more prominent on the left side of the pelvis. This may represent postoperative change although early abscess formation cannot be excluded.. The appendix is visualized and appears normal. There is diffuse atherosclerotic calcification of the abdominal aorta. There is evidence of a fusiform infrarenal abdominal aortic aneurysm with a transverse dimension of 4 cm. There is evidence of mural thrombus along its lateral wall. Normal inferior vena cava. Normal retroperitoneum. Normal urinary bladder. Normal abdominal wall. There is almost complete collapse of the T11 vertebrae. 50% loss of height of the L2 vertebrae. CT/Abdomen/Pelvis WITH Contrast IMPRESSION: Surgical anastomosis seen at the rectosigmoid junction. Postoperative changes with a small amount of free fluid at the operative site. Soft tissue density with tiny air bubbles in the lower pelvis at the operative site. This may represent either postoperative changes versus early abscess formation. Follow-up is recommended. Sigmoid wall thickening and sigmoid diverticulosis. Electronically Signed: Myron Holland MD at 9:30 EST Tel [phone], Service support ,
[2018-07-11 07:03] LABS: ALB/GLOB Ratio 0.7 RATIO (0.9-2.4); AST(SGOT) 36 U/L (15-37); Alanine Aminotransfer ALT/SGPT 38 U/L (13-56); Albumin, Serum 3.2 g/dL (3.2-5.0); Alkaline Phosphatase 50 U/L (45-117); Anion Gap 12 (5-15); BUN 13 mg/dL (7-18); BUN/Creat Ratio 9.4 RATIO (10-20); Calcium,Total 9.1 mg/dL (8.5-10.1); Chloride 98 mmol/L (98-107); Creatinine, Serum 1.38 mg/dL (0.55-1.02); EST Glomerular Filtration Rate 40 mL/min (>60); Est Glom Filt Rate - Afr Amer 49 mL/min (>60); Estimated Creatinine Clearance 28.03 ml/min; Globulin 4.5 g/dL (2.2-4.2); Glucose 90 mg/dL (74-106); Lipase 135 U/L (73-393); Potassium 3.4 mmol/L (3.5-5.1); Protein, Total 7.7 g/dL (6.4-8.2); Sodium Level 137 mmol/L (136-145)
[2018-07-11] MEDS: Ketorolac 15 MG/ML Vial IV (07:18)
[2018-07-11] MEDS: Ondansetron 4 MG/2 ML Vial IV (07:18)
[2018-07-11 07:19] LABS: Mucous, Urine 0 SEEN /hpf (<or=2+)
[2018-07-11 07:47] LABS: Color, Urine Yellow (Yellow); Glucose, Dipstick Normal (Normal); Ketone-Dipstick 5 mg/dl (Negative); Leukocyte Esterase-Dipstick 25 /ul (Negative); Nitrite-Dipstick Negative (Negative); Occult Blood-Urine 50 /ul (Negative); Protein-Dipstick 15 mg/dl (Negative); Specific Gravity, Urine 1.015 (1.002-1.030); Urine Bilirubin Dipstick Negative (Negative); Urine Clarity Clear (Clear); Urine Urobilinogen Normal (Normal)
[2018-07-11 08:19] VITALS: BP 156/76; PULSE 74; RESP 15; TEMP 36.6; O2SAT 98
[2018-07-11 08:26] LABS: Bacteria RARE /hpf (None Seen); Red Blood Cells-Urine 0-5 SEEN /hpf (0-5); Squamous Epithelial Cells - UA 0-5 SEEN /hpf (5-10); White Blood Cells 0-5 SEEN /hpf (0-5)
[2018-07-11 09:51] VITALS: BP 141/73; PULSE 77; RESP 15; O2SAT 93
--- NOTE | 2018-07-11 10:21 | ED.DEP ---
ED Disposition - Plan for ED Patient: Disposition: Home or Assisted Living Chief Complaint: Other, Pain/Inj Instructions: ED Neck Back Pain General Referrals: Duane Torres MD [STAFF PHYSICIAN] - Additional Instructions: Call and follow-up with Dr. Torres's office today at 3:00 to give them update on how you are doing and again Saturday more burning at 9 AM. Obviously return to ER if you are feeling a lot worse.
[2018-07-11 10:32] VITALS: BP 138/73; PULSE 76; RESP 15; O2SAT 94
[2018-07-11 14:12] LABS: Pathologist Review Reviewed
== END 2018-07-11 10:39 | disposition home or self-care (01) ==
PROVIDERS: Emergency Provider Emergency Medicine; Family Provider Internal Medicine; PCP Internal Medicine
DX: G89.18 Other acute postprocedural pain (principal); R10.9 Unspecified abdominal pain; M54.5 Low back pain; M25.512 Pain in left shoulder; M06.9 Rheumatoid arthritis, unspecified; I71.4 Abdominal aortic aneurysm, without rupture
CPT/HCPCS: 71045; 74177; 80053; 81001; 83690; 84484; 85025; 87040; 93005; 96374; 96375; 99284; Q9967; A4216; J2405

== ENCOUNTER → 2018-07-15 10:57 | Outpatient (CLI) | payer MEDICARE, MEDICAID, SELFPAY ==
[2018-07-11 06:16] VITALS: BMI 28.7
[2018-07-15 12:57] LABS: Calcium,Total 10.2 mg/dL (8.5-10.1)
[2018-07-15 12:58] LABS: Vitamin D,25 Hydroxy 38.3 ng/mL (29.95-100.01)
--- OUTSIDE RECORDS SUMMARY | 2018-08-31 11:54 | XMS RPT_ITS | Summary of Care ---
:1950 Author Organization [facility] Address [address] [place] [address] Phone Care Team Providers Name Role Phone Zainab Gaitan MD Primary Care Provider Reason for Visit Reason Comments Medication Refill Encounter Details Date Type Department Care Team Description 06/17/2018 Refill [facility] Lg Zimmer, DO [address] [address] [place] [address] [phone] Allergies Active Allergy Reactions Severity Noted Date Comments Doxycycline 12/10/2017 Levofloxacin 12/10/2017 Penicillins 06/23/2007 Sulfa Antibiotics 06/23/2007 as of this encounter Medications Prescription Sig. Disp. Refills Start Date End Date Status folic acid 1 MG 4 po q day 120 tablet 11 01/29/2017 Active TabIndications: Elevated LFTs VENTOLIN HFA 108 (90 02/10/2017 Active Base) MCG/ACT Aero Soln ADVAIR DISKUS 250-50 02/10/2017 Active MCG/DOSE Aerosol Powder, breath activated fluvastatin 40 MG 12/10/2016 Active Cap montelukast 10 MG 12/21/2016 Active Tab omeprazole 20 MG Cap 01/26/[address] FONTENOT-ALEXUS M20 20 MEQ 12/01/2016 Active Tab CR triamterene-hydrochl 01/28/2017 Active orothiazide 37.5-25 MG Tab Aspirin [address] DAILY 05/12/2018 Active tablet melatonin 3 MG Tab BEDTIME PRN 05/12/2018 Active tablet For Sleep Glucosamine HCl 1500 DAILY 05/12/2018 Active MG Tab denosumab (PROLIA) every 6 05/12/2018 Active 60 MG/ML SOLN months injection predniSONE 2.5 MG 1 po q AM 30 tablet 5 06/09/2018 Active Tab tabletIndications: Rheumatoid arthritis involving multiple sites with positive rheumatoid factor, Postmenopausal osteoporosis, DDD (degenerative disc disease), cervical, Osteoarthritis of both hands, unspecified osteoarthritis type, Primary osteoarthritis, left hand, Primary osteoarthritis, right hand, Rheumatoid arthritis with rheumatoid factor of multiple sites without organ or systems involvement, Leukocytosis, unspecified type, Other specified abnormal immunological findings in serum, Abnormal immunological finding in serum, Long-term current use of high risk medication other than anticoagulant, CRP elevated, manager intermediate (current) use of systemic steroids, manager intermediate (current) use of aspirin, Rheumatoid factor positive, Anti-cyclic citrullinated peptide antibody positive, Methotrexate, care home, current use, Abnormal immunological finding in serum, unspecified, Elevated C-reactive protein (CRP), Other care home (current) drug therapy Adalimumab (HUMIRA Inject 40 mg 2 Each 06/09/2018 Active PEN) 40 MG/0.4ML under the Pen-injector Kit skin every 14 citrate days. freeIndications: Rheumatoid arthritis involving multiple sites with positive rheumatoid factor, Postmenopausal osteoporosis, DDD (degenerative disc disease), cervical, Osteoarthritis of both hands, unspecified osteoarthritis type, Primary osteoarthritis, left hand, Primary osteoarthritis, right hand, Rheumatoid arthritis with rheumatoid factor of multiple sites without organ or systems involvement, Leukocytosis, unspecified type, Other specified abnormal immunological findings in serum, Abnormal immunological finding in serum, Long-term current use of high risk medication other than anticoagulant, CRP elevated, group home (current) use of systemic steroids, manager intermediate (current) use of aspirin, Rheumatoid factor positive, Anti-cyclic citrullinated peptide antibody positive, Methotrexate, care home, current use, Abnormal immunological finding in serum, unspecified, Elevated C-reactive protein (CRP), Other rodent exterminator (current) drug therapy METHOTREXATE 2.5 MG TAKE THREE 36 tablet 3 06/17/2018 Active tablet TABLETS BY MOUTH ONCE A WEEK methotrexate 2.5 MG 3 po one day 36 tablet 3 12/09/2017 Discontinued TabIndications: a week 8 Rheumatoid arthritis involving multiple sites with positive rheumatoid factor, Postmenopausal osteoporosis, DDD (degenerative disc disease), cervical, Osteoarthritis of both hands, unspecified osteoarthritis type, Abnormal immunological finding in serum, Long-term current use of high risk medication other than anticoagulant, CRP elevated, group home (current) use of systemic steroids, group home (current) use of aspirin, Rheumatoid factor positive, Anti-cyclic citrullinated peptide antibody positive, Methotrexate, care home, current use as of this encounter Active Problems Problem Noted Date Abnormal peripheral pulse 06/09/2018 Mass of uterine adnexa 06/09/2018 Aneurysm of infrarenal abdominal aorta 06/09/2018 Colitis 06/09/2018 Diverticula of intestine 06/09/2018 Gastroesophageal reflux disease with hiatal hernia 06/09/2018 Rheumatoid arthritis 06/09/2018 Other intestinal obstruction unspecified as to partial versus complete 06/05/2018 obstruction Diverticulosis of large intestine without perforation or abscess without 06/05/2018 bleeding Hemorrhoids 06/05/2018 Left lower quadrant pain 06/05/2018 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 Abdominal aortic aneurysm without rupture 05/19/2018 Unspecified condition associated with female genital organs and menstrual 05/19/2018 cycle Other specified symptoms and signs involving the circulatory and 05/19/2018 respiratory systems Essential (primary) hypertension 10/10/2017 Rheumatoid factor positive 06/11/2017 Anti-cyclic citrullinated peptide antibody positive 06/11/2017 Methotrexate, care home, current use 06/11/2017 Elevated C-reactive protein (CRP) 06/11/2017 Other rodent exterminator (current) drug therapy 06/11/2017 Other specified abnormal immunological findings in serum 06/11/2017 Rheumatoid arthritis involving multiple sites with positive rheumatoid 02/11/2017 factor Abnormal immunological finding in serum 02/11/2017 Postmenopausal osteoporosis 02/11/2017 Compression fracture of thoracic spine, non-traumatic 02/11/2017 Closed compression fracture of lumbar vertebra 02/11/2017 Long-term current use of high risk medication other than anticoagulant 02/11/2017 DDD (degenerative disc disease), cervical 02/11/2017 Osteoarthritis of both hands 02/11/2017 Leukocytosis 02/11/2017 CRP elevated 02/11/2017 manager intermediate (current) use of systemic steroids 02/11/2017 manager intermediate (current) use of aspirin 02/11/2017 Abnormal immunological finding in serum, unspecified 02/11/2017 Age-related osteoporosis without current pathological fracture 02/11/2017 Elevated white blood cell count, unspecified 02/11/2017 Primary osteoarthritis, left hand 02/11/2017 Primary osteoarthritis, right hand 02/11/2017 Rheumatoid arthritis with rheumatoid factor of multiple sites without 02/11/2017 organ or systems involvement Resolved Problems Problem Noted Date Resolved Date Hypokalemia 02/11/2017 02/11/2017 Elevated LFTs 02/11/2017 06/11/2017 Social History Tobacco Use Types Packs/Day Years Used Date Never Smoker Smokeless Tobacco: Never Used Sex Assigned at Date Recorded Not on file as of this encounter Functional Status Functional Status Response Date of Assessment Are you deaf or do you have serious difficulty hearing? No 12/09/2017 Are you blind or do you have serious difficulty seeing, No 12/09/2017 even when wearing glasses? Do you have serious difficulty walking or climbing stairs Yes 12/09/2017 (5 years or older)? Do you have difficulty dressing or bathing (5 yrs or No 12/09/2017 older)? Because of a physical, mental, or emotional condition, do No 12/09/2017 you have difficulty doing errands alone such as visiting a doctor's office or shopping (5 yrs or older)? Cognitive Status Response Date of Assessment Because of a physical, mental, or emotional condition, do No 12/09/2017 you have serious difficulty concentrating, remembering, or making decisions (5 yrs or older)? as of this encounter Plan of Treatment Upcoming Encounters Date Type Specialty Care Team Description 12/08/2018 Office Visit Rheumatology Tim Celestin, Lg Zimmer, DO [address] [place] [address] [phone] Health Maintenance Due Date Last Done Comments DEXA SCAN DISCUSSION 1950 HEPATITIS C VIRUS SCREENING 1950 POTASSIUM 1950 TETANUS 11/29/1967 TDAP (ADULT) 1968 PAP SMEAR DISCUSSION 1970 LIPID SCREENING 1989 MAMMOGRAM SCREENING DISCUSSION 1989 COLON CANCER SCREENING DISCUSSION 11/29/1999 PNEUMOCOCCAL VACCINE SERIES (1 of 2 - PCV13) 2014 INFLUENZA VACCINE (#1) 2018 as of this encounter
--- OUTSIDE RECORDS SUMMARY | 2018-08-31 11:54 | XMS RPT_ITS ---
:1950 Author Organization OHIP Support Name Relationship Address Phone SINGH RAMIREZ Unavailable [address] + [place] [address] R Unavailable Unavailable Unavailable AUDREY RAMIREZLE Unavailable [address] + [place] [address] R Unavailable Unavailable Unavailable DOMINIQUEAUDREY ARMIJOLE Unavailable [address] + [place] [address] R Unavailable Unavailable Unavailable DOMINIQUE SINGH Unavailable [address] + [place] [address] R Unavailable Unavailable Unavailable DOMINIQUE SINGH Unavailable [address] + [place] [address] R Unavailable Unavailable Unavailable DOMINIQUE SINGH Unavailable Unavailable + R Unavailable Unavailable Unavailable DOMINIQUE SINGH Unavailable [address] + [place] [address] R Unavailable Unavailable Unavailable DOMINIQUE, SINGH Unavailable [address] + [place] [address] R Unavailable Unavailable Unavailable DOMINIQUE, SINGH Unavailable [address] + [place] [address] R Unavailable Unavailable Unavailable DOMINIQUE SINGH Unavailable . + [place] [address] R Unavailable Unavailable Unavailable DOMINIQUE ISNGH Unavailable Unavailable + R Unavailable Unavailable Unavailable DOMINIQUE, SINGH Unavailable [address] + [place] [address] R Unavailable Unavailable Unavailable CHELLE RAMIREZOLE Unavailable [address] + [place] [address] NOT GIVEN Unavailable Unavailable Unavailable CHELLE RAMIREZOLE Unavailable [address] + [place] [address] NOT GIVEN Unavailable Unavailable Unavailable DOMINIQUE, SINGH Unavailable [address] + [facility] [place] [address] R Unavailable Unavailable Unavailable SINGH RAMIREZ Unavailable [address] + [facility] [place] [facility] [place] [address] R Unavailable Unavailable Unavailable ODMINIQUECAROL Unavailable [address] + [facility] [place] [facility] [place] [address] NOT GIVEN Unavailable Unavailable Unavailable AUDREY RAMIREZLE Unavailable [address] + [facility] [place] [place] [facility] [place] [address] R Unavailable Unavailable Unavailable SINGH RAMIREZ Unavailable [address] + [facility] [place] [place] [address] R Unavailable Unavailable Unavailable AUDREY RAMIREZLE Unavailable [address] + [place] [address] R Unavailable Unavailable Unavailable DOMINIQUESINGH ARMIJO Unavailable [address] + [place] [address] R Unavailable Unavailable Unavailable SINGH RAMIREZ Unavailable [address] + [place] [address] ALBINO BROWN Unavailable YARI JORDAN + [place] [address] R Unavailable Unavailable Unavailable DOMINIQUE CAROL Unavailable [address] + [place] [address] NOT GIVEN Unavailable Unavailable Unavailable DOMINIQUECHELLECAROL Unavailable [address] + [place] [address] NOT GIVEN Unavailable Unavailable Unavailable CAROL RAMIREZ Unavailable [address] + [facility] [place] [address] NOT GIVEN Unavailable Unavailable Unavailable DOMINIQUE CAROL Unavailable [address] + [facility] [place] [place] [facility] [place] [address] NOT GIVEN Unavailable Unavailable Unavailable CAROL RAMIREZ Unavailable [address] + [facility] [place] [place] [facility] [place] [address] NOT GIVEN Unavailable Unavailable Unavailable CAROL RAMIREZ Unavailable [address] + [facility] [place] [place] [facility] [place] [address] NOT GIVEN Unavailable Unavailable Unavailable CAROL RAMIREZ Unavailable [address] + [place] [address] NOT GIVEN Unavailable Unavailable Unavailable DOMINIQUE, CAROL Unavailable [address] + [place] [address] NOT GIVEN Unavailable Unavailable Unavailable CHELLE RAMIREZOLE Unavailable [address] + [place] [address] NOT GIVEN Unavailable Unavailable Unavailable CHELLE RAMIREZOLE Unavailable [address] + [place] [address] NOT GIVEN Unavailable Unavailable Unavailable CHELLE RAMIREZOLE Unavailable [address] + [place] [address] NOT GIVEN Unavailable Unavailable Unavailable CHELLE RAMIREZOLE Unavailable [address] + [place] [address] NOT GIVEN Unavailable Unavailable Unavailable CHELLE RAMIREZOLE Unavailable [address] + [place] [address] NOT GIVEN Unavailable Unavailable Unavailable Care Team Providers Name Role Phone KERRI CHASE, JOE Attending Unavailable LUIS A REESE Referring Unavailable KERRI CHASE, JOE Attending Unavailable SELF, SELF Referring Unavailable JOE MANNING Admitting Unavailable JOE MANNING Attending Unavailable JOE MANNING Primary Care Unavailable CHELA CASTILLO MD Admitting Unavailable CHELA CASTILLO MD Attending Unavailable CHELA CASTILLO MD Primary Care Unavailable NO, DOCTOR ON Consulting Unavailable BROWN JOHNNA Admitting Unavailable BROWN JOHNNA Attending Unavailable BROWN, JOHNNA Primary Care Unavailable NO, DOCTOR ON Consulting Unavailable JOHNNA BROWN Admitting Unavailable BROWNJOHNNA Attending Unavailable NO, DOCTOR ON Referring Unavailable KEVIN, JOHNNA Primary Care Unavailable CHELA CASTILLO MD Consulting Unavailable PROVIDER, UNKNOWN Consulting Unavailable PROVIDER, UNKNOWN Consulting Unavailable PROVIDER, UNKNOWN Consulting Unavailable JOE MANNING Admitting Unavailable JOE MANNING Attending Unavailable JOE MANNING Primary Care Unavailable JOE MANNING Admitting [...] Care Unavailable NO, DOCTOR ON Consulting Unavailable ZIA DR KIRAN Galvan Admitting Unavailable LIZARRAGA, DR KIRAN Galvan Attending Unavailable LIZARRAGA, DR KIRAN Galvan Primary Care Unavailable CHELA CASTILLO MD Consulting Unavailable PROVIDER, UNKNOWN Consulting Unavailable PROVIDER, UNKNOWN Consulting Unavailable PROVIDER, UNKNOWN Consulting Unavailable JOE MORGAN DO Admitting Unavailable JOE MORGAN DO Attending Unavailable CHELA CASTILLO MD Referring Unavailable JOE MORGAN DO Primary Care Unavailable CHELA CASTILLO MD Consulting Unavailable PROVIDER, UNKNOWN Consulting Unavailable PROVIDER, UNKNOWN Consulting Unavailable PROVIDER, UNKNOWN Consulting Unavailable JOHNNA BROWN Admitting Unavailable JOHNNA BROWN Attending Unavailable KEVIN, JOHNNA Primary Care Unavailable CHELA CASTILLO MD Consulting Unavailable PROVIDER, UNKNOWN Consulting Unavailable PROVIDER, UNKNOWN Consulting Unavailable PROVIDER, UNKNOWN Consulting Unavailable CHELA CASTILLO MD Admitting Unavailable CHELA CASTILLO MD Attending Unavailable CHELA CASTILLO MD Primary Care Unavailable CHELA CASTILLO MD Consulting Unavailable PROVIDER, UNKNOWN Consulting Unavailable PROVIDER, UNKNOWN Consulting Unavailable PROVIDER, UNKNOWN Consulting Unavailable JOE MANNING Admitting Unavailable JOE MANNING Attending Unavailable JOE MANNING Primary Care Unavailable CHELA CASTILLO MD Consulting Unavailable PROVIDER, UNKNOWN Consulting Unavailable PROVIDER, UNKNOWN Consulting Unavailable PROVIDER, UNKNOWN Consulting Unavailable ZIA, DR KIRAN Galvan Admitting Unavailable ZIA, DR KIRAN Galvan Attending Unavailable CHELA CASTILLO MD Referring Unavailable ZIA, DR IKRAN Galvan Primary Care Unavailable CHELA CASTILLO MD Consulting Unavailable PROVIDER, UNKNOWN Consulting Unavailable PROVIDER, UNKNOWN Consulting Unavailable PROVIDER, UNKNOWN Consulting Unavailable MIN MENESES Admitting Unavailable MIN MENESES Attending Unavailable CHELA CASTILLO MD Referring Unavailable MIN MENESES Primary Care Unavailable CHELA CASTILLO MD Consulting Unavailable PROVIDER, UNKNOWN Consulting Unavailable PROVIDER, UNKNOWN Consulting Unavailable PROVIDER, UNKNOWN Consulting Unavailable Joe Gramajo Attending Unavailable Isai PA-C, Coco Attending Unavailable Chela Castillo Referring Unavailable Cebul, Duane Attending Unavailable Cebul, Duane Attending Unavailable Chela Castillo Primary Care Unavailable Cebul, Duane Referring Unavailable Cebul, Duane Admitting Unavailable Isai ALVAREZ-Mandy, Coco Attending Unavailable Cebul, Duane Referring Unavailable Shyla Castilloen Primary Care Unavailable Joe Gramajo Consulting Unavailable Joe Floyd Consulting Unavailable Duane Torres Attending Unavailable Joe Floyd Referring Unavailable Cebul, Duane Attending Unavailable Cebul, Duane Referring Unavailable Anna, Chela Primary Care Unavailable Cebul, Duane Attending Unavailable Cebul, Duane Referring Unavailable Anna, Chela Primary Care Unavailable Cebul, Duane Consulting Unavailable Seals, Joe Attending Unavailable Cebul, Duane Attending Unavailable Anna, Chela Referring Unavailable Cebul, Duane Attending Unavailable Cebul, Duane Admitting Unavailable Cebul, Duane Referring Unavailable Anna, Chela Primary Care Unavailable Sealtania, Joe Consulting Unavailable Kittoe, Joe Attending Unavailable Kittoe, Joe Consulting Unavailable Coco Alex PA-C Attending Unavailable Anna, Chela Referring Unavailable Cebul, Duane Admitting Unavailable Farzaneh Ordaz Attending Unavailable Cebul, Duane Referring Unavailable Anna, Chela Primary Care Unavailable Sealtania, Joe Consulting Unavailable Kittoe, Joe Consulting Unavailable Cebul, Duane Consulting Unavailable Cebul, Duane Admitting Unavailable Kittoe, Joe Attending Unavailable Cebul, Duane Referring Unavailable Anna, Chela Primary Care Unavailable Sealtania, Joe Consulting Unavailable Kittoe, Joe Consulting Unavailable Cebul, Duane Admitting Unavailable Kittoe, Joe Attending Unavailable Cebul, Duane Referring Unavailable Anna, Chela Primary Care Unavailable Sealtania, Joe Consulting Unavailable Kittoe, Joe Consulting Unavailable Jessica, Hugh Attending Unavailable Cebul, Duane Referring Unavailable Anna, Chela Primary Care Unavailable Irma Perrin Attending Unavailable Jessica, Hugh Attending Unavailable Cebul, Duane Referring Unavailable PROBLEMS PROBLEMS DATE TYPE CONDITION / CODE ATTENDING STATUS SOURCE 07/15/2018 Unknown M81.0 - Age-related Joe Gramajo Active [facility] osteoporosis [facility] without current Hospital pathological Repository fracture / M81.0(ICD-10) 08/19/2018 Unknown K57.32 - Cebul, Duane Active [facility] Diverticulitis of [facility] large intestine Hospital without perforation Repository or abscess without bleeding / K57.32(ICD-10) 07/10/2018 Unknown Z01.810 - Encounter Jessica, Hugh Active [place] for preprocedural [facility] cardiovascular Hospital examination / Repository Z01.810(ICD-10) 07/14/2018 Unknown I10 - Essential Jessica, Hamilton Active [facility] (primary) Community hypertension / Hospital I10(ICD-10) Repository 06/09/2018 Admitting Joint Pain / STAINBROOK JR., Active [facility] Diagnosis 608115() [facility] ([place]) Repository 06/09/2018 Admitting Follow-up / 145() STAINBROOK JR., Active [facility] Diagnosis [facility] ([place]) Repository 05/23/2018 Unknown 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, 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 / Repository D39.12(ICD-10) 06/05/2018 Unknown R10.32 - Left lower CebulDuane Active [facility] quadrant pain / Community R10.32(ICD-10) Hospital Repository 06/05/2018 Unknown K56.699 - Other CebulDuane Active [facility] intestinal Community obstruction Hospital unspecified as to Repository partial versus complete obstruction / K56.699(ICD-10) 06/05/2018 Unknown K57.30 - CebuDuane madera Active [facility] Diverticulosis of Community large intestine Hospital without perforation Repository or abscess without bleeding / K57.30(ICD-10) 06/05/2018 Unknown K64.9 - Unspecified CebulDuane Active [facility] hemorrhoids / Community K64.9(ICD-10) Hospital Repository 05/19/2018 Unknown R09.89 - Other Cebul, Duane Active [facility] specified symptoms Community and signs involving Hospital the circulatory and Repository respiratory systems / R09.89(ICD-10) 05/19/2018 Unknown N94.9 - Unspecified CebuDuane madera Active [facility] condition Community associated with Hospital female genital Repository organs and menstrual cycle / N94.9(ICD-10) 05/19/2018 Unknown I71.4 - Abdominal CebulDuane Active [place] aortic aneurysm, Community without rupture / Hospital I71.4(ICD-10) Repository 05/07/2018 Principle Diverticulitis of CHELA CASTILLO Active [facility] intestine, part [facility] unspecified, Hospital without perforation Repository or abscess without bleeding / K5792(ICD-10) 05/05/2018 Admitting Procedure and JOHNNA BROWN Active [facility] treatment not [facility] carried out for Hospital other reasons / Repository Z538(ICD-10) 05/05/2018 Principle Procedure and JOHNNA BROWN Active [facility] treatment not [facility] carried out for Hospital other reasons / Repository Z538(ICD-10) 04/22/2018 Principle Personal history of JOHNNA BROWN Active [facility] Diagnosis colonic polyps / [facility] M61954(ICD-10) Hospital Repository 04/12/2018 Secondary Chronic obstructive DIDJOE LONDONO DO Active [facility] Diagnosis pulmonary disease, [facility] unspecified / Hospital J449(ICD-10) Repository 04/12/2018 Secondary Personal history of DIDJOE LONDONO DO Active [facility] Diagnosis nicotine dependence [facility] / E74756(ICD-10) Hospital Repository 04/12/2018 Admitting Diverticulitis of DIDUR, JOE FERNANDEZ Active [facility] Diagnosis intestine, part [facility] unspecified, Hospital without perforation Repository or abscess without bleeding / K5792(ICD-10) 04/12/2018 Secondary Nausea / DIDURJOE DO Active [facility] Diagnosis R110(ICD-10) [facility] Hospital Repository 04/12/2018 Secondary Adverse effect of DIDURJOE DO Active [facility] Diagnosis other antiprotozoal [facility] drugs, initial Hospital encounter / Repository I979N0A(ICD-10) 04/12/2018 Secondary Rheumatoid DIDJOE LONDONO DO Active [facility] Diagnosis arthritis, [facility] unspecified / Hospital M069(ICD-10) Repository 04/12/2018 Secondary Age-related DIDJOE LONDONO DO Active [facility] Diagnosis osteoporosis [facility] without current Hospital pathological Repository fracture / M810(ICD-10) 04/11/2018 Admitting Unspecified LIZARRAGADR KIRAN Active [facility] Diagnosis abdominal pain / [facility] R109(ICD-10) Hospital Repository 04/11/2018 Principle Unspecified LIZARRAGADR KIRAN Active [facility] Diagnosis abdominal pain / [facility] R109(ICD-10) Hospital Repository 04/11/2018 Secondary Personal history of LIZARRAGADR KIRAN Active [facility] Diagnosis other diseases of [facility] the digestive Hospital system / Repository Z8719(ICD-10) 10/10/2017 Secondary Essential (primary) CHELA CASTILLO Active [facility] Diagnosis hypertension / [facility] I10(ICD-10) Hospital Repository 10/10/2017 Secondary Hyperlipidemia, CHELA CASTILLO Active [facility] Diagnosis unspecified / [facility] E785(ICD-10) Hospital Repository 10/10/2017 Admitting Encounter for CHELA CASTILLO Active [facility] Diagnosis screening for [facility] diabetes mellitus / Hospital Z131(ICD-10) Repository 10/10/2017 Principle Encounter for CHELA CASTILLO Active [facility] Diagnosis screening for [facility] diabetes mellitus / Hospital Z131(ICD-10) Repository 09/18/2017 Admitting 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 Medical Records Department [address] [place] [address] Discharge Summary 07/17/18 0856 MR#: [id number] Acct: [id number] Name: SO RAMIREZ Rep #: [id number] : 1950 67 From: Coco Alex PA-C PCP: Chela Castillo MD Status: DIS IN Y Location: SD3 [id number] Discharge Date and Diagnosis Date of Admission: [...] 60 mg/mL subcutaneous syringe 60 mg SC [id number] 05/12/18 fluticasone 250 mcg-salmeterol 50 mcg/dose blistr [...] tablet 7.5 mg PO SA 05/12/18 omega 3-dpw-cuk-fish oil 60 mg-90 mg-500 mg capsule 1 [...] PO DAILY 07/11/18 Primary Care Physician: Chela Castillo MD [Primary Care Provider] - Please Follow Up With: Duane Torres MD - [phone] When: Call to make an appointment to be seen in about 10 days. Disposition: Home Minutes spent on discharge:: 20 Patient Condition:: Stable Medical Necessity - Tobacco Use Smoking Status: Former smoker Tobacco Use: Non-smoker Meaningful Use Info Meaningful Use Diagnoses (Choose all that apply): None applicable Code Visit Inpatient E AND M: 08597 Disch Hosp 07/17/18 1532 <Electronically signed by Coco Alex PA-C> Date Coco Alex PA-C Cosigner Signature (if applicable): Date CC: Coco Alex PA-C; Chela Castillo MD Signed SURGERY VISIT REPORT Observed: 07/17/2018 Status: F Source: [place] 11:10 AM [facility] REPOSIT[facility] [address] [place] [address] OFFICE VISIT Date of Service: 07/15/18 MR#: [id number] Acct: [id number] Name: SO RAMIREZ Rep #: [id number] : 1950 Provider: Coco Alex PA-C Age/Sex: [...] 60 mg/mL subcutaneous syringe 60 mg SC [id number] 05/12/18 [History Confirmed 07/11/18] fluticasone 250 mcg-salmeterol 50 mcg/dose blistr powdr for inhalation 1 inh INHALATION BID 05/12/18 [History Confirmed 07/11/18] fluticasone 50 mcg/actuation blister powder for inhalation 1 inh INHALATION BID PRN 05/12/18 [History Confirmed 07/11/18] fluvastatin 40 mg capsule 80 mg PO QHS 05/12/18 [History Confirmed 07/11/18] folic acid 1 mg tablet 4 mg PO DAILY 05/12/18 [History Confirmed 07/11/18] melatonin 3 mg tablet 3 mg PO HS PRN 05/12/18 [History Confirmed 07/11/18] methotrexate sodium 2.5 mg tablet 7.5 mg PO SA 05/12/18 [History Confirmed 07/11/18] omega 1-aer-pgd-fish oil 60 mg-90 mg-500 mg capsule 1 [...] Cosigner Signature: Date (if applicable) CC: Chela Castillo MD OPERATIVE REPORT Observed: 07/16/2018 Status: F Source: [place] 10:01 AM [facility] Medical Records Department [address] [place] [address] Operative Report 07/07/18 0929 MR#: [id number] Acct: [id number] Name: SO RAMIREZ Rep #: [id number] : 1950 67 From: Joe Gramajo MD PCP: Chela Castillo MD Status: DIS IN Y Location: MS3 HM907-4 Report of Operation Date of Procedure: 07/07/18 Pre-Operative Diagnosis: Sigmoid mass Post-Operative Diagnosis: Same and pelvic/abdominal adhesive disease Surgery/Procedure Performed:: Laparoscopic and hand assisted bilateral salpingooophorectomy Description of Surgical Findings:: Sigmoid colon and small bowel adherent to the left sidewall. Ovaries appeared normal. Left fallopian tube with inflammation. Uterus normal. starter mechanic: Duane Torres Type of Anesthesia:: General Anesthesiologist: Fausto Higgins Special Medications: none Specimen's removed: right ovary and fallopian tube ( left ovary and fallopian tube will be removed with portion of colon Drains: Esteban Description of Procedure: Dr. Torres placed three [...] Joe Floyd MD; Joe Gramajo MD; Chela Castillo MD; Duane Torres MD Signed CALCIUM,TOTAL Collected: 07/15/2018 Status: F Source: [place] 11:01 AM [facility] RE[facility] TYPE CODE TESTS RESULT OUT OF RANGE REFERENCE UNITS LAB L501.2200 8.5-10.1 mg/dL High CA 10.2 Performed By: #### L501.2200 #### [facility] [address] [place], [address] VITAMIN D,25 HYDROXY Collected: 07/15/2018 Status: F Source: [place] 11:01 AM [facility] TYPE CODE TESTS RESULT OUT OF RANGE REFERENCE UNITS LAB L506.1000 29.95-100.01 ng/mL Normal Vitamin D 38.3 25-OH Result Comment: Vitamin D 25(OH) Status Range Deficiency <20 ng/mL (50nmol/L) Insuffciency 20 - 30 ng/mL (50 - 75 nmol/L) Sufficiency 30 - 100 ng/mL (75 - 250 nmol/L) Toxicity >100 ng/mL (>250 nmol/L) Performed By: #### L506.1000 #### [facility] [address] [place], [address] 12 LEAD ELECTROCARDIOGRAM Observed: 07/14/2018 Status: F Source: [place] 1:55 PM [facility] Cardiovascular Services [address] [place] [address] [place] [address] 12 Lead EKG 07/11/18 0641 MR#: [id number] Acct: [id number] Name: SO RAMIREZ Fani Rep #: [id number] : 1950 67 From: Hugh Lopez MD [...] Normal sinus rhythm Normal ECG Confirmed by JESSICA PHILLIPS, HUGH ([id number]), make up editor PASQUALE BROWN ([id number]) on 07/14/2018 1:55:31 PM Referred By: ZEESHAN Confirmed By:HUGH LOPEZ MD 07/14/18 1355 Date Hugh Lopez MD CC: Irma Perrin MD; Chela Castillo MD Signed DISCHARGE INSTRUCTION Observed: 07/11/2018 Status: F Source: [place] 1:00 PM [facility] Medical Records Department [address] [place] [address] Discharge Instruction 07/11/18 1021 MR#: [id number] Acct: [id number] Name: SO RAMIREZ Rep #: [id number] : 1950 67 From: Don Iglesias MD PCP: Chela Castillo MD Status: DEP ER ED Disposition - [...] your Primary Care Provider. Call [facility] ([phone]) or report to the closest Emergency Room. Call 911 if necessary. 07/11/18 1300 <Electronically signed by Don Iglesias MD> Date Don Iglesias MD Cosigner Signature (If Indicated): Date CC: Chela Castillo MD Observed: 07/11/2018 Status: F Source: [place] CULTURE, BLOOD (WB) 10:30 AM [facility] RE[facility] BC No growth in 5 days. Performed By: #### M200.1000 #### [facility] [address] [place], [address] Observed: 07/11/2018 Status: F Source: [place] CULTURE, BLOOD (WB) 10:30 AM [facility] BC No growth in 5 days. Performed By: #### M200.1000 #### [facility] [address] [place], [address] EMERGENCY DEPARTMENT Observed: 07/11/2018 Status: C Source: [place] SUMMARY 10:21 AM [facility] Medical Records Department [address] [place] [address] Emergency Department Summary 07/11/18 0629 MR#: [id number] Acct: [id number] Name: SO RAMIREZ Rep #: [id number] : 1950 67 From: Irma Perrin MD PCP: Chela Castillo MD Status: REG ER ADDENDUM by Don [...] pain Date Don Iglesias MD cc: Chela Castillo MD * Addendum - ER Visit Summary [...] shoulder pain This note was generated with [employer] dictation software. It may contain incorrect words, spelling, and punctuation that were not noted in review of the chart prior to signing ED Disposition - Plan for ED Patient: Chief Complaint: Other, Pain/Inj Referrals: Chela Castillo MD [Primary Care Provider] - What to do if you have Problems For any increased pain, shortness of breath, bleeding, nausea or vomiting, chest pain, or any unexpected problems, contact your Primary Care Provider. Call [facility] ([phone]) or report to the closest Emergency Room. Call 911 if necessary. 07/11/18 0715 <Electronically signed by Irma Perrin MD> Date Irma Perrin MD Cosigner Signature (If Indicated): Date CC: Chela Castillo MD 12 LEAD ELECTROCARDIOGRAM Observed: 07/11/2018 Status: F Source: [place] 7:18 AM [facility] Cardiovascular Services [address] [place] [address] EKG - [facility] 06/30/18 1113 MR#: [id number] Acct: [id number] Name: SO RAMIREZ Rep #: [id number] : 1950 67 From: Jose L Garcia MD Attending Dr: Joe Floyd MD Status: DIS IN Ordering Dr: Duane Torres MD Date: 06/30/18 [place] [facility] [place] F C Admitted: 07/07/18 Test Reason : Blood Pressure : / mmHG Vent. Rate : 068 BPM Atrial Rate : 068 BPM P-R Int : 140 ms QRS Dur : 078 ms QT Int : 410 ms P-R-T Axes : 067 069 057 degrees QTc Int : 435 ms Normal sinus rhythm Normal ECG Confirmed by HUGH LOPEZ MD ([id number]), make up editor RAJI GOETZ ([id number]) on 07/01/2018 4:00:29 PM Also confirmed by HUGH LOPEZ MD ([id number]), make up editor RAJI GOETZ ([id number]) on 07/02/2018 4:24:16 PM Also confirmed by JOSE L GARCIA MD ([id number]), make up editor PASQUALE BROWN (56) on 07/11/2018 7:17:54 AM Also confirmed by JOSE L GARCIA MD ([id number]), make up editor PASQUALE BROWN (56) on 07/11/2018 7:18:10 AM Referred By: Duane Torres Confirmed By:JOSE L GARCIA MD 07/11/18 0718 Date Jose L Garcia MD CC: Joe Floyd MD; Chela Castillo MD; Duane Torres MD Date Dictated: 06/30/181112 Date Transcribed: 06/30/181112 Cloth Folder Hand: Signed URINALYSIS, COMPLETE Collected: 07/11/2018 Status: F Source: [place] 7:15 AM [facility] REPOSIT[facility] Order Comment: Order Date: 07/11/18 How was Urine Obtained? QUALITY CONTROL TECHNICIAN TO SPECIFY TYPE CODE TESTS RESULT OUT [...] URINE SEEN Performed By: #### L400.0001 #### [facility] [address] [place], [address] ABDOMEN/PELVIS WITH Observed: 07/11/2018 Status: F Source: [place] CONTRAST 7:02 AM [facility] REPOSITORY [facility] Imaging Services [address] [place] [address] Abdomen/Pelvis WITH Contrast MR#: [id number] Acct: [id number] Name: SO RAMIREZ Rep #: [id number] : 1950 F 67 From: Myron Holland MD PCP: Chela Castillo MD Status: REG ER Study: Abdomen/Pelvis WITH Contrast Date of Exam: 07/11/18 Exam# [id number] Ordering Dr: Irma Perrin MD STUDY: CT [...] Myron Holland MD at 9:30 EST Tel [phone], Service support , CC: Irma Perrin MD; Chela Castillo MD Cloth Folder Hand: Signed CBC W/DIFF, AUTOMATED Collected: 07/11/2018 Status: C Source: [place] 6:30 AM [facility] TYPE CODE TESTS RESULT OUT OF [...] 07/11/18 1411 PATH REV previously reported as: December collin Performed By: #### L100.0100 #### [facility] [address] [place], [address] COMPREHENSIVE METABOLIC Collected: 07/11/2018 Status: F Source: [facility] 6:30 AM [facility]POS[facility] TYPE CODE TESTS RESULT OUT OF [...] Performed By: #### L500.4050, L501.2450, L501.4010 #### [facility] [address] [place], [place], [id number] LIPASE Collected: 07/11/2018 Status: F Source: [place] 6:30 AM [facility] REPOSIT[facility] TYPE CODE TESTS RESULT OUT OF RANGE REFERENCE UNITS LAB L501.2450 73-393 U/L Normal LIPASE 135 Performed By: #### L500.4050, L501.2450, L501.4010 #### [facility] [address] [place], [place], [address] TROPONIN-I Collected: 07/11/2018 Status: F Source: [place] 6:30 AM [facility] REPOSITORY TYPE CODE TESTS RESULT OUT OF RANGE REFERENCE UNITS LAB L501.4010 <0.045 ng/mL Normal < 0.015 TROPONIN-I Result Comment: TROPONIN-I EXPECTED VALUES <0.045 Negative 0.045 - 0.590 Consistent with Cardiac Damage > OR = 0.600 Critical Value Not every elevated troponin is indicative of [place]. These values should be used with clinical judgement in examining the patient's clinical picture for diagnosis. To establish a diagnosis of [place] versus myocardial injury, there must be a demonstrated rise and/or fall in the troponin values, in addition to ischemic symptoms, EKG changes, new regional wall motion abnormality, and/or angiographical evidence. PLEASE NOTE: REFERENCE RANGES EDITED 17 Performed By: #### L500.4050, L501.2450, L501.4010 #### [facility] [address] [place], [address] CHEST 1 VIEW Observed: 07/11/2018 Status: F Source: [place] (PORTABLE) 6:29 AM [facility] REPOSITORY [facility] Imaging Services [address] [place] [address] Chest 1 View (Portable) MR#: [id number] Acct: [id number] Name: SO RAMIREZ Fani Rep #: [id number] : 1950 F 67 From: Colin Gomez MD PCP: Chela Castillo MD Status: REG ER Study: Chest 1 View (Portable) Date of Exam: 07/11/18 Exam# [id number] Ordering Dr: Irma Perrin MD STUDY: X-RAY [...] support , CC: Irma Perrin MD; Chela Castillo MD Cloth Folder Hand: Signed DISCHARGE INSTRUCTION Observed: 07/10/2018 Status: F Source: [place] 4:04 PM [facility] REPOSITORY [facility] Medical Records Department [address] [place] [place] [address] Instructions for Home/Discharge Instructions 07/07/18 0639 MR#: [id number] Acct: [id number] Name: SO RAMIREZ Rep #: [id number] : 1950 67 From: Duane Torres MD PCP: Chela Castillo MD Status: DIS IN Discharge Diet: Light [...] 60 mg/mL subcutaneous syringe 60 mg SC [id number] 05/12/18 fluticasone 250 mcg-salmeterol 50 mcg/dose blistr [...] tablet 7.5 mg PO SA 05/12/18 omega 1-ech-ctc-fish oil 60 mg-90 mg-500 mg capsule 1 [...] PO DAILY 06/30/18 Primary Care Physician: Chela Castillo MD [Primary Care Provider] - Test Results: Test results from this visit will be discussed in further detail at your follow-up appointment, if applicable. Please Follow Up With: Duane Torres MD - [phone] When: Call to make an appointment to be seen in about 10 days. 07/10/18 1604 <Electronically signed by Duane Torres MD> Date Duane Torres MD CC: Joe Flyod MD; Joe Gramajo MD; Chela Castillo MD BASIC METABOLIC Collected: 07/09/2018 Status: F Source: [place] PROFILE (BMP) 4:54 AM [facility] REPOSIT[facility] TYPE CODE TESTS RESULT OUT OF [...] GAP 10 Performed By: #### L500.2500 #### [facility] [address] [place], [place], [address] CBC-COMPLETE BLOOD CNT Collected: 07/09/2018 Status: F Source: [place] NO DIFF 4:54 AM [facility] REPOSIT[facility] TYPE CODE TESTS RESULT OUT OF [...] MPV 8.8 Performed By: #### L100.0500 #### [facility] [address] [place] [address], [address] CBC-COMPLETE BLOOD CNT Collected: 07/08/2018 Status: F Source: [place] NO DIFF 12:05 PM [facility] REPOSIT[facility] TYPE CODE TESTS RESULT OUT OF [...] MPV 8.8 Performed By: #### L100.0500 #### [facility] [address] [place], [address] OPERATIVE REPORT Observed: 07/08/2018 Status: F Source: [place] 5:36 AM [facility] REPOSITORY [facility] Medical Records Department [address] [place] [address] Operative Report 07/07/18 1140 MR#: [id number] Acct: [id number] Name: SO RAMIREZ Rep #: [id number] : 1950 67 From: Duane Torres MD PCP: Chela Castillo MD Status: ADM IN Y Location: [place] [address] Problem List (1) Diverticulitis large intestine Status: [...] so then I placed a 60 mm [place] through the right lower quadrant port site [...] at that point and I placed a [place] clamp. Transected the bowel. Placed a whip [...] there was absolutely no air leak whatsoever. [place] that I had a visualized the anastomosis that appeared to be nicely intact. This point I felt that I had a good solid anastomosis with healthy tissue. The pelvis was aspirated free. I removed the Gelfoam and thrombin. Hemostasis was intact I did place a small piece of Surgicel on the left pelvic sidewall and That away from the staple line. [place] that it was not indicated to leave [...] utilized 70 cc bilaterally under laparoscopic visualization. [place] that I got good block. Then trochars were removed. The larger trocar site in the right lower quadrant anterior iliac area was closed with a 0 Vicryl using a GraNee needle in a [id number] fashion. Now the hand assist device was [...] loss 250 cc. Duane Torres M.D., F.A.C.S. starter mechanic: Joe Gramajo starter mechanic: Tarun Fenton Type of Anesthesia:: General Anesthesiologist: Fausto Higgins Special Medications: none Specimen's removed: right ovary and fallopian tube ( left ovary and fallopian tube will be removed with portion of colon Drains: Esteban 07/08/18 0536 <Electronically signed by Duane Torres MD> Date Duane Torres MD CC: Joe Floyd MD; Joe Gramajo MD; Chela Castillo MD; Duane Torres MD Signed CBC-COMPLETE BLOOD CNT Collected: 07/08/2018 Status: F Source: [place] NO DIFF 5:14 AM [facility] REPOSIT[facility] TYPE CODE TESTS RESULT OUT OF [...] MPV 9.5 Performed By: #### L100.0500 #### [facility] [address] [place], [place], [address] BASIC METABOLIC Collected: 07/08/2018 Status: F Source: [place] PROFILE (BMP) 5:14 AM [facility] REPOSIT[facility] TYPE CODE TESTS RESULT OUT OF [...] GAP 12 Performed By: #### L500.2500 #### [facility] [address] [place], [address] OPERATIVE REPORT Observed: 07/07/2018 Status: F Source: [place] 9:22 AM [facility] REPOSITORY [facility] Medical Records Department [address] [place] [address] Operative Report 07/07/18917 MR#: [id number] Acct: [id number] Name: SO RAMIREZ Rep #: [id number] : 1950 67 From: Tarun Fenton MD PCP: Chela Castillo MD Status: ADM IN Y Location: MS3 [id number] Report of Operation Date of Procedure: 07/07/18 [...] pollack catheter. once cath placed then placed esteban, case then release to general surgery. Type of Anesthesia:: General Drains: stent left - Admit VTE Documentation VTE Mechan Device Prophylaxis: SCD's 07/07/18921 <Electronically signed by Tarun Fenton MD> Date Tarun Fenton MD CC: Joe Gramajo MD; Tarun Fenton MD; Chela Castillo MD; Duane Torres MD Signed COLON (NO NEOPLASM) Observed: 07/07/2018 Status: F Source: [place] 7:15 AM [facility] REPOS[facility] Patient: SO RAMIREZ : 1950 (67/F) Acct Num: [id number] Phys: Joe Floyd MD Unit Num: [id number] Loc: MS3 [id number] Specimen: [id number] Received: 07/07/181531 Spec Type: COLON TISSUES 1 [...] thickness. No mucosal mass lesions are identified. Semiconductor Manufacturing Technician sections are submitted in one cassette. B - Received in fixative is one container labeled with the patient's name and designated distal donut. The specimen consists of a [place] mucosal donut measuring 2 cm in diameter and 1.2 cm in thickness. No mucosal mass lesions are identified. Semiconductor Manufacturing Technician sections are submitted in one cassette. C [...] diameter. A normal fimbriated end is present. Semiconductor Manufacturing Technician sections are submitted in two cassettes as [...] the pericolic soft tissue resembling lymph nodes. Semiconductor Manufacturing Technician sections are submitted in eight cassettes as follows: 1 - ovary, 2-4 - fallopian tube with adjacent bowel, 5-7 - diverticula , 8 - logistics service representative lymph nodes. / AM:kailey 07/08/18 TC:2 CPT: 20867 x2, 15736, [address]12[address] HEADER OPERATION: Laparoscopic low anterior resection with [...] the sigmoid colon. AM:kailey 07/09/18 Signed Neel [facility] 07/09/18 <signature on file> Performed By: #### PCOL #### [facility] [address] [place], [place] [address], [address] LIVER PROFILE Collected: 07/07/2018 Status: F Source: [place] 6:26 AM [facility] REPOSIT[facility] TYPE CODE TESTS RESULT OUT OF [...] BILI 0.15 Performed By: #### L500.3400 #### [facility] [address] [place], [address] BEDSIDE GLUCOSE Collected: 07/07/2018 Status: F Source: [place] 6:21 AM [facility] REPOSIT[facility] TYPE CODE TESTS RESULT OUT OF RANGE REFERENCE UNITS LAB L501.080 70-110 mg/dL Normal BEDSIDE GLU 105 Result Comment: MANAGEMENT OF PATIENT CARE PER NURSING PROTOCOL Performed By: #### L501.080 #### [facility] Point of Care [address] [place] [address] SURGERY VISIT REPORT Observed: 06/30/2018 Status: F Source: [place] 11:46 AM [facility] REPOSITORY [facility] [address] [facility] 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 She denies previously seeing a manager technical sales. She denies previous complications with anesthesia. Patient's previous history per Dr. Torres: SO RAMIREZ, is a 67 F who presents to the office today for ongoing surgical management. The patient was referred by Dr. Chela Castillo. The patient was scheduled to have a colonoscopy in [place] but upon the finding of an abdominal [...] on 3 different immunologic medications. At the [facility] on May 19, 2018 she had [...] signed by Coco Alex PA-C> Date Coco Isai Parikhjoann Signature: Date (if applicable) CC: CBC-COMPLETE BLOOD CNT Collected: 06/30/2018 Status: F Source: [place] NO DIFF 11:20 AM [facility] REPOSITORY TYPE CODE TESTS RESULT OUT OF [...] MPV 9.1 Performed By: #### L100.0500 #### [facility] [address] [place], [place], [address] PROTHROMBIN TIME W/INR Collected: 06/30/2018 Status: F Source: [place] 11:20 AM [facility] REPOSITORY TYPE CODE TESTS RESULT OUT OF RANGE REFERENCE UNITS LAB L300.4150 11.7-14.9 SECONDS Normal PROTIME 12.0 LAB L300.4200 Normal INR 0.9 Performed By: #### L300.3900, L300.4310 #### [facility] [address] [place], [place], [address] PARTIAL THROMBOPLAST Collected: 06/30/2018 Status: F Source: [place] TIME 11:20 AM [facility] REPOSITORY TYPE CODE TESTS RESULT OUT OF RANGE REFERENCE UNITS LAB L300.4310 24.1-36.2 Seconds Normal PTT 26.8 Performed By: #### L300.3900, L300.4310 #### [facility] [address] [place], [place], [address] BASIC METABOLIC Collected: 06/30/2018 Status: F Source: [place] PROFILE (BMP) 11:20 AM [facility] REPOSIT[facility] TYPE CODE TESTS RESULT OUT OF [...] GAP 13 Performed By: #### L500.2500 #### [facility] [address] [place], [address] EMERGENCY REPORT Observed: 06/22/2018 Status: F Source: [facility] 12:01 PM [facility] [place] NAME ACCOUNT SEX AGE ADMIT DISCHARGE PT MED. RECORD# NUMBER DATE DATE TYPE DOMINIQUE [id number] F 67 06/22/18 3 SO Moh[place] 7118 ROOM: [...] surgery on her colon on the in [place]. PAST MEDICAL HISTORY: Diverticulitis, hypertension, and COPD. [...] I absolutely whole Page 1 of 2 DOMINIQUE SO Fani Emergency Room Report heartedly believe this is [...] Min Hicks DO 06/22/18 12:35 JOB #: [id number] Transcribed By: am 06/22/18 12:48 Electronically signed by: E-Sign: MIN HICKS MD 06/24/18 12:00 Page 2 of 2 SO RAMIREZ Emergency Room Report EMERGENCY REPORT Observed: 06/03/2018 Status: F Source: [facility] 3:26 PM [facility] RE[facility] NAME ACCOUNT SEX AGE ADMIT DISCHARGE PT MED. RECORD# NUMBER DATE DATE TYPE DOMINIQUE [id number] F 67 06/03/18 06/03/18 3 SO [place] [...] Kiran Lizarraga MD 06/03/18 15:37 JOB #: [id number] Transcribed By: am 06/03/18 18:50 Electronically signed by: JULIO Lizarraga M.D. 06/07/18 07:25 Page 2 of 2 SO RAMIREZ Emergency Room Report SURGERY VISIT REPORT Observed: 06/02/2018 Status: F Source: [place] 6:07 PM [facility] REPOSITORY [facility] [address] [place] [address]. [address] [place] [address] OFFICE VISIT Date of Service: 06/02/18 MR#: [id number] Acct: [id number] Name: SO RAMIREZ Rep #: [id number] : 1950 Provider: Duane Torres MD Age/Sex: 67/F Location: [facility] Status: Signed Intake Intake Visit Reasons: F/U C-Scope AND EGD 05/22 Chief Complaint: AAA and diverticulitis Roof Bolter Helper Required: No Is patient in pain?: No [...] 60 mg/mL subcutaneous syringe 60 mg SC [id number] 05/12/18 [History Confirmed 05/20/18] fluticasone 250 mcg-salmeterol [...] PO SA 05/12/18 [History Confirmed 05/20/18] omega 9-tsm-avc-fish oil 60 mg-90 mg-500 mg capsule 1 [...] mg PO DAILY 05/20/18 [History Confirmed 05/20/18] PFS Medical History Rheumatoid arthritis (Acute) Adnexal mass [...] The patient was referred by Dr. Chela Castillo. The patient was scheduled to have a colonoscopy in [place] but upon the finding of an abdominal [...] on 3 different immunologic medications. At the [facility] on May 19, 2018 she had [...] Appearance: average body habitus Orientation: alert, awake [facility] Head: normal to inspection Eyes General: appearance [...] assisting with her surgical care. Cc: Dr. Castillo and Dr. Gramajo and Dr.Proano Duane Torres M.D., F.A.C.S. Coding Level of Care Code Off vis,est,level 3 Diagnoses Diverticulitis of large intestine without bleeding, unspecified complication status K57.32 Diverticulitis bleeding: without bleeding Diverticulitis complication: unspecified complication status 06/02/18 1807 <Electronically signed by Duane Torres MD> Date Duane Torres MD Cosigner Signature: Date (if applicable) CC: Joe Gramajo MD; Tarun Fenton MD; Chela Castillo MD CANCER ANTIGEN 125 Collected: 05/23/2018 Status: F Source: [place] 10:51 AM [facility] REPOSITORY TYPE CODE TESTS RESULT OUT OF RANGE REFERENCE UNITS LAB L3100.5000 0.0-38.1 U/mL Normal CA125 21.9 2303 Result Comment: [place] ECLIA methodology Performed at: [facility] [employer] [facility] [place] [id number] Hospice Clinical Supervisor: Derek Galvez PhD, Phone: [phone] Performed By: #### L3100.5000 #### [facility] (refer to report for specific site) refer to report for address and phone number C-REACTIVE PROTEIN Collected: 05/23/2018 Status: F Source: [facility] 8:24 AM [facility] REPOSITORY TYPE CODE TESTS RESULT OUT OF RANGE REFERENCE UNITS LAB CRP(LOINC) 0.00 - 1.00 mg/dl High CRP 3.00 Performed By: #### [id number] #### [facility],[address] [place] [address] CREATININE Collected: 05/23/2018 Status: F Source: [facility] 8:24 AM [facility] REPOSITORY TYPE CODE TESTS RESULT OUT OF REFERENCE UNITS RANGE LAB CREATININE 0.6 - 1.2 mg/dl (LOINC) CREATININE 0.8 Performed By: #### [id number] #### [facility],[address] [place] [address] SGOT (AST) Collected: 05/23/2018 Status: F Source: [facility] 8:24 AM [facility] REPOSITORY TYPE CODE TESTS RESULT OUT OF RANGE REFERENCE UNITS LAB AST/SGOT(LO 13 - 39 U/L INC) AST/SGOT 21 Performed By: #### [id number] #### [facility],[address] [place] [address] SGPT (ALT) Collected: 05/23/2018 Status: F Source: [facility] 8:24 AM [facility] REPOSITORY TYPE CODE TESTS RESULT OUT OF RANGE REFERENCE UNITS LAB ALT/SGPT(LO 8 - 35 U/L INC) ALT/SGPT 23 Performed By: #### [id number] #### [facility],[address] [place] [address] CBC Collected: 05/23/2018 Status: F Source: [facility] 8:24 AM [facility] REPOSITORY TYPE CODE TESTS RESULT OUT OF [...] x10EE3/ 7.10 UL Neut # 6.90 LAB [place]imer #(LOINC) 0.20 - x10EE3/ 1.00 UL [place] # 1.60 High LAB EO #(LOINC) 0.00 [...] REVIEWED Result Comment: {CD] Performed By: #### [id number] #### [place] [address] SEDRATE Collected: 05/23/2018 Status: F Source: [facility] 8:24 AM [facility] REPOSITORY TYPE CODE TESTS RESULT OUT OF REFERENCE UNITS RANGE LAB SEDRATE(RAJEEV 0 - 30 mm/hr NC) High SEDRATE 31 Performed By: #### [id number] #### [place] [address] OPERATIVE REPORT - Observed: 05/22/2018 Status: F Source: [place] [facility] 12:25 PM [facility] REPOSITORY [facility] Medical Records Department [address] [place] [address] Operative Report - Endoscopy MR#: [id number] Acct: [id number] Name: SO RAMIREZ Rep #: [id number] : 1950 67 From: Duane Torres MD PCP: Chela Castillo MD Status: REG [facility] Patient Name: So Ramirez Procedure Date: 05/22/2018 [...] simgoid colon. Procedure Code(s): --- Professional --- 12745, Colonoscopy, flexible; with biopsy, single or multiple Diagnosis Code(s): --- Professional --- K64.9, Unspecified hemorrhoids K56.699, Other intestinal obstruction unspecified as to partial versus complete obstruction R10.32, Left lower quadrant pain K57.30, Diverticulosis of large intestine without perforation or abscess without bleeding CPT copyright 2017 [employer]. All rights reserved. The codes documented in this report are preliminary and upon auxiliary equipment tender review may be revised to meet current compliance requirements. Duane Torres MD 05/22/2018 12:25:13 PM This report has been signed electronically. Number of Addenda: 0 Note Initiated On: 05/22/2018 11:54 AM 05/22/18 1225 Date Duane Torres MD Cosigner Signature: Date (if indicated) CC: Chela Castillo MD; Duane Torres MD Date Dictated: 05/22/18 1154 Date Transcribed: Cloth Folder Hand: ROGELIO Signed OPERATIVE REPORT - Observed: 05/22/2018 Status: F Source: [place] [facility] 12:20 PM [facility] REPOSITORY [facility] Medical Records Department [address] [place] [address] Operative Report - Endoscopy MR#: [id number] Acct: [id number] Name: SO RAMIREZ Rep #: [id number] : 1950 67 From: Duane Torres MD PCP: Chela Castillo MD Status: REG [facility] Patient Name: So Ramirez Procedure Date: 05/22/2018 [...] present medications. Procedure Code(s): --- Professional --- 38893, Esophagogastroduodenoscopy, flexible, transoral; with biopsy, single or multiple Diagnosis Code(s): --- Professional --- K22.8, Other specified diseases of esophagus K44.9, Diaphragmatic hernia without obstruction or gangrene K21.0, Gastro-esophageal reflux disease with esophagitis K31.89, Other diseases of stomach and duodenum K31.7, Polyp of stomach and duodenum R13.10, Dysphagia, unspecified R12, Heartburn CPT copyright 2017 [employer]. All rights reserved. The codes documented in this report are preliminary and upon auxiliary equipment tender review may be revised to meet current compliance requirements. Duane Torres MD 05/22/2018 12:20:08 PM This report has been signed electronically. Number of Addenda: 0 Note Initiated On: 05/22/2018 11:39 AM 05/22/18 1220 Date Duane Torres MD Cosigner Signature: Date (if indicated) CC: Chela Castillo MD; Duane Torres MD Date Dictated: 05/22/18 1139 Date Transcribed: Cloth Folder Hand: ROGELIO Signed EGD ([facility]) Observed: 05/22/2018 Status: F Source: [place] 12:00 AM [facility] REPOSITORY Patient: SO RAMIREZ : 1950 (67/F) Acct Num: [id number] Phys: Duane Torres MD Unit Num: [id number] Loc: EN Specimen: [id number] Received: 05/22/18 - 3008 Spec Type: EGD BIOPSY TISSUES 1 TISSUES: A. Duodenum, NOS B. Gastric mucous membrane C. Gastric mucous membrane D. Esophageal mucous membrane E. Sigmoid colon biopsy COMMENT B. The results of immunohistochemistry for Helicobacter pylori will be reported separately ([id number]). GROSS DESCRIPTION A - Received in fixative [...] one cassette. / DINH:kailey 05/22/18 TC:4 CPT: 47426 x5 HEADER OPERATION: Colonoscopy, EGD ([facility]) PRE-OP DIAGNOSIS: Hiatal hernia with GERD, colitis, [...] 05/23/18 <signature on file> Performed By: #### PEGD #### [facility] [address] [place] [address]. [place], [place], [id number] IMMUNOHISTOCHEMISTRY Observed: 05/22/2018 Status: F Source: LILO 12:00 AM [facility] REPOSITORY Patient: SO RAMIREZ : 1950 (67/F) Acct Num: [id number] Phys: Brian PHILLIPS,Duane Unit Num: [id number] Loc: EN Specimen: [id number] Received: 05/23/181129 Spec Type: IMMUNO TISSUES 1 TISSUES: B. Stomach, NOS SPECIMEN INFORMATION: Tissue Source: B - Antral biopsy Clinical Info: Hiatal hernia, GERD, colitis, diverticulosis, RLQ pain Specimen Number: [id number] CPT code: 23428 METHODOLOGY: Deparaffinized sections of prefer/formalin-fixed tissue or [...] developed and their performance characteristics determined by [facility]. They may not have been cleared or approved by the U.S. Food and Drug Administration. The FDA has determined that such clearance or approval is not necessary. INTERPRETATION: B. Antral biopsy: Negative for Helicobacter pylori organisms. SJ:kailey 05/23/18 PHYSICIAN AND INSTITUTION [address] [address] Signed Derick Brown 05/23/18 <signature on file> Performed By: #### PIMM #### [facility] [address] [place] [address]. [place], [address] ARTERIAL DUPLEX US Observed: 05/19/2018 Status: F Source: LILO -NICHELLE EXTREM 4:12 PM [facility]POS[facility] Cardiovascular Services [address] [place] [address] Art Duplex US Bilat Lower Ext 05/19/18 0815 MR#: [id number] Acct: [id number] Name: SO RAMIREZ Rep #: [id number] : 1950 67 From: Duane Torres MD [...] Ordering Physician: Duane Torres Referring Physician: Chela Castillo Performed By: Shivani Spring, [place], T 05/19/181611 Date Duane Torres MD CC: Chela Castillo MD; Duane Torres MD Date Dictated: 05/19/18 0815 Date Transcribed: 05/19/181611 Cloth Folder Hand: Signed TRANSVAGINAL Observed: 05/19/2018 Status: F Source: LILO NON- 10:36 AM [facility] Imaging Services [address] [place] [address] Transvaginal Non- MR#: [id number] Acct: [id number] Name: DOMINIQUESO Rep #: [id number] : 1950 F 67 From: Reji Rayo MD PCP: Chela Castillo MD Status: REG CLI Study: Transvaginal Non- Date of Exam: 05/19/18 Exam# [id number] Ordering Dr: Duane Torres MD STUDY: ULTRASOUND [...] EDT , Service support , CC: Chela Castillo MD; Duane Torres MD Cloth Folder Hand: Signed PELVIC (NON ) Observed: 05/19/2018 Status: F Source: [place] 7:53 AM [facility] Imaging Services [address] [place] [address] Pelvic (Non ) MR#: [id number] Acct: [id number] Name: SO RAMIREZ Fani Rep #: [id number] : 1950 F 67 From: Reji Rayo MD PCP: Chela Castillo MD Status: REG CLI Study: Pelvic (Non ) Date of Exam: 05/19/18 Exam# [id number] Ordering Dr: Duane Torres MD STUDY: ULTRASOUND [...] EDT , Service support , CC: Chela Castillo MD; Duane Torres MD Cloth Folder Hand: Signed SURGERY VISIT REPORT Observed: 05/12/2018 Status: F Source: [place] 10:18 AM [facility] REPOSIT[facility] [address] [place] [address] [address] [place] [address] OFFICE VISIT Date of Service: 05/12/18 MR#: [id number] Acct: [id number] Name: SO RAMIREZ Rep #: [id number] : 1950 Provider: Duane Torres MD Age/Sex: 67/F Location: [facility] Status: Signed Intake Vital Signs05/12/18 Height 5 ft 05/12/18 Weight: 150 lb 2 oz 05/12/18 Body Mass Index (BMI) 29.3 05/12/18 Blood Pressure 155/84 H Intake Visit Reasons: AAA AND Diverticulitis Chief Complaint: AAA and diverticulitis Roof Bolter Helper Required: No Is patient in pain?: No [...] 60 mg/mL subcutaneous syringe 60 mg SC [id number] 05/12/18 [History Confirmed 05/12/18] fluticasone 250 mcg-salmeterol [...] PO DAILY 05/12/18 [History Confirmed 05/12/18] omega 4-lzp-ihw-fish oil 60 mg-90 mg-500 mg capsule 1 [...] The patient is referred by Dr. Chela Castillo and a written copy of my surgical consult recommendations will be returned to him. The patient is a little bit vague regarding the onset of her symptoms. She was seen at [facility] on April 11, 2018 with abdominal pain. [...] abdominal pain on May 07, 2018 at [facility] in [facility] the patient had a repeat [...] and prednisone.. She was scheduled recently at [facility] to undergo a colonoscopy. When the testing was reviewed and the CT scan with unilateral wall thrombus was identified that procedure was canceled. Dr. Chela Castillo contacted me and asked if I would [...] Cosigner Signature: Date (if applicable) CC: Chela Castillo MD CT ABDOMEN/PELVIS W Observed: 05/07/2018 Status: F Source: RAJENDRA ROBIN 2:32 PM [place] [address] Patient: SO RAMIREZ Phone#: : 1950 Age: 67 Gender: F Pt. Type: Out Account: [id number] Location: 052 Ordering: CHELA CASTILLO Exam Date: 05/07/2018/14:15 Family Phys: Charge Code: 529632 Physician: Bailey Order #: [id number] DLP Dose#: PROCEDURE: CT ABDOMEN/PELVIS WITH CONTRAST COMPARISON: [facility], CT, ABDOMEN/PELVIS W CON, 04/11/2018, 10:58. INDICATIONS: [...] 67 Gender: F Pt. Type: Out Account: [id number] Location: [facility] Ordering: CHELA CASTILLO Exam Date: 05/07/2018/14:15 Family Phys: Charge Code: 126694 Physician: Bailey Order #: [id number] DLP Dose#: BOWEL/MESENTERY: Diverticulosis is present. There [...] Status: F Source: RAJENDRA ROBIN 11:20 AM [facility] REPOSITORY TYPE CODE TESTS RESULT OUT OF [...] OF AGE AND OLDER. Performed By: #### [id number] #### [facility] [address] DISCHARGE SUMMARY Observed: 05/05/2018 Status: F [facility] [place] NAME ACCOUNT SEX AGE ADMIT DISCHARGE PT MED. RECORD# NUMBER DATE DATE TYPE SO RAMIREZ [id number] F 05/05/18 05/05/18 2 P 7118 ROOM: [facility] DATE OF : 1950 DICTATING PHYSICIAN: Johnna Brown FINAL DIAGNOSIS: HOSPITAL COURSE/DISCHARGE PLAN: So Elise Ramirez is a 67-year-old lady who presented [...] risk of mobilizing a thrombus creating CVA, [place] or other long-term problems. The patient appears to understand, concurs and has no further questions. She will follow up with her primary care physician. Dictated By: Johnna Brown MD 05/05/18 13:42 JOB #: [id number] Transcribed By: lindsay 05/05/18 21:23 Electronically signed by: E-Sign Dr. Johnna Brown MD 05/12/18 13:08 Page 1 of 1 SO RAMIREZ Discharge Summary EMERGENCY REPORT Observed: 04/21/2018 Status: F [facility] REPORT NAME ACCOUNT SEX AGE ADMIT DISCHARGE PT MED. RECORD# NUMBER DATE DATE TYPE DOMINIQUE [id number] F 04/11/18 04/11/18 3 SO [place] 7118 ROOM: DATE OF : 1950 DICTATING [...] Kiran Lizarraga MD 04/11/18 13:21 JOB #: [id number] Transcribed By: óscar 04/12/18 09:52 Electronically signed by: JULIO Lizarraga M.D. 04/21/18 07:00 Page 2 of 2 SO RAMIREZ Emergency Room Report EMERGENCY REPORT Observed: 04/13/2018 Status: F [facility] REPORT NAME ACCOUNT SEX AGE ADMIT DISCHARGE PT MED. RECORD# NUMBER DATE DATE TYPE DOMINIQUE [id number] F 67 04/12/18 04/12/18 3 SO [place] 7118 [...] motor or sensory deficits are noted. 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 Skin is warm and [...] up with her primary care physician, Dr. Castillo this coming week and if her symptoms get worse or any other problems develop, return to the emergency department. DIAGNOSES: 1. Diverticulitis. 2. Nausea, secondary to medication. PLAN/DISPOSITION: The patient was discharged in a clinically stable condition. Nurse notes reviewed. Dictated By: Joe Morgan DO 04/12/18 15:12 JOB #: [id number] Transcribed By: jonathan 04/13/18 10:19 Electronically signed by: E-Sign: Dr. Joe Morgan D.O. 04/13/18 12:25 Page 2 of 2 SO RAMIREZ Emergency Room Report CT ABDOMEN/PELVIS W Observed: 04/11/2018 Status: F Source: RAJENDRA ROBIN 11:14 AM [place] [address] Patient: SO RAMIREZ Phone#: : 1950 Age: 67 Gender: F Pt. Type: ER Account: [id number] Location: 052 Ordering: KIRAN LIZARRAGA Exam Date: 04/11/2018/10:58 Family Phys: CHELA CASTILLO Charge Code: 966002 Physician: Bailey Order #: [id number] DLP Dose#: PROCEDURE: CT ABDOMEN/PELVIS WITH CONTRAST [...] 67 Gender: F Pt. Type: ER Account: [id number] Location: 052 Ordering: KIRAN LIZARRAGA Exam Date: 04/11/2018/10:58 Family Phys: CHELA CASTILLO Charge Code: 918553 Physician: Bailey Order #: [id number] DLP Dose#: ABDOMINAL WALL: Normal. No mass [...] Status: F Source: RAJENDRA ROBIN 9:51 AM [facility] REPOSITORY TYPE CODE TESTS RESULT OUT OF [...] x10EE3/U L Neut # High 7.50 LAB Latimer #(LOINC) 0.20 - 1.00 x10EE3/U L Latimer # High 1.80 LAB EO #(LOINC) 0.00 - 0.50 x10EE3/U L EO # 0.40 LAB Baso #(LOINC) 0.00 - 0.10 x10EE3/U L Baso # High 0.30 LAB MANUAL DIFF(LOINC) MANUAL DIFF N/A LAB MORPHOLOGY(LOINC ) MORPHOLOGY N/A Result Comment: {CD] Performed By: #### [id number] #### [place] [address] LIPASE Collected: 04/11/2018 Status: F Source: [facility] 9:51 [facility] REPOSITORY TYPE CODE TESTS RESULT OUT OF REFERENCE UNITS RANGE LAB LIPASE(LOIN 18.0 - 51.0 U/L C) Low LIPASE 12.0 Performed By: #### [id number] #### [place] [address] CMP WITH EGFR Collected: 04/11/2018 Status: F Source: [facility] 9:51 [facility] REPOSITORY TYPE CODE TESTS RESULT OUT [...] OF AGE AND OLDER. Performed By: #### [id number] #### [facility],[address] [place] [address] AMYLASE Collected: 04/11/2018 Status: F Source: [facility] 9:51 AM [facility] REPOSITORY TYPE CODE TESTS RESULT OUT OF REFERENCE UNITS RANGE LAB AMYLASE(RAJEEV 29 - 103 U/L NC) AMYLASE 40 Performed By: #### [id number] #### [place] [address] C-REACTIVE PROTEIN Collected: 04/11/2018 Status: F Source: [facility] 9:51 AM [facility] REPOSITORY TYPE CODE TESTS RESULT OUT OF RANGE REFERENCE UNITS LAB CRP(LOINC) 0.00 - 1.00 mg/dl High CRP 2.70 Performed By: #### [id number] #### [place] [address] URINALYSIS Collected: 04/11/2018 Status: F Source: [facility] 9:48 [facility] REPOSITORY TYPE CODE TESTS RESULT OUT [...] ) NORMAL NORM Urobilinog LAB Sp NORMAL: Jenkins(LOINC) 1.010-1.030 Sp 1.010 Jenkins LAB Nitrite(LOINC) NORMAL: NEGATIVE Nitrite NEG LAB [...] LAB Yeast(LOINC) Yeast NONE Performed By: #### [id number] #### [place] [address] MAMM DIGITAL BILAT Observed: 03/04/2018 Status: F Source: RAJENDRA ROBIN SCREEN 2:[address] [address] Patient: SO RAMIREZ Phone#: : 1950 Age: 67 Gender: F Pt. Type: Out Account: [id number] Location: [facility] Ordering: JOE GRAMAJO Exam Date: 03/04/2018/14:01 Family Phys: Charge Code: 541429 Physician: Bailey Order #: [id number] DLP Dose#: PROCEDURE: MAMM BILAT DIGITAL SCREENING WITH CAD COMPARISON: [facility], BILAT SCREENING, 01/24/2015, 14:42. [facility], BILAT SCREENING, 02/28/2017, 10:10. INDICATIONS: [...] Status: F Source: RAJENDRA ROBIN 2:[address] [address] Patient: SO RAMIREZ Phone#: : 1950 Age: 67 Gender: F Pt. Type: Out Account: [id number] Location: 052 Ordering: JOE GRAMAJO Exam Date: 03/04/2018/14:00 Family Phys: Charge Code: 718083 Physician: Bailey Order #: [id number] DLP Dose#: PROCEDURE: BONE DENSITY STUDY TECHNIQUE: Lumbar vertebral and proximal femoral dual-energy X-ray absorptiometry (DXA) was performed on a central Revokom device. SPINE ANALYSIS RESULTS: Average lumbar bone [...] Report - Page 2 of 2 Patient: DOMINIQUE SO P. Phone#: : 1950 Age: 67 Gender: F Pt. Type: Out Account: [id number] Location: 052 Ordering: JOE GRAMAJO Exam Date: 03/04/2018/14:00 Family Phys: Charge Code: 066102 Physician: Bailey Order #: [id number] DLP Dose#: BMD or T-score to estimate [...] Status: F Source: RAJENDRA ROBIN 9:35 AM [facility] REPOSITORY TYPE CODE TESTS RESULT OUT OF [...] 7.10 x10EE3/U L Neut # 7.00 LAB Latimer #(LOINC) 0.20 - 1.00 x10EE3/U L Latimer # High 1.30 LAB EO #(LOINC) 0.00 - 0.50 x10EE3/U L EO # 0.40 LAB Baso #(LOINC) 0.00 - 0.10 x10EE3/U L Baso # 0.10 LAB MANUAL DIFF(LOINC) MANUAL DIFF N/A LAB MORPHOLOGY(LOINC ) MORPHOLOGY N/A Result Comment: {CD] Performed By: #### [id number] #### [place] [address] C-REACTIVE PROTEIN Collected: 02/10/2018 Status: F Source: [facility] 9:35 [facility] REPOSITORY TYPE CODE TESTS RESULT OUT OF RANGE REFERENCE UNITS LAB CRP(LOINC) 0.00 - 1.00 mg/dl CRP 0.50 Performed By: #### [id number] #### [place] [address] CREATININE Collected: 02/10/2018 Status: F Source: [facility] 9:35 [facility] REPOSITORY TYPE CODE TESTS RESULT OUT OF REFERENCE UNITS RANGE LAB CREATININE 0.6 - 1.2 mg/dl (LOINC) CREATININE 0.8 Performed By: #### [id number] #### [place] [address] SGOT (AST) Collected: 02/10/2018 Status: F Source: [facility] 9:35 [facility] REPOSITORY TYPE CODE TESTS RESULT OUT OF RANGE REFERENCE UNITS LAB AST/SGOT(LO 13 - 39 U/L INC) AST/SGOT 22 Performed By: #### [id number] #### [place] [address] SGPT (ALT) Collected: 02/10/2018 Status: F Source: [facility] 9:35 [facility] REPOSITORY TYPE CODE TESTS RESULT OUT OF RANGE REFERENCE UNITS LAB ALT/SGPT(LO 8 - 35 U/L INC) ALT/SGPT 18 Performed By: #### [id number] #### [address] [address] SEDRATE Collected: 02/10/2018 Status: F [facility] 9[facility]35 [facility] REPOSITORY TYPE CODE TESTS RESULT OUT OF REFERENCE UNITS RANGE LAB SEDRATE(RAJEEV 0 - 30 mm/hr NC) SEDRATE 16 Performed By: #### [id number] #### [address] [address] VITAMIN D, 25 Collected: 12/27/2017 Status: F Source: RAJENDRA ROBIN HYDROXY 9:50 [facility] REPOSITORY TYPE CODE TESTS RESULT OUT [...] 25-OH D2 Not Established Performed By: #### [id number] #### [address] [address] CALCIUM TOTAL Collected: 12/27/2017 Status: F Source: RAJENDRA ROBIN 9:50 [facility] REPOSITORY TYPE CODE TESTS RESULT OUT OF REFERENCE UNITS RANGE LAB CALCIUM(RAJEEV 8.6 - 10.2 mg/dl NC) CALCIUM 9.9 Performed By: #### [id number] #### [address] [address] RICKETTSIAL AB PNL Collected: 12/10/2017 Status: F Source: [facility]JENDRA [facility]AN[facility] W/REFL [QUEST] 11:22 [facility] REPOSITORY TYPE CODE TESTS RESULT OUT OF REFERENCE UNITS RANGE LAB RICKETTSIAL AB PNL W/REFL [QUEST](LOINC) RICKETTSIAL AB PNL W/REFL [QUEST] Result Comment: _RICKETTSIAL AB PNL W/REFL_ RICKETTSIA ANTIBODY PANEL WITH REFLEX TO TITERS Reported: 12/12/2017 18:20 Status=F TEST RESULT FLAG RANGE UNITS RMSF IGG Not Detected Not Detected 12/12/17.rfl.COMPLETE.AMRR .68665-1 RMSF IGG ANTIBODIES Not indicated 12/12/17.rfl.COMPLETE.AMRR .31130-9 RMSF IGM Not Detected Not Detected 12/12/17.rfl.COMPLETE.AMRR .85701-5 RMSF IGM ANTIBODIES Not indicated 12/12/17.rfl.COMPLETE.AMRR .25980-2 R. TYPHI IGG Not Detected Not Detected 12/12/17.rfl.COMPLETE.AMRR .87132-0 TYPHUS IGG ANTIBODIES Not indicated 12/12/17.rfl.COMPLETE.AMRR .61773-6 R. TYPHI IGM Not Detected Not Detected 12/12/17.rfl.COMPLETE.AMRR .46052-3 TYPHUS IGM ANTIBODIES Not indicated 12/12/17.rfl.COMPLETE.AMRR .48166-0 Test Performed by [facility], [employer], [address] [place], [place] Nathaniel Turk M.D., Ph.D., Director of Laboratories , [facility] [id number] Performed By: #### [id number] #### [facility],[address] [place] [address] LYME DISEASE ABS Collected: 12/10/2017 Status: F [facility] IMMUBLOT 11:22 AM [facility] [QU] REPOSITORY TYPE CODE TESTS RESULT OUT [...] exposure to other spirochetes. Test Performed by [facility], [employer], [address] [place] [address] Nathaniel Turk M.D., Ph.D., Director of Laboratories , [place] [id number] Performed By: #### [id number] #### [facility],[address] [place] [address] CBC Collected: 12/02/2017 Status: F Source: [facility] 9:24 AM [facility] REPOSITORY TYPE CODE TESTS RESULT OUT OF [...] 7.10 x10EE3/U L Neut # 5.40 LAB Latimer #(LOINC) 0.20 - 1.00 x10EE3/U L Latimer # High 1.20 LAB EO #(LOINC) 0.00 - 0.50 x10EE3/U L EO # 0.30 LAB Baso #(LOINC) 0.00 - 0.10 x10EE3/U L Baso # 0.10 LAB MANUAL DIFF(LOINC) MANUAL DIFF N/A LAB MORPHOLOGY(LOINC ) MORPHOLOGY N/A Result Comment: {CD] Performed By: #### [id number] #### [facility],[address] [place], [place] [address] C-REACTIVE PROTEIN Collected: 12/02/2017 Status: F Source: [facility] 9:24 AM [facility] REPOSITORY TYPE CODE TESTS RESULT OUT OF RANGE REFERENCE UNITS LAB CRP(LOINC) 0.00 - 1.00 mg/dl High CRP 1.10 Performed By: #### [id number] #### [place] [address] CREATININE Collected: 12/02/2017 Status: F Source: [facility] 9:24 AM [facility] REPOSITORY TYPE CODE TESTS RESULT OUT OF REFERENCE UNITS RANGE LAB CREATININE 0.6 - 1.2 mg/dl (LOINC) CREATININE 0.8 Performed By: #### [id number] #### [place] [address] SGOT (AST) Collected: 12/02/2017 Status: F Source: [facility] 9:24 AM [facility] REPOSITORY TYPE CODE TESTS RESULT OUT OF RANGE REFERENCE UNITS LAB AST/SGOT(LO 13 - 39 U/L INC) AST/SGOT 32 Performed By: #### [id number] #### [place] [address] SGPT (ALT) Collected: 12/02/2017 Status: F Source: [facility] 9:24 AM [facility] REPOSITORY TYPE CODE TESTS RESULT OUT OF RANGE REFERENCE UNITS LAB ALT/SGPT(LO 8 - 35 U/L INC) ALT/SGPT 31 Performed By: #### [id number] #### [place] [address] SEDRATE Collected: 12/02/2017 Status: F Source: [facility] 9:24 AM [facility] REPOSITORY TYPE CODE TESTS RESULT OUT OF REFERENCE UNITS RANGE LAB SEDRATE(RAJEEV 0 - 30 mm/hr NC) SEDRATE 14 Performed By: #### [id number] #### [place] [address] CBC Collected: 10/10/2017 Status: F Source: [facility] 7:54 AM [facility] REPOSITORY TYPE CODE TESTS RESULT OUT OF [...] 7.10 x10EE3/U L Neut # 3.70 LAB Latimer #(LOINC) 0.20 - 1.00 x10EE3/U L Latimer # High 1.50 LAB EO #(LOINC) 0.00 - 0.50 x10EE3/U L EO # 0.40 LAB Baso #(LOINC) 0.00 - 0.10 x10EE3/U L Baso # 0.00 LAB MANUAL DIFF(LOINC) MANUAL DIFF N/A LAB MORPHOLOGY(LOINC ) MORPHOLOGY N/A Result Comment: {CD] Performed By: #### [id number] #### [facility],[address] [place] [address] CMP WITH EGFR Collected: 10/10/2017 Status: F Source: [facility] 7:54 AM [facility] REPOSITORY TYPE CODE TESTS RESULT OUT OF [...] OF AGE AND OLDER. Performed By: #### [id number] #### [facility],[address] [place] [address] LIPID PROFILE Collected: 10/10/2017 Status: F Source: [facility] 7:54 [facility] REPOSITORY TYPE CODE TESTS RESULT OUT [...] 129 mg/dl LDL 97 Performed By: #### [id number] #### [facility],[address] [place], [place] [address] VITAMIN B-12 Collected: 10/10/2017 Status: F Source: [facility] 7:54 [facility] REPOSITORY TYPE CODE TESTS RESULT OUT OF REFERENCE UNITS RANGE LAB N(LOINC) 180 - 914 pg/mL High VITAMIN B12 1162 Performed By: #### [id number] #### [place] [address] HGB A1C Collected: 10/10/2017 Status: F [facility] REPOSITORY TYPE CODE TESTS RESULT OUT OF RANGE REFERENCE UNITS LAB HGB 4.4 - 6.4 % A1C(LOINC) HGB A1C 5.8 Result Comment: {HB] {A1] Performed By: #### [id number] #### [facility],[address] [place], [place] [address] CBC Collected: 09/18/2017 Status: F [facility]: [facility]04 [facility] REPOSITORY TYPE CODE TESTS RESULT OUT [...] 7.10 x10EE3/U L Neut # 4.70 LAB Latimer #(LOINC) 0.20 - 1.00 x10EE3/U L Latimer # High 1.40 LAB EO #(LOINC) 0.00 - 0.50 x10EE3/U L EO # 0.40 LAB Baso #(LOINC) 0.00 - 0.10 x10EE3/U L Baso # High 0.20 LAB MANUAL DIFF(LOINC) MANUAL DIFF N/A LAB MORPHOLOGY(LOINC ) MORPHOLOGY N/A Result Comment: {CD] Performed By: #### [id number] #### [facility],[address] [place] [address] CMP WITH EGFR Collected: 09/18/2017 Status: F Source: [facility] 9:04 AM [facility] REPOSITORY TYPE CODE TESTS RESULT OUT OF [...] OF AGE AND OLDER. Performed By: #### [id number] #### [facility],[address] [place] [address] C-REACTIVE PROTEIN Collected: 09/18/2017 Status: F Source: [facility] 9:04 AM [facility] REPOSITORY TYPE CODE TESTS RESULT OUT OF RANGE REFERENCE UNITS LAB CRP(LOINC) 0.00 - 1.00 mg/dl CRP 0.40 Performed By: #### [id number] #### [facility],[address] [place] [address] SEDRATE Collected: 09/18/2017 Status: F Source: [facility] 9:04 AM [facility] REPOSITORY TYPE CODE TESTS RESULT OUT OF REFERENCE UNITS RANGE LAB SEDRATE(RAJEEV 0 - 30 mm/hr NC) SEDRATE 15 Performed By: #### [id number] #### [facility],[address] [place] [address] ALLERGIES ALLERGIES DATE TYPE / CODE NAME / CODE REACTION SEVERITY SOURCE 07/15/2018 Drug Penicillins/[id number] Rash [place] Allergy/416 0476(RXNORM) [facility] 717710([facility] ED CT) Repository 07/15/2018 Drug Sulfa (Sulfonamide gi upset [place] Allergy/416 Antibiotics)/F0010 [facility] 371348([facility] 93206(RXNORM) [facility] ED CT) Repository 07/15/2018 Drug codeine/[id number] Nausea/Vom/Diar Unknown [place] Allergy/416 (RXNORM) jules [facility] 045018([facility] ED CT) Repository 07/15/2018 Drug acetaminophen/F006 Nausea/Vom/Diar [place] All[facility]/416 969014(RXNORM) jules [facility] 241074([facility] ED CT) Repository 07/15/2018 Drug doxycycline/N66305 gi upset [place] Allergy/416 2748(RXNORM) [facility] 718663([facility] ED CT) Repository 07/15/2018 Drug meperidine/[id number] gi upset [place] Allergy/416 620(RXNORM) [facility] 220496([facility] ED CT) Repository 07/15/2018 Drug levofloxacin/F0060 gi upset [place] [facility]/416 58657(RXNORM) [facility] [id number]([facility] ED CT) Repository 07/15/2018 Drug moxifloxacin/F0060 gi upset [place] [facility]/416 84975(RXNORM) [facility] [id number]([facility] ED CT) Repository Drug SULFA RASH Mild [place] [place] Allergy/416 (sulfonamide)/0000 ([facility] [id number](SNOM 0022(RXNORM) Value) [facility] ED CT) Repository Drug PENICILLINS RASH Mild [facility]endra P[place] Allergy/416 (CLASS)/[id number](R ([facility] 925581(SNOM XNORM) Value) Hospital ED CT) Repository Drug MEPERIDINE/7806417 NAUSEA Mild Rajendra Pomerene Allergy/416 9(RXNORM) ([facility] 507469(SNOM Value) Hospital ED CT) Repository Drug DOXYCYCLINE/049972 RASH Mild Rajendra Pomerene Allergy/416 40(RXNORM) (Qualifier [facility] 217365(SNOM Value) [facility] ED CT) Repository Drug AVELOX/68704998(RX NAUSEA Mild Rajendra Pomerene Allergy/416 NORM) ([facility] 487112(SNOM Value) [facility] ED CT) Repository Drug LEVAQUIN/47511250( RASH Mild Rajendra Pomerene Allergy/416 RXNORM) ([facility] 287338(SNOM Value) Hospital ED CT) Repository Drug DEMEROL/51367322(R NAUSEA Mild Rajendra Pomerene Allergy/416 XNORM) (Qualifier [facility] 616582(SNOM Value) [facility] ED CT) Repository ENCOUNTERS ENCOUNTERS ADMIT/DISCHARGE ACCOUNT NUMBER ADMITTING ENCOUNTER LOCATION SOURCE CLASS 07/15/2018/07/15/20 [id number] Ambulatory BMSBuilding: [address] Repository 07/15/2018 [id number] Ambulatory [facility] ding:WOBLAB Repository 07/11/2018/07/11/20 [id number] Emergency [address] ding:ED Repository 07/07/2018 [id number] Cebul, Ambulatory BMSBuilding: [place] Zepeda [facility] Repository 07/07/2018/07/09/20 [id number] Ambulatory BMSBuilding: [address] Repository 07/07/2018/07/09/20 [id number] Cebul, Inpatient [address] ding:LM3Riuu Repository : YB182Jkn: 1 07/07/2018 [id number] Cebul, Ambulatory BMSBuilding: [place] [facility]MS.[facility] Repository 07/07/2018 [id number] Cebul, Ambulatory BMSBuilding: [facility] [place] [facility]MS.[facility] Repository 07/07/2018 [id number] Cebul, Ambulatory BMSBuilding: [place] BMS.[facility] Repository 06/30/2018/06/30/20 [id number] Ambulatory BMSBuilding: [place] 18 BMS.[facility] Repository 06/30/2018 [id number] [facility] 06/30/2018 [id number] Ambulatory BMSBuilding: [facility] Repository 06/22/2018/06/22/20 [id number] GIDEON Emergency Buildin[address] [place] [address] Room: ERBed: [facility] Repository 06/09/2018 [id number] Ambulatory Buildin[address] [place] [address] ([place]) Repository 06/03/2018/06/03/[id number] ZIA Emergency Buildin[address] [place] [address] Room: ERBed: [facility] Repository 06/02/2018/06/02/20 [id number] Ambulatory BMSBuilding: [place] 18 BMS.[facility] Repository 05/23/2018 [id number] Ambulatory [facility] ding:WOBLAB Repository 05/23/2018/05/23/20 [id number] [facility], Ambulatory [address] Repository 05/22/2018/05/22/20 [id number] Ambulatory [address] ding:ENRoom: Repository AC14 05/22/2018/05/22/20 [id number] Ambulatory BMSBuilding: [place] 18 BMS.CF.[facility] Repository 05/19/2018 [id number] Ambulatory BMSBuilding: [place] [facility] Repository 05/19/2018 [id number] Ambulatory [facility] ding:US Repository 05/12/2018/10/08 [id number] Ambulatory BMSBuilding: [place] 18 BMS.WSA [facility] Repository 05/07/2018/05/07/20 [id number] ANNA [facility] 18 CHELA PHILLIPS [facility] Repository 05/05/2018/05/05/20 [id number] JOHNNA BROWN Ambulatory Buildin [facility] 18 Room: [address] Repository 04/22/2018/04/22/20 [id number] JOHNNA BROWN Ambulatory [address] Repository 04/12/2018/04/12/20 [id number] JOE MORGAN Emergency Buildin [facility] 18 DO Room: ERBed: [facility] Repository 04/11/2018/04/11/[id number] ZIA Emergency Buildin [facility] 18 KIRAN C Room: ERBed: [facility] Repository 03/04/2018/03/04/20 [id number] JOE GRAMAJO Ambulatory [facility] 18 [facility] Repository 02/10/2018/02/11/20 [id number] [facility], Ambulatory Rajendra Pomerene 18 [facility] Repository 12/27/2017/12/28/19 [id number] MARYJOE Ambulatory Rajendra Pom[address] Repository 12/10/2017/12/11/19 [id number] [facility], Ambulatory [facility] 18 [facility] Repository 12/09/2017 [id number] Ambulatory Buildin[address] [place] [address] ([place]) Repository 12/02/2017/12/03/19 [id number] KERRI, Ambulatory Rajendra Pomerene 18 [facility] Repository 10/28/2017/10/29/19 [id number] JOHNNA BROWN Ambulatory [address] Repository 10/10/2017/10/11/[id number] [facility] [place] [place] [facility] 18 CHELA [facility] Repository 09/18/2017/09/18/19 [id number] [facility], Ambulatory Rajendra Pomerene 18 [facility] Repository PAYERS PAYERS ENCOUNTER GUARANTOR PAYER SUBSCRIBER SOURCE 07/15/2018 SO Mohr Primary SO [id number] E Insurance:MEDICARE DALTONDOB: [facility] A BPolicy Number: [id number] [id number] Repository [address]Het: (330) Date:2018-07-103162 () 07/15/2018 Secondary SO P [place] Insurance:MEDICAIDPoli DALTONDOB: Community cy Number: [id number] Hospital [id number] Repository Date:2018-07-10 07/15/2018 Tertiary NOT GIVENUNK [place] Insurance:SELF PAY [facility] Number: Effective Repository Date:2018-07-10 07/15/2018 SO P Primary SO P [place] [id number] E Insurance:MEDICARE DALTONDOB: [facility] PART A BPolicy Number: [id number] [id number] Repository [address]18[address]Xoc: (330) Date:2018-07-151952 () 07/15/2018 Secondary SO P [place] Insurance:MEDICAIDPoli DALTONDOB: [facility] cy Number: [id number] Hospital [id number] Repository Date:2018-07-15 07/15/2018 Tertiary NOT GIVENUNK [place] Insurance:SELF PAY [facility] Number: Effective Repository Date:2018-07-15 07/11/2018 SO P Primary SO P [place] [id number] E Insurance:MEDICARE DALTONDOB: [facility] PART A BPolicy Number: [id number] [id number] Repository [address]Caj: (330) Date:2018-07-113162 () 07/11/2018 Secondary SO P [place] Insurance:MEDICAIDPoli DALTONDOB: [facility] cy Number: [id number] Hospital [id number] Repository Date:2018-07-11 07/11/2018 Tertiary NOT GIVENUNK [place] Insurance:SELF PAY [facility] Number: Effective Repository Date:2018-07-11 07/07/2018 SO P Primary SO P [place] [id number] E Insurance:MEDICARE DALTONDOB: [facility] PART A BPolicy Number: [id number] [id number] Repository 47[address]Xvi: (330) Date:2018-06-04534 () 07/07/2018 Secondary SO P [place] Insurance:MEDICAIDPoli DALTONDOB: Community cy Number: [id number] Hospital [id number] Repository Date:2018-06-04 07/07/2018 Tertiary NOT GIVENUNK [place] Insurance:SELF PAY [facility] Number: Effective Repository Date:2018-07-07 07/07/2018 SO P Primary SO P [place] [id number] E Insurance:MEDICARE DALTONDOB: [facility] PART A BPolicy Number: [id number] [id number] Repository 26[address]Fcr: (330) Date:2018-06-04107 () 07/07/2018 Secondary SO P [place] Insurance:MEDICAIDPoli DALTONDOB: [facility] cy Number: [id number] Hospital [id number] Repository Date:2018-06-04 07/07/2018 Tertiary NOT GIVENUNK [place] Insurance:SELF PAY [facility] Number: Effective Repository Date:2018-07-07 07/07/2018 SO P Primary SO P [place] [id number] E Insurance:MEDICARE DALTONDOB: [facility] PART A BPolicy Number: [id number] [id number] Repository 613[address]Mvf: (330) Date:2018-06-041138 () 07/07/2018 Secondary SO P [place] Insurance:MEDICAIDPoli DALTONDOB: [facility] cy Number: [id number] Hospital [id number] Repository Date:2018-06-04 07/07/2018 Tertiary NOT GIVENUNK [place] Insurance:SELF PAY [facility] Number: Effective Repository Date:2018-06-04 07/07/2018 SO P Primary SO P [place] [id number] E Insurance:MEDICARE DALTONDOB: Community [place]LLY [facility] PART A BPolicy Number: [id number] [id number] Repository [address]Yhv: (330) Date:2018-06-04549 () 07/07/2018 Secondary SO P [place] Insurance:MEDICAIDPoli DALTONDOB: Community cy Number: [id number] Hospital [id number] Repository Date:2018-06-04 07/07/2018 Tertiary NOT GIVENUNK [place] Insurance:SELF PAY [facility] Effective Repository Date:2018-07-07 07/07/2018 SO P Primary SO P [place] [id number] E Insurance:MEDICARE [facility] A BPolicy Number: [id number] [id number] Repository 66[address]Wgf: (330) Date:2018-06-04259 () 07/07/2018 Secondary SO P [place] Insurance:MEDICAIDPoli DALTONDOB: Community cy Number: [id number] Hospital [id number] Repository Date:2018-06-04 07/07/2018 Tertiary NOT GIVENUNK [place] Insurance:SELF PAY [facility] Number: Effective Repository Date:2018-07-07 07/07/2018 SO P Primary SO P [place] [id number] E Insurance:MEDICARE DALTONDOB: [facility] PART A BPolicy Number: [id number] [id number] Repository 27[address]Mea: (330) Date:2018-06-04790 () 07/07/2018 Secondary SO P [place] Insurance:MEDICAIDPoli DALTONDOB: Community cy Number: [id number] Hospital [id number] Repository Date:2018-06-04 07/07/2018 Tertiary NOT GIVENUNK [place] Insurance:SELF PAY [facility] Number: Effective Repository Date:2018-07-07 06/30/2018 SO P Primary SO P [place] [id number] E Insurance:MEDICARE DALTONDOB: Community NELLY [facility] PART A BPolicy Number: [id number] [id number] Repository [address]Zax: (330) Date:2018-06-05 () 06/30/2018 Secondary SO P [place] Insurance:MEDICAIDPoli DALTONDOB: [facility] cy Number: [id number] Hospital [id number] Repository Date:2018-06-05 06/30/2018 Tertiary NOT GIVENUNK [place] Insurance:SELF PAY [facility] Number: Effective Repository Date:2018-06-30 06/30/2018 SO P Primary SO P [place] [id number] E Insurance:MEDICARE DALTONDOB: [facility] A BPolicy Number: [id number] [id number] Repository [address]Cvq: (330) Date:2018-06-04 () 06/30/2018 Secondary SO P [place] Insurance:MEDICAIDPoli DALTONDOB: [facility] cy Number: [id number] Hospital [id number] Repository Date:2018-06-04 06/30/2018 Tertiary NOT GIVENUNK [place] Insurance:SELF PAY [facility] Number: Effective Repository Date:2018-06-30 06/30/2018 SO P Primary SO P [place] [id number] E Insurance:MEDICARE DALTONDOB: [facility] PART A BPolicy Number: [id number] [id number] Repository 43[address]Ksw: (330) Date:2018-06-04 () 06/30/2018 Secondary SO P [place] Insurance:MEDICAIDPoli DALTONDOB: [facility] cy Number: [id number] Hospital [id number] Repository Date:2018-06-04 06/30/2018 Tertiary NOT GIVENUNK [place] Insurance:SELF PAY [facility] Number: Effective Repository Date:2018-06-30 06/22/2018 SO P Primary Insurance:500 SO Robin DALTONDOB: MEDICARE DALTONDOB: [facility] [id number] [facility] Number: Jaden [facility]ository [facility] [id number] [place] Date:Plan Name: [id number]: (HP) 06/22/2018 Secondary SO P Rajendra Pomerene Insurance:100 MEDICAID DALTONDOB: [facility] [id number] Hospital Number: NELLY [facility] Repository [id number] [place] Date:Plan Name:[id number] 06/03/2018 SO P Primary Insurance:500 [place] Rajendra Pomerene DALTONDOB: MEDICARE DALTONDOB: [facility] [id number] [facility] Number: Jaden [facility] [id number] [place] [facility] [place] Date:Plan Name: [id number]: () 06/03/2018 Secondary SO P Rajendra Pomerene Insurance:100 MEDICAID DALTONDOB: [facility] [id number] Hospital Number: NELLY [facility] Repository [id number] [address] [place] [address] Date:Plan Name:[id number] 06/02/2018 SO Mohr Primary SO P [place] [id number] E Insurance:MEDICARE DALTONDOB: [facility] PART A BPolicy Number: [id number] [address] [id number] Repository [address]23[address]Eot: (316) Date:2018-05-23 [phone] (HP) 06/02/2018 Secondary SO P [place] Insurance:MEDICAIDPoli DALTONDOB: Community cy Number: [id number] [facility] [id number] Repository Date:2018-05-23 06/02/2018 Tertiary NOT GIVENUNK [place] Insurance:SELF PAY [facility] Number: Effective Repository Date:2018-05-29 05/23/2018 SO P Primary SO P [place] [id number] E Insurance:MEDICARE DALTONDOB: [facility] PART A BPolicy Number: [id number] [address] [id number] Repository [address]07[address]Ftb: (330) Date:2018-05-23 [phone] (HP) 05/23/2018 Secondary SO P [place] Insurance:MEDICAIDPoli DALTONDOB: Community cy Number: [id number] Hospital [id number] Repository Date:2018-05-23 05/23/2018 Tertiary NOT GIVENUNK [place] Insurance:SELF PAY [facility] Number: Effective Repository Date:2018-05-23 05/23/2018 SO P Primary Insurance:500 SO P Rajendra Pomerene DALTONDOB: MEDICARE DALTONDOB: [facility] [id number] [facility] Number: [facility] Repository [facility] [id number] [address] [place] [address] Date:Plan Name: [id number]: () 05/23/2018 Secondary SO P Rajendra Pomterrane Insurance:100 MEDICAID DALTONDOB: [facility] [id number] [facility] Number: [facility] LOT Repository [id number] [address] [place] [address] Date:Plan Name: [id number] 05/22/2018 SO P Primary SO P [place] [id number] E Insurance:MEDICARE DALTONDOB: [facility] PART A BPolicy Number: [id number] [address] [id number] Repository 19561Bhy: (330) Date:2018-05-12 [phone] (HP) 05/22/2018 Secondary SO P [place] Insurance:MEDICAIDPoli DALTONDOB: Community cy Number: [id number] [facility] [id number] Repository Date:2018-05-12 05/22/2018 Tertiary NOT GIVENUNK [place] Insurance:SELF PAY [facility] Number: Effective Repository Date:2018-05-12 05/22/2018 SO P Primary SO P [place] [id number] E Insurance:MEDICARE DALTONDOB: Community [facility] PART A BPolicy Number: [id number] [id number] Repository [address]Ioi: (330) Date:2018-05-123162 () 05/22/2018 Secondary SO P [place] Insurance:MEDICAIDPoli DALTONDOB: Community cy Number: [id number] Hospital [id number] Repository Date:2018-05-12 05/22/2018 Tertiary NOT GIVENUNK [place] Insurance:SELF PAY [facility] Number: Effective Repository Date:2018-05-22 05/19/2018 SO P Primary SO P [place] [id number] E Insurance:MEDICARE DALTONDOB: [facility] PART A BPolicy Number: [id number] [id number] Repository [address]Zpz: (330) Date:2018-05-123162 () 05/19/2018 Secondary SO P [place] Insurance:MEDICAIDPoli DALTONDOB: Community cy Number: [id number] Hospital [id number] Repository Date:2018-05-12 05/19/2018 Tertiary NOT GIVENUNK [place] Insurance:SELF PAY [facility] Number: Effective Repository Date:2018-05-19 05/19/2018 SO P Primary OS P [place] [id number] E Insurance:MEDICARE DALTONDOB: [facility] PART A BPolicy Number: [id number] [id number] Repository [address]Cvv: (330) Date:2018-05-123162 () 05/19/2018 Secondary SO P [place] Insurance:MEDICAIDPoli DALTONDOB: Community cy Number: [id number] Hospital [id number] Repository Date:2018-05-12 05/19/2018 Tertiary NOT GIVENUNK [place] Insurance:SELF PAY [facility] Number: Effective Repository Date:2018-05-12 05/12/2018 SO P Primary SO P [place] [id number] E Insurance:MEDICARE DALTONDOB: [facility] PART A BPolicy Number: [id number] [address] [id number] Repository [address]Jzj: (330) Date:2018-05-08 [phone] (HP) 05/12/2018 Secondary SO P [place] Insurance:MEDICAIDPoli DALTONDOB: Community cy Number: [id number] [facility] [id number] Repository Date:2018-05-08 05/12/2018 Tertiary NOT GIVENUNK [place] Insurance:SELF PAY [facility] Number: Effective Repository Date:2018-05-12 05/07/2018 SO P Primary SO P Rajendra Pomerene DALTONDOB: Insurance:MEDICAREPoli DALTONDOB: [facility] cy Number: [id number] [facility] [id number] [facility] Date:Plan Name:[address] [id number]: (HP) 05/07/2018 Secondary [place] Rajendra Pomerene Insurance:100 MEDICAID DALTONDOB: [facility] [id number] Hospital Number: [facility] Repository [id number] [place], [place] Date:Plan Name: [id number] 05/05/2018 SO P Primary Insurance:500 SO P Rajendra Pomerene DALTONDOB: MEDICARE DALTONDOB: [facility] E [facility] [id number] [place] [address] Number: E [address] [id number] [address]Kmx: (330) Date:Plan Name: [id number] [phone] (HP) 05/05/2018 Secondary SO P Rajendra Pomerene Insurance:100 MEDICAID DALTONDOB: [facility] [id number] Hospital Number: [facility] LOT Repository [id number] [place] Date: [id number] 04/22/2018 SO Moh[place] Primary Insurance:500 [place] Rajendra Pomerene DALTONDOB: MEDICARE DALTONDOB: [facility] [id number] [facility] Number: [facility] LOT Repository [place] [id number] [address] [place] [address], [place] [address]Qaa: (330) Date:Plan Name: [id number] [phone] () 04/12/2018 SO Moh[place] Primary Insurance:500 SO P Rajendra Pomerene DALTONDOB: MEDICARE DALTONDOB: [facility] E [facility] [id number] [place] [address] Number: [facility] LOT Repository [place] [id number] [address] [place] [address], [place] [address]Soz: (330) Date:Plan Name: [id number] 231[facility] () 04/12/2018 Secondary [place] Rajendra Pomerene Insurance:100 MEDICAID DALTONDOB: [facility] [id number] [facility] Number: [facility] Repository [id number] [facility] [place] Date: [id number] 04/12/2018 Tertiary SO Drew Pomerene Insurance:MEDICARE DALTONDOB: [facility] [id number] [facility] Number: [facility] Repository [id number] [place] Date:Plan Name: [id number] 04/11/2018 SO Moh[place] Primary Insurance:500 [place] Rajendra Pomerene DALTONDOB: MEDICARE DALTONDOB: [facility] [id number] [place] [address] Number: E [facility] Repository [place] [id number] [facility], [place] [address]Kac: (330) Date:Plan Name: [id number] [facility] () 04/11/2018 Secondary [place] Rajendra Pomerene Insurance:100 MEDICAID DALTONDOB: [facility] [id number] Hospital Number: [address] LOT Repository [id number] [facility] [place] Date: [id number] 04/11/2018 Tertiary SO Drew Pomerene Insurance:MEDICARE DALTONDOB: [facility] [id number] Hospital Number: E [facility] Repository [id number] [facility], [place] Date:Plan Name: [id number] 03/04/2018 SO Mohr Primary SO Mohr Rajendra Pomerene DALTONDOB: Insurance:MEDICARE DALTONDOB: [facility] [id number] [facility] Number: Jaden [facility] Repository [place] [id number] [place] [address]Ayi: (330) Date:Plan Name: [id number] 231-[facility] () 03/04/2018 Secondary SO Drew Pomerene Insurance:MEDICAID DALTONDOB: [facility] [id number] Hospital Number: [facility] LOT Repository [id number] [facility] [place] Date:Plan Name:[id number] [id number] 02/10/2018 SO Mohr Primary Insurance:500 SO Branerefelicitas DALTONDOB: MEDICARE DALTONDOB: [facility] [id number] [facility] Number: E [facility] Repository [place] [id number] [place] [address]Tjt: (330) Date:Plan Name: [id number] [phone] () 02/10/2018 Secondary SO Drew Pomerene Insurance:100 MEDICAID DALTONDOB: [facility] [id number] Hospital Number: [address] LOT Repository [id number] [facility] [place] Date:Plan Name:[id number] 12/27/2017 SO Mohr Primary Insurance:500 SO Drew Pomerene DALTONDOB: MEDICARE DALTONDOB: [facility] E [facility] [id number] [facility] Number: [address] LOT Repository [place] [id number] [place] [address]Guw: (330) Date:Plan Name: [id number] [phone] () 12/27/2017 Secondary SO Drew Pomerene Insurance:100 MEDICAID DALTONDOB: [facility] [id number] Hospital Number: [facility] LOT Repository [id number] [facility] [place] Date:Plan Name:[id number] [id number] 12/10/2017 SO Mohr Primary Insurance:500 SO Drew Pomerene DALTONDOB: MEDICARE DALTONDOB: [facility] E [facility] [id number] [facility] Number: [facility] LOT Repository [facility] [place] [id number] [facility] [place] [address]Fsk: (330) Date:Plan Name: [id number] [phone] () 12/10/2017 Secondary SO Drew Pomerene Insurance:100 MEDICAID DALTONDOB: [facility] [id number] Hospital Number: [address] LOT Repository [id number] [facility] [place] Date:Plan Name:[id number] 12/02/2017 SO Mohr Primary Insurance:500 SO Fani Drew Pomerene DALTONDOB: MEDICARE DALTONDOB: [facility] [facility] [id number] [facility] Number: [address] Repository [place] [id number] [facility] [place] [address]Lyo: [phone]) Date:Plan Name: [id number] [id number] (HP) 12/02/2017 Secondary SO Drew Pomerene Insurance:100 MEDICAID DALTONDOB: [facility] [id number] Hospital Number: [address] Repository [id number] [facility] Date:Plan Name:X1 [id number] 10/28/2017 SO P Primary Insurance:500 SO P Rajendra Pomerene DALTONDOB: MEDICARE DALTONDOB: [facility] [id number] [facility] Number: [address] [place] [id number] [address] [place] [address]Jgp: [phone]) Date:Plan Name: [id number] (HP) 10/28/2017 Secondary SO P Rajendra Pomerene Insurance:100 MEDICAID DALTONDOB: [facility] [id number] Hospital Number: [facility] LOT Repository [id number] [facility] Date:Plan Name:X1 [id number] 10/10/2017 SO P Primary Insurance:500 SO P Rajendra Pomerene DALTONDOB: MEDICARE DALTONDOB: [facility] [id number] [place] [address] Number: [facility] LOT Repository [facility] [id number] [place] [facility] [place] Date:Plan Name: [id number]: (HP) 10/10/2017 Secondary SO P Rajendra Pomerene Insurance:100 MEDICAID DALTONDOB: [facility] [id number] Hospital Number: [facility] LOT Repository [id number] [place] Date: [id number] 09/18/2017 SO P Primary Insurance:500 SO P Rajendra Pomerene DALTONDOB: MEDICARE DALTONDOB: [facility] [id number] [place] [address] Number: [address] Rep[place] [id number] [facility] [place] [address]Yek: [phone]) Date:Plan Name: [id number] (HP) 09/18/2017 Secondary SO P Rajendra Pomerene Insurance:100 MEDICAID DALTONDOB: [facility] [id number] Hospital Number: [address] Repository [id number] [address] [place] [address] Date: [id number]
== END ==
PROVIDERS: Visit Provider Obstetrics & Gynecology
DX: M81.0 Age-related osteoporosis without current pathological fracture (principal)
CPT/HCPCS: 36415; 82306; 82310

== ENCOUNTER 2018-11-14 05:47 | Day surgery (SDC) | payer MEDICARE, MEDICAID, SELFPAY ==
[2018-10-13 13:59] VITALS: BMI 28.7
[2018-11-14] VITALS (10 sets, daily range): BP systolic 130–151; BP diastolic 74–129; PULSE 77–91; RESP 16; TEMP 36.4–36.7; O2SAT 97–100; BMI 28.3
--- NOTE | 2018-11-14 05:47 | PCM.HP.STD ---
Problem List (1) Stricture of sigmoid colon Status: Acute History of Present Illness Date of Admission: 11/14/18 The patient is a 67 year old F who presents for a screening colonoscopy. The patient was unable to have a colonoscopy performed secondary to his severe sigmoid stricture. On July 07, 2018 I performed a laparoscopic converted to hand-assisted laparoscopic low anterior resection because of the severe stricture. At that same setting Dr. Lg Gramajo also performed a bilateral salpingo-oophorectomy. The patient is on 3 different immunologic suppressive agents. She presents at this time to undergo a colonoscopy. She has been recovering well from her surgery. Past Medical History Medical History: Medical History (Last Reviewed 10/13/18 @ 13:58 by Andree Vickers) Diverticulitis large intestine (Acute) K57.32 Rheumatoid arthritis (Acute) M06.9 Adnexal mass (Acute) N94.9 Diverticulosis (Acute) K57.90 Colitis (Acute) K52.9 Abnormal peripheral pulse (Acute) R09.89 Aneurysm of infrarenal abdominal aorta (Acute) I71.4 Hiatal hernia with GERD (Acute) K21.9, K44.9 AAA (abdominal aortic aneurysm) I71.4 COPD (chronic obstructive pulmonary disease) J44.9 Chronic back pain M54.9, G89.29 Diverticulitis K57.92 GERD (gastroesophageal reflux disease) K21.9 Hemorrhoid K64.9 Osteoarthritis M19.90 Rheumatoid arthritis M06.9 HTN (hypertension) I10 Allergies Penicillins Allergy (Mild, Verified 10/13/18 13:59) rash doxycycline Adverse Reaction (Mild, Verified 10/13/18 13:59) gi upset levofloxacin [From Levaquin] Adverse Reaction (Mild, Verified 10/13/18 13:59) gi upset meperidine [From Demerol] Adverse Reaction (Mild, Verified 10/13/18 13:59) gi upset moxifloxacin [From Avelox] Adverse Reaction (Mild, Verified 10/13/18 13:59) gi upset Sulfa (Sulfonamide Antibiotics) Adverse Reaction (Mild, Verified 10/13/18 13:59) gi upset acetaminophen [From Tylenol-Codeine] Adverse Reaction (Verified 10/13/18 13:59) Nausea/Vom/Diarrhea codeine [From Tylenol-Codeine] Adverse Reaction (Verified 10/13/18 13:59) Nausea/Vom/Diarrhea Home Medications: Ambulatory Orders Medication Instructions Recorded adalimumab 40 mg/0.8 mL 40 mg SC Q2W 05/12/18 subcutaneous pen kit aspirin 81 mg tablet,delayed 81 mg PO DAILY 05/12/18 release denosumab 60 mg/mL subcutaneous 60 mg SC [id number] 05/12/18 syringe fluticasone 250 mcg-salmeterol 50 1 inh INHALATION BID 05/12/18 mcg/dose blistr powdr for inhalation fluticasone propionate 50 1 inh INHALATION BID PRN 05/12/18 mcg/actuation blister powder for inhalation fluvastatin 40 mg capsule 80 mg PO QHS 05/12/18 folic acid 1 mg tablet 4 mg PO DAILY 05/12/18 melatonin 3 mg tablet 3 mg PO HS PRN 05/12/18 methotrexate sodium 2.5 mg tablet 7.5 mg PO SA 05/12/18 omega 1-vxf-dgq-fish oil 60 mg-90 1 cap PO DAILY 05/12/18 mg-500 mg capsule omeprazole 20 mg capsule,delayed 20 mg PO DAILY 05/12/18 release potassium chloride ER 20 mEq 20 meq PO DAILY 05/12/18 tablet,extended release(part/cryst) prednisone 2.5 mg tablet 2.5 mg PO DAILY 05/12/18 triamterene 37.5 1 cap PO DAILY 05/12/18 mg-hydrochlorothiazide 25 mg capsule Turmeric/Turmeric Root Extract 1 ea PO DAILY 06/30/18 [Turmeric 500 mg Capsule] Albuterol Inhaler [Ventolin Hfa 1 puff INHALATION Q4H PRN PRN 07/11/18 (SP)] Calcium Carb/Vitamin D 1 tab PO DAILY 07/11/18 [Caltrate-600 With Vit D Tab] Garlic 1,000 mg PO DAILY 07/11/18 Surgical History: Surgical History (Last Reviewed 10/13/18 @ 13:58 by Andree Vickers) History of cataract extraction Z98.49 History of cholecystectomy Z90.49 History of colectomy Onset Date: ~06/2018 Z90.49 History of colonoscopy Z98.890 History of tubal ligation Z98.51 Smoking Status: Never smoker Review of Systems Constitutional: Denies: Anorexia HEENT: Denies: Difficulty Swallowing Cardiovascular: Denies: Chest Pain Respiratory: Denies: Cough Gastrointestinal: Denies: Abdominal Pain Endocrine: Denies: Change in Body Habitus VTE Information - Inpt Only VTE Present on Admission: No - Physical Exam General: Alert, Oriented x3, Cooperative, No apparent distress HEENT: Atraumatic Oral: Moist Mucosa Neck: Supple Lungs: Clear to auscultation Cardiovascular: Regular rate, Regular Rhythm Abdomen: Soft, Non Tender Extremities: No clubbing Psych/Mental Status: Normal Affect Body Mass Index (BMI) 28.7 Assessment/Plan All Active Problems (Last Reviewed 10/13/18 @ 13:58 by Andree Vickers) Stricture of sigmoid colon (Acute) Diverticulitis large intestine (Acute) Rheumatoid arthritis (Acute) Adnexal mass (Acute) Diverticulosis (Acute) Colitis (Acute) Abnormal peripheral pulse (Acute) Aneurysm of infrarenal abdominal aorta (Acute) Hiatal hernia with GERD (Acute) I recommend a colonoscopy with possible biopsy or polypectomy is indicated. She is aware of the technique, benefits, risks, alternatives. She has had an opportunity to ask and have questions answered. I anticipate that her low anterior resection site has nicely healed at this time. Duane Torres M.D., F.A.C.S.
--- NOTE | 2018-11-14 07:20 | OP.ENDO_ITS ---
11/14/2018 Sammi Castillo [facility] [address] [place] [address] Re : Colonoscopy procedure for So Ramirez Dear Dr. Castillo This procedure was performed on Wednesday, November 14, 2018. My impressions and recommendations are as follows: Impressions : - Preparation of the colon was fair. - Hemorrhoids found on perianal exam. - Diverticulosis in the entire examined colon. - Patent end-to-end colo-colonic anastomosis. 8cm from anus - No specimens collected. Recommendations : - Discharge patient to home. - Resume previous diet. - Continue present medications. - Repeat colonoscopy in 10 years for screening purposes. My findings are described in the full procedure note, which is enclosed. If I can be of further assistance, please feel free to contact me at Doctor phone number(s): Work: . Sincerely, Duane Torres MD 11/14/2018 7:19:49 AM This report has been signed electronically.
== END 2018-11-14 07:56 | disposition home or self-care (01) ==
LOC: EN 05:50 → AC 05:50
PROVIDERS: Family Provider Internal Medicine; PCP Internal Medicine; Referring Provider Internal Medicine; Visit Provider Surgery
PROC: 0DJD8ZZ Inspection of Lower Intestinal Tract, Via Natural or Artificial Opening Endoscopic (ICD-10-PCS; CPT 45378; principal; 2018-11-14 06:55)
DX: Z12.11 Encounter for screening for malignant neoplasm of colon (principal); K64.9 Unspecified hemorrhoids; K57.30 Diverticulosis of large intestine without perforation or abscess without bleeding; Z98.0 Intestinal bypass and anastomosis status; J44.9 Chronic obstructive pulmonary disease, unspecified; M54.9 Dorsalgia, unspecified; G89.29 Other chronic pain; K21.9 Gastro-esophageal reflux disease without esophagitis; M19.90 Unspecified osteoarthritis, unspecified site; M06.9 Rheumatoid arthritis, unspecified; I10 Essential (primary) hypertension; Z90.49 Acquired absence of other specified parts of digestive tract; Z98.51 Tubal ligation status
CPT/HCPCS: 45378; 99152; 99153; J7120

== ENCOUNTER → 2019-07-06 08:02 | Outpatient (CLI) | payer MEDICARE, MEDICAID, SELFPAY ==
[2018-11-14 06:06] VITALS: BMI 28.3
--- NOTE | 2019-07-06 08:05 | AAAS_ITS ---
Reason For Study: AAA Aorta Measurements Aorta Doppler Measurements Proximal aorta measures2.3 x 2.3cm. in cross- Peak systolic flow velocities within the proximal sectional axis. aorta measure 58.8 cm/sec. Proximal aorta measures2.2cm. in longitudinal Peak systolic flow velocities within the mid aorta axis. measure 27.8 cm/sec. Mid aorta measures4.0 x 4.0cm. in cross-sectional Peak systolic flow velocities within the distal axis. aorta measure 41.8 cm/sec. Mid aorta measures3.8cm. in longitudinal axis. Distal aorta measures3.4 x 3.4cm. in cross- sectional axis. 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 Left Iliac Artery Left iliac artery measures 1.0 cm. in the longitudinal axis. Left iliac artery measures 1.0 x 1.0 cm. in the cross-sectional axis. Peak systolic velocity in the left iliac artery measures 63.4 cm/sec. Right Iliac Artery Right iliac artery measures 0.96 cm. in the longitudinal axis. Right iliac artery measures 0.94 x 1.0 cm. in the cross-sectional axis. Peak systolic velocity in the right iliac artery measures 94.1 cm/sec. Procedure Aorta IVC Iliac vasculature or bypass grafts 76453. Technically difficult due to previous abdominal surgery (scar tissue at incision site). Exam performed in department. Interpretation Summary Mid abdominal aorta 4 x 4 cm aneurysm Mural thrombus noted Right iliac 0.96 x 1 cm Left iliac 1 x 1 cm Technically difficult examination secondary to previous abdominal incision Ordering Physician: Duane Torres Referring Physician: Scott Loaiza Performed By: Andree Rivera, RDCS, RVT
== END ==
PROVIDERS: Family Provider Internal Medicine; PCP Internal Medicine; Referring Provider Surgery; Visit Provider Surgery
DX: I71.4 Abdominal aortic aneurysm, without rupture (principal)
CPT/HCPCS: 76706

== ENCOUNTER → 2020-06-06 07:25 | Outpatient (CLI) | payer MEDICARE, MEDICAID, SELFPAY ==
[2018-11-14 06:06] VITALS: BMI 28.3
--- NOTE | 2020-06-06 07:26 | AAVD_ITS ---
Reason For Study: AAA Aorta Measurements Aorta Doppler Measurements Proximal aorta measures2.92 x 2.89cm. in cross- Peak systolic flow velocities within the proximal sectional axis. aorta measure 71 cm/sec. Proximal aorta measures2.93cm. in longitudinal Peak systolic flow velocities within the mid aorta axis. measure 28.2 cm/sec. Mid aorta measures5.01 x 5.03cm. in cross- Peak systolic flow velocities within the distal sectional axis. aorta measure 63.9 cm/sec. Mid aorta measures5.05cm. in longitudinal axis. Distal aorta measures3.48 x 3.49cm. in cross- sectional axis. Distal aorta measures3.48cm. in longitudinal axis. 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 Left Iliac Artery Left iliac artery measures 0.86 x 0.82 cm. in the cross-sectional axis. Left iliac artery measures 0.88 cm. in the longitudinal axis. Peak systolic velocity in the left iliac artery measures 72 cm/sec. Right Iliac Artery Right iliac artery measures 1.25 x 1.23 cm. in the cross-sectional axis. Right iliac artery measures 1.26 cm. in the longitudinal axis. Peak systolic velocity in the right iliac artery measures 104.5 cm/sec. Procedure Aorta IVC Iliac vasculature or bypass grafts 13529. Exam performed in department. Interpretation Summary 5.01 x 5.03 cm mid abdominal aortic aneurysm. Mural thrombus noted Left common iliac 0.86 x 0.82 cm Right common iliac 1.25 x 1.23 cm Progression of her aortic aneurysm from previous 4 cm noted July 06, 2019 Ordering Physician: Duane Torres Referring Physician: Scott Loaiza Performed By: Breonna Jung RVLuis Felipe
== END ==
PROVIDERS: PCP Internal Medicine; Referring Provider Surgery; Visit Provider Surgery
DX: I71.4 Abdominal aortic aneurysm, without rupture (principal)
CPT/HCPCS: 93978

== ENCOUNTER → 2020-06-15 13:09 | Outpatient (CLI) | payer MEDICARE, MEDICAID, SELFPAY ==
[2020-06-09 08:43] VITALS: BMI 28.9
--- NOTE | 2020-06-15 13:10 | CT_ITS ---
STUDY: CT ABDOMEN AND PELVIS WITH CONTRAST REASON FOR EXAM: Female, 69 years old. AAA MONITORING. No surgery at this time. Prior bowel resection d/t diverticulitis and cholecystectomy. RADIATION DOSAGE (If Supplied By Facility): CTDIvol = ( 22.35 ) mGy, DLP = ( 770.46 ) mGycm TECHNIQUE: Transaxial images were obtained from the dome of the diaphragm to the symphysis pubis without oral contrast. IV 100mL Isovue-300 was administered. Sagittal and coronal images were reconstructed. Individualized dose optimization techniques were used for this CT. COMPARISON: Comparison is made with prior examination dated 07/11/2018. FINDINGS: Hyperinflation. Mild basilar scarring. There now is evidence of a 1.7 cm bulla in the posterior medial segment of the right lower lobe. Coronary artery calcification. Stable 1 cm cyst in the left lobe of the liver adjacent to the falciform ligament. The patient is status post cholecystectomy. Normal spleen. Normal pancreas. Normal bilateral adrenal glands. Normal right kidney. Normal left kidney. There is a small hiatal hernia. Normal small intestine. Surgical anastomosis is seen at the rectosigmoid colon The appendix is visualized and appears normal. There is diffuse atherosclerotic calcification of the abdominal aorta. There is a fusiform infrarenal abdominal aortic aneurysm with a transverse dimension of 5.1 cm. There is evidence of mural thrombus more prominent anteriorly and towards the left side of the aortic lumen. This extends to the level of the aortic bifurcation. The aneurysm previously measured 4 cm.Normal inferior vena cava. Normal retroperitoneum. Normal urinary bladder. Normal abdominal wall. Almost complete collapse of the T11 vertebrae. Stable loss of height of the L2 vertebrae. CT/CT ANGIO ABD&PEL W/O&W/DYE IMPRESSION: Interval progression in size of the fusiform infra renal abdominal aortic aneurysm with a transverse dimension of 5.1 cm. Electronically Signed: Myron Holland, at 14:12 EST , Service support ,
[2020-06-15 13:25] LABS: CREATININE FINGERSTICK 0.6 mg/dL (0.55-1.02)
== END ==
PROVIDERS: PCP Internal Medicine; Referring Provider Surgery; Visit Provider Surgery
DX: I71.4 Abdominal aortic aneurysm, without rupture (principal)
CPT/HCPCS: 72191; 74174; 74175; Q9967

== ENCOUNTER 2020-10-19 05:22 | Inpatient (IN) | payer MEDICARE, MEDICAID, SELFPAY ==
--- NOTE | 2020-10-12 13:37 | EKG12_ITS ---
Test Reason : PRE OP Blood Pressure : / mmHG Vent. Rate : 082 BPM Atrial Rate : 082 BPM P-R Int : 138 ms QRS Dur : 074 ms QT Int : 378 ms P-R-T Axes : 053 076 070 degrees QTc Int : 441 ms Normal sinus rhythm Normal ECG Confirmed by ELIJAH PHILLIPS, NELLY ([id number]), supervising editor trailer MIKAYLA CONDON ([id number]) on 10/13/2020 11:09:49 AM Referred By: LISANDRA Confirmed By:NELLY NAVA MD
[2020-10-12 14:21] LABS: Hematocrit 40.7 % (37-47); Hemoglobin 13.2 g/dL (12.0-15.0); Mean Corp Hgb Conc 32.4 g/dL (32-36); Mean Corpuscular Hgb 31.1 pg (27.0-32.0); Mean Platelet Vol. 8.9 fl (6.2-12.0); Platelet Count 278 K/mm3 (150-450); RBC Distribution Width CV 13.8 % (11.6-14.6); RBC Distribution Width SD 49.2 fl (35.1-43.9); Red Blood Count 4.24 M/mm3 (4.2-5.4)
[2020-10-12 14:25] VITALS: BMI 29.0
[2020-10-12 14:41] LABS: Prothrombin Time (Protime)PT. 12.3 SECONDS (11.7-14.9)
[2020-10-12 15:00] LABS: AST(SGOT) 26 U/L (15-37); Alanine Aminotransfer ALT/SGPT 37 U/L (13-56); Albumin, Serum 3.5 g/dL (3.2-5.0); Alkaline Phosphatase 68 U/L (45-117); Anion Gap 8 (5-15); BUN 18 mg/dL (7-18); BUN/Creat Ratio 21.5 RATIO (10-20); Bilirubin, Direct < 0.05 mg/dL (0.00-0.30); Calcium,Total 9.2 mg/dL (8.5-10.1); Chloride 106 mmol/L (98-107); Creatinine, Serum 0.84 mg/dL (0.55-1.02); EST Glomerular Filtration Rate 71 mL/min (>60); Est Glom Filt Rate - Afr Amer 86 mL/min (>60); Globulin 4.2 g/dL (2.2-4.2); Glucose 103 mg/dL (74-106); Magnesium 2.3 mg/dL (1.6-2.6); Phosphorus 3.4 mg/dL (2.5-4.9); Potassium 3.8 mmol/L (3.5-5.1); Protein, Total 7.7 g/dL (6.4-8.2); Sodium Level 140 mmol/L (136-145)
[2020-10-19] VITALS (19 sets, daily range): BP systolic 108–155; BP diastolic 57–75; PULSE 65–87; RESP 14–22; TEMP 36.2–36.8; O2SAT 94–99; BMI 29.3
--- NOTE | 2020-10-19 | PLAQ_PTH ---
PATIENT: TRINI FOX LOC: [facility] U#:[id number] AGE/SX: 69/F [place] [facility] RE10/19/[address]: Dr. Duane Torres MD : 1950 BED: 1 DIS: 10/20/2020 SPEC #: [id number] RECD: 10/19/20 10:30 STATUS: YE PARKINSON #: [id number] LILO: 10/19/20 00:[address]: Duane Torres DEPT: SURGICAL PATHOLOGY RECD BY: Perla Hogan ENTERED: 10/19/20 13:36 SP TYPE: PLAQUE OTHR DR: Dr. Scott Loaiza MD Tissues: PLAQUE Procedures: Decalcification bone/plaque Surgery Specimen Level III HEADER OPERATION: Not noted PRE-OP DIAGNOSIS: Plaque TISSUE SUBMITTED: Plaque MICROSCOPIC DIAGNOSIS Plaque, not further designated, excision: Calcified atheromatous plaque consistent with severe stenosis. AM:kailey 10/24/2020 GROSS DESCRIPTION Received in fixative is one container labeled with the patient's name and designated plaque. The specimen consists of multiple irregular fragments of indurated, pink-oglesby soft tissue that in aggregate measure 3 x 1 x 0.3 cm. The specimen is totally submitted in one cassette after decalcification. / AM:kailey 10/19/20 TC:3 CPT: 36662, 63187
--- NOTE | 2020-10-19 05:50 | PCM.HP.BLA ---
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 Is patient in pain?: No Allergies Penicillins Allergy (Mild, Verified 10/12/20 14:26) rash doxycycline Adverse Reaction (Mild, Verified 10/12/20 14:26) gi upset levofloxacin [From Levaquin] Adverse Reaction (Mild, Verified 10/12/20 14:26) gi upset meperidine [From Demerol] Adverse Reaction (Mild, Verified 10/12/20 14:26) gi upset moxifloxacin [From Avelox] Adverse Reaction (Mild, Verified 10/12/20 14:26) gi upset Sulfa (Sulfonamide Antibiotics) Adverse Reaction (Mild, Verified 10/12/20 14:26) gi upset acetaminophen [From Tylenol-Codeine] Adverse Reaction (Verified 10/12/20 14:26) Nausea/Vom/Diarrhea codeine [From Tylenol-Codeine] Adverse Reaction (Verified 10/12/20 14:26) Nausea/Vom/Diarrhea Medications adalimumab 40 mg/0.8 mL subcutaneous pen kit 40 mg SC Q2W 05/12/18 [History Confirmed 10/12/20] aspirin 81 mg tablet,delayed release 81 mg PO DAILY 05/12/18 [History Confirmed 10/12/20] denosumab 60 mg/mL subcutaneous syringe 60 mg SC [id number] 05/12/18 [History Confirmed 10/12/20] fluticasone 250 mcg-salmeterol 50 mcg/dose blistr powdr for inhalation 1 inh INHALATION BID 05/12/18 [History Confirmed 10/12/20] fluticasone propionate 50 mcg/actuation blister powder for inhalation 1 inh INHALATION BID PRN 05/12/18 [History Confirmed 10/12/20] fluvastatin 40 mg capsule 80 mg PO QHS 05/12/18 [History Confirmed 10/12/20] folic acid 1 mg tablet 4 mg PO DAILY 05/12/18 [History Confirmed 10/12/20] melatonin 3 mg tablet 3 mg PO HS PRN 05/12/18 [History Confirmed 10/12/20] methotrexate sodium 2.5 mg tablet 5 mg PO SA 05/12/18 [History Confirmed 10/12/20] omega 4-wmd-vgb-fish oil 60 mg-90 mg-500 mg capsule 1 cap PO DAILY 05/12/18 [History Confirmed 10/12/20] omeprazole 20 mg capsule,delayed release 20 mg PO DAILY 05/12/18 [History Confirmed 10/12/20] potassium chloride 20 mEq tablet,extended release(part/cryst) 20 meq PO DAILY 05/12/18 [History Confirmed 10/12/20] prednisone 2.5 mg tablet 2.5 mg PO DAILY 05/12/18 [History Confirmed 10/12/20] triamterene 37.5 mg-hydrochlorothiazide 25 mg capsule 1 cap PO DAILY 05/12/18 [History Confirmed 10/12/20] Turmeric/Turmeric Root Extract [Turmeric 500 mg Capsule] 1 ea PO DAILY 06/30/18 [History Confirmed 10/12/20] Albuterol Inhaler [Ventolin Hfa (SP)] 1 puff INHALATION Q4H PRN PRN 07/11/18 [History Confirmed 10/12/20] Calcium Carb/Vitamin D [Caltrate-600 With Vit D Tab] 1 tab PO DAILY 07/11/18 [History Confirmed 10/12/20] Garlic 1,000 mg PO DAILY 07/11/18 [History Confirmed 10/12/20] PFSH Medical History (Updated 10/12/20 @ 14:25 by Steffi Singh) Rheumatoid arthritis (Acute) AAA (abdominal aortic aneurysm) (Acute) HTN (hypertension) (Chronic) GERD (gastroesophageal reflux disease) (Acute) COPD (chronic obstructive pulmonary disease) (Acute) Hemorrhoid (Acute) Osteoarthritis (Acute) Chronic back pain (Acute) Diverticulitis (Acute) Stricture of sigmoid colon (Acute) Diverticulitis large intestine (Acute) Rheumatoid arthritis (Acute) Adnexal mass (Acute) Diverticulosis (Acute) Colitis (Acute) Abnormal peripheral pulse (Acute) Aneurysm of infrarenal abdominal aorta (Acute) Hiatal hernia with GERD (Acute) Surgical History (Updated 10/12/20 @ 14:25 by Steffi Singh) History of cholecystectomy (Acute) History of tubal ligation (Acute) History of colonoscopy (Acute) History of cataract extraction (Acute) History of colectomy (Acute ~06/2018) Family History Father Diabetes Hypertension Mother CVA (cerebral vascular accident) Sister Breast cancer Social History (Updated 10/13/20 @ 09:09 by Coco ALVAREZ, PAGabinoC) Smoking Status: Never smoker how long ago did patient quit smokin yrs HPI HPI HPI: TRINI FOX, is a 69 F who presents to the office today for HPI HPI Surgical H&P: Yes HPI: TRINI FOX is a 69 F who presents to the office today for an update history and physical. Patient denies recent hospitalization or illnesses. Patient denies abdominal pain, nausea, vomiting. She denies chest pain, shortness of breath. She denies previous complications with anesthesia. She denies cardiac history and she notes pulmonary history. She follows with Dr. Han. Patient's previous history per Dr. Torres: TRINI FOX, is a 69 F who presents to the office today for ongoing surgical follow-up of a infrarenal abdominal aortic aneurysm. 2018 I assisted her with a sigmoid colectomy for diverticular stricture. She was identified as having a aortic aneurysm. Her previous study was July 06, 2019. At that point her ultrasound measured 4 x 4 cm. She has had an updated study as noted below now measuring her aneurysm to be 5.01 x 5.03 cm. She has no symptoms. No abdominal pain no back pain. She is not been hospitalized over the past year. She does have COPD she is on Humira. She denies previous history of myocardial infarction or stroke or diabetes. The only anticoagulant she is on is low-dose aspirin. She does complain that she has problems with chronic sinusitis. She feels that pressure is building up. She was a long-term cigarette smoker. She quit 20 years ago. 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 She denies previous cardiac stress test. She does have a health aid Dr. Duane Han. She was supposed to be seen yesterday and missed that appointment. [facility] [place] [address] Abd Aortic/IVC Duplex scan 06/06/20 0803 MR#: [id number] Name: TRINI FOX PRep #:[id number] : 1950 69From: Duane Torres MD Attending Dr: JIMENEZ Abarcatatus: WEI GOLDENI Ordering Dr: Duane Torres MDDate: 06/06/20 [facility]: Reason For Study: AAA Aorta Measurements Aorta Doppler Measurements Proximal aorta measures2.92 x 2.89cm. in cross- Peak systolic flow velocities within the proximal sectional axis. aorta measure 71 cm/sec. Proximal aorta measures2.93cm. in longitudinal Peak systolic flow velocities within the mid aorta axis. measure 28.2 cm/sec. Mid aorta measures5.01 x 5.03cm. in cross- Peak systolic flow velocities within the distal sectional axis. aorta measure 63.9 cm/sec. Mid aorta measures5.05cm. in longitudinal axis. Distal aorta measures3.48 x 3.49cm. in cross- sectional axis. Distal aorta measures3.48cm. in longitudinal axis. 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 Left Iliac Artery Left iliac artery measures 0.86 x 0.82 cm. in the cross-sectional axis. Left iliac artery measures 0.88 cm. in the longitudinal axis. Peak systolic velocity in the left iliac artery measures 72 cm/sec. Right Iliac Artery Right iliac artery measures 1.25 x 1.23 cm. in the cross-sectional axis. Right iliac artery measures 1.26 cm. in the longitudinal axis. Peak systolic velocity in the right iliac artery measures 104.5 cm/sec. Procedure Aorta IVC Iliac vasculature or bypass grafts [id number]. Exam performed in department. Interpretation Summary 5.01 x 5.03 cm mid abdominal aortic aneurysm. Mural thrombus noted Left common iliac 0.86 x 0.82 cm Right common iliac 1.25 x 1.23 cm Progression of her aortic aneurysm from previous 4 cm noted July 06, 2019 Ordering Physician: Duane Torres Referring Physician: Scott Loaiza Performed By: Breonna Jung T 06/06/20 1555 Date Duane FOX, is a 69 F who presents to the office today for review of her CTA of the abdomen assessing the growth of her infrarenal abdominal aortic aneurysm. On June 15, 2020 she had a CTA of the abdomen. This demonstrates a 5.1 cm abdominal aortic aneurysm. At the level of the renal arteries the diameter is 17 mm. At a distance 818 mm distant it is 25 mm consistent with a reverse taper. The iliacs are patent 16 mm at the internally at bifurcation on the right and 12 mm on the left. There is tortuosity noted. It is estimated that a 26 mm diameter device would be pertinent. Very high positioning would be selected. June 15, 2020 [facility] [address] [place] [address] CT ANGIO ABD&PEL W/O&W/DYE MR#: [id number] Name: TRINI FOX PRep #:[id number] : 1950F 69 From: Myron Holland MD PCP:Dr. Scott Loaiza MD Status:[facility] Study:CT ANGIO ABD&PEL W/O&W/DYE Date of Exam:06/15/20 Exam#[id number] Ordering Dr: Duane Torres MD STUDY: CT ABDOMEN AND PELVIS WITH CONTRAST REASON FOR EXAM: Female, 69 years old. AAA MONITORING. No surgery at this time. Prior bowel resection d/t diverticulitis and cholecystectomy. RADIATION DOSAGE (If Supplied By Facility): CTDIvol = ( 22.35 ) mGy, DLP = ( 770.46 ) mGycm TECHNIQUE: Transaxial images were obtained from the dome of the diaphragm to the symphysis pubis without oral contrast. IV 100mL Isovue-300 was administered. Sagittal and coronal images were reconstructed. Individualized dose optimization techniques were used for this CT. COMPARISON: Comparison is made with prior examination dated 07/11/2018. FINDINGS: Hyperinflation. Mild basilar scarring. There now is evidence of a 1.7 cm bulla in the posterior medial segment of the right lower lobe. Coronary artery calcification. Stable 1 cm cyst in the left lobe of the liver adjacent to the falciform ligament. The patient is status post cholecystectomy. Normal spleen. Normal pancreas. Normal bilateral adrenal glands. Normal right kidney. Normal left kidney. There is a small hiatal hernia. Normal small intestine. Surgical anastomosis is seen at the rectosigmoid colon The appendix is visualized and appears normal. There is diffuse atherosclerotic calcification of the abdominal aorta. There is a fusiform infrarenal abdominal aortic aneurysm with a transverse dimension of 5.1 cm. There is evidence of mural thrombus more prominent anteriorly and towards the left side of the aortic lumen. This extends to the level of the aortic bifurcation. The aneurysm previously measured 4 cm.Normal inferior vena cava. Normal retroperitoneum. Normal urinary bladder. Normal abdominal wall. Almost complete collapse of the T11 vertebrae. Stable loss of height of the L2 vertebrae. CT/CT ANGIO ABD&PEL W/O&W/DYE IMPRESSION: Interval progression in size of the fusiform infra renal abdominal aortic aneurysm with a transverse dimension of 5.1 cm. Electronically Signed: LUCIEN Wood General General: Yes weight change; no appetite, fatigue, colon cancer, breast cancer or weakness HEENT HEENT: No difficulty swallowing, eye injury, eye surgery, swollen glands or hoarseness Endo Endocrine: No thyroid disease, diabetes mellitus, thyroid cancer, Hair loss, heat intolerance or cold intolerance Skin Skin: No rash or changing moles Breast Breast: No left breast lump, right breast lump, nipple discharge, breast pain, abnormal mammogram, abnormal US or breast enlargement Musc Musculoskeletal: Yes back problems, arthritis and rheumatoid arthritis; no gout or joint pain Cardio Cardiovascular: Yes high blood pressure; no murmur, pacemaker, heart disease, atrial fibrillation, heart attack, heart stent, palpitations, shortness of breat with exertion or chest pain Psych Psychiatric: No depression, anxiety or hearing voices Resp Respiratory: Yes shortness of breath, No sleep apnea, No cough, Yes COPD, No asthma, No emphysema, No wheezing Gastro Gastrointestinal: No abdominal pain, No nausea or vomiting, No diarrhea, No constipation, No blood in stool, Yes acid reflux, No hemorrhoids, No ulcers, No gallbladder problem, No black,tarry stools Nnamdi Hematologic: No blood thinners, No blood disorders, No bleeding, No anemia, No blood clots Neuro Neurologic: No system reviewed and no additional complaints, except as docu, No as per HPI, No abnormal walking, No abnormal hearing, No abnormal movements, No abnormal speech, No behavioral changes, No burning sensations, No confusion, No seizure-like activity, No unsteadiness, No dizziness, No localized weakness, No frequent falls, No headache(s), No lack of coordination, No loss of vision, No memory loss, No numbness, No other visual disturbances, No radiating pain, No restless legs, No sensory deficit, No fainting, No tingling, No tremor(s), No weakness, No other Exam Const General: cooperative, healthy appearing, comfortable, no acute distress [facility] Head: normal to inspection Eyes General: appearance normal, both eyes and all related structures Neck Neck: normal visual inspection Neck mass: No Chest Breast Palpation: No nipple discharge Resp Effort & Inspection: normal respiratory effort Auscultation: clear to auscultation bilaterally Cardio Rate: regular rate Rhythm: regular rhythm Heart Sounds: no murmurs Bruits: no carotid bruits Other: Pulses: bilateral radial- 2+, bilateral brachial- 2+, bilateral carotid- 2+. GI Inspection: normal to inspection Palpation: soft, nontender Auscultation: normal bowel sounds, no bruits Musc Cervical Spine: other (Cervical kyphosis noted) Skin General: no rashes or lesions noted Neuro General: no focal motor deficits Extrem General: normal to inspection, no calf tenderness bilaterally Psych Appearance: grossly normal Affect: normal affect Plan: Plan to proceed with a infrarenal abdominal aortic stent graft repair. Anticipate bilateral groin access with percutaneous approach. The patient has undergone preoperative medical evaluation. She is aware of the technique, benefit, risk, alternatives. We will utilize arterial line monitoring which we replaced preoperatively. She has had an opportunity to ask and have questions answered. We will proceed as noted. Duane Torres M.D., F.A.C.S. Procedure Criteria Procedure Type: Elective COVID Risk Discussion: The surgeon/proceduralist and patient have discussed in detail the risk of exposure to and/or potential harm posed by the COVID-19 virus with having a surgery/procedure at this time versus the risk of delaying the surgery/procedure. It is not possible to know either the risk of delaying the surgery or procedure or chance of getting an infection with perfect accuracy, but a joint decision was made between the patient and the surgeon/proceduralist to proceed at this time with the scheduled surgery/procedure as indicated on the consent form.
--- NOTE | 2020-10-19 05:52 | PCM.DC.GS ---
<Duane Torres - Last Filed: 10/19/20 05:52> Discharge Diet: Light diet - advance as tolerated - if you have questions about your diet instructions, please talk to you doctor. Discharge Activity: May Not Drive - for 1 week or while taking narcotic pain medicine. May shower in (days): 1 Lifting Restrictions: 10 pounds Call your doctor if your incision/area has: Continuous Slow Oozing, Sudden Increased Bleeding, Increased Pain/ Swelling, Increased Redness, Foul Smelling Discharge Call your doctor if you observe: Fever of 101 or Higher Suture Line Care: Avoid Pulling/Pushing, Avoid Pinching/Bending Additional Dressing/Incision Instructions:: You may leave the groin dressings on for 2 days. You may shower over them. Then you may remove the plastic dressings. Leave the Steri-Strips in place for 1 week. Allergies/Adverse Reactions: Allergies Penicillins Allergy (Mild, Verified 10/19/20 06:51) rash doxycycline Adverse Reaction (Mild, Verified 10/19/20 06:51) gi upset levofloxacin [From Levaquin] Adverse Reaction (Mild, Verified 10/19/20 06:51) gi upset meperidine [From Demerol] Adverse Reaction (Mild, Verified 10/19/20 06:51) gi upset moxifloxacin [From Avelox] Adverse Reaction (Mild, Verified 10/19/20 06:51) gi upset Sulfa (Sulfonamide Antibiotics) Adverse Reaction (Mild, Verified 10/19/20 06:51) gi upset acetaminophen [From Tylenol-Codeine] Adverse Reaction (Verified 10/19/20 06:51) Nausea/Vom/Diarrhea codeine [From Tylenol-Codeine] Adverse Reaction (Verified 10/19/20 06:51) Nausea/Vom/Diarrhea Medications to take at Discharge adalimumab 40 mg/0.8 mL subcutaneous pen kit 40 mg SC Q2W 05/12/18 aspirin 81 mg tablet,delayed release 81 mg PO DAILY 05/12/18 denosumab 60 mg/mL subcutaneous syringe 60 mg SC [id number] 05/12/18 fluticasone 250 mcg-salmeterol 50 mcg/dose blistr powdr for inhalation 1 inh INHALATION BID 05/12/18 fluticasone propionate 50 mcg/actuation blister powder for inhalation 1 inh INHALATION BID PRN 05/12/18 folic acid 1 mg tablet 4 mg PO DAILY 05/12/18 melatonin 3 mg tablet 3 mg PO HS PRN 05/12/18 methotrexate sodium 2.5 mg tablet 5 mg PO SA 05/12/18 omega 1-qgj-apz-fish oil 60 mg-90 mg-500 mg capsule 1 cap PO DAILY 05/12/18 omeprazole 20 mg capsule,delayed release 20 mg PO DAILY 05/12/18 potassium chloride 20 mEq tablet,extended release(part/cryst) 20 meq PO DAILY 05/12/18 prednisone 2.5 mg tablet 2.5 mg PO DAILY 05/12/18 triamterene 37.5 mg-hydrochlorothiazide 25 mg capsule 1 cap PO DAILY 05/12/18 Turmeric/Turmeric Root Extract [Turmeric 500 mg Capsule] 1 ea PO DAILY 06/30/18 Albuterol Inhaler [Ventolin Hfa (SP)] 1 puff INHALATION Q4H PRN PRN 07/11/18 Calcium Carb/Vitamin D [Caltrate-600 With Vit D Tab] 1 tab PO DAILY 07/11/18 Garlic 1,000 mg PO DAILY 07/11/18 Atorvastatin Calcium [Lipitor] 20 mg PO QHS 10/19/20 Orders to be completed after discharge: Basic Metabolic Profile (BMP) Time Frame: 4 Days, Facility: [facility], Location: Laboratory CBC-Complete Blood Cnt No Diff Time Frame: 4 Days, Facility: [facility], Location: Laboratory Primary Care Physician: Scott Loaiza MD [Primary Care Provider] - Test Results: Test results from this visit will be discussed in further detail at your follow-up appointment, if applicable. Please Follow Up With: Duane Torres MD - [phone] When: Call to make an appointment to be seen in about 10 days. <Coco Alex - Last Filed: 10/20/20 14:06> Additional Instructions: Recommend Tylenol as needed for pain. 650 mg every 6 hours may be taken as needed for pain. Please come obtain lab work on Saturday either at the Main Hospital or at the building that Dr. Torres is located in on the ground floor. Test Results: Test results from this visit will be discussed in further detail at your follow-up appointment, if applicable. Proposed Discharge Date: 10/20/20
--- NOTE | 2020-10-19 06:36 | OP.PCM_ITS ---
Problem List (1) AAA (abdominal aortic aneurysm) Status: Acute Qualifiers: Presence of rupture: without rupture Qualified Code(s): I71.4 - Abdominal aortic aneurysm, without rupture (2) Injury of right common femoral artery Status: Acute Qualifiers: Encounter type: initial encounter Qualified Code(s): S75.001A - Unspecified injury of femoral artery, right leg, initial encounter Report of Operation Date of Procedure: 10/19/20 Pre-Operative Diagnosis: Infrarenal abdominal aortic aneurysm Post-Operative Diagnosis: Infrarenal abdominal aortic aneurysm. Right common femoral artery plaque with Perclose suture disruption requiring open repair and closure Surgery/Procedure Performed:: Right radial arterial line placement. Infrarenal abdominal aortic aneurysm stent graft repair. Rowland excluder main body via the left common femoral artery 26 x 14.5 x 18. Right contralateral limb 20 x 14 valvotomy trade embalmer. Proximal aortic cuff 26 x 3.3. Right common femoral endarterectomy with direct repair Description of Surgical Findings:: At the bedside Timeout informed consent was obtained. Shravan test performed demonstrating adequate rate wrist ulnar flow. The right wrist was gently extended. Prepped with Betadine. Under ultrasound guidance 1% lidocaine was instilled as a local anesthetic. A total of 1 cc was used. Under ultrasound guidance a 20-gauge Arrow Angiocath was inserted however I could not get Seldinger wire advancement. So then I switched over to a 20-gauge Angiocath under ultrasound guidance was able to gain access and advance with Seldinger wire. It was secured to the skin with 3-0 silk. Connected to pressure tubing. OpSite dressing applied. Good waveform was obtained. Hand was viable at the completion. No apparent complication. She tolerated the procedure well. She was subsequently taken to the special procedures lab for definitive surgery. She was subsequently taken to special procedure lab placed on the table she underwent initially monitored anesthesia care and local anesthetic. 1% lidocaine mixed 50-50 with 0.5% Marcaine was used as local anesthetic. Throughout the procedure total 30 cc was used. Patient received 900 g of clindamycin. Bilateral groins were sterilely prepped and draped. Ultrasound was used to identify bilateral common femoral arteries. Left common femoral artery was nicely single walled axis cylinder wire went easily and 8 [place] sheath was placed. Then attempts were made to gain access to the right common femoral. Ultrasound was again used however wire access was complicated so I did require changing to a micropuncture technique to get clean access. Was able to advance a 8 [place] sheath. Then a preclosed technique was performed placing Perclose devices in bilateral groins. There was some difficulty again on the right groin with a Perclose device malfunctioning and a repeat attempt being performed. Then a 035 angled Glidewire with a 5 [place] pigtail marking pig was placed from the left groin into the aorta proximal to the aneurysm. Using severe contrast the rate of 15 cc a second for 20 cc an aortogram was obtained. Measurements were made. It was elected to use a 26 x 14.5 x 18 cm main body device. Using Amplatz wires we up sheath the left groin to a 16 [place] sheath in the right groin to a 12 [place] sheath. Patient received 7000 units of heparin. Later in the procedure she received additional 500 units. And then when the right common femoral artery repair was required she again received 7000 units. The main body device was inserted through the 18 [place] sheath left groin. The pigtail catheter was advanced through the right. Images were obtained at the renal junction and the device was deployed image was obtained the device was repositioned and redeployed 2 more times until the device was absolutely flush w ith the left renal artery with no obstruction to the right. The gate was open and now was easily cannulated from the right groin. A retrograde injection was performed through the sheath on the right. Measurements were made. And then a 20 x 14 bellbottom device was deployed on the right. Imaging demonstrated good positioning. Inspection on the left noted that the wires and sheaths had straightened out the aneurysm so the graft had to be gently compressed to allow for positioning so it would land just above the hypogastric on the left. Good positioning was achieved. The stent graft was then seated in place with a compliant 33 mm balloon. Pigtail was replaced the supra renal aorta and aortogram obtained. Suggested that there was a good seal from the aneurysm sac but there appeared to be some additional contrast to the right lateral of the neck. After inspection I elected to place a additional cough. A 26 x 3.3 cuff was placed. This ended up being positioned. Final contrast images demonstrate just a slight blush right lateral at that cuff site. This did not appear to communicate with the aneurysm sac. I do not feel that further intervention at this point was warranted. We will follow the patient as an outpatient when she is on anticoagulated. At the moment it appears that the main body sac has been excluded. The Perclose device on the left were secured. An additional third Perclose device had to be placed to obtain hemostasis but that was effectively achieved. The left foot leg appeared normal. The Perclose sutures were secured on the right. Again an additional Perclose device had to be placed. But inspection of the right foot demonstrated what appeared to be cold. Where is palpable pulse could not be felt like it was preop. We then did Doppler inspection of the right groin and that appeared to be occluded flow at the suspected puncture site. I elected to convert to an open procedure to inspect that Perclose suture site. Local was instilled a longitudinal incision was created the patient became slightly restless and so I did ask anesthesia to convert to an LMA and general anesthesia. Direct dissection was performed down on the common femoral profundofemoral and superficial femoral arteries. The access site had been very nicely placed the anterior wall of the common femoral artery. It was at this point that that patient received the additional 7000 as of heparin. Peripheral vascular clamps were placed on the common femoral superficial femoral profundofemoral. 11 blade was used to make an arteriotomy in the Perclose sutures removed. It then became evident that there was a large posterior calcific plaque that had been raised by the last Perclose suture. The sutures were removed. A endarterectomy of that vessel was performed. The plaque was carefully feathered distally at the origin of the profundofemoral and superficial femoral. Tacking sutures of 7-0 Prolene were placed. Because of the urgent nature of the problem even though the patient did receive antibiotics I elected not to put a synthetic patch then. I directly closed the artery with a running suture of 6-0 Prolene. Good hemostasis was achieved. Good pulsatile flow distally. The foot was inspected noted to be viable with return of the palpable pulse. It is of note that there had been an excellent retrograde flow from both the right profundofemoral and superficial femoral arteries. There was no evidence of any thrombosis. This is despite the fact that protamine had been given upon securing the Perclose devices. It was then after this that the additional 7000 units heparin was given. Both feet viable at the completion. She had remained cardiovascular stable. The right groin wound was closed with deep layer of interrupted 3-0 Vicryl mcneill bcutaneous layer of the same then skin inspection running septic or 4 Monocryl. The left groin was closed with simple sutures of 4-0 Monocryl subdermal. Steri- Strips Telfa OpSite dressings applied. Sponge and instrument and needle counts were reported to the surgeon to be correct. Blood loss 200 cc. Specimens right common femoral artery plaque. Drains none. Duane Torres M.D., F.A.C.S. Type of Anesthesia:: General, Local MAC, Local Anesthesiologist: Anuj Thomas
[2020-10-19 12:17] LABS: Absolute Lymphocyte Count 1.77 X10^3/uL (0.83-4.51); Absolute Neutrophil Count 7.4 X10^3/uL (2.0-7.7); Basophil# 0.02 X10^3/uL; Basophil% 0.2 % (0-1); Eosinophil# 0.02 X10^3/uL; Eosinophils% 0.2 % (0-5); Hematocrit 35.9 % (37-47); Hemoglobin 11.6 g/dL (12.0-15.0); Lymphocyte # 1.77 X10^3/ul (4.0); Lymphocyte % 18.6 % (19-41); Mean Corp Hgb Conc 32.3 g/dL (32-36); Mean Corpuscular Hgb 30.6 pg (27.0-32.0); Mean Corpuscular Volume 94.7 fL (81-99); Mean Platelet Vol. 8.8 fl (6.2-12.0); Monocyte# 0.21 X10^3/uL; Monocyte% 2.2 % (0-10); NRBC Flagged by Analyzer 0 % (0-5); Neutrophil # 7.44 X10^3/uL (2.7-7.7); Neutrophil % 78.2 % (47-70); Platelet Count 236 K/mm3 (150-450); RBC Distribution Width CV 13.6 % (11.6-14.6); RBC Distribution Width SD 47.5 fl (35.1-43.9); Red Blood Count 3.79 M/mm3 (4.2-5.4); White Blood Count 9.5 K/mm3 (4.4-11.0)
[2020-10-19 12:31] LABS: Anion Gap 7 (5-15); BUN 17 mg/dL (7-18); Calcium,Total 8.2 mg/dL (8.5-10.1); Chloride 104 mmol/L (98-107); Creatinine, Serum 0.68 mg/dL (0.55-1.02); EST Glomerular Filtration Rate 91 mL/min (>60); Est Glom Filt Rate - Afr Amer 110 mL/min (>60); Glucose 179 mg/dL (74-106); Potassium 3.2 mmol/L (3.5-5.1); Sodium Level 137 mmol/L (136-145)
[2020-10-19 12:42] LABS: Lactic Acid 1.4 mmol/L (0.4-1.9)
[2020-10-19] MEDS: Ondansetron 4 MG/2 ML Vial IV ×2 (13:03→22:17)
[2020-10-19 13:17] LABS: Surgical Specimen Collection SEE PATHOLOGY REPORT
--- NOTE | 2020-10-19 13:47 | NURSING ---
bedside handoff given to gatito raymundo.
[2020-10-19] MEDS: Lactated Ringers 1,000 ML 70 ML IV (14:49)
[2020-10-19] MEDS: Acetaminophen 325 MG Tablet 650 MG PO (14:50)
[2020-10-19] MEDS: MELATONIN 3 MG TABLET PO (22:13)
[2020-10-19] MEDS: Morphine 2 MG/ML Syringe IV (22:17)
[2020-10-19] MEDS: Atorvastatin Calcium 20 MG Tablet PO (22:17)
[2020-10-20] VITALS (13 sets, daily range): BP systolic 107–118; BP diastolic 57–86; PULSE 77–88; RESP 14–18; TEMP 36.6–37.1; O2SAT 93–99
[2020-10-20] MEDS: Lactated Ringers 1,000 ML 70 ML IV (05:03)
[2020-10-20 05:45] LABS: Absolute Lymphocyte Count 3.95 X10^3/uL (0.83-4.51); Absolute Neutrophil Count 9.1 X10^3/uL (2.0-7.7); Basophil# 0.01 X10^3/uL; Basophil% 0.1 % (0-1); Hematocrit 31.6 % (37-47); Hemoglobin 10.1 g/dL (12.0-15.0); Lymphocyte # 3.95 X10^3/ul (4.0); Lymphocyte % 26.1 % (19-41); Mean Corpuscular Hgb 31.3 pg (27.0-32.0); Mean Corpuscular Volume 97.8 fL (81-99); Mean Platelet Vol. 9.2 fl (6.2-12.0); Monocyte# 2.07 X10^3/uL; Monocyte% 13.7 % (0-10); NRBC Flagged by Analyzer 0 % (0-5); Neutrophil # 9.07 X10^3/uL (2.7-7.7); Neutrophil % 59.8 % (47-70); POSITIVE DIFFERENTIAL YES; Platelet Count 228 K/mm3 (150-450); RBC Distribution Width CV 13.8 % (11.6-14.6); RBC Distribution Width SD 49.5 fl (35.1-43.9); Red Blood Count 3.23 M/mm3 (4.2-5.4); White Blood Count 15.2 K/mm3 (4.4-11.0)
[2020-10-20 05:50] LABS: Differential Indicated SCAN CRITERIA MET
--- NOTE | 2020-10-20 06:11 | PN.SURG_ITS ---
Patient Problems: Active and Suspected Problems (Last Reviewed 10/13/18 @ 13:58 by Andree Vickers) Injury of right common femoral artery (Acute) AAA (abdominal aortic aneurysm) (Acute) Subjective: She states that she feels much better than yesterday. Back pain much improved since she has been able to move around. She has not been out of bed yet. She had some mild nausea previously but that also apparently has resolved with medication. She notes some numbness around the incision of the right thigh. No current abdominal pain. - Physical Exam Vitals/I&O's: Vital Signs Temp Pulse Resp BP Pulse Ox 98.4 F 77 18 117/71 96 10/20/20 04:00 10/20/20 04:00 10/20/20 04:00 10/20/20 04:00 10/20/20 04:00 Oxygen Flow Rate (L/min) 2 Oxygen Delivery Method Nasal Cannula Weight: 150 lb 9.211 oz Body Mass Index (BMI) 29.3 Intake and Output for Last 24 Hours 10/18/20 10/19/20 10/20/20 23:59 23:59 23:59 Intake Total 106 / 106 1116.33 / 1116.33 Output Total 1520 / 1595 540 / 540 Balance -1414 / -1489 576.33 / 576.33 General: Alert, Oriented x3, Cooperative, No apparent distress Abdomen: Soft, Non Tender Extremities: - - Bilateral groins are supple, particular the right groin minimal ecchymosis and swelling. Not pulsatile. Not expansile. Bilateral DP and PT pulses are nice and strong. The right DP and PT pulses are symmetric with the left. Both feet are warm with good capillary refill Laboratory Results 10/19/20 12:05: Sodium 137, Potassium 3.2 L, Chloride 104, Carbon Dioxide 26.0, Anion Gap 7, BUN 17, Creatinine 0.68, Estim Creat Clear Calc 37.60, Est GFR (MDRD) Af Amer 110, Est GFR (MDRD) Non-Af 91, BUN/Creatinine Ratio 25.0 H, Glucose 179 H, Calcium 8.2 L 10/19/20 12:05: WBC 9.5, RBC 3.79 L, Hgb 11.6 L, Hct 35.9 L, MCV 94.7, MCH 30.6, MCHC 32.3, RDW Std Deviation 47.5 H, RDW Coeff of Gill 13.6, Plt Count 236, MPV 8.8, Immature Gran % (Auto) 0.600, Neut % (Auto) 78.2 H, Lymph % (Auto) 18.6 L, Potter % (Auto) 2.2, Eos % (Auto) 0.2, Baso % (Auto) 0.2, Absolute Neuts (auto) 7.4, Absolute Lymphs (auto) 1.77, Nucleated RBC % 0 10/19/20 12:05: Lactic Acid 1.4 10/20/20 05:30: WBC 15.2 H, RBC 3.23 L, Hgb 10.1 L, Hct 31.6 L, MCV 97.8, MCH 31.3, MCHC 32.0, RDW Std Deviation 49.5 H, RDW Coeff of Gill 13.8, Plt Count 228, MPV 9.2, Immature Gran % (Auto) 0.300, Neut % (Auto) 59.8, Lymph % (Auto) 26.1, Potter % (Auto) 13.7 H, Eos % (Auto) 0.0, Baso % (Auto) 0.1, Absolute Neuts (auto) 9.1 H, Absolute Lymphs (auto) 3.95, Nucleated RBC % 0 10/20/20 05:30: Sodium Pending, Potassium Pending, Chloride Pending, Carbon Dioxide Pending, Anion Gap Pending, BUN Pending, Creatinine Pending, Est GFR (MDRD) Af Amer Pending, Est GFR (MDRD) Non-Af Pending, BUN/Creatinine Ratio Pending, Glucose Pending, Calcium Pending Current Medications Acetaminophen (Acetaminophen 325 Mg Tablet) 650 mg PO Q6H PRN PRN PRN Reason: PAIN Last Admin: 10/19/20 14:50 Dose: 650 mg Documented by: Albuterol Sulfate (Albuterol 2.5 Mg/3 Ml Vial.Neb.) 2.5 mg INHALATION Q6HWA.RT MAYA Albuterol Sulfate (Albuterol 2.5 Mg/3 Ml Vial.Neb.) 2.5 mg INHALATION Q4H PRN PRN Reason: SOB &/OR WHEEZING Aspirin (Aspirin E.C. 81 Mg Tablet) 81 mg PO DAILY@0800 [facility] Atorvastatin Calcium (Atorvastatin Calcium 20 Mg Tablet) 20 mg PO QHS [facility] Last Admin: 10/19/20 22:17 Dose: 20 mg Documented by: Budesonide (Budesonide Respules 0.5 Mg/2 Ml Ampul.Neb.) 0.5 mg INHALATION Q12H.RT [facility] Sodium Chloride () 1,000 mls @ 15 mls/hr IV .Q48H [facility] Last Admin: 10/19/20 12:14 Dose: Not Given Documented by: Lactated Ringer's () 1,000 mls @ 70 mls/hr IV .[id number] [facility] Last Admin: 10/20/20 05:03 Dose: 70 mls/hr Documented by: Labetalol HCl (Labetalol (Prefilled) 20 Mg/4 Ml) 5 mg IV X1 PRN PRN Reason: SBP > 160 prior to sheath pull Melatonin (Melatonin 3 Mg Tablet) 3 mg PO HS PRN PRN Reason: SLEEP Last Admin: 10/19/20 22:13 Dose: 3 mg Documented by: Morphine Sulfate (Morphine 2 Mg/Ml Syringe) 2 - 4 mg IV Q2H PRN PRN PRN Reason: PAIN Last Admin: 10/19/20 22:17 Dose: 2 mg Documented by: Morphine Sulfate (Morphine 4 Mg/Ml Syringe) 2 - 4 mg IV Q2H PRN PRN PRN Reason: PAIN Ondansetron HCl (Ondansetron 4 Mg/2 Ml Vial) 4 mg IV Q8H PRN PRN PRN Reason: NAUSEA Last Admin: 10/19/20 22:17 Dose: 4 mg Documented by: Pantoprazole Sodium (Pantoprazole Sodium 20 Mg Tablet) 20 mg PO DAILY [facility] Potassium Chloride (Potassium Chloride Oral Tablet 20 Meq) 20 meq PO DAILYCM [facility] Prednisone (Prednisone 5 Mg Tablet) 2.5 mg PO DAILY@0800 [facility] Triamterene/Hydrochlorothiazide (Triamterene 37.5mg/Hctz 25mg Capsule) 1 cap PO DAILY [facility] Medical Necessity - Tobacco Use Smoking Status: Never smoker Tobacco Use: Non-smoker Assessment/Plan All Active Problems (Last Reviewed 10/13/18 @ 13:58 by Andree Vickers) Injury of right common femoral artery (Acute) Rheumatoid arthritis (Acute) AAA (abdominal aortic aneurysm) (Acute) GERD (gastroesophageal reflux disease) (Acute) COPD (chronic obstructive pulmonary disease) (Acute) Hemorrhoid (Acute) Osteoarthritis (Acute) Chronic back pain (Acute) Diverticulitis (Acute) History of cholecystectomy (Acute) History of tubal ligation (Acute) History of colonoscopy (Acute) History of cataract extraction (Acute) History of colectomy (Acute ~06/2018) Stricture of sigmoid colon (Acute) Diverticulitis large intestine (Acute) Rheumatoid arthritis (Acute) Adnexal mass (Acute) Diverticulosis (Acute) Colitis (Acute) Abnormal peripheral pulse (Acute) Aneurysm of infrarenal abdominal aorta (Acute) Hiatal hernia with GERD (Acute) Excellent current progress. We will initiate mobilization. The Esteban catheter will be removed. The patient will be initiated on I-S. She will be initiated on a full liquid diet. She has had an opportunity to ask and have questions answered. Anticipate hopeful discharge later today. Duane Torres M.D., F.A.C.S.
[2020-10-20 06:13] LABS: Anion Gap 7 (5-15); BUN 14 mg/dL (7-18); BUN/Creat Ratio 18.7 RATIO (10-20); Calcium,Total 8.1 mg/dL (8.5-10.1); Chloride 103 mmol/L (98-107); Creatinine, Serum 0.75 mg/dL (0.55-1.02); EST Glomerular Filtration Rate 81 mL/min (>60); Est Glom Filt Rate - Afr Amer 98 mL/min (>60); Glucose 123 mg/dL (74-106); Sodium Level 137 mmol/L (136-145)
[2020-10-20 06:14] LABS: Differential Comment SCANNED
[2020-10-20] MEDS: Budesonide Respules 0.5 MG/2 ML AMPUL.NEB. INHALATION (07:15)
[2020-10-20] MEDS: Albuterol 2.5 MG/3 ML VIAL.NEB. INHALATION ×2 (07:15→13:47)
[2020-10-20] MEDS: Acetaminophen 325 MG Tablet 650 MG PO (08:31)
[2020-10-20] MEDS: Pantoprazole Sodium 20 MG Tablet PO (08:32)
[2020-10-20] MEDS: predniSONE 5 MG Tablet 2.5 MG PO (10:15)
[2020-10-20] MEDS: Aspirin E.C. 81 MG Tablet PO (10:15)
[2020-10-20] MEDS: Triamterene 37.5MG/Hctz 25MG Capsule 1 CAP PO (10:15)
[2020-10-20] MEDS: Potassium Chloride Oral Tablet 20 MEQ 40 MEQ PO (10:15)
--- NOTE | 2020-10-20 11:08 | CASEMGMT ---
RN CM Assessment Note Introduced role of CM to the patient. She is awake, alert and able to participate in assessment. The patient states she lives alone and independently. No care needs prior to admission. No DME use. The patient has a daughter who lives nearby and is able to assist on discharge if any needs arise. Diagnosis: AAA PMH: rheumatoid arthritis, HTN, COPD, Diverticulitis, colitis, hiatal hernia PCP: Dr. Loaiza Specialists: Dr. Han, pulmonology; community service specialist Insurance: [facility]erred [facility]acy[facility] Pres[facility] Benefit: yes LNOK: DaughterCindi Living Arrangements: lives independently in mobile home. 4 steps into home. Patient states prior to admission she was able to complete ADL's and IADL's without assist. Her daughter is able to help if needed. Tranportation: pt drives, but dghtr can help. DME: none. Pt had DME in past, but gave it away. HHC: none SNF: none Patient DC Goals: Home DC Plan: anticipate home on discharge. CM available for discharge planning coordination. Contact CM for any concerns/needs that may arise. Glenroy TORO RN ACM
[2020-10-20 11:28] LABS: Pathologist Review Reviewed
--- NOTE | 2020-10-20 14:07 | PCM.PN.BLA ---
Progress Note Patient evaluated resting comfortably in bed. She tolerated a regular soft food diet without nausea/vomiting. She has been up and walking without any pain. She notes urinating well. Negative BM. Right groin site with moderate amount ecchymosis. Dressing dry with no bloody drainage noted. Left groin site with bloody drainage noted. Dressings were completely removed. Steri-strips and pressure dressing was applied with op-site. No active drainage was noted. Bilateral lower extremities were warm and bilateral pedal pulses were palpated. Ready for discharge Patient to come in on Saturday for repeat in lab work STROKE Vital Signs/Narrative: Vital Signs Temp Pulse Resp BP Pulse Ox 10/20/20 13:48 88 18 10/20/20 12:35 77 10/20/20 12:00 98.3 F 77 18 115/65 94
== END 2020-10-20 15:49 | disposition home or self-care (01) | DRG 269 ==
LOC: ACINP 05:24 → PCU 10-20 07:37 → ICU 10-20 08:47 → PCU 10-20 08:48
PROVIDERS: Anesthesiology; Admitting Provider Surgery; PCP Internal Medicine; Referring Provider Surgery; Visit Provider Surgery
PROC: 04V03DZ Restriction of Abdominal Aorta with Intraluminal Device, Percutaneous Approach (ICD-10-PCS; principal; 2020-10-19 07:00)
DX: I71.4 Abdominal aortic aneurysm, without rupture (principal); I70.201 Unspecified atherosclerosis of native arteries of extremities, right leg; M06.9 Rheumatoid arthritis, unspecified; I10 Essential (primary) hypertension; K21.9 Gastro-esophageal reflux disease without esophagitis; J44.9 Chronic obstructive pulmonary disease, unspecified; M19.90 Unspecified osteoarthritis, unspecified site; Z90.49 Acquired absence of other specified parts of digestive tract; Z87.891 Personal history of nicotine dependence; Z79.51 Long term (current) use of inhaled steroids; Z79.899 Other long term (current) drug therapy
CPT/HCPCS: 34701; 34709; 34713; 34812; 36200; 36415; 75625; 80048; 80076; 83605; 83735; 84100; 85025; 85027; 85610; 85730; 86850; 86900; 86901; 87426; 88304; 88311; 93005; 94640; 94762; 99251; C9803; J7040; J7120; Q9967; A4216; C1725; C1760; C1769; C1894; G0463; J2405

== ENCOUNTER → 2020-12-14 09:49 | Outpatient (CLI) | payer MEDICARE, MEDICAID, SELFPAY ==
[2020-11-29 14:49] VITALS: BMI 29.3
--- NOTE | 2020-12-14 09:55 | RAD_ITS ---
STUDY: X-RAY CHEST REASON FOR EXAM: Female, 70 years old. COPD TECHNIQUE: PA and lateral views of the chest. COMPARISON: Comparison is made with prior study dated 07/11/2018. FINDINGS: Hyperinflation. Mild degree of increased markings at the lung bases suggestive of mild scarring. There has been no change. There is no demonstrated pleural abnormality. Normal size heart. Normal mediastinum and adwoa. Normal visualized pulmonary arteries. There is atherosclerotic tortuosity of the aortic arch and descending thoracic aorta. There is demineralization of the osseous structures. Increased kyphosis. Almost complete collapse of a lower dorsal vertebrae. Normal visualized ribs, clavicles, and shoulders. A covered stent is seen within the abdominal aorta. RAD/Chest PA and Lateral IMPRESSION: Stable mild increased markings at the lung bases suggestive of scarring. Hyperinflation. Osteopenia of the thoracic vertebrae with increased kyphosis in almost complete collapse of the lower dorsal vertebrae. Electronically Signed: Myron Holland MD at 9:18 EDT , Service support ,
== END ==
PROVIDERS: PCP Internal Medicine; Referring Provider Internal Medicine Pulmonary Disease; Visit Provider Internal Medicine Pulmonary Disease
DX: J44.9 Chronic obstructive pulmonary disease, unspecified (principal)
CPT/HCPCS: 71046; 87070; 87077; 87205

== ENCOUNTER → 2021-03-22 | Outpatient (CLI) | payer MEDICARE, MEDICAID, SELFPAY | END | disposition home or self-care (01) | LOC: LABSPEC 15:25 | PROVIDERS: PCP Internal Medicine; Visit Provider Otolaryngology Otolaryngology/Facial Plastic Surgery | DX: J02.9 Acute pharyngitis, unspecified (principal) | CPT/HCPCS: 87070; 87077 ==

== ENCOUNTER → 2021-05-22 13:03 | Outpatient (CLI) | payer MEDICARE, MEDICAID, SELFPAY ==
--- NOTE | 2021-05-22 13:07 | CT_ITS ---
STUDY: CTA OF THE ABDOMINAL AORTA REASON FOR EXAM: Female, 70 years old. Abdominal aortic aneurysm repair with endoluminal stent graft. RADIATION DOSAGE (If Supplied By Facility): CTDIvol = ( 22.24 ) mGy, DLP = ( 524.77 ) mGycm TECHNIQUE: Axial CT angiography multi-detector data acquisition was obtained from the to the following intravenous administration of IV 100mL Isovue-[id number]. Axial images and MIP images were reconstructed from the axial data set. Post-processing of the angiographic images was performed, with multiplanar reformation and 3D reconstruction. Individualized dose optimization techniques were used for this CT. TECHNICAL QUALITY: Good COMPARISON: Comparison is made with prior examination dated 06/15/2020. Descriptors of Narrowing: None (0%) Mild (< 50%) Moderate (50-70%) Severe (70-90%) Subtotal/Total Occlusion (90-100%) Non-Evaluable (technically non-diagnostic FINDINGS: Moderate sized hiatal hernia. The patient is status post cholecystectomy. Abdominal aorta: The patient is status post endoluminal stent grafting within abdominal aortic aneurysm. There is no evidence of ENDO graft leak. The distal limbs of the graft are seen in the common iliac arteries bilaterally. The [employer] aorta measures 4.5 cm in transverse dimension. Celiac and superior mesenteric arteries: No demonstrated narrowing. Inferior mesenteric artery: No demonstrated narrowing. Right renal artery(arteries): No demonstrated narrowing. Left renal artery(arteries): No demonstrated narrowing. Right common iliac artery: No demonstrated narrowing. Right external iliac artery: No demonstrated narrowing. Right internal iliac artery: No demonstrated narrowing. Left common iliac artery: No demonstrated narrowing. Left external iliac artery: No demonstrated narrowing. Left internal iliac artery: No demonstrated narrowing. CT/CTA Abdomen W/WO Contrast IMPRESSION: Status post endoluminal stent grafting of the fusiform infrarenal abdominal aorta. No evidence of the graft leak. The remainder the examination is unchanged. Electronically Signed: Myron Holland MD at 14:27 EDT , Service support ,
[2021-05-22 13:36] LABS: CREATININE FINGERSTICK 0.6 mg/dL (0.55-1.02); EGFR FINGERSTICK > 60.0000 mL/min (>60)
== END ==
PROVIDERS: PCP Internal Medicine; Referring Provider Surgery; Visit Provider Surgery
DX: I71.4 Abdominal aortic aneurysm, without rupture (principal)
CPT/HCPCS: 74175; Q9967

== ENCOUNTER 2024-09-23 10:17 | Inpatient (IN) | payer MEDICARE, SELFPAY ==
[2024-09-23] VITALS (7 sets, daily range): BP systolic 120–153; BP diastolic 71–96; PULSE 84–113; RESP 15–25; TEMP 36–37.1; O2SAT 95–99; BMI 26.9; BMI 25.9
--- NOTE | 2024-09-23 11:14 | EX.ED.DYSGE1 ---
HPI History of Present Illness Chief Complaint: GI Bleed Detail of Chief Complaint: Bright red blood per rectum with large clots Informant: patient Onset/Context/Timing Onset: Today and Hours Context: Sudden Onset Timing: Intermittent Quality: Bright red blood with clots Location: Presumed lower GI Current Severity: Moderate Maximum Severity: Moderate Worsened by: Not applicable Relieved by: Nothing Associated Symptoms Associated Symptoms: Lightheadedness with standing Narrative Narrative: Patient is a 73-year-old woman. She has history of diverticulosis, abdominal aortic aneurysm status postrepair, hiatal hernia, rheumatoid arthritis, GERD, COPD who presents because of bright red blood per rectum. She denies hemorrhoids. She denies prior history. Patient denies fever, chills night sweats. She denies headache, visual, ocular auditory symptoms. She denies cardiac or respiratory symptoms. She denies abdominal pain. She denies nausea or vomiting. She denied black or maroon-colored stool. She took a picture of the commode and it is bright red blood with multiple clots. There was no stool noted. Prior similar symptoms: No Recent Illness/Hospitalization: No PFSH PFS Medical History Stricture of sigmoid colon Diverticulitis large intestine Rheumatoid arthritis Adnexal mass Diverticulosis Colitis Abnormal peripheral pulse Aneurysm of infrarenal abdominal aorta Hiatal hernia with GERD Diverticulitis Chronic back pain Osteoarthritis Hemorrhoid COPD (chronic obstructive pulmonary disease) GERD (gastroesophageal reflux disease) HTN (hypertension) AAA (abdominal aortic aneurysm) Rheumatoid arthritis Home Medications ?Medication ?Instructions ?Recorded ?Last Taken ?Type adalimumab 40 mg/0.8 mL 40 mg subcut Q2W ra 05/12/18 06/25/18 History subcutaneous pen kit (Humira Pen) aspirin 81 mg tablet,delayed 81 mg PO DAILY heart health 05/12/18 10/18/20 18:00 History release denosumab 60 mg/mL subcutaneous 60 mg subcut [id number] bone health 05/12/18 Unknown History syringe (Prolia) fluticasone 250 mcg-salmeterol 50 1 inh inhalation BID asthma 05/12/18 11/14/18 05:00 History mcg/dose blistr powdr for inhalation (Advair Diskus) fluticasone propionate 50 1 inh inhalation BID PRN Sob &/Or 05/12/18 Unknown History mcg/actuation blister powder for Wheezing inhalation folic acid 1 mg tablet 4 mg PO DAILY supplement 05/12/18 Unknown History melatonin 3 mg tablet 3 mg PO HS PRN Sleep 05/12/18 Unknown History methotrexate sodium 2.5 mg tablet 5 mg PO SA ra 05/12/18 06/21/18 History omega 0-dji-eix-fish oil 60 mg-90 1 cap PO DAILY supplement 05/12/18 06/29/18 History mg-500 mg capsule (Fish Oil) omeprazole 20 mg capsule,delayed 20 mg PO DAILY gerd 05/12/18 10/19/20 04:00 History release potassium chloride 20 mEq 20 meq PO DAILY supplement 05/12/18 Unknown History tablet,extended release(part/cryst) (Klor-Con M) prednisone 2.5 mg tablet 2.5 mg PO DAILY ra 05/12/18 10/19/20 04:00 History triamterene 37.5 1 cap PO DAILY bp 05/12/18 10/19/20 04:00 History mg-hydrochlorothiazide 25 mg capsule turmeric 450 mg-turmeric root 1 each PO DAILY supplement 06/30/18 Unknown History extract 50 mg capsule albuterol sulfate 90 mcg/actuation 1 puff inhalation Q4H PRN PRN Sob 07/11/18 10/19/20 04:00 History aerosol inhaler &/Or Wheezing calcium 600 mg (as 1 tab PO DAILY supplement 07/11/18 Unknown History carbonate)-vitamin D3 20 mcg (800 unit) tablet garlic 1,500 mg capsule 1,000 mg PO DAILY supplement 07/11/18 Unknown History atorvastatin 20 mg tablet 20 mg PO QHS cholesterol 10/19/20 Unknown History Allergy/AdvReac Type Severity Reaction Status Date / Time Penicillins Allergy Mild rash Verified 09/23/24 10:19 doxycycline AdvReac Mild gi upset Verified 09/23/24 10:19 levofloxacin (From Levaquin) AdvReac Mild gi upset Verified 09/23/24 10:19 meperidine (From Demerol) AdvReac Mild gi upset Verified 09/23/24 10:19 moxifloxacin (From Avelox) AdvReac Mild gi upset Verified 09/23/24 10:19 Sulfa (Sulfonamide AdvReac Mild gi upset Verified 09/23/24 10:19 Antibiotics) acetaminophen (From AdvReac Nausea/Vom/ Verified 09/23/24 10:19 Tylenol-Codeine) Diarrhea codeine (From AdvReac Nausea/Vom/ Verified 09/23/24 10:19 Tylenol-Codeine) Diarrhea Family History Father Diabetes Hypertension Mother CVA (cerebral vascular accident) Sister Breast cancer Surgical History History of endovascular stent graft for abdominal aortic aneurysm History of abdominal aortic aneurysm (AAA) repair (~10/2020) History of colectomy (~06/2018) History of cataract extraction History of colonoscopy History of tubal ligation History of cholecystectomy Social History Smoking Status: Never smoker how long ago did patient quit smokin yrs ROS ROS ED Constitutional Constitutional ED: Denies chills, fever(s), subjective or sweats Eyes Eyes: Denies blurry vision or change in vision ENT ENT ED: Denies rhinorrhea or sore throat Cardiovascular Cardiovascular: Denies chest pain or palpitations Respiratory/Chest Respiratory/Chest: Denies cough, dyspnea or dyspnea on exertion Gastrointestinal Gastrointestinal: Reports other Details: Hematochezia. No coffee-ground emesis or hematemesis. ; Denies abdominal pain, diarrhea, melena, nausea or vomiting Genitourinary Genitourinary ED: Denies dysuria, hematuria or urinary frequency Musculoskeletal Musculoskeletal: Denies arthralgias or myalgias Integumentary Denies rash Neurologic Neurologic: Denies headache(s) or weakness Psychiatric Psychiatric: Denies anxiety Endocrine Endocrinology: Denies cold intolerance or heat intolerance Hematologic/Lymphatic Hematologic/Lymphatic: Reports systems reviewed and no addt'l complaints, except as documented and other Details: Patient is on a baby aspirin. She is on no other antithrombotic and on no anticoagulant. EXAM Physical Exam Const Vital Signs: 09/23/24 10:17 Temperature 96.8 F L Temperature Source Temporal Pulse Rate 97 Respiratory Rate 16 Blood Pressure 120/71 Blood Pressure Mean 87 Pulse Ox 99 Positive well nourished and well developed General Appearance ED: well developed, NAD and pallor HEENT Reports moist mucous membranes HEENT Narrative: Head is atraumatic and normocephalic. Ears normal. Nares patent. Eyes PERRL and EOMs intact bilaterally General Eye ED: Negative for pale conjunctiva or scleral icterus Neck no lymphadenopathy, supple and no JVD Resp normal respiratory effort and clear to auscultation bilaterally Cardio regular rate, regular rhythm, S1 normal heart sound, S2 normal heart sound and no murmurs GI normal to inspection, nondistended, normoactive bowel sounds, non-tender, non-distended and no masses; Negative for hepatosplenomegaly GI Narrative: Rectal exam reveals no fissures, fistulas or hemorrhoids. Patient does have blood noted. Back/Spine no CVA tenderness Extremity normal to inspection Neuro oriented x3 and CN's II-XII intact bilaterally Sensorium / Orientation: alert Psych mental status grossly normal Skin no rashes or lesions noted, no wounds and skin turgor normal General Skin Exam: pallor; Negative for jaundice MDM MDM MDM Narrative Medical decision making narrative: Patient with bright red blood with large clots. Suspect this is due to a diverticular/lower GI bleed. I am not concerned that this is an upper GI bleed. If this was 1 would suspect that she be hemodynamically stable, which she is not. She was typed and screened and appropriate blood work was obtained to assess H&H, platelet count, BUN to creatinine ratio. Because of her age will obtain EKG as well. Orthostatic vital signs were ordered. Outside records from Dr. Duane Torres were reviewed. She had a CT of her chest revealed no evidence of pulmonary embolus and there was a small hiatal hernia. She had CT of the abdomen pelvis revealed a small left renal cyst. There also was a small umbilical hernia. This was authored by him on January 2023. Outside record was reviewed. This was regarding her abdominal aortic aneurysm. Note was authored November 2020. She was noted to have a type II endoleak with enlarging aneurysm sac compared to 2018. There is also groundglass abnormality noted in the right middle lobe that was noted 2 years prior to most recent study. History & Record Review Additional record(s) reviewed:: Prior inpatient record (MDM portion of the EMR) and Prior outpatient record (Seen for pharyngitis.) Lab Data Lab results narrative: H&H is 14.3 and 42.5 which is significant higher than her baseline. [place] score for safe discharge after lower GI bleed was calculated. She is score was 12. Conclusion is 87% probability of safe discharge (see absence of rebleeding, blood transfusion, therapeutic intervention, 28-day remission or . Discharge not recommended consider admission with further workup and resuscitation as necessary. Labs: Laboratory Results - last 24 hr 09/23/24 11:00 WBC 13.6 H RBC 4.44 Hgb 14.3 Hct 42.5 MCV 95.7 MCH 32.2 H MCHC 33.6 RDW Std Deviation 47.9 H RDW Coeff of Gill 13.8 Plt Count 325 MPV 9.2 Immature Gran % (Auto) 0.500 Neut % (Auto) 74.2 H Lymph % (Auto) 15.6 L [place] % (Auto) 8.3 Eos % (Auto) 1.0 Baso % (Auto) 0.4 Absolute Neuts (auto) 10.1 H Absolute Lymphs (auto) 2.12 Nucleated RBC % 0 PT 12.3 INR 0.9 Sodium 134 L Potassium 3.4 L Chloride 99 Carbon Dioxide 22.0 Anion Gap 13 BUN 15 Creatinine 0.89 Est GFR (MDRD) Af Amer 79 Est GFR (MDRD) Non-Af 65 BUN/Creatinine Ratio 16.8 Glucose 96 Lactic Acid 1.7 Calcium 10.4 H Total Bilirubin 0.60 AST 25 ALT 24 Alkaline Phosphatase 130 H Total Protein 8.3 H Albumin 3.6 Globulin 4.7 H Albumin/Globulin Ratio 0.8 L Blood Type A POSITIVE Antibody Screen NEGATIVE Treatment and Re-Evaluation :: Since patient is actively bleeding IV Zofran was ordered. Discharge Plan Triage Chief Complaint: GI Bleed ED Provider: Ash Chow Dx/Rx/DC Orders Clinical Impression: Acute aspiration pneumonitis, Hiatal hernia with GERD, History of endovascular stent graft for abdominal aortic aneurysm, HTN (hypertension), Acute hypoxemic respiratory failure, Generalized tonic-clonic seizure, Seizure secondary to subtherapeutic anticonvulsant medication Prescriptions: No Action Prolia 60 mg/mL syringe 60 mg SC [id number] omega 4-ppc-qsy-fish oil [Fish Oil] 60-90-500 mg capsule 1 cap PO DAILY triamterene-hydrochlorothiazid 37.5-25 mg capsule 1 cap PO DAILY fluticasone propionate 50 mcg/actuation blister with device 1 inh INHALATION BID PRN (Reason: Sob &/Or Wheezing) Advair Diskus 250-50 mcg/dose blister with device 1 inh INHALATION BID potassium chloride [Klor-Con M20] 20 mEq tablet,ER particles/crystals 20 meq PO DAILY methotrexate sodium 2.5 mg tablet 5 mg PO SA prednisone 2.5 mg tablet 2.5 mg PO DAILY Humira Pen 40 mg/0.8 mL pen injector kit 40 mg SC Q2W omeprazole 20 mg capsule,delayed release(DR/EC) 20 mg PO DAILY melatonin 3 mg tablet 3 mg PO HS PRN (Reason: Sleep) folic acid 1 mg tablet 4 mg PO DAILY aspirin 81 mg tablet,delayed release (DR/EC) 81 mg PO DAILY turmeric-turmeric root extract 1 EACH capsule 1 each PO DAILY garlic 1,500 MG capsule 1,000 mg PO DAILY albuterol sulfate 1 INHALER inhaler 1 puff INHALATION Q4H PRN PRN (Reason: Sob &/Or Wheezing) calcium carbonate-vitamin D3 1 TAB tablet 1 tab PO DAILY atorvastatin 20 MG tablet 20 mg PO QHS Primary Care Provider: Scott Loaiza Referrals: Scott Loaiza MD [Primary Care Provider] - Print Language: Vietnamese Disposition Disposition: Acute Care Hospital [facility]
[2024-09-23 11:15] LABS: Absolute Lymphocyte Count 2.12 X10^3/uL (0.83-4.51); Absolute Neutrophil Count 10.1 X10^3/uL (2.0-7.7); Basophil# 0.05 X10^3/uL; Basophil% 0.4 % (0-1); Eosinophil# 0.13 X10^3/uL; Hematocrit 42.5 % (37-47); Hemoglobin 14.3 g/dL (12.0-15.0); Lymphocyte # 2.12 X10^3/ul (0.83-4.51); Lymphocyte % 15.6 % (19-41); Mean Corp Hgb Conc 33.6 g/dL (32-36); Mean Corpuscular Hgb 32.2 pg (27.0-32.0); Mean Corpuscular Volume 95.7 fL (81-99); Mean Platelet Vol. 9.2 fl (6.2-12.0); Monocyte# 1.13 X10^3/uL; Monocyte% 8.3 % (0-10); NRBC Flagged by Analyzer 0 % (0-5); Neutrophil # 10.05 X10^3/uL (2.7-7.7); Neutrophil % 74.2 % (47-70); Platelet Count 325 K/mm3 (150-450); RBC Distribution Width CV 13.8 % (11.6-14.6); RBC Distribution Width SD 47.9 fl (35.1-43.9); Red Blood Count 4.44 M/mm3 (4.2-5.4); White Blood Count 13.6 K/mm3 (4.4-11.0)
[2024-09-23 11:27] LABS: International Normalized Ratio 0.9; Prothrombin Time (Protime)PT. 12.3 SECONDS (11.7-14.9)
[2024-09-23 11:28] LABS: ALB/GLOB Ratio 0.8 RATIO (0.9-2.4); AST(SGOT) 25 U/L (15-37); Alanine Aminotransfer ALT/SGPT 24 U/L (13-56); Albumin, Serum 3.6 g/dL (3.2-5.0); Alkaline Phosphatase 130 U/L (45-117); Anion Gap 13 (5-15); BUN 15 mg/dL (7-18); BUN/Creat Ratio 16.8 RATIO (10-20); Calcium,Total 10.4 mg/dL (8.5-10.1); Chloride 99 mmol/L (98-107); Creatinine, Serum 0.89 mg/dL (0.55-1.02); EST Glomerular Filtration Rate 65 mL/min (>60); Est Glom Filt Rate - Afr Amer 79 mL/min (>60); Globulin 4.7 g/dL (2.2-4.2); Glucose 96 mg/dL (74-106); Potassium 3.4 mmol/L (3.5-5.1); Protein, Total 8.3 g/dL (6.4-8.2); Sodium Level 134 mmol/L (136-145)
[2024-09-23 11:42] LABS: Lactic Acid 1.7 mmol/L (0.4-1.9)
--- NOTE | 2024-09-23 12:18 | HP.PCM.HOS_ITS ---
HPI - General General Date of Admission: 09/23/24 Date of Service: 09/23/24 HPI Narrative TRINI FOX, is a 73 F with a PMH as outlined who presents via the ED On 09/23/2024 with a complaint of rectal bleeding with associated clots. His symptoms started the day before admission. She says she got up to go to the bathroom and subsequently noted that she had a bloody bowel movement. It was mainly velma blood with large clots. She had several such bowel movements and so this he decided to come into the ED. She denied any lightheadedness or dizziness, palpitations, chest pain, nausea vomiting or any other such symptoms. She has had a history of rectal bleeding before and says she has had a portion of her colon taken out o/a of rectal bleeding with diverticulosis. Review of systems is otherwise negative. Vitals in [facility] ED were BP of 153/88, heart rate of 91, temperature of 98.7 and respiratory rate of 25. She was saturating at 97% on room air. CBC showed hemoglobin of 14.3 with WBC of 13.6 and platelets of 325. Chemistry shows sodium of 134 with potassium of 3.4 and creatinine of 0.89. She has been admitted to be managed for acute GI bleed likely due to diverticular bleed. [facility] Medical History Stricture of sigmoid colon Diverticulitis large intestine Rheumatoid arthritis Adnexal mass Diverticulosis Colitis Abnormal peripheral pulse Aneurysm of infrarenal abdominal aorta Hiatal hernia with GERD Diverticulitis Chronic back pain Osteoarthritis Hemorrhoid COPD (chronic obstructive pulmonary disease) GERD (gastroesophageal reflux disease) HTN (hypertension) AAA (abdominal aortic aneurysm) Rheumatoid arthritis Home Medications ?Medication ?Instructions ?Recorded ?Last Taken ?Type aspirin 81 mg tablet,delayed 81 mg PO DAILY heart heal 05/12/18 10/18/20 18:00 History release denosumab 60 mg/mL subcutaneous 60 mg subcut [id number] bone health 05/12/18 Unknown History syringe (Prolia) folic acid 1 mg tablet 1 mg PO DAILY supplement 03/22 Unknown History methotrexate sodium 2.5 mg tablet 7.5 mg PO SA ra 03/2206/21/18 History omeprazole 20 mg capsule,delayed 40 mg PO BID gerd 03/2210/19/20 04:00 History release potassium chloride 20 mEq 20 meq PO QODAY supplement 1 Unknown History tablet,extended release(part/cryst) (Klor-Con M) prednisone 2.5 mg tablet 2.5 mg PO DAILY ra 05/12/18 10/19/20 04:00 History albuterol sulfate 90 mcg/actuation 1 puff inhalation Q 4H PRN PRN Sob 07/11/18 10/19/20 04:00 History aerosol inhaler &/Or Wheezing calcium 600 mg (as 1 tab PO DAILY supplement Unknown History carbonate)-vitamin D3 20 mcg (800 unit) tablet garlic 1,500 mg capsule 1,000 mg PO DAILY supplement 07/11/18 Unknown History atorvastatin 20 mg tablet 20 mg PO QHS cholesterol Unknown History adalimumab 40 mg/0.8 mL 40 mg subcut Q14D 09/23/24 U nknown History subcutaneous syringe kit (Humira) chlorthalidone 25 mg tablet 25 mg PO QODAY 09/23/24 Un known History coenzyme Q10 200 mg capsule (Co 200 mg PO DAILY Unknown History Q-10) fluticasone propionate 50 2 spray intranasal DAILY PRN nasal 09/23/24 Unknown History mcg/actuation nasal congestion spray,suspension guaifenesin 600 mg tablet, 600 mg PO BID 09/23/24 Unkn own History extended release 12 hr (Mucus Relief ER) lidocaine 4 % topical patch 1 patch topical DAILY 09/05 04/29 Unknown History losartan 50 mg tablet 50 mg PO BID 09/23/24 Unknow n History magnesium oxide 400 mg PO BID 09/23/24 Unkno wn History melatonin 10 mg capsule 10 mg PO QHS 09/23/24 Unknow n History polyethylene glycol 3350 17 gram 17 g PO DAILY 5 Unknown History oral powder packet (Miralax) sennosides 8.6 mg-docusate sodium 1 tab-cap PO BID Unknown History 50 mg tablet (Senna-S) Allergy/AdvReac Type Severity Reaction Status Date / Time Penicillins Allergy Mild rash Verified 09/23/24 10:19 doxycycline AdvReac Mild gi upset Verified 09/23/24 10:19 levofloxacin (From Levaquin) AdvReac Mild gi upset Verified 09/23/24 10:19 meperidine (From Demerol) AdvReac Mild gi upset Verified 09/23/24 10:19 moxifloxacin (From Avelox) AdvReac Mild gi upset Verified 09/23/24 10:19 Sulfa (Sulfonamide AdvReac Mild gi upset Verified 09/23/24 10:19 Antibiotics) acetaminophen (From AdvReac Nausea/Vom/ Verified 09/23/24 10:19 Tylenol-Codeine) Diarrhea codeine (From AdvReac Nausea/Vom/ Verified 09/23/24 10:19 Tylenol-Codeine) Diarrhea Family History Father Diabetes Hypertension Mother CVA (cerebral vascular accident) Sister Breast cancer Surgical History History of endovascular stent graft for abdominal aortic aneurysm History of abdominal aortic aneurysm (AAA) repair (~10/2020) History of colectomy (~06/2018) History of cataract extraction History of colonoscopy History of tubal ligation History of cholecystectomy Social History Smoking Status: Never smoker how long ago did patient quit smokin yrs ROS Constitutional Constitutional: Reports fatigue and malaise; Denies anorexia, change in weight, chills, fever(s) or weakness Eyes Eyes: Denies change in vision ENT HEENT: Denies dysphagia or headache(s) Cardiovascular Cardiovascular: Denies chest pain, dyspnea on exertion, edema, lightheadedness, orthopnea, palpitations, paroxysmal nocturnal dyspnea, rapid heart rate or syncope Respiratory/Chest Respiratory/Chest: Denies cough, dyspnea, shortness of breath at rest or shortness of breath with exertion Gastrointestinal Gastrointestinal: Reports hematochezia; Denies abdominal pain, coffee ground emesis, constipation, diarrhea, dyspepsia, hematemesis, loose stools, melena, nausea or vomiting Genitourinary Genitourinary: Denies burning urination, difficulty urinating or dysuria Neurologic Neurologic: Denies confusion, dizziness, focal weakness, headache(s), numbness, seizures or syncope Psychiatric Psychiatric: Denies anxiety or depression Hematologic/Lymphatic Hematologic/Lymphatic: Denies anemia, easy bleeding or easy bruising Vital Signs Vital Signs Vital Signs: 09/23/24 10:17 Temperature 96.8 F L Temperature Source Temporal Pulse Rate 97 Respiratory Rate 16 Blood Pressure 120/71 Blood Pressure Mean 87 Pulse Ox 99 Physical Exam Const alert, oriented x3 and no apparent distress General Appearance: cooperative HEENT normocephalic, head/scalp atraumatic, hearing grossly normal bilaterally and moist oral mucous membranes Mouth: oral and palatal mucosa normal Eyes PERRL, EOMs intact bilaterally and conjunctivae normal Neck no lymphadenopathy and supple Resp normal respiratory effort, no use of accessory muscles and clear to auscultation bilaterally Cardio regular rate, regular rhythm, S1 normal heart sound, S2 normal heart sound and no murmurs GI normal to inspection, nondistended, normoactive bowel sounds, soft to palpation, non-tender and non-distended Extremity normal to inspection, full ROM and no clubbing, cyanosis or edema Neuro oriented x3, CN's II-XII intact bilaterally, moves all extremities and no focal motor deficits Sensorium / Orientation: awake and alert Motor Exam: strength 5/5 throughout Psych affect normal Results Lab / Micro Data 09/23/24 11:00 09/23/24 11:00 Labs: Laboratory Results - last 24 hr 09/23/24 11:00: WBC 13.6 H, RBC 4.44, Hgb 14.3, Hct 42.5, MCV 95.7, MCH 32.2 H, MCHC 33.6, RDW Std Deviation 47.9 H, RDW Coeff of Gill 13.8, Plt Count 325, MPV 9.2, Immature Gran % (Auto) 0.500, Neut % (Auto) 74.2 H, Lymph % (Auto) 15.6 L, [place] % (Auto) 8.3, Eos % (Auto) 1.0, Baso % (Auto) 0.4, Absolute Neuts (auto) 10.1 H, Absolute Lymphs (auto) 2.12, Nucleated RBC % 0, PT 12.3, INR 0.9, Sodium 134 L, Potassium 3.4 L, Chloride 99, Carbon Dioxide 22.0, Anion Gap 13, BUN 15, Creatinine 0.89, Est GFR (MDRD) Af Amer 79, Est GFR (MDRD) Non-Af 65, BUN/Creatinine Ratio 16.8, Glucose 96, Lactic Acid 1.7, Calcium 10.4 H, Total Bilirubin 0.60, AST 25, ALT 24, Alkaline Phosphatase 130 H, Total Protein 8.3 H, Albumin 3.6, Globulin 4.7 H, Albumin/Globulin Ratio 0.8 L, Blood Type A POSITIVE, Antibody Screen NEGATIVE Assessment & Plan Assessment/Plan (1) GI bleed: PLAN: Plan #Acute lower GI bleed likely due to diverticular bleed * Admit to [facility]. Had numerous bloody bowel movements with associated clots. She has not had any such bleeding since she came into the ED. * Hemoglobin is 14.3. * Admit to [facility]. Hydrate with IV fluid normal saline. Consult gastroenterology. * Keep NPO. IV pantoprazole 40 mg twice daily. Per discussion with GI CTA of the abdomen and pelvis obtained. * Hold any blood thinners. * She does have a history of abdominal aortic aneurysm repair also has a history of laparoscopic sigmoid colectomy back in Due to diverticulosis. * Trend hemoglobin. #Chronic back pain: Patient complaining of back pain. Lidocaine patch and continue pain meds #Hyperlipidemia: On statin #History of osteoarthritis: On denosumab #Hypertension: On chlorthalidone and losartan #History of rheumatoid arthritis: On methotrexate and adalimumab DVT prophylaxis: SCDs CODE STATUS: Full code * Patient counseled extensively about different types of CODE STATUS including full code, DNR CCA and DNR CCA. Patient elects to be full code. Total gcse-if-secc time 16 minutes. Charges/Coding Visit Charges Inpatient E&M: 30502 Init Hosp L3 Procedures Hospitalists Procedures: 89577 Advncd Care Plan 30 Min
[2024-09-23] MEDS: Dicyclomine 10 MG Capsule PO (14:18)
--- NOTE | 2024-09-23 16:27 | CT_ITS ---
PROCEDURE: CTA ABD/PELVIS W/WO CONTRAST REASON FOR EXAM: Lower gastrointestinal bleed. TECHNIQUE: CTA imaging of the abdomen and pelvis with intravenous contrast. 3D reconstructions. Dose reduction techniques include automated exposure control and/or adjustment of mA and/or kv according to patient size and or use of iterative reconstructive technique IV CONTRAST: 100 mL Isovue 370 COMPARISON: 05/22/2021. FINDINGS: Aorta: Patient is status post endovascular abdominal aortic aneurysm repair with the excluded aneurysm sac measuring 4.1 x 3.9 cm. Iliac Arteries: Iliac arteries are normal in size with no significant plaque or stenosis. The iliac stent grafts are widely patent. Celiac: Normal. SMA: Less than 50% stenosis at the origin due to calcified atherosclerotic plaque TARA : Poor flow as previously Right Renal: Normal. Left Renal: Normal. Other Findings: Hiatal hernia is small. Lung bases are clear. The liver, spleen, pancreas are normal. Gallbladder is not well seen. May be surgically absent. A cyst is noted in the lower pole left kidney. Right kidney is normal. Ureters are normal in course and caliber. Urinary bladder is normal. Uterus and adnexa are normal. Fat stranding is noted about a diverticulum in the left lower quadrant High density material layering in the cecum and ascending colon is indeterminate. Rectosigmoid anastomosis is patent. Small bowel is normal in caliber and wall thickness. Appendix is normal. Compression deformity is noted at L2 and T11. CT/CTA Abd/Pelvis W/WO Contrast IMPRESSION: ACUTE UNCOMPLICATED DIVERTICULITIS IN THE DISTAL DESCENDING COLON. HIGH DENSITY MATERIAL LAYERING IN THE CECUM AND ASCENDING COLON IS NONSPECIFIC ON THIS SINGLE-PHASE STUDY AND COULD BE DUE TO INGESTED MATERIAL OR GASTROINTESTINAL BLEEDING. Reading Location: [id number]
[2024-09-23] MEDS: 0.9% Normal Saline (1000mL) 1,000 ML 125 ML IV (17:26)
[2024-09-23] MEDS: Pantoprazole Sodium 40 MG in 0.9% Normal Saline (100mL MB+) 100 ML 330 MG IV (21:50)
[2024-09-23] MEDS: Losartan Potassium 50 MG Tablet PO (22:03)
[2024-09-23] MEDS: MELATONIN 10 MG TABLET PO (22:03)
[2024-09-23] MEDS: Atorvastatin Calcium 20 MG Tablet PO (22:03)
[2024-09-23] MEDS: Acetaminophen 325 MG Tablet 650 MG PO (23:49)
[2024-09-24] MEDS: 0.9% Normal Saline (1000mL) 1,000 ML 125 ML IV (01:53)
[2024-09-24 04:52] VITALS: BP 146/82; PULSE 82; RESP 15; TEMP 36.4; O2SAT 97
[2024-09-24 06:15] LABS: Absolute Lymphocyte Count 4.78 X10^3/uL (0.83-4.51); Absolute Neutrophil Count 3.9 X10^3/uL (2.0-7.7); Basophil# 0.08 X10^3/uL; Basophil% 0.8 % (0-1); Eosinophils% 4.7 % (0-5); Hemoglobin 11.1 g/dL (12.0-15.0); Lymphocyte # 4.78 X10^3/ul (0.83-4.51); Lymphocyte % 45.4 % (19-41); Mean Corp Hgb Conc 32.6 g/dL (32-36); Mean Corpuscular Hgb 31.6 pg (27.0-32.0); Mean Corpuscular Volume 96.9 fL (81-99); Mean Platelet Vol. 9.3 fl (6.2-12.0); Monocyte# 1.28 X10^3/uL; Monocyte% 12.2 % (0-10); NRBC Flagged by Analyzer 0 % (0-5); Neutrophil # 3.85 X10^3/uL (2.7-7.7); Neutrophil % 36.5 % (47-70); Platelet Count 284 K/mm3 (150-450); RBC Distribution Width CV 13.9 % (11.6-14.6); Red Blood Count 3.51 M/mm3 (4.2-5.4); White Blood Count 10.5 K/mm3 (4.4-11.0)
[2024-09-24 06:38] LABS: Anion Gap 12 (5-15); BUN 14 mg/dL (7-18); BUN/Creat Ratio 21.7 RATIO (10-20); Calcium,Total 9.2 mg/dL (8.5-10.1); Chloride 106 mmol/L (98-107); Creatinine, Serum 0.65 mg/dL (0.55-1.02); EST Glomerular Filtration Rate 95 mL/min (>60); Est Glom Filt Rate - Afr Amer 115 mL/min (>60); Estimated Creatinine Clearance 50.04 ml/min; Glucose 70 mg/dL (74-106); Potassium 3.4 mmol/L (3.5-5.1); Sodium Level 139 mmol/L (136-145)
[2024-09-24] MEDS: Morphine 2 MG/ML Syringe 1 MG IV ×3 (08:22→19:56)
[2024-09-24] MEDS: Losartan Potassium 50 MG Tablet PO ×2 (08:22→21:06)
[2024-09-24] MEDS: Potassium Chloride Oral Tablet 20 MEQ 40 MEQ PO (08:22)
[2024-09-24] MEDS: Lidocaine 5% Patch 1 PATCH TOPICAL (08:22)
[2024-09-24 08:46] VITALS: BP 145/62; PULSE 99; RESP 18; TEMP 36.7; O2SAT 95
[2024-09-24] MEDS: Cefepime HCl 1 GM in 0.9% Normal Saline (50mL MB+) 50 ML IV ×2 (09:14→21:44)
--- NOTE | 2024-09-24 09:50 | CASEMGMT ---
RN CM Face to Face with patient for initial transition planning/care coordination assessment. RN CM introduced self and role at [facility]. Patient lying in bed, alert and oriented. Patient willing to participate in assessment and is able to answer all questions appropriately. Care providers, pharmacy, and demographics verified. Strata: 2 PCP: Fadia Specialists: RA Ilya Castillo Preferred [facility]acy: [facility] Insurance: [employer] [facility] Prescription Benefit: yes Living Will/HPOA: yes, daughter Cindi Ramirez LNOK: daughter, son Living Arrangements: Patient lives with son in a mobile home with 4 steps and railing to enter the home. Patient states she is independent at home. Transportation: self, family DME/HHC: Patient has shower chair, raised toilet at home. No previous HHC or SNF Patient wishes to discharge home, denies need for home health at this time. Patient states she has no further needs or concerns at this time. CM to follow for discharge planning needs that may arise. Disposition Plan: Patient to discharge home with family support and follow-up plans in place. Breonna SMITHN, RN, CM
[2024-09-24] MEDS: Pantoprazole Sodium 40 MG in 0.9% Normal Saline (100mL MB+) 100 ML 330 MG IV ×2 (09:56→21:08)
--- NOTE | 2024-09-24 11:47 | PCM.PROGNOTE ---
Subjective Subjective Patient seen and examined. She complained of back pain. This back pain is chronic. She has not had any more rectal bleeding overnight. She is now on clear liquid diet and per GI to have bowel prep for colonoscopy tomorrow. Review of systems otherwise negative. Hemoglobin this morning is 11.1. Objective Data Objective Data Vital Signs: Vital Signs Temp Pulse Resp BP Pulse Ox O2 Del Method 98.1 F 99 18 145/62 H 95 Room Air 09/24/24 08:46 09/24/24 08:46 09/24/24 08:46 09/24/24 08:46 09/24/24 08:46 09/24/24 08:46 Oxygen Delivery Method Room Air Weight: 132 lb 11.2 oz Body Mass Index (BMI) 25.9 Intake & Output: Intake and Output for Last 24 Hours 09/22/24 09/23/24 09/24/24 23:59 23:59 23:59 Intake Total 110 / 110 2160 / 2160 Balance 110 / 110 2160 / 2160 Lab / Micro Data 09/24/24 05:40 09/24/24 05:40 Labs: Laboratory Results - last 24 hr 09/24/24 05:40: WBC 10.5, RBC 3.51 L, Hgb 11.1 L, Hct 34.0 L, MCV 96.9, MCH 31.6, MCHC 32.6, RDW Std Deviation 49.0 H, RDW Coeff of Gill 13.9, Plt Count 284, MPV 9.3, Immature Gran % (Auto) 0.400, Neut % (Auto) 36.5 L, Lymph % (Auto) 45.4 H, [place] % (Auto) 12.2 H, Eos % (Auto) 4.7, Baso % (Auto) 0.8, Absolute Neuts (auto) 3.9, Absolute Lymphs (auto) 4.78 H, Nucleated RBC % 0, Sodium 139, Potassium 3.4 L, Chloride 106, Carbon Dioxide 21.0, Anion Gap 12, BUN 14, Creatinine 0.65, Estim Creat Clear Calc 50.04, Est GFR (MDRD) Af Amer 115, Est GFR (MDRD) Non-Af 95, BUN/Creatinine Ratio 21.7 H, Glucose 70 L, Calcium 9.2 Radiography Diagnostic Testing: Radiology Impression Abdomen/Pelvis CTA 09/23/24 16:27 IMPRESSION: ACUTE UNCOMPLICATED DIVERTICULITIS IN THE DISTAL DESCENDING COLON. HIGH DENSITY MATERIAL LAYERING IN THE CECUM AND ASCENDING COLON IS NONSPECIFIC ON THIS SINGLE-PHASE STUDY AND COULD BE DUE TO INGESTED MATERIAL OR GASTROINTESTINAL BLEEDING. Reading Location: [id number] Physical Exam Const alert, oriented x3 and no apparent distress General Appearance: cooperative HEENT normocephalic, head/scalp atraumatic, hearing grossly normal bilaterally and moist oral mucous membranes Eyes PERRL, EOMs intact bilaterally and conjunctivae normal Neck no lymphadenopathy and supple Resp normal respiratory effort, normal air movement, no use of accessory muscles and clear to auscultation bilaterally Cardio regular rate, regular rhythm, S1 normal heart sound, S2 normal heart sound and no murmurs GI normal to inspection, nondistended, normoactive bowel sounds, soft to palpation, non-tender and non-distended Extremity normal to inspection, full ROM and no clubbing, cyanosis or edema Neuro oriented x3, CN's II-XII intact bilaterally, moves all extremities and no focal motor deficits Sensorium / Orientation: awake and alert Motor Exam: strength 5/5 throughout Psych affect normal Assessment & Plan Assessment/Plan (1) GI bleed: PLAN: Plan #Acute lower GI bleed likely due to diverticular bleed Has not had any more rectal bleeding since she came into the ED. Hemoglobin is 11.1. Has dropped from 14.3 yesterday. Been hydrated with IV fluid normal saline. CT of the abdomen showed no evidence of bleeding but showed diverticulitis. Hold any blood thinners. She does have a history of abdominal aortic aneurysm repair also has a history of laparoscopic sigmoid colectomy back in Due to diverticulosis. Started on IV Zosyn for the diverticulitis. For colonoscopy tomorrow. N.p.o. past midnight. #Chronic back pain: Patient complaining of back pain. Lidocaine patch, p.o. Tylenol, p.o. oxycodone and IV morphine. #Hypokalemia: Potassium is 3.4. Replace and trend. #Hyperlipidemia: On statin #History of osteoarthritis: On denosumab #Hypertension: On chlorthalidone and losartan #History of rheumatoid arthritis: On methotrexate and adalimumab DVT prophylaxis: SCDs CODE STATUS: Full code Charges/Coding Visit Charges Inpatient E&M: 80114 Subs Hosp L2
--- NOTE | 2024-09-24 12:01 | EX.PCM.CON.G ---
HPI Consult Data Date of Consult: 09/24/24 HPI Narrative Reason for Consultation: Lower GI bleed HPI Narrative: TRINI FOX, is a 73 F who presents with LGIB. She has history of diverticulosis, abdominal aortic aneurysm status postrepair, hiatal hernia, rheumatoid arthritis, GERD, COPD who presents because of bright red blood per rectum. She denies hemorrhoids. She denies prior history. She takes Humira for RA. Patient denies fever, chills night sweats. She denies headache, visual, ocular auditory symptoms. She denies cardiac or respiratory symptoms. She denies abdominal pain. She denies nausea or vomiting. She denied black or maroon-colored stool. She took a picture of the commode and it is bright red blood with multiple clots. [facility] Medical History Stricture of sigmoid colon Diverticulitis large intestine Rheumatoid arthritis Adnexal mass Diverticulosis Colitis Abnormal peripheral pulse Aneurysm of infrarenal abdominal aorta Hiatal hernia with GERD Diverticulitis Chronic back pain Osteoarthritis Hemorrhoid COPD (chronic obstructive pulmonary disease) GERD (gastroesophageal reflux disease) HTN (hypertension) AAA (abdominal aortic aneurysm) Rheumatoid arthritis Home Medications ?Medication ?Instructions ?Recorded ?Last Taken ?Type aspirin 81 mg tablet,delayed 81 mg PO DAILY heart health 05/12/18 10/18/20 18:00 History release denosumab 60 mg/mL subcutaneous 60 mg subcut [id number] bone health 05/12/18 Unknown History syringe (Prolia) folic acid 1 mg tablet 1 mg PO DAILY supplement 05/12/18 Unknown History methotrexate sodium 2.5 mg tablet 7.5 mg PO SA ra 05/12/18 06/21/18 History omeprazole 20 mg capsule,delayed 40 mg PO BID gerd 05/12/18 10/19/20 04:00 History release potassium chloride 20 mEq 20 meq PO QODAY supplement 05/12/18 Unknown History tablet,extended release(part/cryst) (Klor-Con M) prednisone 2.5 mg tablet 2.5 mg PO DAILY ra 05/12/18 10/19/20 04:00 History albuterol sulfate 90 mcg/actuation 1 puff inhalation Q4H PRN PRN Sob 07/11/18 10/19/20 04:00 History aerosol inhaler &/Or Wheezing calcium 600 mg (as 1 tab PO DAILY supplement 07/11/18 Unknown History carbonate)-vitamin D3 20 mcg (800 unit) tablet garlic 1,500 mg capsule 1,000 mg PO DAILY supplement 07/11/18 Unknown History atorvastatin 20 mg tablet 20 mg PO QHS cholesterol 10/19/20 Unknown History adalimumab 40 mg/0.8 mL 40 mg subcut Q14D 09/23/24 Unknown History subcutaneous syringe kit (Humira) chlorthalidone 25 mg tablet 25 mg PO QODAY 09/23/24 Unknown History coenzyme Q10 200 mg capsule (Co 200 mg PO DAILY 09/23/24 Unknown History Q-10) fluticasone propionate 50 2 spray intranasal DAILY PRN nasal 09/23/24 Unknown History mcg/actuation nasal congestion spray,suspension guaifenesin 600 mg tablet, 600 mg PO BID 09/23/24 Unknown History extended release 12 hr (Mucus Relief ER) lidocaine 4 % topical patch 1 patch topical DAILY 09/23/24 Unknown History losartan 50 mg tablet 50 mg PO BID 09/23/24 Unknown History magnesium oxide 400 mg PO BID 09/23/24 Unknown History melatonin 10 mg capsule 10 mg PO QHS 09/23/24 Unknown History polyethylene glycol 3350 17 gram 17 g PO DAILY 09/23/24 Unknown History oral powder packet (Miralax) sennosides 8.6 mg-docusate sodium 1 tab-cap PO BID 09/23/24 Unknown History 50 mg tablet (Senna-S) Allergy/AdvReac Type Severity Reaction Status Date / Time Penicillins Allergy Mild rash Verified 09/23/24 10:19 doxycycline AdvReac Mild gi upset Verified 09/23/24 10:19 levofloxacin (From Levaquin) AdvReac Mild gi upset Verified 09/23/24 10:19 meperidine (From Demerol) AdvReac Mild gi upset Verified 09/23/24 10:19 moxifloxacin (From Avelox) AdvReac Mild gi upset Verified 09/23/24 10:19 Sulfa (Sulfonamide AdvReac Mild gi upset Verified 09/23/24 10:19 Antibiotics) acetaminophen (From AdvReac Nausea/Vom/ Verified 09/23/24 10:19 Tylenol-Codeine) Diarrhea codeine (From AdvReac Nausea/Vom/ Verified 09/23/24 10:19 Tylenol-Codeine) Diarrhea Family History Father Diabetes Hypertension Mother CVA (cerebral vascular accident) Sister Breast cancer Surgical History History of endovascular stent graft for abdominal aortic aneurysm History of abdominal aortic aneurysm (AAA) repair (~10/2020) History of colectomy (~06/2018) History of cataract extraction History of colonoscopy History of tubal ligation History of cholecystectomy Social History Smoking Status: Never smoker how long ago did patient quit smokin yrs ROS Constitutional Constitutional: Denies fatigue, fever(s), poor appetite, weight gain or weight loss Gastrointestinal Gastrointestinal: Denies belching, bloating, change in bowel habits, change in stool character, chewing difficulty, coffee ground emesis, constipation, cramping, diarrhea, dyspepsia, dysphagia, early satiety, excessive flatus, fecal incontinence, heartburn, hematemesis, hematochezia, hemorrhoids, loose stools, melena, nausea, odynophagia, rectal bleeding, tenesmus, vomiting or weight changes Physical Exam Const alert, oriented x3, no apparent distress and healthy appearing General Appearance: cooperative GI normal to inspection, nondistended, normoactive bowel sounds, soft to palpation, non-tender and non-distended Percussion: normal to percussion Rectal Exam: deferred Lab / Micro Data 09/25/24 05:09 09/25/24 05:09 Labs: Laboratory Results - last 24 hr 09/25/24 05:09: WBC 10.5, RBC 4.00 L, Hgb 12.7, Hct 38.2, MCV 95.5, MCH 31.8, MCHC 33.2, RDW Std Deviation 47.6 H, RDW Coeff of Gill 13.6, Plt Count 298, MPV 9.5, Immature Gran % (Auto) 0.400, Neut % (Auto) 56.4, Lymph % (Auto) 27.6, [place] % (Auto) 11.8 H, Eos % (Auto) 3.2, Baso % (Auto) 0.6, Absolute Neuts (auto) 5.9, Absolute Lymphs (auto) 2.90, Nucleated RBC % 0, Sodium 137, Potassium 3.1 L, Chloride 102, Carbon Dioxide 25.0, Anion Gap 10, BUN 5 L, Creatinine 0.66, Estim Creat Clear Calc 49.93, Est GFR (MDRD) Af Amer 113, Est GFR (MDRD) Non-Af 93, BUN/Creatinine Ratio 7.6 L, Glucose 115 H, Calcium 9.9 Assessment & Plan Assessment/Plan (1) GI bleed: PLAN: Plan #73 yo with recent Acute lower GI bleed likely due to diverticular bleed vs hemorroidal Ct scan displays multiple diverticuli. She will undergo colonscopy for evaluation of the lower GI tract. Charges/Coding Visit Charges Inpatient E&M: 66278 Init Hosp L3
[2024-09-24] MEDS: 0.9% Saline Lock 10 ML Syringe IV ×3 (12:38→20:26)
[2024-09-24 14:23] VITALS: BP 126/62; PULSE 74; RESP 18; TEMP 36.9; O2SAT 97
[2024-09-24] MEDS: Acetaminophen 325 MG Tablet 650 MG PO (16:39)
[2024-09-24] MEDS: Bisacodyl 5 MG Tablet 20 MG PO (18:39)
[2024-09-24] MEDS: Polyethylene Glycol 3350 BOWEL PREP PO (19:42)
[2024-09-24 20:00] VITALS: BP 150/72; PULSE 75; RESP 16; TEMP 37.1; O2SAT 97
[2024-09-24] MEDS: Ondansetron 4 MG/2 ML Vial IV (20:26)
[2024-09-24] MEDS: Atorvastatin Calcium 20 MG Tablet PO (21:06)
[2024-09-24] MEDS: Metoclopramide 10 MG/2 ML Vial 5 MG IV (23:02)
[2024-09-25] VITALS (11 sets, daily range): BP systolic 114–152; BP diastolic 73–89; PULSE 72–85; RESP 16–20; TEMP 36.1–37; O2SAT 95–100
[2024-09-25] MEDS: Ondansetron 4 MG/2 ML Vial IV (02:34)
[2024-09-25] MEDS: 0.9% Saline Lock 10 ML Syringe IV ×3 (02:35→09:45)
[2024-09-25] MEDS: Morphine 2 MG/ML Syringe 1 MG IV (04:52)
[2024-09-25] MEDS: Metoclopramide 10 MG/2 ML Vial 5 MG IV (05:00)
[2024-09-25 06:39] LABS: Absolute Neutrophil Count 5.9 X10^3/uL (2.0-7.7); Basophil# 0.06 X10^3/uL; Basophil% 0.6 % (0-1); Eosinophil# 0.34 X10^3/uL; Eosinophils% 3.2 % (0-5); Hematocrit 38.2 % (37-47); Hemoglobin 12.7 g/dL (12.0-15.0); Lymphocyte % 27.6 % (19-41); Mean Corp Hgb Conc 33.2 g/dL (32-36); Mean Corpuscular Hgb 31.8 pg (27.0-32.0); Mean Corpuscular Volume 95.5 fL (81-99); Mean Platelet Vol. 9.5 fl (6.2-12.0); Monocyte# 1.24 X10^3/uL; Monocyte% 11.8 % (0-10); NRBC Flagged by Analyzer 0 % (0-5); Neutrophil # 5.91 X10^3/uL (2.7-7.7); Neutrophil % 56.4 % (47-70); Platelet Count 298 K/mm3 (150-450); RBC Distribution Width CV 13.6 % (11.6-14.6); RBC Distribution Width SD 47.6 fl (35.1-43.9); White Blood Count 10.5 K/mm3 (4.4-11.0)
[2024-09-25 07:24] LABS: Anion Gap 10 (5-15); BUN 5 mg/dL (7-18); BUN/Creat Ratio 7.6 RATIO (10-20); Calcium,Total 9.9 mg/dL (8.5-10.1); Chloride 102 mmol/L (98-107); Creatinine, Serum 0.66 mg/dL (0.55-1.02); EST Glomerular Filtration Rate 93 mL/min (>60); Est Glom Filt Rate - Afr Amer 113 mL/min (>60); Estimated Creatinine Clearance 49.93 ml/min; Glucose 115 mg/dL (74-106); Potassium 3.1 mmol/L (3.5-5.1); Sodium Level 137 mmol/L (136-145)
[2024-09-25] MEDS: Pantoprazole Sodium 40 MG in 0.9% Normal Saline (100mL MB+) 100 ML 330 MG IV (09:44)
[2024-09-25] MEDS: Lidocaine 5% Patch 1 PATCH TOPICAL (09:45)
[2024-09-25] MEDS: Cefepime HCl 1 GM in 0.9% Normal Saline (50mL MB+) 50 ML IV (10:19)
--- NOTE | 2024-09-25 12:01 | PCM.PRE.AN2 ---
ASA Classification* ASA Classification ASA Classification: 3 Assessment & Plan Anesthesia* Anesthesia Assessment Anesthesia Assessment: Discussed sedation and/or anesthesia options, risks, benefits, and alternatives with patient/parents/legal guardian/POA. Questions invited. The patient/parents/legal guardian/POA seems to understand and agrees to proceed with anesthesia plan. Reviewed the physical assessment, medical history, allergy history and patient home medications list prior to surgery/procedure/anesthetic and documented any changes. Performed airway and anesthesia risk assessments. Anesthesia Type Anesthesia Type: MAC Anesthesia Focused Assessment* Temperature: 97.6 F Pulse Rate: 79 Blood Pressure: 141/74 Respiratory Rate: 18 Pulse Ox: 100 Airway Assessment Mouth opens: >3 cm Mallampati Score: II Focused Labs Anesthesia Preop lab: CBC WBC 10.5 K/mm3 (4.4-11.0) 09/25/24 05:09 09/25/24 RBC 4.00 M/mm3 (4.2-5.4) L 09/25/24 05:09 09/25/24 Hgb 12.7 g/dL (12.0-15.0) 09/25/24 05:09 09/25/24 Hct 38.2 % (37-47) 09/25/24 05:09 09/25/24 Plt Count 298 K/mm3 (150-450) 09/25/24 05:09 09/25/24 CHEMISTRY Potassium 3.1 mmol/L (3.5-5.1) L 09/25/24 05:09 09/25/24 Sodium 137 mmol/L (136-145) 09/25/24 05:09 09/25/24 Magnesium 2.3 mg/dL (1.6-2.6) 10/12/20 14:00 10/12/20 Phosphorus 3.4 mg/dL (2.5-4.9) 10/12/20 14:00 10/12/20 BUN 5 mg/dL (7-18) L 09/25/24 05:09 09/25/24 Creatinine 0.66 mg/dL (0.55-1.02) 09/25/24 05:09 09/25/24 Glucose 115 mg/dL (74-106) H 09/25/24 05:09 09/25/24 POC Glucose 105 mg/dL (70-110) 07/07/18 06:21 07/07/18 COAG PT 12.3 SECONDS (11.7-14.9) 09/23/24 11:00 09/23/24 Pre-Assessment Diagnosis/Proposed Procedure Planned Operative Procedure(s): scope Anesthesia History Anesthesia History - fittings tightener: Anesthesia History - fittings tightener Hx Hospitalization No 10/11/20 14:53 Any Problems With Anesthesia No 09/24/24 19:53 Cholinesterase deficiency No 09/24/24 19:53 You/Your Family Experience No 09/24/24 19:53 fever (hyperthermia) with Relationship Recent Exposure to Contagious No 09/24/24 19:53 Disease Does patient have nerve No 09/24/24 19:53 stimulator Patient instructed to have device shut off --Does patient have Pacemaker No 09/25/24 02:42 or ICD? When Was Last Pacemaker Check QUESTION #4 FULL TEXT: You/Your Family Experience fever (hyperthermia) with Anesthesia Last Oral Intake Last Oral intake: Last Oral Intake NPO since Meds taken in AM with sips of water? 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 - fittings tightener: PONV - fittings tightener Female HX of Motion Sickness HX of N/V After Surgery Non-Smoker Duration of Surgery greater than 60 minutes Number of Risk Factors PONV Score Height & Weight Height & Weight: Anesthesia: Height & Weight Height 5 ft 09/24/24 13:13 Weight: 59.924 kg 09/25/24 02:42 Body Mass Index (BMI) 25.9 09/23/24 16:59 Respiratory Assessment Respiratory Assessment - fittings tightener: Respiratory Tract Infection Hx - fittings tightener Hx Respiratory Tract Infection No 09/24/24 19:53 STOP Sleep Apnea STOP Sleep Apnea - fittings tightener: STOP Sleep Apnea - fittings tightener Hx Hypertension Yes 09/24/24 15:53 Hx Sleep Apnea No 09/23/24 16:59 CPAP BIPAP Do you snore loudly (louder No 09/23/24 16:59 than talking or can be heard Do you often feel tired/ No 09/23/24 16:59 fatigued/ sleepy during daytime? Has anyone observed you stop No 09/23/24 16:59 breathing during sleep? STOP Results Negative 09/23/24 16:59 QUESTION #5 FULL TEXT : Do you snore loudly (louder than talking or can be heard through closed doors)? 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 Specify any problems Hx of Preganancy in last 3 No 09/23/24 16:59 Months Nurse Filling Out Transfusion KMESSENGE 09/23/24 16:59 & Questions: Date: 09/23/24 09/23/24 16:59 Time: 17:09 09/23/24 16:59 Patient unable to answer at this time (ie. confused, unrespo /Reproduction History /Reproductive History - fittings tightener: /Reproductive Hx- fittings tightener Hx Now No 09/24/24 19:53 Gestational Age (in weeks): EDC: Hx Hx Para Hx Section SAB No 09/24/24 19:53 Active Medications Active Medications: Current Medications Generic Name Dose Route Start Last Admin Trade Name Freq PRN Reason Stop Dose Admin Acetaminophen 650 mg 09/23/24 22:12 09/24/24 16:39 Acetaminophen 325 Mg Tablet PO 650 mg Q6H PRN PRN Administration fever, pain 1-10 Atorvastatin Calcium 20 mg 09/23/24 22:00 09/24/24 21:06 Atorvastatin Calcium 20 Mg Tablet PO 20 mg QHS MAYA Administration Pantoprazole Sodium 40 mg/ 110 mls @ 330 mls/hr 09/23/24 22:00 09/25/24 10:21 Sodium Chloride IV Infused Q12 MAYA Infusion Sodium Chloride 100 mls @ 15 mls/hr 09/23/24 17:07 IV .Q6H40M PRN Saline Flush Sodium Chloride 100 mls @ 15 mls/hr 09/23/24 17:07 IV .Q6H40M PRN Additional IVPB Infusion Cefepime HCl 1 gm/ Sodium 50 mls @ 100 mls/hr 09/24/24 07:30 09/25/24 10:53 Chloride IV Infused Q12 MAYA Infusion Lidocaine 1 patch 09/24/24 10:00 09/25/24 09:45 Lidocaine 5% Patch TOPICAL 1 patch DAILY [facility] Administration Protocol Losartan Potassium 50 mg 09/23/24 22:00 09/24/24 21:06 Losartan Potassium 50 Mg Tablet PO 50 mg BID [facility] Administration Protocol Melatonin 10 mg 09/23/24 22:00 09/24/24 23:03 Melatonin 10 Mg Tablet PO Not Given QHS [facility] Metoclopramide HCl 5 mg 09/25/24 00:00 09/25/24 11:50 Metoclopramide 10 Mg/2 Ml Vial IV Not Given Q6 [facility] Morphine Sulfate 1 mg 09/24/24 08:03 09/25/24 04:52 Morphine 2 Mg/Ml Syringe IV 1 mg Q3H PRN PRN Administration Pain Score 6-10 Nitroglycerin 0.4 mg 09/23/24 17:02 Nitroglycerin (Inpatient Use) 0.4 Mg Tab.Subl SL Q5M PRN CARDIAC/CHEST PAIN Ondansetron HCl 4 mg 09/25/24 02:17 09/25/24 02:34 Ondansetron 4 Mg/2 Ml Vial IV 4 mg Q4H PRN PRN Administration NAUSEA/VOMITING Sodium Chloride 10 - 40 ml 09/23/24 17:07 09/25/24 09:45 0.9% Saline Lock 10 Ml Syringe IV 10 ml UD PRN Administration SALINE FLUSH [facility] Medical History Stricture of sigmoid colon Diverticulitis large intestine Rheumatoid arthritis Adnexal mass Diverticulosis Colitis Abnormal peripheral pulse Aneurysm of infrarenal abdominal aorta Hiatal hernia with GERD Diverticulitis Chronic back pain Osteoarthritis Hemorrhoid COPD (chronic obstructive pulmonary disease) GERD (gastroesophageal reflux disease) HTN (hypertension) AAA (abdominal aortic aneurysm) Rheumatoid arthritis Home Medications ?Medication ?Instructions ?Recorded ?Last Taken ?Type aspirin 81 mg tablet,delayed 81 mg PO DAILY heart health 05/12/18 10/18/20 18:00 History release Held on 09/25/24. Instructions: Resume on 10/02/24. denosumab 60 mg/mL subcutaneous 60 mg subcut [id number] bone health 05/12/18 Unknown History syringe (Prolia) folic acid 1 mg tablet 1 mg PO DAILY supplement 05/12/18 Unknown History methotrexate sodium 2.5 mg tablet 7.5 mg PO SA ra 05/12/18 06/21/18 History omeprazole 20 mg capsule,delayed 40 mg PO BID gerd 05/12/18 10/19/20 04:00 History release potassium chloride 20 mEq 20 meq PO QODAY supplement 05/12/18 Unknown History tablet,extended release(part/cryst) (Klor-Con M) prednisone 2.5 mg tablet 2.5 mg PO DAILY ra 05/12/18 10/19/20 04:00 History albuterol sulfate 90 mcg/actuation 1 puff inhalation Q4H PRN PRN Sob 07/11/18 10/19/20 04:00 History aerosol inhaler &/Or Wheezing calcium 600 mg (as 1 tab PO DAILY supplement 07/11/18 Unknown History carbonate)-vitamin D3 20 mcg (800 unit) tablet garlic 1,500 mg capsule 1,000 mg PO DAILY supplement 07/11/18 Unknown History atorvastatin 20 mg tablet 20 mg PO QHS cholesterol 10/19/20 Unknown History adalimumab 40 mg/0.8 mL 40 mg subcut Q14D 09/23/24 Unknown History subcutaneous syringe kit (Humira) chlorthalidone 25 mg tablet 25 mg PO QODAY 09/23/24 Unknown History coenzyme Q10 200 mg capsule (Co 200 mg PO DAILY 09/23/24 Unknown History Q-10) fluticasone propionate 50 2 spray intranasal DAILY PRN nasal 09/23/24 Unknown History mcg/actuation nasal congestion spray,suspension guaifenesin 600 mg tablet, 600 mg PO BID 09/23/24 Unknown History extended release 12 hr (Mucus Relief ER) lidocaine 4 % topical patch 1 patch topical DAILY 09/23/24 Unknown History losartan 50 mg tablet 50 mg PO BID 09/23/24 Unknown History magnesium oxide 400 mg PO BID 09/23/24 Unknown History melatonin 10 mg capsule 10 mg PO QHS 09/23/24 Unknown History polyethylene glycol 3350 17 gram 17 g PO DAILY 09/23/24 Unknown History oral powder packet (Miralax) sennosides 8.6 mg-docusate sodium 1 tab-cap PO BID 09/23/24 Unknown History 50 mg tablet (Senna-S) sulfamethoxazole 400 1 tab PO BID #10 tabs 09/25/24 Unknown Rx mg-trimethoprim 80 mg tablet (Bactrim) Allergy/AdvReac Type Severity Reaction Status Date / Time Penicillins Allergy Mild rash Verified 09/23/24 10:19 doxycycline AdvReac Mild gi upset Verified 09/23/24 10:19 levofloxacin (From Levaquin) AdvReac Mild gi upset Verified 09/23/24 10:19 meperidine (From Demerol) AdvReac Mild gi upset Verified 09/23/24 10:19 moxifloxacin (From Avelox) AdvReac Mild gi upset Verified 09/23/24 10:19 Sulfa (Sulfonamide AdvReac Mild gi upset Verified 09/23/24 10:19 Antibiotics) acetaminophen (From AdvReac Nausea/Vom/ Verified 09/23/24 10:19 Tylenol-Codeine) Diarrhea codeine (From AdvReac Nausea/Vom/ Verified 09/23/24 10:19 Tylenol-Codeine) Diarrhea Family History Father Diabetes Hypertension Mother CVA (cerebral vascular accident) Sister Breast cancer Surgical History History of endovascular stent graft for abdominal aortic aneurysm History of abdominal aortic aneurysm (AAA) repair (~10/2020) History of colectomy (~06/2018) History of cataract extraction History of colonoscopy History of tubal ligation History of cholecystectomy Social History Smoking Status: Never smoker how long ago did patient quit smokin yrs Review of Systems (Anesthesia) ROS Narrative System reviewed and no additional complaints, except as documented.
--- NOTE | 2024-09-25 12:06 | PN_ITS ---
Progress Note Patient for colonoscopy today. Physical Exam Const alert, oriented x3, no apparent distress and healthy appearing General Appearance: cooperative GI normal to inspection, nondistended, normoactive bowel sounds, soft to palpation, non-tender and non-distended Percussion: normal to percussion Rectal Exam: deferred Assessment & Plan Assessment/Plan (1) GI bleed: PLAN: Plan #73 yo with recent Acute lower GI bleed likely due to diverticular bleed vs hemorroidal * Ct scan displays multiple diverticuli. * She will undergo colonscopy for evaluation of the lower GI tract. Visit Charges Inpatient E&M: 91844 Subs Hosp L2
--- NOTE | 2024-09-25 12:07 | PCM.PRE.AN2 ---
ASA Classification* ASA Classification ASA Classification: 3 Assessment & Plan Anesthesia* Anesthesia Assessment Anesthesia Assessment: Discussed sedation and/or anesthesia options, risks, benefits, and alternatives with patient/parents/legal guardian/POA. Questions invited. The patient/parents/legal guardian/POA seems to understand and agrees to proceed with anesthesia plan. Reviewed the physical assessment, medical history, allergy history and patient home medications list prior to surgery/procedure/anesthetic and documented any changes. Performed airway and anesthesia risk assessments. Anesthesia Type Anesthesia Type: MAC History Source History Obtained from:: Patient, Chart and - (daughter) Anesthesia Focused Assessment* Temperature: 97.6 F Pulse Rate: 79 Blood Pressure: 141/74 Respiratory Rate: 18 Pulse Ox: 100 Oxygen Delivery Method: Room Air Airway Assessment Mouth opens: 2 cm Mallampati Score: II Teeth Condition: Dentures Neck Range of motion (ROM): Limited ROM Focused Labs Anesthesia Preop lab: CBC WBC 10.5 K/mm3 (4.4-11.0) 09/25/24 05:09 09/25/24 RBC 4.00 M/mm3 (4.2-5.4) L 09/25/24 05:09 09/25/24 Hgb 12.7 g/dL (12.0-15.0) 09/25/24 05:09 09/25/24 Hct 38.2 % (37-47) 09/25/24 05:09 09/25/24 Plt Count 298 K/mm3 (150-450) 09/25/24 05:09 09/25/24 CHEMISTRY Potassium 3.1 mmol/L (3.5-5.1) L 09/25/24 05:09 09/25/24 Sodium 137 mmol/L (136-145) 09/25/24 05:09 09/25/24 Magnesium 2.3 mg/dL (1.6-2.6) 10/12/20 14:00 10/12/20 Phosphorus 3.4 mg/dL (2.5-4.9) 10/12/20 14:00 10/12/20 BUN 5 mg/dL (7-18) L 09/25/24 05:09 09/25/24 Creatinine 0.66 mg/dL (0.55-1.02) 09/25/24 05:09 09/25/24 Glucose 115 mg/dL (74-106) H 09/25/24 05:09 09/25/24 POC Glucose 105 mg/dL (70-110) 07/07/18 06:21 07/07/18 COAG PT 12.3 SECONDS (11.7-14.9) 09/23/24 11:00 09/23/24 Pre-Assessment Diagnosis/Proposed Procedure Planned Operative Procedure(s): Colonoscopy Anesthesia History 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 When Was Last Pacemaker Check QUESTION #4 FULL TEXT: You/Your Family Experience fever (hyperthermia) with Anesthesia Last Oral Intake Last Oral intake: Last Oral Intake NPO since Meds taken in AM with sips of water? 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 Female HX of Motion Sickness HX of N/V After Surgery Non-Smoker Duration of Surgery greater than 60 minutes Number of Risk Factors PONV Score Height & Weight Height & Weight: Anesthesia: Height & Weight Height 5 ft 09/24/24 13:13 Weight: 59.924 kg 09/25/24 02:42 Body Mass Index (BMI) 25.9 09/23/24 16:59 Respiratory Assessment Respiratory Assessment - telegraph operator: Respiratory Tract Infection Hx - telegraph operator Hx Respiratory Tract Infection No 09/24/24 19:53 STOP Sleep Apnea STOP Sleep Apnea - telegraph operator: STOP Sleep Apnea - telegraph operator Hx Hypertension Yes 09/24/24 15:53 Hx Sleep Apnea No 09/23/24 16:59 CPAP BIPAP Do you snore loudly (louder No 09/23/24 16:59 than talking or can be heard Do you often feel tired/ No 09/23/24 16:59 fatigued/ sleepy during daytime? Has anyone observed you stop No 09/23/24 16:59 breathing during sleep? STOP Results Negative 09/23/24 16:59 QUESTION #5 FULL TEXT : Do you snore loudly (louder than talking or can be heard through closed doors)? 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 Specify any problems Hx of Preganancy in last 3 No 09/23/24 16:59 Months Nurse Filling Out Transfusion KMESSENGE 09/23/24 16:59 & Questions: Date: 09/23/24 09/23/24 16:59 Time: 17:09 09/23/24 16:59 Patient unable to answer at this time (ie. confused, unrespo /Reproduction History /Reproductive History - telegraph operator: /Reproductive Hx- telegraph operator Hx Now No 09/24/24 19:53 Gestational Age (in weeks): EDC: Hx Hx Para Hx Section SAB No 09/24/24 19:53 Active Medications Active Medications: Current Medications Generic Name Dose Route Start Last Admin Trade Name Freq PRN Reason Stop Dose Admin Acetaminophen 650 mg 09/23/24 22:12 09/24/24 16:39 Acetaminophen 325 Mg Tablet PO 650 mg Q6H PRN PRN Administration fever, pain 1-10 Atorvastatin Calcium 20 mg 09/23/24 22:00 09/24/24 21:06 Atorvastatin Calcium 20 Mg Tablet PO 20 mg QHS MAYA Administration Pantoprazole Sodium 40 mg/ 110 mls @ 330 mls/hr 09/23/24 22:00 09/25/24 10:21 Sodium Chloride IV Infused Q12 MAYA Infusion Sodium Chloride 100 mls @ 15 mls/hr 09/23/24 17:07 IV .Q6H40M PRN Saline Flush Sodium Chloride 100 mls @ 15 mls/hr 09/23/24 17:07 IV .Q6H40M PRN Additional IVPB Infusion Cefepime HCl 1 gm/ Sodium 50 mls @ 100 mls/hr 09/24/24 07:30 09/25/24 10:53 Chloride IV Infused Q12 MAYA Infusion Lidocaine 1 patch 09/24/24 10:00 09/25/24 09:45 Lidocaine 5% Patch TOPICAL 1 patch DAILY [facility] Administration Protocol Losartan Potassium 50 mg 09/23/24 22:00 09/24/24 21:06 Losartan Potassium 50 Mg Tablet PO 50 mg BID [facility] Administration Protocol Melatonin 10 mg 09/23/24 22:00 09/24/24 23:03 Melatonin 10 Mg Tablet PO Not Given QHS [facility] Metoclopramide HCl 5 mg 09/25/24 00:00 09/25/24 11:50 Metoclopramide 10 Mg/2 Ml Vial IV Not Given Q6 [facility] Morphine Sulfate 1 mg 09/24/24 08:03 09/25/24 04:52 Morphine 2 Mg/Ml Syringe IV 1 mg Q3H PRN PRN Administration Pain Score 6-10 Nitroglycerin 0.4 mg 09/23/24 17:02 Nitroglycerin (Inpatient Use) 0.4 Mg Tab.Subl SL Q5M PRN CARDIAC/CHEST PAIN Ondansetron HCl 4 mg 09/25/24 02:17 09/25/24 02:34 Ondansetron 4 Mg/2 Ml Vial IV 4 mg Q4H PRN PRN Administration NAUSEA/VOMITING Sodium Chloride 10 - 40 ml 09/23/24 17:07 09/25/24 09:45 0.9% Saline Lock 10 Ml Syringe IV 10 ml UD PRN Administration SALINE FLUSH PFSH Medical History Stricture of sigmoid colon Diverticulitis large intestine Rheumatoid arthritis Adnexal mass Diverticulosis Colitis Abnormal peripheral pulse Aneurysm of infrarenal abdominal aorta Hiatal hernia with GERD Diverticulitis Chronic back pain Osteoarthritis Hemorrhoid COPD (chronic obstructive pulmonary disease) GERD (gastroesophageal reflux disease) HTN (hypertension) AAA (abdominal aortic aneurysm) Rheumatoid arthritis Home Medications ?Medication ?Instructions ?Recorded ?Last Taken ?Type aspirin 81 mg tablet,delayed 81 mg PO DAILY heart health 10/08/18 03/16/21 18:00 History release denosumab 60 mg/mL subcutaneous 60 mg subcut [id number] bone health 05/12/18 Unknown History syringe (Prolia) folic acid 1 mg tablet 1 mg PO DAILY supplement 05/12/18 Unknown History methotrexate sodium 2.5 mg tablet 7.5 mg PO SA ra 05/12/18 06/21/18 History omeprazole 20 mg capsule,delayed 40 mg PO BID gerd 05/12/18 10/19/20 04:00 History release potassium chloride 20 mEq 20 meq PO QODAY supplement 05/12/18 Unknown History tablet,extended release(part/cryst) (Klor-Con M) prednisone 2.5 mg tablet 2.5 mg PO DAILY ra 05/12/18 10/19/20 04:00 History albuterol sulfate 90 mcg/actuation 1 puff inhalation Q4H PRN PRN Sob 07/11/18 10/19/20 04:00 History aerosol inhaler &/Or Wheezing calcium 600 mg (as 1 tab PO DAILY supplement 07/11/18 Unknown History carbonate)-vitamin D3 20 mcg (800 unit) tablet garlic 1,500 mg capsule 1,000 mg PO DAILY supplement 07/11/18 Unknown History atorvastatin 20 mg tablet 20 mg PO QHS cholesterol 10/19/20 Unknown History adalimumab 40 mg/0.8 mL 40 mg subcut Q14D 09/23/24 Unknown History subcutaneous syringe kit (Humira) chlorthalidone 25 mg tablet 25 mg PO QODAY 09/23/24 Unknown History coenzyme Q10 200 mg capsule (Co 200 mg PO DAILY 09/23/24 Unknown History Q-10) fluticasone propionate 50 2 spray intranasal DAILY PRN nasal 09/23/24 Unknown History mcg/actuation nasal congestion spray,suspension guaifenesin 600 mg tablet, 600 mg PO BID 09/23/24 Unknown History extended release 12 hr (Mucus Relief ER) lidocaine 4 % topical patch 1 patch topical DAILY 09/23/24 Unknown History losartan 50 mg tablet 50 mg PO BID 09/23/24 Unknown History magnesium oxide 400 mg PO BID 09/23/24 Unknown History melatonin 10 mg capsule 10 mg PO QHS 09/23/24 Unknown History polyethylene glycol 3350 17 gram 17 g PO DAILY 09/23/24 Unknown History oral powder packet (Miralax) sennosides 8.6 mg-docusate sodium 1 tab-cap PO BID 09/23/24 Unknown History 50 mg tablet (Senna-S) Allergy/AdvReac Type Severity Reaction Status Date / Time Penicillins Allergy Mild rash Verified 09/23/24 10:19 doxycycline AdvReac Mild gi upset Verified 09/23/24 10:19 levofloxacin (From Levaquin) AdvReac Mild gi upset Verified 09/23/24 10:19 meperidine (From Demerol) AdvReac Mild gi upset Verified 09/23/24 10:19 moxifloxacin (From Avelox) AdvReac Mild gi upset Verified 09/23/24 10:19 Sulfa (Sulfonamide AdvReac Mild gi upset Verified 09/23/24 10:19 Antibiotics) acetaminophen (From AdvReac Nausea/Vom/ Verified 09/23/24 10:19 Tylenol-Codeine) Diarrhea codeine (From AdvReac Nausea/Vom/ Verified 09/23/24 10:19 Tylenol-Codeine) Diarrhea Family History Father Diabetes Hypertension Mother CVA (cerebral vascular accident) Sister Breast cancer Surgical History History of endovascular stent graft for abdominal aortic aneurysm History of abdominal aortic aneurysm (AAA) repair (~10/2020) History of colectomy (~06/2018) History of cataract extraction History of colonoscopy History of tubal ligation History of cholecystectomy Social History Smoking Status: Never smoker how long ago did patient quit smokin yrs Review of Systems (Anesthesia) ROS Narrative System reviewed and no additional complaints, except as documented.
--- NOTE | 2024-09-25 12:40 | PCM.POST.ANE ---
Anesthesia: Postop Eval I Current Vital Signs Temperature: 97 F Pulse Rate: 72 Blood Pressure: 116/82 Respiratory Rate: 20 Pulse Ox: 99 Oxygen Delivery Method: Room Air Assessment Airway patent: Yes Spontaneous unlabored respirations: Yes Mental status: Awake and Calm nausea: No Vomiting: No Anesthesia Complication: No Fluid Hydration Crystalloid volume administer (ml): 20 Total IV fluid infused: 20 Progress Note Anesthesia document: Postop Eval 1 completed: Yes
--- NOTE | 2024-09-25 12:44 | POSTOPAN2_ITS ---
Anesthesia Postop Eval I Sum Postop Eval Completion status Anesthesia document: Postop Eval 1 completed: Yes Anesthesia Postop Eval I Summary Anesthesia Postop Eval I Summary: Anesthesia Postop Eval I: Assessment Summary Airway patent Yes 09/25/24 12:40 PROFESSOR OF RADIOLOGY.MDOT Spontaneous unlabored Yes 09/25/24 12:40 PROFESSOR OF RADIOLOGY.MDOT respirations Mental status Awake,Calm 09/25/24 12:40 PROFESSOR OF RADIOLOGY.MDOT nausea No 09/25/24 12:40 PROFESSOR OF RADIOLOGY.MDOT Vomiting No 09/25/24 12:40 PROFESSOR OF RADIOLOGY.MDOT Anesthesia Postop Eval I: Fluid Summary Crystalloid volume administer 20 09/25/24 12:40 PROFESSOR OF RADIOLOGY.MDOT (ml) Colloids volume administered ( ml) Blood Product volume administered (ml) Total IV fluid infused 20 09/25/24 12:40 PROFESSOR OF RADIOLOGY.MDOT Anesthesia Postop Eval I: Summary Notes Anesthesia Complication No 09/25/24 12:40 PROFESSOR OF RADIOLOGY.MDOT Anesthesia Complication Comment: Post-operative progress note Anesthesia: Postop Eval II Evaluation Mental status: Awake and Calm Pain Level: 0 nausea: No Vomiting: No Complications Anesthesia Complication: No
--- NOTE | 2024-09-25 12:44 | PCM.POSTANE2 ---
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.MDOT Spontaneous unlabored Yes 09/25/24 12:40 CONSTRUCTION TECHNICIAN.MDOT respirations Mental status Awake,Calm 09/25/24 12:40 CONSTRUCTION TECHNICIAN.MDOT nausea No 09/25/24 12:40 CONSTRUCTION TECHNICIAN.MDOT Vomiting No 09/25/24 12:40 CONSTRUCTION TECHNICIAN.MDOT Anesthesia Postop Eval I: Fluid Summary Crystalloid volume administer 20 09/25/24 12:40 CONSTRUCTION TECHNICIAN.MDOT (ml) Colloids volume administered ( ml) Blood Product volume administered (ml) Total IV fluid infused 20 09/25/24 12:40 CONSTRUCTION TECHNICIAN.MDOT Anesthesia Postop Eval I: Summary Notes Anesthesia Complication No 09/25/24 12:40 CONSTRUCTION TECHNICIAN.MDOT Anesthesia Complication Comment: Post-operative progress note Anesthesia: Postop Eval II Evaluation Mental status: Awake and Calm Pain Level: 0 nausea: No Vomiting: No Complications Anesthesia Complication: No
--- NOTE | 2024-09-25 12:45 | COLBX_PTH ---
PATIENT: TRINI FOX LOC: MS3 U#:[id number] AGE/SX: 73/F [place] [facility] [place]: Dr. Farzaneh Ordaz MD : 1950 BED: 1 DIS: 09/25/2024 SPEC #: [id number] RECD: 09/25/24 13:42 STATUS: YE PARKINSON #: [id number] LILO: 09/25/24 12:[address]: Farzaneh Ordaz DEPT: SURGICAL PATHOLOGY RECD BY: [place] Russo ENTERED: 09/25/24 13:57 SP TYPE: COLON BX OT DR: Dr. Scott Loaiza MD Tissues: Sigmoid colon biopsy Procedures: Surgery Specimen Level IV HEADER OPERATION: Colonoscopy with biopsy PRE-OP DIAGNOSIS: GI bleed TISSUE SUBMITTED: Sigmoid colitis biopsy MICROSCOPIC DIAGNOSIS Sigmoid colon, biopsy: Fragments of colonic mucosa with mild non-specific chronic inflammation. See comment. SJ.mr 09/28/2024 COMMENT A detached fragment of tissue with acute inflammatory cells is noted.. Correlation with clinical, endoscopic findings and appropriate follow up are necessary. MICROSCOPIC DESCRIPTION Slides are reviewed. GROSS DESCRIPTION Received in fixative is one container labeled with the patient's name and designated Sigmoid colitis biopsy. The specimen consists of multiple irregular fragments of light oglesby soft tissue that in aggregate measure 1.3 x 0.3 x 0.1 cm. The specimen is totally submitted in one cassette. 09/25/2024 TC:3 CPT:97510
--- NOTE | 2024-09-25 12:51 | OP.COLON_ITS ---
Patient Name: So Ramirez Procedure Date: 09/25/2024 12:06 PM Date of : 1950 Age: 73 Procedure: Colonoscopy Indications: Hematochezia Providers: Wade Fischer DO Medicines: Monitored Anesthesia Care Patient Profile: This is a 73 year old female. Refer to note in patient chart for documentation of history and physical. Last Colonoscopy: several years ago. Complications: No immediate complications. Procedure: Pre-Anesthesia Assessment: - Prior to the procedure, a History and Physical was performed, and patient medications and allergies were reviewed. The patient is competent. The risks and benefits of the procedure and the sedation options and risks were discussed with the patient. All questions were answered and informed consent was obtained. Patient identification and proposed procedure were verified by the physician in the pre-procedure area. Mental Status Examination: alert and oriented. Airway Examination: normal oropharyngeal airway and neck mobility. Respiratory Examination: clear to auscultation. CV Examination: normal. Prophylactic Antibiotics: The patient does not require prophylactic antibiotics. Prior Anticoagulants: The patient has taken no anticoagulant or antiplatelet agents except for NSAID medication. ASA Grade Assessment: II - A patient with mild systemic disease. After reviewing the risks and benefits, the patient was deemed in satisfactory condition to undergo the procedure. The anesthesia plan was to use monitored anesthesia care (MAC). Immediately prior to administration of medications, the patient was re-assessed for adequacy to receive sedatives. The heart rate, respiratory rate, oxygen saturations, blood pressure, adequacy of pulmonary ventilation, and response to care were monitored throughout the procedure. The physical status of the patient was re-assessed after the procedure. After I obtained informed consent, the scope was passed under direct vision. Throughout the procedure, the patient's blood pressure, pulse, and oxygen saturations were monitored continuously. The Colonoscope was introduced through the anus and advanced to the cecum, identified by appendiceal orifice and ileocecal valve. The colonoscopy was performed without difficulty. The patient tolerated the procedure well. The quality of the bowel preparation was adequate. The terminal ileum, ileocecal valve, appendiceal orifice, and rectum were photographed. Scope In: 12:26:44 PM Scope Withdrawal Time 0 hours 8 minutes 21 seconds Scope Out: 12:37:06 PM Total Procedure Duration Time 0 hours 10 minutes 22 seconds Findings: The perianal and digital rectal examinations were normal. Localized severe inflammation characterized by congestion (edema), erythema, friability and granularity was found in the sigmoid colon. Biopsies were taken with a cold forceps for histology. Verification of patient identification for the specimen was done. Estimated blood loss was minimal. Multiple small and large-mouthed diverticula were found in the recto-sigmoid colon, sigmoid colon, descending colon and splenic flexure. There was evidence of a prior end-to-end colo-colonic anastomosis in the recto-sigmoid colon. This was patent and was characterized by healthy appearing mucosa. The anastomosis was traversed. The exam was otherwise without abnormality on direct and retroflexion views. The terminal ileum appeared normal. Impression: - Localized severe inflammation was found in the sigmoid colon secondary to ischemic colitis. Biopsied. - Diverticulosis in the recto-sigmoid colon, in the sigmoid colon, in the descending colon and at the splenic flexure. - Patent end-to-end colo-colonic anastomosis, characterized by healthy appearing mucosa. - The examination was otherwise normal on direct and retroflexion views. - The examined portion of the ileum was normal. Recommendation: - Discharge patient to home. - Resume previous diet. - Continue present medications. - Await pathology results. - Repeat colonoscopy in 2 years for surveillance. Procedure Code(s): --- Professional --- 46489, Colonoscopy, flexible; with biopsy, single or multiple CPT copyright 2021 [employer]. All rights reserved. The codes documented in this report are preliminary and upon television engineer review may be revised to meet current compliance requirements. Wade Fischer DO 09/25/2024 12:50:56 PM This report has been signed electronically. Number of Addenda: 0 Note Initiated On: 09/25/2024 12:06 PM
--- NOTE | 2024-09-25 12:51 | OP.CCLET_ITS ---
09/25/2024 Scott Loaiza Re : Colonoscopy procedure for So Ramirez Dear Fadia This procedure was performed on Wednesday, September 25, 2024. My impressions and recommendations are as follows: Impressions : - Localized severe inflammation was found in the sigmoid colon secondary to ischemic colitis. Biopsied. - Diverticulosis in the recto-sigmoid colon, in the sigmoid colon, in the descending colon and at the splenic flexure. - Patent end-to-end colo-colonic anastomosis, characterized by healthy appearing mucosa. - The examination was otherwise normal on direct and retroflexion views. - The examined portion of the ileum was normal. Recommendations : - Discharge patient to home. - Resume previous diet. - Continue present medications. - Await pathology results. - Repeat colonoscopy in 2 years for surveillance. My findings are described in the full procedure note, which is enclosed. If I can be of further assistance, please feel free to contact me at . Sincerely, Wade Fischer, 09/25/2024 12:50:56 PM This report has been signed electronically.
--- NOTE | 2024-09-25 12:51 | PCM.PN.BLA ---
Progress Note Follow-up in office: [3 weeks] Okay to restart [Aspirin 7 days] on [10/02/2024] New GI related medications for discharge: [None] Follow-up procedures needed: [Colonoscopy in 2 years] Visit Charges Inpatient E&M: 48023 Subs Hosp L1
[2024-09-25] MEDS: Potassium Chloride Oral Tablet 20 MEQ 40 MEQ PO (13:25)
[2024-09-25] MEDS: Losartan Potassium 50 MG Tablet PO (13:25)
[2024-09-25] MEDS: Acetaminophen 325 MG Tablet 650 MG PO (15:43)
--- NOTE | 2024-09-25 16:47 | DS.PCM_ITS ---
Providers Date of Admission: 09/23/24 Date of Discharge: 09/25/24 Primary Care Physician: Dr. Scott Loaiza MD Consultations 09/23/24 17:02 Consult: Gastroenterology Routine Consulting Provider: [facility] Reason for Consult: acute lower GI bleed EMERGENT Consult: No MD Notified: Yes Date Notified: 09/23/24 Time Notified: 15:23 Method of Notification: Text Reason For Visit: LOWER GI BLEED Diagnosis Discharge Diagnosis (1) GI bleed: Status: Acute Code(s): K92.2 - Gastrointestinal hemorrhage, unspecified Plan #Acute lower GI bleed likely due to diverticular bleed * Has not had any more rectal bleeding since she came into the ED. Hemoglobin is 11.1. Has dropped from 14.3 yesterday. * Been hydrated with IV fluid normal saline. CT of the abdomen showed no evidence of bleeding but showed diverticulitis. * Hold any blood thinners. * She does have a history of abdominal aortic aneurysm repair also has a history of laparoscopic sigmoid colectomy back in Due to diverticulosis. * Started on IV Zosyn for the diverticulitis. For colonoscopy tomorrow. N.p.o. past midnight. #Chronic back pain: Patient complaining of back pain. Lidocaine patch, p.o. Tylenol, p.o. oxycodone and IV morphine. #Hypokalemia: Potassium is 3.4. Replace and trend. #Hyperlipidemia: On statin #History of osteoarthritis: On denosumab #Hypertension: On chlorthalidone and losartan #History of rheumatoid arthritis: On methotrexate and adalimumab DVT prophylaxis: SCDs CODE STATUS: Full code * Medications at Discharge Home Medications aspirin 81 mg tablet,delayed release 81 mg PO DAILY heart health 05/12/18 Held on 09/25/24. Instructions: Resume on 10/02/24. denosumab 60 mg/mL subcutaneous syringe (Prolia) 60 mg subcut [id number] bone health 05/12/18 folic acid 1 mg tablet 1 mg PO DAILY supplement 05/12/18 methotrexate sodium 2.5 mg tablet 7.5 mg PO SA ra 05/12/18 omeprazole 20 mg capsule,delayed release 40 mg PO BID gerd 05/12/18 potassium chloride 20 mEq tablet,extended release(part/cryst) (Klor-Con M) 20 meq PO QODAY supplement 05/12/18 prednisone 2.5 mg tablet 2.5 mg PO DAILY ra 05/12/18 albuterol sulfate 90 mcg/actuation aerosol inhaler 1 puff inhalation Q4H PRN PRN Sob &/Or Wheezing 07/11/18 calcium 600 mg (as carbonate)-vitamin D3 20 mcg (800 unit) tablet 1 tab PO DAILY supplement 07/11/18 garlic 1,500 mg capsule 1,000 mg PO DAILY supplement 07/11/18 atorvastatin 20 mg tablet 20 mg PO QHS cholesterol 10/19/20 adalimumab 40 mg/0.8 mL subcutaneous syringe kit (Humira) 40 mg subcut Q14D 09/23/24 chlorthalidone 25 mg tablet 25 mg PO QODAY 09/23/24 coenzyme Q10 200 mg capsule (Co Q-10) 200 mg PO DAILY 09/23/24 fluticasone propionate 50 mcg/actuation nasal spray,suspension 2 spray intranasal DAILY PRN nasal congestion 09/23/24 guaifenesin 600 mg tablet, extended release 12 hr (Mucus Relief ER) 600 mg PO BID 09/23/24 lidocaine 4 % topical patch 1 patch topical DAILY 09/23/24 losartan 50 mg tablet 50 mg PO BID 09/23/24 magnesium oxide 400 mg PO BID 09/23/24 melatonin 10 mg capsule 10 mg PO QHS 09/23/24 polyethylene glycol 3350 17 gram oral powder packet (Miralax) 17 g PO DAILY 09/23/24 sennosides 8.6 mg-docusate sodium 50 mg tablet (Senna-S) 1 tab-cap PO BID 09/23/24 sulfamethoxazole 400 mg-trimethoprim 80 mg tablet (Bactrim) 1 tab PO BID #10 tabs 09/25/24 Hospital Course Operations None Procedures Colonoscopy Summary of Care Provided Minutes Spent on Discharge: 55 Hospital Course: TRINI FOX, is a 73 F with a PMH as outlined who presents via the ED On 09/23/2024 with a complaint of rectal bleeding with associated clots. His symptoms started the day before admission. She says she got up to go to the bathroom and subsequently noted that she had a bloody bowel movement. It was mainly velma blood with large clots. She had several such bowel movements and so this he decided to come into the ED. She denied any lightheadedness or dizziness, palpitations, chest pain, nausea vomiting or any other such symptoms. She has had a history of rectal bleeding before and says she has had a portion of her colon taken out o/a of rectal bleeding with diverticulosis. Review of systems was otherwise negative. Vitals in [facility] ED were BP of 153/88, heart rate of 91, temperature of 98.7 and respiratory rate of 25. She was saturating at 97% on room air. CBC showed hemoglobin of 14.3 with WBC of 13.6 and platelets of 325. Chemistry shows sodium of 134 with potassium of 3.4 and creatinine of 0.89. She was admitted to be managed for acute GI bleed likely due to diverticular bleed. She was kept n.p.o. and hydrated aggressively with IV fluids. She was placed on IV pantoprazole. Gastroenterology was consulted. CTA of the abdomen and pelvis showed no evidence of bleeding but showed diverticulitis. She was started on cefepime for the diverticulitis. She had colonoscopy which showed localized severe inflammation in the sigmoid colon secondary to ischemic colitis which was biopsied as well as diverticulosis in the rectosigmoid colon, sigmoid colon and descending colon and at the splenic flexure and also showed patent end-to-end colonic anastomosis characterized by healthy-appearing mucosa. Patient remained stable and bleeding rectally did not recur throughout admission. Gastroenterology recommended holding her aspirin until October 02, 2023 when she could resume it. She was discharged home on 09/25/2024. She was discharged on p.o. Bactrim for 5-day course to treat the mild case of diverticulitis. She is follow-up with her primary care doctor within 1 to 2 weeks. Patient was seen and examined prior to discharge. She felt well and had no complaints. She had an uneventful night. Review of systems otherwise negative. Labs and vitals reviewed. Home medication reviewed and reconciled. Physical Exam Const alert, oriented x3 and no apparent distress General Appearance: cooperative and comfortable Exam Limitations: no limitations HEENT normocephalic, head/scalp atraumatic, hearing grossly normal bilaterally and moist oral mucous membranes Mouth: oral and palatal mucosa normal Eyes PERRL, EOMs intact bilaterally and conjunctivae normal Neck no lymphadenopathy and supple Resp normal respiratory effort, normal air movement, no use of accessory muscles and clear to auscultation bilaterally Cardio regular rate, regular rhythm, S1 normal heart sound, S2 normal heart sound and no murmurs GI normal to inspection, nondistended, normoactive bowel sounds, soft to palpation, non-tender and non-distended Extremity normal to inspection, full ROM and no clubbing, cyanosis or edema Skin no rashes or lesions noted Neuro oriented x3, CN's II-XII intact bilaterally, moves all extremities and no focal motor deficits Sensorium / Orientation: awake and alert Motor Exam: strength 5/5 throughout Psych affect normal Weight / BMI Weight Weight: 132 lb 1.76 oz Body Mass Index (BMI) 25.9 ABG / Lab / Microbiology Data 09/25/24 05:09 09/25/24 05:09 Laboratory: Laboratory Results - last 24 hr 09/25/24 05:09: WBC 10.5, RBC 4.00 L, Hgb 12.7, Hct 38.2, MCV 95.5, MCH 31.8, MCHC 33.2, RDW Std Deviation 47.6 H, RDW Coeff of Gill 13.6, Plt Count 298, MPV 9.5, Immature Gran % (Auto) 0.400, Neut % (Auto) 56.4, Lymph % (Auto) 27.6, [place]dwell % (Auto) 11.8 H, Eos % (Auto) 3.2, Baso % (Auto) 0.6, Absolute Neuts (auto) 5.9, Absolute Lymphs (auto) 2.90, Nucleated RBC % 0, Sodium 137, Potassium 3.1 L, Chloride 102, Carbon Dioxide 25.0, Anion Gap 10, BUN 5 L, Creatinine 0.66, Estim Creat Clear Calc 49.93, Est GFR (MDRD) Af Amer 113, Est GFR (MDRD) Non-Af 93, B UN/Creatinine Ratio 7.6 L, Glucose 115 H, Calcium 9.9 D/C Instructions Discharge Diet: Low fat / Low cholesterol Discharge Activity: Return to Normal Activity Weight Bearing Status: Weight bearing as tolerated Call your doctor if you observe: Fever of 101 or Higher, Shortness of breath, Swelling in the ankles and Chest pain DC O2, CPAP, BIPAP Needs Home O2 Discharge instructions: No DC home with Oxygen: No Meaningful Use Info Meaningful Use Meaningful Use Diagnoses (Choose all that apply): None applicable Ischemic Stroke Statin Dosing Therapy Reference: STATIN DOSE THERAPY REFERENCE: * Patients > 75 years receive moderate or high dose statin therapy. * Patients 75 years or YOUNGER should receive HIGH intensity statin dose unless contraindicated. You will be required to document reason for non-treatment if statin daily dose does not meet guidelines. HIGH DOSE STATIN THERAPY DAILY Atorvastatin > than or = to 40 mg Rosuvastatin > than or = to 20 mg Amlodipine + Atorvastatin > than or = to 2.5/40 mg Ezetimibe + Simvastatin 10/80 mg Simvastatin 80mg Discharge Plan Admission Admit Date/Time: 09/23/24 12:19 Primary Reason for Your Visit: ischemic colitis Attending Provider: Farzaneh Ordaz Primary Care Provider: Scott Loazia Instructions Patient Instructions: Ischemic Colitis Discharge Orders/Prescriptions Prescriptions: New sulfamethoxazole-trimethoprim [Bactrim] 400-80 mg tablet 1 tab PO BID Qty: 10 0RF Continued Prolia 60 mg/mL syringe 60 mg SC [id number] potassium chloride [Klor-Con M20] 20 mEq tablet,ER particles/crystals 20 meq PO QODAY methotrexate sodium 2.5 mg tablet 7.5 mg PO SA prednisone 2.5 mg tablet 2.5 mg PO DAILY omeprazole 20 mg capsule,delayed release(DR/EC) 40 mg PO BID folic acid 1 mg tablet 1 mg PO DAILY garlic 1,500 MG capsule 1,000 mg PO DAILY albuterol sulfate 1 INHALER inhaler 1 puff INHALATION Q4H PRN PRN (Reason: Sob &/Or Wheezing) calcium carbonate-vitamin D3 1 TAB tablet 1 tab PO DAILY atorvastatin 20 MG tablet 20 mg PO QHS polyethylene glycol 3350 [Miralax] 17 gram powder in packet 17 g PO DAILY sennosides-docusate sodium [Senna-S] 8.6-50 mg tablet 1 tab-cap PO BID lidocaine 4 % adhesive patch,medicated 1 patch topical DAILY melatonin 10 mg capsule 10 mg PO QHS magnesium oxide 400 mg magnesium capsule 400 mg PO BID losartan 50 mg tablet 50 mg PO BID Humira 40 mg/0.8 mL syringe kit 40 mg subcut Q14D fluticasone propionate 50 mcg/actuation spray,suspension 2 spray INTRANASAL DAILY PRN (Reason: nasal congestion) coenzyme Q10 [Co Q-10] 200 mg capsule 200 mg PO DAILY chlorthalidone 25 mg tablet 25 mg PO QODAY guaifenesin [Mucus Relief ER] 600 mg tablet extended release 12hr 600 mg PO BID Held aspirin 81 mg tablet,delayed release (DR/EC) 81 mg PO DAILY Hold Instructions: Resume on 10/02/24. Referrals / Follow Up: Scott Loiaza MD [Primary Care Provider] - Within 1 Week FriendWade DO [Med Staff - Active Staff] - Within 2 Weeks Disposition Disposition (needs filled in before D/C Order can be placed): Home, Self Care Charges/Coding Visit Charges Inpatient E&M: 31286 Disch Hosp >30min
== END 2024-09-25 16:58 | disposition home or self-care (01) | DRG 329 ==
LOC: ED 12:28 → MS3 16:59
PROVIDERS: Internal Medicine Gastroenterology; Admitting Provider Student in an Organized Health Care Education/Training Program; Emergency Provider Emergency Medicine; PCP Internal Medicine; Visit Provider Student in an Organized Health Care Education/Training Program
PROC: 0DJD8ZZ Inspection of Lower Intestinal Tract, Via Natural or Artificial Opening Endoscopic (ICD-10-PCS; CPT 45378; principal; 2024-09-25 12:40)
DX: K57.33 Diverticulitis of large intestine without perforation or abscess with bleeding (principal); K55.039 Acute (reversible) ischemia of large intestine, extent unspecified; J44.9 Chronic obstructive pulmonary disease, unspecified; M06.9 Rheumatoid arthritis, unspecified; I71.40 Abdominal aortic aneurysm, without rupture, unspecified; I10 Essential (primary) hypertension; E78.5 Hyperlipidemia, unspecified; K21.9 Gastro-esophageal reflux disease without esophagitis; K42.9 Umbilical hernia without obstruction or gangrene; K44.9 Diaphragmatic hernia without obstruction or gangrene; E87.6 Hypokalemia; M54.9 Dorsalgia, unspecified; M19.90 Unspecified osteoarthritis, unspecified site; Z79.82 Long term (current) use of aspirin; G89.29 Other chronic pain; N28.1 Cyst of kidney, acquired; Z79.02 Long term (current) use of antithrombotics/antiplatelets; Z79.899 Other long term (current) drug therapy; Z79.631 Long term (current) use of antimetabolite agent; Z79.52 Long term (current) use of systemic steroids; Z88.1 Allergy status to other antibiotic agents; Z88.2 Allergy status to sulfonamides; Z88.5 Allergy status to narcotic agent; Z88.8 Allergy status to other drugs, medicaments and biological substances; Z88.6 Allergy status to analgesic agent; Z90.49 Acquired absence of other specified parts of digestive tract; Z95.828 Presence of other vascular implants and grafts; Z79.51 Long term (current) use of inhaled steroids; Z87.891 Personal history of nicotine dependence; Z98.0 Intestinal bypass and anastomosis status
CPT/HCPCS: 36415; 74174; 80048; 80053; 83605; 85025; 85610; 86850; 86900; 86901; 88305; 93005; 99285; Q9967; A4216; J2405